=== PATIENT | female | born 1980 | race Caucasian/White ===

== ENCOUNTER 2023-10-17 10:24 | Inpatient (IN) ==
--- NOTE | 2023-10-17 10:49 | Emergency Department Note ---
Impression & Plan Suicidal ideation ED Provider Note NAME: BRADLEY ARELLANO AGE: 43 SEX: F : 1980 ARRIVES VIA: Walk-In INFORMANT: [Patient][friend] ED PROVIDER(S): [Josse Turpin MD] CHIEF COMPLAINT: Mental health evaluation HISTORY OF PRESENT ILLNESS: The patient is a 43-year-old female with a history of depression. She has had 2 previous medication overdose attempts. The patient was here 4 days ago for depression but was, at that time, not suicidal and not thought in need of inpatient care. Patient states that in the last 24 hours, she has become suicidal. She had plans to kill herself with a knife. She had a knife at her bedside. Her friend brought her for evaluation. 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 The stress has gotten the best of her. As per her friend, the patient has been stressed and depressed for 3 weeks but things have markedly worsened in the last 24 hours. PMHx/PSHx/Social Hx: See Below PHYSICAL EXAM: GENERAL: Patient is in mild distress, anxious, tearful. HEENT: No acute trauma, normocephalic atraumatic, mucous membranes moist, no nasal congestion. NECK: No stridor, no adenopathy, no meningismus, trachea is midline. LUNGS: Clear to auscultation bilaterally, no wheeze, no rhonchi, breath sounds equal. HEART: Without murmurs gallops or rubs, regular rate and rhythm. ABDOMEN: Soft, nontender, no peritonitis. EXTREMITIES: No cyanosis, full range of motion of all the joints without pain or difficulty. NEUROLOGIC: Oriented x 3, no acute motor or sensory deficits, no focal weakness. SKIN: No jaundice, no diaphoresis. Psychiatric: Flat affect, tearful, anxious, admits to suicidal ideation with a plan to harm herself with a knife. DIFFERENTIAL DIAGNOSIS: Psychosis, depression, anxiety, suicidality, thyroid disorder, electrolyte imbalance, among others. EMERGENCY DEPARTMENT PROCEDURES: MEDICAL DECISION MAKING: There is no leukocytosis or concerning anemia. Platelet count very slightly elevated. No significant electrolyte abnormality, no renal failure. No concerning liver enzyme elevation. Patient appeared to be in a euthyroid state. testing was negative. Urinalysis showed some contamination, no infection. Aspirin, Tylenol and alcohol levels were undetectable. COVID test was negative. Urine tox was negative. On exam, the patient admitted to some suicidal ideation with a plan to harm herself with a knife. She was tearful. She was voluntary. The patient was felt medically clear. She was seen by psychiatry case management. She was eventually seen by our psychiatry services, [facility]. The patient has been accepted voluntarily to [facility]. The appropriate paperwork was completed and signed. Prior/Outside records/notes reviewed: ED visit note from 10/13/2023 discussing her presentation and depression. Imaging/x-ray results per my interpretation: Chronic Medical/Social conditions affecting care: Depression. Care/Management discussed with: Psychiatry case management. Level of care consideration(s): After review of the information above and other included data: --I believe the patient requires escalation of care to admission DISPOSITION: Admission voluntarily to the psychiatric floor. Past Med/Surg History Medical History Bilateral ovarian cysts Low bone mass Carpal tunnel syndrome on left 2016 Congenital valgus deformity of knee Vitamin D deficiency Obese Depression Surgical History History of dilatation and curettage after delivery S/P LASIK surgery of both eyes Social History Smoking Status: Never smoker Preferred Language: [place] Islander Communication Ability: Effective Teleservices Representative Required: No Beliefs That Will Affect Care: Cultural Feels Safe at Home: Yes Gender Identity: Female Assistive Devices: None Allergies Allergies Allergy/AdvReac Type Severity Reaction Status Date / Time No Known Allergies Allergy Verified 06/16/22 10:22 Home Meds Home Medications Medication Instructions Recorded Confirmed ergocalciferol (vitamin D2) 1,250 1,250 mcg PO .COMPLEX 06/16/22 06/16/22 mcg (50,000 unit) capsule (Vitamin D2) meloxicam 15 mg tablet 15 mg PO DAILY 06/16/22 10/17/23 sulfasalazine 500 mg tablet 1 g PO TID 06/16/22 10/17/23 gabapentin 300 mg PO BID 10/17/23 10/17/23 Results & Data (ED) Vital Signs Vital Signs - 24 hr 10/17/23 10:27 10/17/23 12:30 10/17/23 14:00 Temperature 36.5 C Temperature Source Temporal Artery Scan Pulse Rate 91 H Pulse Rate [Right Finger] 90 97 H Respiratory Rate 20 18 18 Respiratory Effort / Characteristics Non-Labored Spontaneous Respiratory Depth Normal Blood Pressure 126/86 Blood Pressure [Right Arm] 131/89 145/105 H Blood Pressure Mean 99 Blood Pressure Mean [Right Arm] 103 118 Pulse Oximetry 98 93 96 Oxygen Delivery Method Room Air Room Air Sepsis Recent Fever Within 48 Hours No Sepsis New/Unexplained Change in Mental Status No Sepsis Action Taken by Nursing No Action Required Home Medications Current Medication List: was personally reviewed by me Laboratory Data Attestation: I reviewed the patient's lab results. 10/17/23 10:51 10/17/23 10:51 Lab Results 10/17/23 10/17/23 Range/Units 10:42 10:51 WBC 8.29 (4.8-10.8) K/ul RBC 3.92 L (4.20-5.40) M/uL Hgb 12.5 (12.0-16.0) g/dl Hct 37.0 (37.0-47.0) % MCV 94.4 (80.0-100.0) fL MCH 31.9 (25.0-34.0) pg MCHC 33.8 (32.0-36.0) g/dL RDW Std Deviation 42.3 (36.4-46.3) fL RDW Coeff of Bill 12.2 (11.5-14.5) % Plt Count 406 H (130-400) K/uL MPV 9.8 (9.4-12.4) fL Immature Gran % (Auto) 0.4 % Neut % (Auto) 58.0 % Lymph % (Auto) 30.9 % [place] % (Auto) 10.4 % Eos % (Auto) 0.2 % Baso % (Auto) 0.1 % Neut # (Auto) 4.81 (1.40-6.50) K/uL Lymph # (Auto) 2.56 (1.20-3.40) K/uL [place] # (Auto) 0.86 H (0.11-0.59) K/uL Eos # (Auto) 0.02 (0.00-0.50) K/uL Baso # (Auto) 0.01 (0.00-0.20) K/uL Immature Gran # (Auto) 0.03 (0.01-0.20) K/uL Sodium 136 (136-145) mmol/L Potassium 3.5 (3.5-5.1) mmol/L Chloride 105 (98-107) mmol/L Carbon Dioxide 22 (21-32) mmol/L Anion Gap 9 (3-11) BUN 11 (6-23) mg/dl Creatinine 0.52 L (0.6-1.2) mg/dl Est Cr Clr Drug Dosing 135.5 ml/min Est GFR ( Amer) 133.7 ml/min Est GFR (Non-Af Amer) 115.4 ml/min BUN/Creatinine Ratio 21.2 H (10-20) Glucose 105 H (70-99(Fasting)) mg/dl Calcium 8.9 (8.6-10.3) mg/dl Total Bilirubin 1.0 (0.2-1.0) mg/dl AST 10 L (13-39) U/L ALT 5 L (7-52) U/L Alkaline Phosphatase 29 L (34-104) U/L Total Protein 6.8 (6.0-8.3) gm/dl Albumin 4.1 (3.4-5.0) gm/dl Globulin 2.7 (2.5-4.0) gm/dl Albumin/Globulin Ratio 1.5 (0.9-2) TSH 0.845 (0.300-4.500) uIu/ml HCG, Qual Negative (Negative) Urine Color Dark Yellow Urine Appearance Cloudy A (Clear) Urine pH 8.5 H (4.5-7.5) Ur Specific [place] 1.016 (1.000-1.030) Urine Protein Negative (Negative) Urine Glucose (UA) Negative (Negative) Urine Ketones 1+ H (Negative) Urine Blood Negative (Negative) Urine Nitrite Negative (Negative) Urine Bilirubin Negative (Negative) Urine Urobilinogen Negative (Negative) Ur Leukocyte Esterase 1+ H (Negative) Urine WBC (Auto) 5-10 H (0-5) /hpf Urine RBC (Auto) 0-4 (0-4) /hpf U Hyaline Cast (Auto) 1-5 (0-5) /lpf U Epithel Cells (Auto) >30 H (0-5) /lpf Urine Bacteria (Auto) Negative (Negative) Salicylates < 3.0 L (3.0-30) mg/dl Urine Opiates Screen Neg (Neg) Ur Methadone, Qual Neg (Neg) Acetaminophen < 3 L (10-30) ug/ml Urine Barbiturates Neg (Neg) Ur Phencyclidine (PCP) Neg (Neg) U Amphetamin/Meth Scrn Neg (Neg) MDMA (Ecstasy) Screen Neg (Neg) U Benzodiazepines Scrn Neg (Neg) Ur Cocaine Metabolite Neg (Neg) U Marijuana (THC) Screen Neg (Neg) Ethyl Alcohol mg/dL < 10.0 (<10.0) mg/dl SARS-CoV-2, RNA, NAAT NEGATIVE (NEGATIVE) Administered Medications Gabapentin (Gabapentin 300 Mg Cap) 300 mg PO BID [facility] Stop: 11/16/23 15:49 Last Admin: 10/17/23 16:26 Dose: 300 mg Documented By: BNT Meloxicam (Meloxicam 7.5 Mg Tab) 7.5 mg PO QAM ARTHUR Stop: 11/16/23 15:59 Last Admin: 10/17/23 16:26 Dose: 7.5 mg Documented By: BNT Sulfasalazine (Sulfasalazine 500 Mg Tablet) 1,000 mg PO TID ARTHUR Stop: 11/16/23 15:49 Last Admin: 10/17/23 16:24 Dose: 1,000 mg Documented By: BNT Discharge Plan Visit Data Chief Complaint: Mental Health Evaluation Stated Complaint: SEVERE DEPRESSION ED Provider: Josse Turpin Discharge Problem: Suicidal ideation Patient Disposition: Admitted As Inpatient Condition: Good Discharge Instructions Interventions: ED Discharge Assessment Last Done: 10/17/23 14:23
[2023-10-17 11:22] LABS: Basophils # (auto) 0.01 K/uL (0.00-0.20); Basophils % (auto) 0.1 %; Eosinophils # (auto) 0.02 K/uL (0.00-0.50); Eosinophils % (auto) 0.2 %; Hemoglobin 12.5 g/dl (12.0-16.0); Immature Granulocytes # (auto) 0.03 K/uL (0.01-0.20); Immature Granulocytes % (auto) 0.4 %; Lymphocytes # (auto) 2.56 K/uL (1.20-3.40); Lymphocytes % (auto) 30.9 %; Mean Corpuscular Hemoglobin 31.9 pg (25.0-34.0); Mean Corpuscular Hgb Conc 33.8 g/dL (32.0-36.0); Mean Corpuscular Volume 94.4 fL (80.0-100.0); Mean Platelet Volume 9.8 fL (9.4-12.4); Monocytes # (auto) 0.86 K/uL (0.11-0.59); Monocytes % (auto) 10.4 %; Neutrophils # (auto) 4.81 K/uL (1.40-6.50); Platelet Count 406 K/uL (130-400); RDW Coefficient of Variation 12.2 % (11.5-14.5); RDW Standard Deviation 42.3 fL (36.4-46.3); Red Blood Count 3.92 M/uL (4.20-5.40); White Blood Count 8.29 K/ul (4.8-10.8)
[2023-10-17 11:34] LABS: Acetaminophen < 3 ug/ml (10-30); Albumin Globulin Ratio 1.5 (0.9-2); Albumin Level 4.1 gm/dl (3.4-5.0); BUN Creatinine Ratio 21.2 (10-20); Calcium 8.9 mg/dl (8.6-10.3); Creatinine Clr Calc Pharmacy 135.5 ml/min; Est GFR (African American) 133.7 ml/min; Est GFR (Non-African American) 115.4 ml/min; Globulin 2.7 gm/dl (2.5-4.0); Potassium 3.5 mmol/L (3.5-5.1); Salicylate < 3.0 mg/dl (3.0-30); Total Protein 6.8 gm/dl (6.0-8.3)
[2023-10-17 11:35] LABS: Amphetamines+Metham, Urine Neg (Neg); Barbiturates, Urine Neg (Neg); Benzodiazepine, Urine Neg (Neg); Cocaine, Urine Neg (Neg); MDMA (Ecstacy), Urine Neg (Neg); Marijuana, Urine Neg (Neg); Methadone, Urine Neg (Neg); Opiate, Urine Neg (Neg); Phencyclidine, Urine Neg (Neg)
[2023-10-17 11:48] LABS: Thyroid Stimulating Hormone 0.845 uIu/ml (0.300-4.500)
[2023-10-17 12:07] LABS: Appearance Urine Cloudy (Clear); Bacteria Urine Automated Negative (Negative); Bilirubin Urine Negative (Negative); Blood Urine Negative (Negative); Color Urine Dark Yellow; Epithelial Cell Urine Auto >30 /lpf (0-5); Glucose Urine UA Negative (Negative); Ketones Urine 1+ (Negative); Leukocyte Esterase Urine 1+ (Negative); Nitrite Urine Negative (Negative); Protein Urine Negative (Negative); RBC Urine Automated 0-4 /hpf (0-4); Specific Gravity Urine 1.016 (1.000-1.030); Urobilinogen Urine Negative (Negative); pH Urine 8.5 (4.5-7.5)
[2023-10-17 12:22] LABS: Pregnancy Test, Serum Negative (Negative)
[2023-10-17] MEDS ORDERED: ACETAMINOPHEN 325 MG TAB PO PRN (14:10)
[2023-10-17] MEDS ORDERED: BISMUTH SUBSALICYLATE LIQD 236 ML PO PRN (14:10)
[2023-10-17] MEDS ORDERED: SODIUM CHLORIDE 0.65% NA SOLN 45 ML (OCEAN) PRN (14:10)
[2023-10-17] MEDS ORDERED: ALUMINUM/MAGNESIUM SUSP 30 ML UDC PO PRN (14:10)
[2023-10-17] MEDS ORDERED: MAGNESIUM HYDROXIDE SUSP 30 ML UDC PO PRN (14:10)
[2023-10-17] MEDS ORDERED: PROPRANOLOL HCL 20 MG TAB PO PRN (15:26)
[2023-10-17] MEDS: sulfaSALAzine 500 MG TABLET PO SCH (16:24)
[2023-10-17] MEDS: MELOXICAM 7.5 MG TAB PO SCH (16:26)
[2023-10-17] MEDS: GABAPENTIN 300 MG CAP PO SCH (16:26)
[2023-10-17] MEDS: hydrOXYzine HCl 25 MG TAB PO PRN (21:14)
--- NOTE | 2023-10-18 13:11 | History & Physical ---
Date of Service October 18, 2023 Impression / Recommendations Impression 43 yo female with a hx of recurrent major depressive episodes refractory to multiple classes of medication, ketamine, and ECT. Overall, I spent a total of 58 minutes with this case, including review of chart, direct evaluation of the patient, counseling the patient, coordination with nursing, and documentation. (1) Major depression, recurrent: Plan The patient was admitted to [facility] on q15 min checks (behavioral with suicide precautions) for safety. The patient will participate in group, recreational, and milieu therapies and will be offered additional individual and family sessions as clinically appropriate. Risks/benefits/alternatives reviewed re: remaining therapeutic classes such as TCA vs. selegiline. Patient unable to consider TMS or ECT with maintenance without insurance. Inventory Assets Strengths: intelligent, did seek help Needs: improve coping and supports Suicide Risk Level Suicide Risk Level: High-Moderate (q15 min suicide checks) Risk Factors Assessment Do You Have Access To A Gun?: No Mental Health Diagnoses: Yes Substance Use Disorders: No Previous Attempt: Yes Previous Psychiatric Hospitalization: Yes Protective Factors Assessment Responsible for Young Children: Yes Employed: No Supportive Family: Yes (but in [place]) Psychiatric History Identifying Data BRADLEY ARELLANO is a 43-year-old F who currently lives in [place], has a history of treatment refractory depression, and was admitted on 10/17/23 14:31 on a 201 voluntary commitment for with plan. Chief Complaint "I wanted to end it with a knife yesterday". History of Present Illness Patient reports multiple episodes of depression, steadily worsening each episode since at least 2017 when tried ketamine infusions in [place] then ultimately agreeing to consecutive courses of ECT (10-18, 30+ total at 2 centers--[facility] and [facility]). She was hospitalized at [place] in 04/22 following an OD on Inderal, which was initially prescribed for lithium tremor. She notes hopelessness, particularly as tried "25" meds and "only time" gets her out of these episodes where she can't focus or function. She denies any periods of hermilo or hypomania and was treated with mood stabilizers and/or atypical antipsychotics mainly as adjunctive strategies. She typically can't sleep (though Vistaril last pm was helpful) and can't eat. She lacks motivation toward all activities and is overwhelmed by the concept of working. 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 She continues to see her therapist from [facility]. Otherwise she has a contentious relationship with her ex- . They coparent her 14 yo daughter. She is worried about finances. Past Psychiatric History Previous Psych History: as above Current Psychiatric Diagnosis: Depression Outpatient Services: last meds 18 months ago--Dr. Fry ([place]) Do You Have Access To A Gun?: No History of Previous Suicide Attempt: Yes (Apr 2022) Past Medication Trials: Records pending--recalls Remeron, duloxetine, sertraline, Wellbutrin, citalopram, Abilify, Cymbalta, Seroquel, lithium, Ketamine, lithium, gabapentin, lamictal Allergies Allergy/AdvReac Type Severity Reaction Status Date / Time No Known Allergies Allergy Verified 06/16/22 10:22 Home Medications Medication Instructions Recorded Confirmed Type ergocalciferol (vitamin D2) 1,250 1,250 mcg PO .COMPLEX 06/16/22 06/16/22 History mcg (50,000 unit) capsule (Vitamin D2) meloxicam 15 mg tablet 15 mg PO DAILY 06/16/22 10/17/23 History sulfasalazine 500 mg tablet 1 g PO TID 06/16/22 10/17/23 History gabapentin 300 mg PO BID 10/17/23 10/17/23 History Family History Family History of: Depression Family Mental Health History Comment: mother- undiagnosed Alcohol History Hx of Alcohol Use Over the Past 12 Months: No AUDIT Total Score: 0 Smoking Use Smoking Status: Never smoker Substance History Hx of Prescription Med Misuse Over the Past 12 Months: No Hx of Over the Counter Med Misuse Over the Past 12 Months: No Hx of Inhalent Misuse Over the Past 12 Months: No Hx of Organic Substance Use Over the Past 12 Months: No Hx of Illegal Substances/Street Drug Use Over Past 12 Months: No Personal History Living Arrangements: Home Born In: [facility] 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) Employment Status: Unemployed Marital Status: Number Of Children: 14 yo britt Beliefs That Will Affect Care: Cultural Current Legal Problems: No Patient History Medical History Bilateral ovarian cysts Low bone mass Carpal tunnel syndrome on left 2017 Congenital valgus deformity of knee Vitamin D deficiency Obese Depression Surgical History History of dilatation and curettage after delivery S/P LASIK surgery of both eyes Social History Smoking Status: Never smoker Preferred Language: Malay Communication Ability: Effective Clean Room Operator Required: No Beliefs That Will Affect Care: Cultural Feels Safe at Home: Yes Gender Identity: Female Assistive Devices: None Review of Systems Review of Systems: All systems reviewed & are unremarkable except as noted in HPI & below Physical Exam Psychiatric: Orientation: alert and oriented x 3 Apperance: appropriately dressed and appropriately groomed Eye Contact: good eye contact Motor Behavior: no abnormal motor movements Speech: normal rate/rhythm/volume of speech Affect: + depressed affect Mood: + depressed mood Thought Process: goal directed thought process Thought Content: reality based without delusions Suicidal Thoughts: + reports suicidal thoughts and + reports suicidal plan (cut self with knife, denies urge to cut on unit) Homicidal Thoughts: denies homicidal thoughts Hallucinations: no auditory hallucinations and no visual hallucinations Cognition: attention grossly intact and language grossly intact Estimated Intelligence: consistent with education level Insight: + limited insight Judgment: + limited judgement Vital Signs (Past 24 Hours): Last Vital Signs Temp 36.9 C 10/18/23 06:45 Pulse 86 10/18/23 06:46 Resp 16 10/18/23 06:45 BP 121/82 10/18/23 06:46 Pulse Ox 96 10/17/23 15:54 O2 Del Method Room Air 10/17/23 15:54 Exam Statement: A physical exam was performed in the ED by Dr. Turpin for the purposes of medical clearance. I accept that physical as correct and adequate for the purposes of the inpatient physical exam. Results & Data ([facility]) Laboratory Results Labs 10/17/23 10/17/23 10:42 10:51 WBC 8.29 RBC 3.92 L Hgb 12.5 Hct 37.0 MCV 94.4 MCH 31.9 MCHC 33.8 RDW Std Deviation 42.3 RDW Coeff of Bill 12.2 Plt Count 406 H MPV 9.8 Immature Gran % (Auto) 0.4 Neut % (Auto) 58.0 Lymph % (Auto) 30.9 [place] % (Auto) 10.4 Eos % (Auto) 0.2 Baso % (Auto) 0.1 Neut # (Auto) 4.81 Lymph # (Auto) 2.56 [place] # (Auto) 0.86 H Eos # (Auto) 0.02 Baso # (Auto) 0.01 Immature Gran # (Auto) 0.03 Sodium 136 Potassium 3.5 Chloride 105 Carbon Dioxide 22 Anion Gap 9 BUN 11 Creatinine 0.52 L Est Cr Clr Drug Dosing 135.5 Est GFR ( Amer) 133.7 Est GFR (Non-Af Amer) 115.4 BUN/Creatinine Ratio 21.2 H Glucose 105 H Calcium 8.9 Total Bilirubin 1.0 AST 10 L ALT 5 L Alkaline Phosphatase 29 L Total Protein 6.8 Albumin 4.1 Globulin 2.7 Albumin/Globulin Ratio 1.5 TSH 0.845 HCG, Qual Negative Urine Color Dark Yellow Urine Appearance Cloudy A Urine pH 8.5 H Ur Specific [place] 1.016 Urine Protein Negative Urine Glucose (UA) Negative Urine Ketones 1+ H Urine Blood Negative Urine Nitrite Negative Urine Bilirubin Negative Urine Urobilinogen Negative Ur Leukocyte Esterase 1+ H Urine WBC (Auto) 5-10 H Urine RBC (Auto) 0-4 U Hyaline Cast (Auto) 1-5 U Epithel Cells (Auto) >30 H Urine Bacteria (Auto) Negative Salicylates < 3.0 L Urine Opiates Screen Neg Ur Methadone, Qual Neg Acetaminophen < 3 L Urine Barbiturates Neg Ur Phencyclidine (PCP) Neg U Amphetamin/Meth Scrn Neg MDMA (Ecstasy) Screen Neg U Benzodiazepines Scrn Neg Ur Cocaine Metabolite Neg U Marijuana (THC) Screen Neg Ethyl Alcohol mg/dL < 10.0 SARS-CoV-2, RNA, NAAT NEGATIVE Current Inpatient Medications Current Inpatient Medications: Current Inpatient Medications Acetaminophen (Acetaminophen 325 Mg Tab) 650 mg PO Q4H PRN PRN Reason: Headache or Minor Fever Stop: 11/16/23 14:09 Al Hydrox/Mg Hydrox/Simethicone (Aluminum/Magnesium Susp 30 Ml Udc) 30 ml PO Q4H PRN PRN Reason: GI Upset Stop: 11/16/23 14:09 Bismuth Subsalicylate (Bismuth Subsalicylate Liqd 236 Ml) 15 ml PO PRN PRN PRN Reason: Loose Stool Stop: 11/16/23 14:09 Gabapentin (Gabapentin 300 Mg Cap) 300 mg PO BID ARTHUR Stop: 11/16/23 15:49 Last Admin: 10/18/23 09:12 Dose: 300 mg Hydroxyzine HCl (Hydroxyzine Hcl 25 Mg Tab) 50 mg PO HSZ PRN PRN Reason: Insomnia Stop: 11/16/23 14:09 Last Admin: 10/17/23 21:14 Dose: 50 mg Hydroxyzine HCl (Hydroxyzine Hcl 25 Mg Tab) 25 mg PO Q4H PRN PRN Reason: Anxiety Stop: 11/16/23 14:09 Magnesium Hydroxide (Magnesium Hydroxide Susp 30 Ml Udc) 30 ml PO DAILY PRN PRN Reason: Constipation Stop: 11/16/23 14:09 Meloxicam (Meloxicam 7.5 Mg Tab) 7.5 mg PO QAM ARTHUR Stop: 11/16/23 15:59 Last Admin: 10/18/23 09:12 Dose: 7.5 mg Sodium Chloride (Sodium Chloride 0.65% Na Soln 45 Ml ([place])) 1 - 2 sprays NA PRN PRN PRN Reason: Nasal Dryness/Congestion Stop: 11/16/23 14:09 Sulfasalazine (Sulfasalazine 500 Mg Tablet) 1,000 mg PO TID ARTHUR Stop: 11/16/23 15:49 Last Admin: 10/18/23 09:11 Dose: 1,000 mg
[2023-10-19] MEDS: hydrOXYzine HCl 25 MG TAB PO PRN (08:53)
--- NOTE | 2023-10-19 11:39 | Psychiatric Progress Note ---
Date of Service October 19, 2023 Impression / Recommendations Impression 43 yo female with a hx of recurrent major depressive episodes refractory to multiple classes of medication, ketamine, and ECT. 10/19/2023: remains extremely depressed with poor functioning, significant suicide risk outside of the hospital Overall, I spent a total of 37 minutes with this case, including review of chart, direct evaluation of the patient, counseling the patient, coordination with nursing, and documentation. (1) Major depression, recurrent: Plan 10/19/2023: risks/benefits/alternatives reviewed re: Selegeline vs. a retrial of stimulant (fast acting, generic), particularly given likelihood of f/u with [facility] on discharge feel selegeline not a realistic option. Patient confirmed no hx of cardiac abnormality/arrthymia. Agreed to Ritalin 10 mg trial dose with likely TID meals. 10/18/2023: The patient was admitted to the [facility] on q15 min checks (behavioral with suicide precautions) for safety. The patient will participate in group, recreational, and milieu therapies and will be offered additional individual and family sessions as clinically appropriate. Risks/benefits/alternatives reviewed re: remaining therapeutic classes such as TCA vs. selegiline. Patient unable to consider TMS or ECT with maintenance without insurance. Inventory Assets Strengths: intelligent, did seek help Needs: improve coping and supports Suicide Risk Level Suicide Risk Level: High-Moderate (q15 min suicide checks) Risk Factors Assessment Mental Health Diagnoses: Yes Substance Use Disorders: No Previous Attempt: Yes Previous Psychiatric Hospitalization: Yes Protective Factors Assessment Responsible for Young Children: Yes Employed: No Supportive Family: Yes (but in [place]) Interval History Identifying Information BRADLEY ARELLANO is a 43-year-old F who currently lives in [place], has a history of treatment refractory depression, and was admitted on 10/17/23 14:31 on a 201 voluntary commitment for SI with plan. Chief Complaint "when can I go home?" tearful Review of Systems Sleep Information Total Hours of Sleep: 7.75 Meal Information Percent Meal Consumed - Breakfast: 30 Percent Meal Consumed - Lunch: 80 Percent Meal Consumed - Dinner: [address] Fry returned call and listed onset of antidepressant trials as 2005 while a resident in [place], he treated her from [id number] and confirmed ECT courses in 2017 and 2021. in chronological order he is aware of: Lexapro, Effexor, Abilify, SEroquel, Lamictal, [place], Latuda, Geodon, Topmax, Ritalin (patient had thought Adderall XR), Trintellix, carbazepine, lorazepam, Cymbalta, pramipexole. Subjective Subjective Patient was seen & assessed and interval progress reviewed with treatment team. Attending some groups, otherwise in bed, easily tearful. Low motivation and energy. Physical Exam Psychiatric Orientation: alert and oriented x 3 Apperance: appropriately dressed and appropriately groomed Eye Contact: good eye contact Motor Behavior: no abnormal motor movements Speech: normal rate/rhythm/volume of speech Affect: + depressed affect Mood: + depressed mood Thought Process: goal directed thought process Thought Content: reality based without delusions Suicidal Thoughts: denies suicidal plan (on unit); + reports suicidal thoughts (intermittent, hopeless) Homicidal Thoughts: denies homicidal thoughts Hallucinations: no auditory hallucinations and no visual hallucinations Cognition: attention grossly intact and language grossly intact Estimated Intelligence: consistent with education level Insight: + limited insight Judgment: + limited judgement Vital Signs (Past 24 Hours) Last Vital Signs Temp 36.6 C 10/19/23 06:00 Pulse 105 H 10/19/23 06:54 Resp 16 10/19/23 06:00 BP 129/86 10/19/23 06:54 Pulse Ox 96 10/17/23 15:54 O2 Del Method Room Air 10/17/23 15:54 Results & Data ([facility]) Current Inpatient Medications Current Inpatient Medications: Current Inpatient Medications Acetaminophen (Acetaminophen 325 Mg Tab) 650 mg PO Q4H PRN PRN Reason: Headache or Minor Fever Stop: 11/16/23 14:09 Al Hydrox/Mg Hydrox/Simethicone (Aluminum/Magnesium Susp 30 Ml Udc) 30 ml PO Q4H PRN PRN Reason: GI Upset Stop: 11/16/23 14:09 Bismuth Subsalicylate (Bismuth Subsalicylate Liqd 236 Ml) 15 ml PO PRN PRN PRN Reason: Loose Stool Stop: 11/16/23 14:09 Gabapentin (Gabapentin 300 Mg Cap) 300 mg PO BID ARTHUR Stop: 11/16/23 15:49 Last Admin: 10/19/23 08:50 Dose: 300 mg Hydroxyzine HCl (Hydroxyzine Hcl 25 Mg Tab) 50 mg PO HSZ PRN PRN Reason: Insomnia Stop: 11/16/23 14:09 Last Admin: 10/18/23 21:41 Dose: 50 mg Hydroxyzine HCl (Hydroxyzine Hcl 25 Mg Tab) 25 mg PO Q4H PRN PRN Reason: Anxiety Stop: 11/16/23 14:09 Last Admin: 10/19/23 08:53 Dose: 25 mg Magnesium Hydroxide (Magnesium Hydroxide Susp 30 Ml Udc) 30 ml PO DAILY PRN PRN Reason: Constipation Stop: 11/16/23 14:09 Meloxicam (Meloxicam 7.5 Mg Tab) 7.5 mg PO QAM ARTHUR Stop: 11/16/23 15:59 Last Admin: 10/19/23 08:50 Dose: 7.5 mg Methylphenidate HCl (Methylphenidate Hcl 10 Mg Tablet) 10 mg PO ONE ONE Stop: 10/19/23 11:28 Sodium Chloride (Sodium Chloride 0.65% Na Soln 45 Ml ([place])) 1 - 2 sprays NA PRN PRN PRN Reason: Nasal Dryness/Congestion Stop: 11/16/23 14:09 Sulfasalazine (Sulfasalazine 500 Mg Tablet) 1,000 mg PO TID ARTHUR Stop: 11/16/23 15:49 Last Admin: 10/19/23 08:50 Dose: 1,000 mg Mental Health & Subst Abuse Tx Therapist Name of Therapist: Tele-health Post Discharge Appointments Primary Care Physician Name Of Family Doctor/PCP: Dr. Yusuf No
[2023-10-19] MEDS: METHYLPHENIDATE HCL 10 MG TABLET PO ONE (11:43)
[2023-10-20] MEDS: METHYLPHENIDATE HCL 10 MG TABLET PO SCH (08:44)
[2023-10-20] MEDS: DEXTROAMPHETAMINE/AMPHETAMIME IR 5 MG TAB PO ONE (13:04)
--- NOTE | 2023-10-20 14:52 | Psychiatric Progress Note ---
Date of Service October 20, 2023 Impression / Recommendations Impression 43 yo female with a hx of recurrent major depressive episodes refractory to multiple classes of medication, ketamine, and ECT. 10/20/2023: remains extremely depressed with poor functioning, significant suicide risk outside of the hospital with multiple barriers to aftercare and safety planning. Overall, I spent a total of 35 minutes with this case, including review of chart, direct evaluation of the patient, counseling the patient, coordination with nursing, and documentation. (1) Major depression, recurrent: Plan 10/20/2023: d/c Ritalin in favor of trial of Adderall 10 mg today then 15 mg 7 am with plan for a 2 pm dose if tolerated to complete the trial. Patient requesting Vistaril scheduled as helpful. TCA trial could be considered but concerns about toxicity in OD. 10/19/2023: risks/benefits/alternatives reviewed re: Selegeline vs. a retrial of stimulant (fast acting, generic), particularly given likelihood of f/u with [facility] on discharge feel selegeline not a realistic option. Patient confirmed no hx of cardiac abnormality/arrthymia. Agreed to Ritalin 10 mg trial dose with likely TID meals. 10/18/2023: The patient was admitted to the [facility] ([facility] inpatient mental health unit) on q15 min checks (behavioral with suicide precautions) for safety. The patient will participate in group, recreational, and milieu therapies and will be offered additional individual and family sessions as clinically appropriate. Risks/benefits/alternatives reviewed re: remaining therapeutic classes such as TCA vs. selegiline. Patient unable to consider TMS or ECT with maintenance without insurance. Inventory Assets Strengths: intelligent, did seek help Needs: improve coping and supports Suicide Risk Level Suicide Risk Level: High-Moderate (q15 min suicide checks) Risk Factors Assessment Mental Health Diagnoses: Yes Substance Use Disorders: No Previous Attempt: Yes Previous Psychiatric Hospitalization: Yes Protective Factors Assessment Responsible for Young Children: Yes Employed: No Supportive Family: Yes (but in [place]) Interval History Identifying Information BRADLEY ARELLANO is a 43-year-old F who currently lives in [place], has a history of treatment refractory depression, and was admitted on 10/17/23 14:31 on a 201 voluntary commitment for SI with plan. Chief Complaint "I felt no different." Review of Systems Sleep Information Total Hours of Sleep: 8.5 Meal Information Percent Meal Consumed - Breakfast: 30 Percent Meal Consumed - Lunch: 70 Percent Meal Consumed - Dinner: [address] Fry returned call and listed onset of antidepressant trials as 2005 while a resident in [place], he treated her from [id number] and confirmed ECT courses in 2017 and 2021. in chronological order he is aware of: Lexapro, Effexor, Abilify, SEroquel, Lamictal, [place], Latuda, Geodon, Topmax, Ritalin (patient had thought Adderall XR), Trintellix, carbazepine, lorazepam, Cymbalta, pramipexole. Subjective Subjective Patient was seen & assessed and interval progress reviewed with nursing and social work. Patient spends much of time in bed. She is easily tearful. Attended community meeting and meals but otherwise little interaction. Ongoing barriers to safety plan and after care include lack of insurance, reported lack of anyone to stay with her following discharge for a few days for extra support and supervision, etc. Daughter remains with exhusband. Reports no side effects or perceived response to 10 mg Ritalin last pm or 20 mg this am and patient in bed with low energy at peak of dose. Medication Trials Dr. Fry returned call and listed onset of antidepressant trials as 2005 while a resident in [place], he treated her from [id number] and confirmed ECT courses in 2017 and 2021. in chronological order he is aware of: Lexapro, Effexor, Abilify, SEroquel, Lamictal, [place], Latuda, Geodon, Topmax, Ritalin (patient had thought Adderall XR), Trintellix, carbazepine, ketamine, lorazepam, Cymbalta, pramipexole. Patient previously reported trials of Remeron, sertraline, Wellbutrin, citalopram. 10/20/23 reports trial of fluoxetine. Physical Exam Psychiatric Orientation: alert and oriented x 3 Apperance: appropriately dressed and appropriately groomed Eye Contact: good eye contact Motor Behavior: no abnormal motor movements Speech: normal rate/rhythm/volume of speech Affect: + depressed affect Mood: + depressed mood Thought Process: goal directed thought process Thought Content: reality based without delusions Suicidal Thoughts: denies suicidal plan (on unit); + reports suicidal thoughts (intermittent, hopeless) Homicidal Thoughts: denies homicidal thoughts Hallucinations: no auditory hallucinations and no visual hallucinations Cognition: attention grossly intact and language grossly intact Estimated Intelligence: consistent with education level Insight: + limited insight Judgment: + limited judgement Vital Signs (Past 24 Hours) Last Vital Signs Temp 35.9 C L 10/20/23 06:00 Pulse 102 H 10/20/23 06:36 Resp 16 10/20/23 06:00 BP 131/84 10/20/23 06:36 Pulse Ox 96 10/17/23 15:54 O2 Del Method Room Air 10/17/23 15:54 Results & Data ([facility]) Current Inpatient Medications Current Inpatient Medications: Current Inpatient Medications Acetaminophen (Acetaminophen 325 Mg Tab) 650 mg PO Q4H PRN PRN Reason: Headache or Minor Fever Stop: 11/16/23 14:09 Al Hydrox/Mg Hydrox/Simethicone (Aluminum/Magnesium Susp 30 Ml Udc) 30 ml PO Q4H PRN PRN Reason: GI Upset Stop: 11/16/23 14:09 Bismuth Subsalicylate (Bismuth Subsalicylate Liqd 236 Ml) 15 ml PO PRN PRN PRN Reason: Loose Stool Stop: 11/16/23 14:09 Gabapentin (Gabapentin 300 Mg Cap) 300 mg PO BID ARTHUR Stop: 11/16/23 15:49 Last Admin: 10/20/23 08:44 Dose: 300 mg Hydroxyzine HCl (Hydroxyzine Hcl 25 Mg Tab) 50 mg PO HSZ PRN PRN Reason: Insomnia Stop: 11/16/23 14:09 Last Admin: 10/19/23 20:24 Dose: 50 mg Hydroxyzine HCl (Hydroxyzine Hcl 25 Mg Tab) 25 mg PO Q4H PRN PRN Reason: Anxiety Stop: 11/16/23 14:09 Last Admin: 10/19/23 08:53 Dose: 25 mg Magnesium Hydroxide (Magnesium Hydroxide Susp 30 Ml Udc) 30 ml PO DAILY PRN PRN Reason: Constipation Stop: 11/16/23 14:09 Meloxicam (Meloxicam 7.5 Mg Tab) 7.5 mg PO QAM ARTHUR Stop: 11/16/23 15:59 Last Admin: 10/20/23 08:44 Dose: 7.5 mg Sodium Chloride (Sodium Chloride 0.65% Na Soln 45 Ml (Melissa)) 1 - 2 sprays NA PRN PRN PRN Reason: Nasal Dryness/Congestion Stop: 11/16/23 14:09 Sulfasalazine (Sulfasalazine 500 Mg Tablet) 1,000 mg PO TID ARTHUR Stop: 11/16/23 15:49 Last Admin: 10/20/23 14:13 Dose: 1,000 mg Mental Health & Subst Abuse Tx Therapist Name of Therapist: Tele-health Post Discharge Appointments Primary Care Physician Name Of Family Doctor/PCP: [facility] - Dr. Ferris Primary Care Date of Future Appointment with PCP: 10/26/23 Time of Appointment with PCP: 9:25 arrival Provider Appointment Comment: Garrett Diaz, [address], [place] [address]
[2023-10-20] MEDS: hydrOXYzine HCl 25 MG TAB PO SCH (21:02)
[2023-10-21] MEDS: DEXTROAMPHETAMINE/AMPHETAMIME IR 5 MG TAB PO SCH (06:52)
--- NOTE | 2023-10-21 14:21 | Psychiatric Progress Note ---
Date of Service October 21, 2023 Impression / Recommendations Impression 43 yo female with a hx of recurrent major depressive episodes refractory to multiple classes of medication, ketamine, and ECT. 10/21/2023: unchanged--remains extremely depressed with poor functioning, significant suicide risk outside of the hospital with multiple barriers to aftercare and safety planning. Overall, I spent a total of 35 minutes with this case, including review of chart, direct evaluation of the patient, counseling the patient, coordination with nursing, and documentation. (1) Major depression, recurrent: Plan 10/21/2023: complete Adderall trial. now has insurance but will not cover a provider able to manage selegiline. Will as Dr. Marie for a 2nd opinion re: TCA trial with short supplies/care med safety plan. 10/20/2023: d/c Ritalin in favor of trial of Adderall 10 mg today then 15 mg 7 am with plan for a 2 pm dose if tolerated to complete the trial. Patient requesting Vistaril scheduled as helpful. TCA trial could be considered but concerns about toxicity in OD. 10/19/2023: risks/benefits/alternatives reviewed re: Selegeline vs. a retrial of stimulant (fast acting, generic), particularly given likelihood of f/u with [facility] on discharge feel selegeline not a realistic option. Patient confirmed no hx of cardiac abnormality/arrthymia. Agreed to Ritalin 10 mg trial dose with likely TID meals. 10/18/2023: The patient was admitted to the [facility] ([facility] mental health unit) on q15 min checks (behavioral with suicide precautions) for safety. The patient will participate in group, recreational, and milieu therapies and will be offered additional individual and family sessions as clinically appropriate. Risks/benefits/alternatives reviewed re: remaining therapeutic classes such as TCA vs. selegiline. Patient unable to consider TMS or ECT with maintenance without insurance. Inventory Assets Strengths: intelligent, did seek help Needs: improve coping and supports Suicide Risk Level Suicide Risk Level: High-Moderate (q15 min suicide checks) Risk Factors Assessment Mental Health Diagnoses: Yes Substance Use Disorders: No Previous Attempt: Yes Previous Psychiatric Hospitalization: Yes Protective Factors Assessment Responsible for Young Children: Yes Employed: No Supportive Family: Yes (but in [place]) Interval History Identifying Information BRADLEY ARELLANO is a 43-year-old F who currently lives in [place], has a history of treatment refractory depression, and was admitted on 10/17/23 14:31 on a 201 voluntary commitment for SI with plan. Chief Complaint "I'm not getting better." tearful Review of Systems Sleep Information Total Hours of Sleep: 6.5 Meal Information Percent Meal Consumed - Breakfast: 40 Percent Meal Consumed - Lunch: 70 Percent Meal Consumed - Dinner: [address] Fry returned call and listed onset of antidepressant trials as 2005 while a resident in [place], he treated her from [id number] and confirmed ECT courses in 2017 and 2021. in chronological order he is aware of: Lexapro, Effexor, Abilify, SEroquel, Lamictal, [place], Latuda, Geodon, Topmax, Ritalin (patient had thought Adderall XR), Trintellix, carbazepine, ketamine, lorazepam, Cymbalta, pramipexole. Patient previously reported trials of Remeron, sertraline, Wellbutrin, citalopram. 10/20/23 reports trial of fluoxetine. Subjective Subjective Patient was seen & assessed and interval progress reviewed with treatment team. patient continues to spend excessive time in room, is participating in meals. A friend who is an employee attempted to visit her. Misses daughter. denies active SI on unit but very hopeless, limited functioning. No perceived benefit from am Adderall, denies side effects. at time of visit with patient wrote for 2 pm dose with plan to reassess in am. Medication Trials Dr. Fry returned call and listed onset of antidepressant trials as 2005 while a resident in [place], he treated her from [id number] and confirmed ECT courses in 2017 and 2021. in chronological order he is aware of: Lexapro, Effexor, Abilify, SEroquel, Lamictal, [place], Latuda, Geodon, Topmax, Ritalin (patient had thought Adderall XR), Trintellix, carbazepine, ketamine, lorazepam, Cymbalta, pramipexole. Patient previously reported trials of Remeron, sertraline, Wellbutrin, citalopram. 10/20/23 reports trial of fluoxetine. Physical Exam Psychiatric Orientation: alert and oriented x 3 Apperance: appropriately dressed and appropriately groomed Eye Contact: good eye contact Motor Behavior: no abnormal motor movements Speech: normal rate/rhythm/volume of speech Affect: + depressed affect Mood: + depressed mood Thought Process: goal directed thought process Thought Content: reality based without delusions Suicidal Thoughts: denies suicidal plan (on unit); + reports suicidal thoughts (intermittent, hopeless) Homicidal Thoughts: denies homicidal thoughts Hallucinations: no auditory hallucinations and no visual hallucinations Cognition: attention grossly intact and language grossly intact Estimated Intelligence: consistent with education level Insight: + limited insight Judgment: + limited judgement Vital Signs (Past 24 Hours) Last Vital Signs Temp 36.8 C 10/21/23 06:32 Pulse 97 H 10/21/23 06:33 Resp 16 10/21/23 06:32 BP 127/82 10/21/23 06:33 Pulse Ox 96 10/17/23 15:54 O2 Del Method Room Air 10/17/23 15:54 Results & Data ([facility]) Current Inpatient Medications Current Inpatient Medications: Current Inpatient Medications Acetaminophen (Acetaminophen 325 Mg Tab) 650 mg PO Q4H PRN PRN Reason: Headache or Minor Fever Stop: 11/16/23 14:09 Al Hydrox/Mg Hydrox/Simethicone (Aluminum/Magnesium Susp 30 Ml Udc) 30 ml PO Q4H PRN PRN Reason: GI Upset Stop: 11/16/23 14:09 Amphetamine/Dextroamphetamine (Dextroamphetamine/Amphetamime Ir 5 Mg Tab) 15 mg PO [id number] [facility] Stop: 11/04/23 06:59 Last Admin: 10/21/23 14:11 Dose: 15 mg Bismuth Subsalicylate (Bismuth Subsalicylate Liqd 236 Ml) 15 ml PO PRN PRN PRN Reason: Loose Stool Stop: 11/16/23 14:09 Gabapentin (Gabapentin 300 Mg Cap) 300 mg PO BID ARTHUR Stop: 11/16/23 15:49 Last Admin: 10/21/23 10:00 Dose: 300 mg Hydroxyzine HCl (Hydroxyzine Hcl 25 Mg Tab) 50 mg PO HSZ PRN PRN Reason: Insomnia Stop: 11/16/23 14:09 Last Admin: 10/19/23 20:24 Dose: 50 mg Hydroxyzine HCl (Hydroxyzine Hcl 25 Mg Tab) 25 mg PO Q4H PRN PRN Reason: Anxiety Stop: 11/16/23 14:09 Last Admin: 10/19/23 08:53 Dose: 25 mg Hydroxyzine HCl (Hydroxyzine Hcl 25 Mg Tab) 50 mg PO HS ARTHUR Stop: 11/19/23 21:59 Last Admin: 10/20/23 21:02 Dose: 50 mg Magnesium Hydroxide (Magnesium Hydroxide Susp 30 Ml Udc) 30 ml PO DAILY PRN PRN Reason: Constipation Stop: 11/16/23 14:09 Meloxicam (Meloxicam 7.5 Mg Tab) 7.5 mg PO QAM ARTHUR Stop: 11/16/23 15:59 Last Admin: 10/21/23 10:01 Dose: 7.5 mg Sodium Chloride (Sodium Chloride 0.65% Na Soln 45 Ml ([place])) 1 - 2 sprays NA PRN PRN PRN Reason: Nasal Dryness/Congestion Stop: 11/16/23 14:09 Sulfasalazine (Sulfasalazine 500 Mg Tablet) 1,000 mg PO TID ARTHUR Stop: 11/16/23 15:49 Last Admin: 10/21/23 14:10 Dose: 1,000 mg Mental Health & Subst Abuse Tx Therapist Name of Therapist: Tele-health Post Discharge Appointments Primary Care Physician Name Of Family Doctor/PCP: [facility] - Dr. Ferris Primary Care Date of Future Appointment with PCP: 10/26/23 Time of Appointment with PCP: 9:25 arrival Provider Appointment Comment: Garrett Diaz, [address], [place] [address]
--- NOTE | 2023-10-22 16:39 | Psychiatric Progress Note ---
Date of Service October 22, 2023 Impression / Recommendations Impression 43 yo female with a hx of recurrent major depressive episodes refractory to multiple classes of medication, ketamine, and ECT. 10/22/2023: unchanged--remains extremely depressed with poor functioning, significant suicide risk outside of the hospital with multiple barriers to aftercare and safety planning. Overall, I spent a total of 35 minutes with this case, including review of chart, direct evaluation of the patient, counseling the patient, coordination with nursing, and documentation. (1) Major depression, recurrent: Plan 10/22/2023: The patient and I discussed several options of what we can do to try to help her mood. This included nortriptyline, clozapine, loxapine, Emsam patch, and augmentation of an antidepressant with Cytomel. Unfortunately, she has very limited financial resources. Loxapine is not available on formulary here. We decided to start nortriptyline 50 mg at bedtime. I reviewed the uses, side effects, and time course with her and she gave informed consent. I worry about discharging her on a tricyclic and so when that happens, we may only give 1 week of medication out at a time. I encouraged the patient to continue to go to groups and activities to try to help improve her mood as well. 10/21/2023: complete Adderall trial. now has insurance but will not cover a provider able to manage selegiline. Will as Dr. Maire for a 2nd opinion re: TCA trial with short supplies/care med safety plan. 10/20/2023: d/c Ritalin in favor of trial of Adderall 10 mg today then 15 mg 7 am with plan for a 2 pm dose if tolerated to complete the trial. Patient requesting Vistaril scheduled as helpful. TCA trial could be considered but concerns about toxicity in OD. 10/19/2023: risks/benefits/alternatives reviewed re: Selegeline vs. a retrial of stimulant (fast acting, generic), particularly given likelihood of f/u with [facility] on discharge feel selegeline not a realistic option. Patient confirmed no hx of cardiac abnormality/arrthymia. Agreed to Ritalin 10 mg trial dose with likely TID meals. 10/18/2023: The patient was admitted to the [facility] ([facility] mental health unit) on q15 min checks (behavioral with suicide precautions) for safety. The patient will participate in group, recreational, and milieu therapies and will be offered additional individual and family sessions as clinically appropriate. Risks/benefits/alternatives reviewed re: remaining therapeutic classes such as TCA vs. selegiline. Patient unable to consider TMS or ECT with maintenance without insurance. Inventory Assets Strengths: intelligent, did seek help Needs: improve coping and supports Suicide Risk Level Suicide Risk Level: High-Moderate (q15 min suicide checks) Risk Factors Assessment Mental Health Diagnoses: Yes Substance Use Disorders: No Previous Attempt: Yes Previous Psychiatric Hospitalization: Yes Protective Factors Assessment Responsible for Young Children: Yes Employed: No Supportive Family: Yes (but in [place]) Interval History Identifying Information BRADLEY ARELLANO is a 43-year-old F who currently lives in [place], has a history of treatment refractory depression, and was admitted on 10/17/23 14:31 on a 201 voluntary commitment for with plan. Chief Complaint "I had another episode of depression." Review of Systems Sleep Information Total Hours of Sleep: 10.25 Meal Information Percent Meal Consumed - Breakfast: 40 Percent Meal Consumed - Lunch: 40 Percent Meal Consumed - Dinner: [address] Fry returned call and listed onset of antidepressant trials as 2005 while a resident in [place], he treated her from [id number] and confirmed ECT courses in and 2021. in chronological order he is aware of: Lexapro, Effexor, Abilify, SEroquel, Lamictal, [place], Latuda, Geodon, Topmax, Ritalin (patient had thought Adderall XR), Trintellix, carbazepine, ketamine, lorazepam, Cymbalta, pramipexole. Patient previously reported trials of Remeron, sertraline, Wellbutrin, citalopram. 10/20/23 reports trial of fluoxetine. Subjective Subjective Today I met with the patient, received nursing report, and reviewed the chart. I also reviewed the checkout notes from Dr. Parada from yesterday. Bradley is in our hospital due to severe depression with suicidal ideation. Staff report that she still been very depressed and tearful at times. She is trying hard to participating groups and activities. When I met with the patient today, I spent quite a bit of time talking with her about the medication she has been on in the past. She said that she was having suicidal thoughts and had a plan to use a knife to end her life. However, she says that thinking of her 14-year-old daughter kept her from hurting herself. She has been feeling this badly now for about 3 weeks. From asking her lots of questions, I gather that she has been on the following meds: Prozac, Zoloft, Paxil, Lexapro, Celexa, Remeron, Wellbutrin, Effexor, Cymbalta, Trintellix, imipramine, doxepin, lithium, buspirone, Depakote, Tegretol, lamotrigine, gabapentin, Seroquel, Abilify, Zyprexa, Geodon, Latuda, Ritalin, and Adderall. She was on the Ritalin and Adderall just for the last couple of days but does n ot feel that they helped at all. Medication Trials Dr. Fry returned call and listed onset of antidepressant trials as 2005 while a resident in [place], he treated her from [id number] and confirmed ECT courses in 2017 and 2021. in chronological order he is aware of: Lexapro, Effexor, Abilify, SEroquel, Lamictal, [place], Latuda, Geodon, Topmax, Ritalin (patient had thought Adderall XR), Trintellix, carbazepine, ketamine, lorazepam, Cymbalta, pramipexole. Patient previously reported trials of Remeron, sertraline, Wellbutrin, citalopram. 10/20/23 reports trial of fluoxetine. Physical Exam Psychiatric Patient was alert and cooperative. Eye contact was good. She was clean and well-groomed. Speech was normal. Mood was depressed. Affect was tearful. Thought process is slightly hopeful and that she is hoping that we will find something that will work. There was no evidence of any hallucinations or delusions. Patient still having thoughts of suicide but denies homicidal thoughts. Memory and concentration were okay. No abnormal movements were seen. Gait was normal. Insight and judgment are impaired. Vital Signs (Past 24 Hours) Last Vital Signs Temp 37 C 10/22/23 06:40 Pulse 116 H 10/22/23 06:40 Resp 16 10/22/23 06:40 BP 123/91 10/22/23 06:40 Pulse Ox 96 10/17/23 15:54 O2 Del Method Room Air 10/17/23 15:54 Results & Data ([facility]) Current Inpatient Medications Current Inpatient Medications: Current Inpatient Medications Acetaminophen (Acetaminophen 325 Mg Tab) 650 mg PO Q4H PRN PRN Reason: Headache or Minor Fever Stop: 11/16/23 14:09 Al Hydrox/Mg Hydrox/Simethicone (Aluminum/Magnesium Susp 30 Ml Udc) 30 ml PO Q4H PRN PRN Reason: GI Upset Stop: 11/16/23 14:09 Bismuth Subsalicylate (Bismuth Subsalicylate Liqd 236 Ml) 15 ml PO PRN PRN PRN Reason: Loose Stool Stop: 11/16/23 14:09 Gabapentin (Gabapentin 300 Mg Cap) 300 mg PO BID ARTHUR Stop: 11/16/23 15:49 Last Admin: 10/22/23 09:27 Dose: 300 mg Hydroxyzine HCl (Hydroxyzine Hcl 25 Mg Tab) 50 mg PO HSZ PRN PRN Reason: Insomnia Stop: 11/16/23 14:09 Last Admin: 10/19/23 20:24 Dose: 50 mg Hydroxyzine HCl (Hydroxyzine Hcl 25 Mg Tab) 25 mg PO Q4H PRN PRN Reason: Anxiety Stop: 11/16/23 14:09 Last Admin: 10/19/23 08:53 Dose: 25 mg Hydroxyzine HCl (Hydroxyzine Hcl 25 Mg Tab) 50 mg PO HS ARTHUR Stop: 11/19/23 21:59 Last Admin: 10/21/23 21:09 Dose: 50 mg Magnesium Hydroxide (Magnesium Hydroxide Susp 30 Ml Udc) 30 ml PO DAILY PRN PRN Reason: Constipation Stop: 11/16/23 14:09 Meloxicam (Meloxicam 7.5 Mg Tab) 7.5 mg PO QAM ARTHUR Stop: 11/16/23 15:59 Last Admin: 10/22/23 09:27 Dose: 7.5 mg Nortriptyline HCl (Nortriptyline Hcl 25 Mg Cap) 50 mg PO HS ARTHUR Stop: 11/21/23 21:59 Sodium Chloride (Sodium Chloride 0.65% Na Soln 45 Ml ([place])) 1 - 2 sprays NA PRN PRN PRN Reason: Nasal Dryness/Congestion Stop: 11/16/23 14:09 Sulfasalazine (Sulfasalazine 500 Mg Tablet) 1,000 mg PO TID ARTHUR Stop: 11/16/23 15:49 Last Admin: 10/22/23 14:15 Dose: 1,000 mg Mental Health & Subst Abuse Tx Therapist Name of Therapist: Tele-health Post Discharge Appointments Primary Care Physician Name Of Family Doctor/PCP: [facility] - Dr. Ferris Primary Care Date of Future Appointment with PCP: 10/26/23 Time of Appointment with PCP: 9:25 arrival Provider Appointment Comment: Garrett Diaz, [address], [place] [address]
[2023-10-22] MEDS ORDERED: LOXAPINE 10 MG PO SCH (21:00)
[2023-10-22] MEDS: NORTRIPTYLINE HCL 25 MG CAP PO SCH (21:43)
--- NOTE | 2023-10-23 10:45 | Psychiatric Progress Note ---
Date of Service October 23, 2023 Impression / Recommendations Impression 43 yo female with a hx of recurrent major depressive episodes refractory to multiple classes of medication, ketamine, and ECT. 10/23/2023: The patient seems to be tolerating the nortriptyline so far, but it will take quite a while to work. Otherwise she seems to be unchanged--remains extremely depressed with poor functioning, significant suicide risk outside of the hospital with multiple barriers to aftercare and safety planning. Overall, I spent a total of 37 minutes with this case, including review of chart, direct evaluation of the patient, counseling the patient, coordination with nursing, and documentation. (1) Major depression, recurrent: Plan 10/23/2023: We are going to continue with her current level of observation and precautions. We will continue with the nortriptyline at 50 mg for now. I encouraged her to try to go to a few extra groups if possible. I am still very concerned about her safety. Also concerned about sending her home with nortriptyline so we are going to need a good safety plan. Today I talked her about behavioral activation. 10/22/2023: The patient and I discussed several options of what we can do to try to help her mood. This included nortriptyline, clozapine, loxapine, Emsam patch, and augmentation of an antidepressant with Cytomel. Unfortunately, she has very limited financial resources. Loxapine is not available on formulary here. We decided to start nortriptyline 50 mg at bedtime. I reviewed the uses, side effects, and time course with her and she gave informed consent. I worry about discharging her on a tricyclic and so when that happens, we may only give 1 week of medication out at a time. I encouraged the patient to continue to go to groups and activities to try to help improve her mood as well. 10/21/2023: complete Adderall trial. now has insurance but will not cover a provider able to manage selegiline. Will as Dr. Marie for a 2nd opinion re: TCA trial with short supplies/care med safety plan. 10/20/2023: d/c Ritalin in favor of trial of Adderall 10 mg today then 15 mg 7 am with plan for a 2 pm dose if tolerated to complete the trial. Patient requesting Vistaril scheduled as helpful. TCA trial could be considered but concerns about toxicity in OD. 10/19/2023: risks/benefits/alternatives reviewed re: Selegeline vs. a retrial of stimulant (fast acting, generic), particularly given likelihood of f/u with [facility] on discharge feel selegeline not a realistic option. Patient confirmed no hx of cardiac abnormality/arrthymia. Agreed to Ritalin 10 mg trial dose with likely TID meals. 10/18/2023: The patient was admitted to the [facility] ([facility] mental health unit) on q15 min checks (behavioral with suicide precautions) for safety. The patient will participate in group, recreational, and milieu therapies and will be offered additional individual and family sessions as clinically appropriate. Risks/benefits/alternatives reviewed re: remaining therapeutic cl asses such as TCA vs. selegiline. Patient unable to consider TMS or ECT with maintenance without insurance. Inventory Assets Strengths: intelligent, did seek help Needs: improve coping and supports Suicide Risk Level Suicide Risk Level: High-Moderate (q15 min suicide checks) Risk Factors Assessment Mental Health Diagnoses: Yes Substance Use Disorders: No Previous Attempt: Yes Previous Psychiatric Hospitalization: Yes Protective Factors Assessment Responsible for Young Children: Yes Employed: No Supportive Family: Yes (but in [place]) Interval History Identifying Information BRADLEY ARELLANO is a 43-year-old F who currently lives in [place], has a history of treatment refractory depression, and was admitted on 10/17/23 14:31 on a 201 voluntary commitment for SI with plan. Chief Complaint "I had another episode of depression." Review of Systems Sleep Information Total Hours of Sleep: 8 Sleep Comments: pt given vistaril per rn. pt on q-15 minute checks Meal Information Percent Meal Consumed - Breakfast: 0 Percent Meal Consumed - Lunch: 40 Percent Meal Consumed - Dinner: [address] Fry returned call and listed onset of antidepressant trials as 2005 while a resident in [place], he treated her from [id number] and confirmed ECT courses in 2017 and 2021. in chronological order he is aware of: Lexapro, Effexor, Abilify, SEroquel, Lamictal, [place], Latuda, Geodon, Topmax, Ritalin (patient had thought Adderall XR), Trintellix, carbazepine, ketamine, lorazepam, Cymbalta, pramipexole. Patient previously reported trials of Remeron, sertraline, Wellbutrin, citalopram. 10/20/23 reports trial of fluoxetine. Subjective Subjective Today I met with the patient, received nursing report, and reviewed the chart. I also reviewed the checkout notes from Dr. Parada from yesterday. Bradley is in our hospital due to severe depression with suicidal ideation. Staff report that she started the nortriptyline last evening without any problems. She was able to get some sleep. Staff noticed that she is really avoiding a lot of the groups and tending to isolate in her room a lot. She is eating food. When I met with the patient today, we reviewed how the day went yesterday. She still feeling very sad. However, she had a good visit with some friends. She tolerated the nortriptyline and slept well. She did have a little bit of dry mouth. Appetite has been low. She describes her mood today as "low." She told me that she attended 2 groups yesterday. She thinks that last night she had 4 or 5 hours of sleep. She denies any medical issues. She denies any hallucinations. She says her suicidal thoughts have dropped down from an 8 or 9 at admission down to a 5 out of 10; these are all where 10 is the worst that they could ever be. She denies any homicidal thoughts. Medication Trials Dr. Fry returned call and listed onset of antidepressant trials as 2005 while a resident in [place], he treated her from [id number] and confirmed ECT courses in 2017 and 2021. in chronological order he is aware of: Lexapro, Effexor, Abilify, SEroquel, Lamictal, [place], Latuda, Geodon, Topmax, Ritalin (patient had thought Adderall XR), Trintellix, carbazepine, ketamine, lorazepam, Cymbalta, pramipexole. Patient previously reported trials of Remeron, sertraline, Wellbutrin, citalopram. 10/20/23 reports trial of fluoxetine. Physical Exam Psychiatric Patient was alert and cooperative. Eye contact was good. She was clean and well-groomed. Speech was normal. Mood was "low." Affect was very restricted but not tearful today. Thought process is logical and seems somewhat goal- directed. There was no evidence of any hallucinations or delusions. Patient still having thoughts of suicide as I listed above, but denies homicidal thoughts. Memory and concentration were okay. No abnormal movements were seen. Gait was normal. Insight and judgment are impaired. Vital Signs (Past 24 Hours) Last Vital Signs Temp 36.7 C 10/23/23 06:43 Pulse 101 H 10/23/23 06:44 Resp 16 10/23/23 06:43 BP 124/76 10/23/23 06:44 Pulse Ox 96 10/17/23 15:54 O2 Del Method Room Air 10/17/23 15:54 Results & Data ([facility]) Current Inpatient Medications Current Inpatient Medications: Current Inpatient Medications Acetaminophen (Acetaminophen 325 Mg Tab) 650 mg PO Q4H PRN PRN Reason: Headache or Minor Fever Stop: 11/16/23 14:09 Al Hydrox/Mg Hydrox/Simethicone (Aluminum/Magnesium Susp 30 Ml Udc) 30 ml PO Q4H PRN PRN Reason: GI Upset Stop: 11/16/23 14:09 Bismuth Subsalicylate (Bismuth Subsalicylate Liqd 236 Ml) 15 ml PO PRN PRN PRN Reason: Loose Stool Stop: 11/16/23 14:09 Gabapentin (Gabapentin 300 Mg Cap) 300 mg PO BID ARTHUR Stop: 11/16/23 15:49 Last Admin: 10/23/23 09:24 Dose: 300 mg Hydroxyzine HCl (Hydroxyzine Hcl 25 Mg Tab) 50 mg PO HSZ PRN PRN Reason: Insomnia Stop: 11/16/23 14:09 Last Admin: 10/19/23 20:24 Dose: 50 mg Hydroxyzine HCl (Hydroxyzine Hcl 25 Mg Tab) 25 mg PO Q4H PRN PRN Reason: Anxiety Stop: 11/16/23 14:09 Last Admin: 10/19/23 08:53 Dose: 25 mg Hydroxyzine HCl (Hydroxyzine Hcl 25 Mg Tab) 50 mg PO HS ARTHUR Stop: 11/19/23 21:59 Last Admin: 10/22/23 21:43 Dose: 50 mg Magnesium Hydroxide (Magnesium Hydroxide Susp 30 Ml Udc) 30 ml PO DAILY PRN PRN Reason: Constipation Stop: 11/16/23 14:09 Meloxicam (Meloxicam 7.5 Mg Tab) 7.5 mg PO QAM ARTHUR Stop: 11/16/23 15:59 Last Admin: 10/23/23 09:24 Dose: 7.5 mg Nortriptyline HCl (Nortriptyline Hcl 25 Mg Cap) 50 mg PO HS ARTHUR Stop: 11/21/23 21:59 Last Admin: 10/22/23 21:43 Dose: 50 mg Sodium Chloride (Sodium Chloride 0.65% Na Soln 45 Ml ([place])) 1 - 2 sprays NA PRN PRN PRN Reason: Nasal Dryness/Congestion Stop: 11/16/23 14:09 Sulfasalazine (Sulfasalazine 500 Mg Tablet) 1,000 mg PO TID ARTHUR Stop: 11/16/23 15:49 Last Admin: 10/23/23 09:23 Dose: 1,000 mg Mental Health & Subst Abuse Tx Therapist Name of Therapist: Tele-health Post Discharge Appointments Primary Care Physician Name Of Family Doctor/PCP: [facility] - Dr. Ferris Primary Care Date of Future Appointment with PCP: 10/26/23 Time of Appointment with PCP: 9:25 arrival Provider Appointment Comment: Garrett Diaz, [address], [place] [address] (1) Major depression, recurrent Active/Remission status: currently active Major depression episode severity: severe Psychotic features: without psychotic features Qualified Code(s): F33.2 - Major depressive disorder, recurrent severe without psychotic features
[2023-10-24] MEDS: cloNIDine HCL 0.1 MG TAB PO ONE (11:31)
--- NOTE | 2023-10-24 14:02 | Psychiatric Progress Note ---
Date of Service October 24, 2023 Impression / Recommendations Impression 43 yo female with a hx of recurrent major depressive episodes refractory to multiple classes of medication, ketamine, and ECT. 10/24/2023: Patient is tolerating the nortriptyline, but she is still extremely depressed and melancholy. She has been isolating more. She is still requiring inpatient psychiatric hospitalization for her safety. She remains extremely depressed with poor functioning, significant suicide risk outside of the hospital with multiple barriers to aftercare and safety planning. Overall, I spent a total of 38 minutes with this case, including review of chart, direct evaluation of the patient, coordination with nursing, multidisciplinary treatment team meeting, orders, and documentation. (1) Major depression, recurrent: Plan 10/24/2023: We will continue with her current level of observation and precautions. We will continue with the nortriptyline at 50 mg, but I will likely raise it when I can. I encouraged her to try to distract herself with groups, activities, books, TV, or what ever else she can think of. I wrote for a one-time dose of clonidine 0.1 mg this morning to help with her rumination and help her sleep a little bit. I also added a as needed dose of clonidine that she can take 1 hour after her nortriptyline if she still cannot sleep. 10/23/2023: We are going to continue with her current level of observation and precautions. We will continue with the nortriptyline at 50 mg for now. I encouraged her to try to go to a few extra groups if possible. I am still very concerned about her safety. Also concerned about sending her home with nortriptyline so we are going to need a good safety plan. Today I talked her about behavioral activation. 10/22/2023: The patient and I discussed several options of what we can do to try to help her mood. This included nortriptyline, clozapine, loxapine, Emsam patch, and augmentation of an antidepressant with Cytomel. Unfortunately, she has very limited financial resources. Loxapine is not available on formulary here. We decided to start nortriptyline 50 mg at bedtime. I reviewed the uses, side effects, and time course with her and she gave informed consent. I worry about discharging her on a tricyclic and so when that happens, we may only give 1 week of medication out at a time. I encouraged the patient to continue to go to groups and activities to try to help improve her mood as well. 10/21/2023: complete Adderall trial. now has insurance but will not cover a provider able to manage selegiline. Will as Dr. Marie for a 2nd opinion re: TCA trial with short supplies/care med safety plan. 10/20/2023: d/c Ritalin in favor of trial of Adderall 10 mg today then 15 mg 7 am with plan for a 2 pm dose if tolerated to complete the trial. Patient requesting Vistaril scheduled as helpful. TCA trial could be considered but concerns about toxicity in OD. 10/19/2023: risks/benefits/alternatives reviewed re: Selegeline vs. a retrial of stimulant (fast acting, generic), particularly given likelihood of f/u with [facility] on discharge feel selegeline not a realistic option. Patient confirmed no hx of cardiac abnormality/arrthymia. Agreed to Ritalin 10 mg trial dose with likely TID meals. 10/18/2023: The patient was admitted to the [facility] ([facility] mental health unit) on q15 min checks (behavioral with suicide precautions) for safety. The patient will participate in group, recreational, and milieu therapies and will be offered additional individual and family sessions as clinically appropriate. Risks/benefits/alternatives reviewed re: remaining therapeutic classes such as TCA vs. selegiline. Patient unable to consider TMS or ECT with maintenance without insurance. Inventory Assets Strengths: intelligent, did seek help Needs: improve coping and supports Suicide Risk Level Suicide Risk Level: High-Moderate (q15 min suicide checks) Risk Factors Assessment Mental Health Diagnoses: Yes Substance Use Disorders: No Previous Attempt: Yes Previous Psychiatric Hospitalization: Yes Protective Factors Assessment Responsible for Young Children: Yes Employed: No Supportive Family: Yes (but in [place]) Interval History Identifying Information BRADLEY ARELLANO is a 43-year-old F who currently lives in [place], has a history of treatment refractory depression, and was admitted on 10/17/23 14:31 on a 201 voluntary commitment for with plan. Chief Complaint "I had another episode of depression." Review of Systems Sleep Information Total Hours of Sleep: 7.25 Sleep Comments: pt given vistaril per rn. pt on q-15 minute checks Meal Information Percent Meal Consumed - Breakfast: 0 Percent Meal Consumed - Lunch: 40 Percent Meal Consumed - Dinner: [address] Fry returned call and listed onset of antidepressant trials as 2005 while a resident in [place], he treated her from [id number] and confirmed ECT courses in 2017 and 2021. in chronological order he is aware of: Lexapro, Effexor, Abilify, SEroquel, Lamictal, [place], Latuda, Geodon, Topmax, Ritalin (patient had thought Adderall XR), Trintellix, carbazepine, ketamine, lorazepam, Cymbalta, pramipexole. Patient previously reported trials of Remeron, sertraline, Wellbutrin, citalopram. 10/20/23 reports trial of fluoxetine. Subjective Subjective Today I met with the patient, received nursing report, and reviewed the chart. I also reviewed the checkout notes from Dr. Parada from yesterday. Bradley is in our hospital due to severe depression with suicidal ideation. Staff report that she did okay in the morning yesterday and attended to groups, but then she retreated to her bed after that. She ate 40% of lunch and 40% of dinner. When I met with her this morning, she was laying in bed and said she was tired. She says that she has been ruminating too much about . This is very distressing to her and she became very tearful with me. She said that she only slept about 4 hours last night but is tolerating the nortriptyline. She describes her mood is "so sad." She still having lots of thoughts about suicide and while she does not want to be here, she accepts that she needs help. Medication Trials Dr. Fry returned call and listed onset of antidepressant trials as 2005 while a resident in [place], he treated her from [id number] and confirmed ECT courses in 2018 and 2021. in chronological order he is aware of: Lexapro, Effexor, Abilify, SEroquel, Lamictal, [place], Latuda, Geodon, Topmax, Ritalin (patient had thought Adderall XR), Trintellix, carbazepine, ketamine, lorazepam, Cymbalta, pramipexole. Patient previously reported trials of Remeron, sertraline, Wellbutrin, citalopram. 10/20/23 reports trial of fluoxetine. Physical Exam Psychiatric Patient was alert and cooperative. Eye contact was good. She was well-groomed, but staff believe she has not been bathing. Speech was normal. Mood was "so sad." Affect was labile and tearful. Thought process is hopeless and perseverative. There was no evidence of any hallucinations or delusions. Patient is still having thoughts of suicide as I listed above, but denies homicidal thoughts. Memory and concentration were okay. No abnormal movements were seen. Gait was normal. Insight and judgment are impaired. Vital Signs (Past 24 Hours) Last Vital Signs Temp 36.9 C 10/24/23 06:42 Pulse 128 H 10/24/23 06:43 Resp 16 10/24/23 06:42 BP 116/81 10/24/23 06:43 Pulse Ox 96 10/17/23 15:54 O2 Del Method Room Air 10/17/23 15:54 Results & Data ([facility]) Current Inpatient Medications Current Inpatient Medications: Current Inpatient Medications Acetaminophen (Acetaminophen 325 Mg Tab) 650 mg PO Q4H PRN PRN Reason: Headache or Minor Fever Stop: 11/16/23 14:09 Al Hydrox/Mg Hydrox/Simethicone (Aluminum/Magnesium Susp 30 Ml Udc) 30 ml PO Q4H PRN PRN Reason: GI Upset Stop: 11/16/23 14:09 Bismuth Subsalicylate (Bismuth Subsalicylate Liqd 236 Ml) 15 ml PO PRN PRN PRN Reason: Loose Stool Stop: 11/16/23 14:09 Clonidine HCl (Clonidine Hcl 0.1 Mg Tab) 0.1 mg PO HS PRN PRN Reason: Insomnia Stop: 11/23/23 21:59 Gabapentin (Gabapentin 300 Mg Cap) 300 mg PO BID ARTHUR Stop: 11/16/23 15:49 Last Admin: 10/24/23 08:37 Dose: 300 mg Hydroxyzine HCl (Hydroxyzine Hcl 25 Mg Tab) 50 mg PO HSZ PRN PRN Reason: Insomnia Stop: 11/16/23 14:09 Last Admin: 10/19/23 20:24 Dose: 50 mg Hydroxyzine HCl (Hydroxyzine Hcl 25 Mg Tab) 25 mg PO Q4H PRN PRN Reason: Anxiety Stop: 11/16/23 14:09 Last Admin: 10/19/23 08:53 Dose: 25 mg Hydroxyzine HCl (Hydroxyzine Hcl 25 Mg Tab) 50 mg PO HS ARTHUR Stop: 11/19/23 21:59 Last Admin: 10/23/23 21:20 Dose: 50 mg Magnesium Hydroxide (Magnesium Hydroxide Susp 30 Ml Udc) 30 ml PO DAILY PRN PRN Reason: Constipation Stop: 11/16/23 14:09 Meloxicam (Meloxicam 7.5 Mg Tab) 7.5 mg PO QAM ARTHUR Stop: 11/16/23 15:59 Last Admin: 10/24/23 08:37 Dose: 7.5 mg Nortriptyline HCl (Nortriptyline Hcl 25 Mg Cap) 50 mg PO HS ARTHUR Stop: 11/21/23 21:59 Last Admin: 10/23/23 21:20 Dose: 50 mg Sodium Chloride (Sodium Chloride 0.65% Na Soln 45 Ml ([place])) 1 - 2 sprays NA PRN PRN PRN Reason: Nasal Dryness/Congestion Stop: 11/16/23 14:09 Sulfasalazine (Sulfasalazine 500 Mg Tablet) 1,000 mg PO TID ARTHUR Stop: 11/16/23 15:49 Last Admin: 10/24/23 08:37 Dose: 1,000 mg Mental Health & Subst Abuse Tx Therapist Name of Therapist: Tele-health Post Discharge Appointments Primary Care Physician Name Of Family Doctor/PCP: [facility] - Dr. Ferris Primary Care Date of Future Appointment with PCP: 11/09/2023 Time of Appointment with PCP: 9:25 arrival Provider Appointment Comment: Garrett Diaz, [address], [place] [address] (1) Major depression, recurrent Active/Remission status: currently active Major depression episode severity: severe Psychotic features: without psychotic features Qualified Code(s): F33.2 - Major depressive disorder, recurrent severe without psychotic features
[2023-10-25] MEDS: LORazepam 1 MG TAB PO STA (09:31)
--- NOTE | 2023-10-25 10:21 | Psychiatric Progress Note ---
Date of Service October 25, 2023 Impression / Recommendations Impression 43 yo female with a hx of recurrent major depressive episodes refractory to multiple classes of medication, ketamine, and ECT. 10/25/2023: Patient is still not doing well with her severe depression. She is fighting hard not to isolate but it is losing mccarthy right now. Today she was particularly anxious because of her hopelessness and rumination. Overall, I spent a total of 36 minutes with this case, including review of chart, direct evaluation of the patient, coordination with nursing, multidisciplinary team meeting, orders, and documentation. (1) Major depression, recurrent: Plan 10/25/2023: We are going to continue with her current level of observation and precautions. I gave her a one-time dose of lorazepam 1 mg p.o. to see if that might offer some support for her anxiety. We will continue with the nortriptyline and I will increase it to 100 mg to see if we can help her more quickly. We will leave the clonidine just at nighttime if needed for sleep. I also encouraged her to continue to use behavioral activation techniques. 10/24/2023: We will continue with her current level of observation and precautions. We will continue with the nortriptyline at 50 mg, but I will likely raise it when I can. I encouraged her to try to distract herself with groups, activities, books, TV, or what ever else she can think of. I wrote for a one-time dose of clonidine 0.1 mg this morning to help with her rumination and help her sleep a little bit. I also added a as needed dose of clonidine that she can take 1 hour after her nortriptyline if she still cannot sleep. 10/23/2023: We are going to continue with her current level of observation and precautions. We will continue with the nortriptyline at 50 mg for now. I encouraged her to try to go to a few extra groups if possible. I am still very concerned about her safety. Also concerned about sending her home with nortriptyline so we are going to need a good safety plan. Today I talked her about behavioral activation. 10/22/2023: The patient and I discussed several options of what we can do to try to help her mood. This included nortriptyline, clozapine, loxapine, Emsam patch, and augmentation of an antidepressant with Cytomel. Unfortunately, she has very limited financial resources. Loxapine is not available on formulary here. We decided to start nortriptyline 50 mg at bedtime. I reviewed the uses, side effects, and time course with her and she gave informed consent. I worry about discharging her on a tricyclic and so when that happens, we may only give 1 week of medication out at a time. I encouraged the patient to continue to go to groups and activities to try to help improve her mood as well. 10/21/2023: complete Adderall trial. now has insurance but will not cover a provider able to manage selegiline. Will as Dr. Marie for a 2nd opinion re: TCA trial with short supplies/care med safety plan. 10/20/2023: d/c Ritalin in favor of trial of Adderall 10 mg today then 15 mg 7 am with plan for a 2 pm dose if tolerated to complete the trial. Patient requesting Vistaril scheduled as helpful. TCA trial could be considered but concerns about toxicity in OD. 10/19/2023: risks/benefits/alternatives reviewed re: Selegeline vs. a retrial of stimulant (fast acting, generic), particularly given likelihood of f/u with [facility] on discharge feel selegeline not a realistic option. Patient confirmed no hx of cardiac abnormality/arrthymia. Agreed to Ritalin 10 mg trial dose with likely TID meals. 10/18/2023: The patient was admitted to the [facility] ([facility] mental health unit) on q15 min checks (behavioral with suicide precautions) for safety. The patient will participate in group, recreational, and milieu therapies and will be offered additional individual and family sessions as clinically appropriate. Risks/benefits/alternatives reviewed re: remaining therapeutic classes such as TCA vs. selegiline. Patient unable to consider TMS or ECT with maintenance without insurance. Inventory Assets Strengths: intelligent, did seek help Needs: improve coping and supports Suicide Risk Level Suicide Risk Level: High-Moderate (q15 min suicide checks) Risk Factors Assessment Mental Health Diagnoses: Yes Substance Use Disorders: No Previous Attempt: Yes Previous Psychiatric Hospitalization: Yes Protective Factors Assessment Responsible for Young Children: Yes Employed: No Supportive Family: Yes (but in [place]) Interval History Identifying Information BRADLEY ARELLANO is a 43-year-old F who currently lives in [place], has a history of treatment refractory depression, and was admitted on 10/17/23 14:31 on a 201 voluntary commitment for SI with plan. Chief Complaint "I had another episode of depression." Review of Systems Sleep Information Total Hours of Sleep: 7 Sleep Comments: pt given vistaril per rn. pt on q-15 minute checks Meal Information Percent Meal Consumed - Breakfast: 0 Percent Meal Consumed - Lunch: 40 Percent Meal Consumed - Dinner: [address] Fry returned call and listed onset of antidepressant trials as 2005 while a resident in [place], he treated her from [id number] and confirmed ECT courses in 2017 and 2021. in chronological order he is aware of: Lexapro, Effexor, Abilify, SEroquel, Lamictal, [place], Latuda, Geodon, Topmax, Ritalin (patient had thought Adderall XR), Trintellix, carbazepine, ketamine, lorazepam, Cymbalta, pramipexole. Patient previously reported trials of Remeron, sertraline, Wellbutrin, citalopram. 10/20/23 reports trial of fluoxetine. Subjective Subjective Today I met with the patient, received nursing report, and reviewed the chart. We also had a multidisciplinary team meeting to discuss her care. Bradley is in our hospital due to severe depression with suicidal ideation. Staff report that she received her third dose of nortriptyline last night and they felt that she slept 7 hours. She has been encouraged to take a shower but is still not bathed. She started her period. She has been taking calls from friends and family. She attended a self-awareness group and possibly part of another group. Staff otherwise see her quite isolated and not really interacting with peers. When I met with the patient today, she was knocking on my door and was desperate to get some help again. She felt extremely anxious. She did not eat breakfast again. She said that she went to 1 group yesterday and part of another. She is still having very strong suicidal thoughts but denies homicidal thoughts. She denies any medical issues. I ended up giving her a dose of lorazepam 1 mg to help calm down her anxiety. Medication Trials Dr. Fry returned call and listed onset of antidepressant trials as 2005 while a resident in [place], he treated her from [id number] and confirmed ECT courses in 2017 and 2021. in chronological order he is aware of: Lexapro, Effexor, Abilify, SEroquel, Lamictal, [place], Latuda, Geodon, Topmax, Ritalin (patient had thought Adderall XR), Trintellix, carbazepine, ketamine, lorazepam, Cymbalta, pramipexole. Patient previously reported trials of Remeron, sertraline, Wellbutrin, citalopram. 10/20/23 reports trial of fluoxetine. Physical Exam Psychiatric Patient was alert and cooperative. Eye contact was good. She was disheveled and malodorous. Speech was normal. Mood was "so sad." Affect was labile, tearful, and almost frantic. Thought process is hopeless and perseverative. There was no evidence of any hallucinations or delusions. Patient is still having thoughts of suicide as I listed above, but denies homicidal thoughts. Memory and concentration were okay. She exhibited some psychomotor agitation but no violence. Gait was normal. Insight and judgment are impaired. Vital Signs (Past 24 Hours) Last Vital Signs Temp 36.7 C 10/25/23 06:38 Pulse 103 H 10/25/23 06:51 Resp 16 10/25/23 06:38 BP 114/78 10/25/23 06:38 Pulse Ox 96 10/17/23 15:54 O2 Del Method Room Air 10/17/23 15:54 Results & Data ([facility]) Current Inpatient Medications Current Inpatient Medications: Current Inpatient Medications Acetaminophen (Acetaminophen 325 Mg Tab) 650 mg PO Q4H PRN PRN Reason: Headache or Minor Fever Stop: 11/16/23 14:09 Al Hydrox/Mg Hydrox/Simethicone (Aluminum/Magnesium Susp 30 Ml Udc) 30 ml PO Q4H PRN PRN Reason: GI Upset Stop: 11/16/23 14:09 Bismuth Subsalicylate (Bismuth Subsalicylate Liqd 236 Ml) 15 ml PO PRN PRN PRN Reason: Loose Stool Stop: 11/16/23 14:09 Clonidine HCl (Clonidine Hcl 0.1 Mg Tab) 0.1 mg PO HS PRN PRN Reason: Insomnia Stop: 11/23/23 21:59 Gabapentin (Gabapentin 300 Mg Cap) 300 mg PO BID ARTHUR Stop: 11/16/23 15:49 Last Admin: 10/25/23 08:21 Dose: 300 mg Hydroxyzine HCl (Hydroxyzine Hcl 25 Mg Tab) 50 mg PO HSZ PRN PRN Reason: Insomnia Stop: 11/16/23 14:09 Last Admin: 10/19/23 20:24 Dose: 50 mg Hydroxyzine HCl (Hydroxyzine Hcl 25 Mg Tab) 25 mg PO Q4H PRN PRN Reason: Anxiety Stop: 11/16/23 14:09 Last Admin: 10/25/23 08:21 Dose: 25 mg Hydroxyzine HCl (Hydroxyzine Hcl 25 Mg Tab) 50 mg PO HS ARTUHR Stop: 11/19/23 21:59 Last Admin: 10/24/23 20:58 Dose: 50 mg Magnesium Hydroxide (Magnesium Hydroxide Susp 30 Ml Udc) 30 ml PO DAILY PRN PRN Reason: Constipation Stop: 11/16/23 14:09 Meloxicam (Meloxicam 7.5 Mg Tab) 7.5 mg PO QAM ARTHUR Stop: 11/16/23 15:59 Last Admin: 10/25/23 08:21 Dose: 7.5 mg Nortriptyline HCl (Nortriptyline Hcl 25 Mg Cap) 50 mg PO HS ARTHUR Stop: 11/21/23 21:59 Last Admin: 10/24/23 20:57 Dose: 50 mg Sodium Chloride (Sodium Chloride 0.65% Na Soln 45 Ml ([place])) 1 - 2 sprays NA PRN PRN PRN Reason: Nasal Dryness/Congestion Stop: 11/16/23 14:09 Sulfasalazine (Sulfasalazine 500 Mg Tablet) 1,000 mg PO TID ARTHUR Stop: 11/16/23 15:49 Last Admin: 10/25/23 08:21 Dose: 1,000 mg Mental Health & Subst Abuse Tx Therapist Name of Therapist: Tele-health Post Discharge Appointments Primary Care Physician Name Of Family Doctor/PCP: [facility] - Dr. Ferris Primary Care Date of Future Appointment with PCP: 11/09/2023 Time of Appointment with PCP: 9:25 arrival Provider Appointment Comment: Garrett Diaz, [address], [place] [address] (1) Major depression, recurrent Active/Remission status: currently active Major depression episode severity: severe Psychotic features: without psychotic features Qualified Code(s): F33.2 - Major depressive disorder, recurrent severe without psychotic features
[2023-10-25] MEDS: cloNIDine HCL 0.1 MG TAB PO PRN (21:03)
[2023-10-25] MEDS: NORTRIPTYLINE HCL 25 MG CAP PO SCH (21:04)
[2023-10-26] MEDS: LORazepam 1 MG TAB PO PRN (09:55)
--- NOTE | 2023-10-26 16:25 | Psychiatric Progress Note ---
Date of Service October 26, 2023 Impression / Recommendations Impression 43 yo female with a hx of recurrent major depressive episodes refractory to multiple classes of medication, ketamine, and ECT. 10/26/2023: Patient was showing some signs of improvement with the lorazepam, but it is somewhat sedating for her. She was going to groups, maintaining her hygiene better, and trying not to isolate. Today she seems a little bit more subdued, but still improved from the last several days. Overall, I spent a total of 25 minutes with this case, including review of chart, direct evaluation of the patient, coordination with nursing, multidisciplinary treatment team meeting, orders, and documentation. (1) Major depression, recurrent: Plan 10/26/2023: We are going to continue with our current level of observation and precautions. I lowered the lorazepam to 0.1 mg p.o. every 4 hours as needed for severe anxiety. I encouraged her to try to use the hydroxyzine when she can because the lorazepam is a controlled substance. Will leave the nortriptyline at the current dosing. I encouraged her to keep trying to go to groups and activities and to distract herself. Hopefully, we are starting to turn a corner. 10/25/2023: We are going to continue with her current level of observation and precautions. I gave her a one-time dose of lorazepam 1 mg p.o. to see if that might offer some support for her anxiety. We will continue with the nortriptyline and I will increase it to 100 mg to see if we can help her more quickly. We will leave the clonidine just at nighttime if needed for sleep. I also encouraged her to continue to use behavioral activation techniques. 10/24/2023: We will continue with her current level of observation and precautions. We will continue with the nortriptyline at 50 mg, but I will likely raise it when I can. I encouraged her to try to distract herself with groups, activities, books, TV, or what ever else she can think of. I wrote for a one-time dose of clonidine 0.1 mg this morning to help with her rumination and help her sleep a little bit. I also added a as needed dose of clonidine that she can take 1 hour after her nortriptyline if she still cannot sleep. 10/23/2023: We are going to continue with her current level of observation and precautions. We will continue with the nortriptyline at 50 mg for now. I encouraged her to try to go to a few extra groups if possible. I am still very concerned about her safety. Also concerned about sending her home with nortriptyline so we are going to need a good safety plan. Today I talked her about behavioral activation. 10/22/2023: The patient and I discussed several options of what we can do to try to help her mood. This included nortriptyline, clozapine, loxapine, Emsam patch, and augmentation of an antidepressant with Cytomel. Unfortunately, she has very limited financial resources. Loxapine is not available on formulary here. We decided to start nortriptyline 50 mg at bedtime. I reviewed the uses, side effects, and time course with her and she gave informed consent. I worry about discharging her on a tricyclic and so when that happens, we may only give 1 week of medication out at a time. I encouraged the patient to continue to go to groups and activities to try to help improve her mood as well. 10/21/2023: complete Adderall trial. now has insurance but will not cover a provider able to manage selegiline. Will as Dr. Marie for a 2nd opinion re: TCA trial with short supplies/care med safety plan. 10/20/2023: d/c Ritalin in favor of trial of Adderall 10 mg today then 15 mg 7 am with plan for a 2 pm dose if tolerated to complete the trial. Patient requesting Vistaril scheduled as helpful. TCA trial could be considered but concerns about toxicity in OD. 10/19/2023: risks/benefits/alternatives reviewed re: Selegeline vs. a retrial of stimulant (fast acting, generic), particularly given likelihood of f/u with [facility] on discharge feel selegeline not a realistic option. Patient confirmed no hx of cardiac abnormality/arrthymia. Agreed to Ritalin 10 mg trial dose with likely TID meals. 10/18/2023: The patient was admitted to the [facility] ([facility] inpatient mental health unit) on q15 min checks (behavioral with suicide precautions) for safety. The patient will participate in group, recreational, and milieu therapies and will be offered additional individual and family sessions as clinically appropriate. Risks/benefits/alternatives reviewed re: remaining therapeutic classes such as TCA vs. selegiline. Patient unable to consider TMS or ECT with maintenance without insurance. Inventory Assets Strengths: intelligent, did seek help Needs: improve coping and supports Suicide Risk Level Suicide Risk Level: Moderate (q15 min suicide checks) Risk Factors Assessment Mental Health Diagnoses: Yes Substance Use Disorders: No Previous Attempt: Yes Previous Psychiatric Hospitalization: Yes Protective Factors Assessment Responsible for Young Children: Yes Employed: No Supportive Family: Yes (but in [place]) Interval History Identifying Information BRADLEY ARELLANO is a 43-year-old F who currently lives in [place], has a history of treatment refractory depression, and was admitted on 10/17/23 14:31 on a 201 voluntary commitment for SI with plan. Chief Complaint "I had another episode of depression." Review of Systems Sleep Information Total Hours of Sleep: 7.15 Sleep Comments: Pt given PRN Clonidine for sleep with scheduled Vistaril. Meal Information Percent Meal Consumed - Breakfast: 100 Percent Meal Consumed - Lunch: 80 Percent Meal Consumed - Dinner: [address] Fry returned call and listed onset of antidepressant trials as 2005 while a resident in [place], he treated her from [id number] and confirmed ECT courses in 2017 and 2021. in chronological order he is aware of: Lexapro, Effexor, Abilify, SEroquel, Lamictal, [place], Latuda, Geodon, Topmax, Ritalin (patient had thought Adderall XR), Trintellix, carbazepine, ketamine, lorazepam, Cymbalta, pramipexole. Patient previously reported trials of Remeron, sertraline, Wellbutrin, citalopram. 10/20/23 reports trial of fluoxetine. Subjective Subjective Today I met with the patient, received nursing report, and reviewed the chart. We also had a multidisciplinary team meeting to discuss her care. Bradley is in our hospital due to severe depression with suicidal ideation. Staff report that she did much better yesterday after receiving some Ativan 1 mg. He showered and did laundry. She brightened in her affect. She was attending more groups and activities. She seemed to tolerate the higher dose of nortriptyline at 100 mg last night, but she did describe some dry mouth. Her suicidal ideation was much less yesterday. She seemed to have hope. She also had 2 positive visits yesterday. When I met with the patient this morning, she was laying in bed and not feeling quite as good as yesterday, but she readily admits that the lorazepam helps. She is worried that the 1 mg was making her little bit sedated and so the 2 of us talked about lowering it but making it available more frequently. Today she seems to have a little more self-doubt about how she is doing, but she does have a little hope still. She was a little bit frustrated by the dry mouth from the nortriptyline but knew it was definitely a possibility, especially at the higher dose. She is still having suicidal thoughts but it is less. She is going to try to go to more groups and activities today. Medication Trials Dr. Fry returned call and listed onset of antidepressant trials as 2005 while a resident in [place], he treated her from [id number] and confirmed ECT courses in 2017 and 2021. in chronological order he is aware of: Lexapro, Effexor, Abilify, SEroquel, Lamictal, [place], Latuda, Geodon, Topmax, Ritalin (patient had thought Adderall XR), Trintellix, carbazepine, ketamine, lorazepam, Cymbalta, pramipexole. Patient previously reported trials of Remeron, sertraline, Wellbutrin, citalopram. 10/20/23 reports trial of fluoxetine. Physical Exam Psychiatric Patient was alert and cooperative. Eye contact was good. She was clean and better groomed. Speech was normal. Mood was "somewhat better." Affect was restricted. Thought process was logical and more goal-directed today. There was no evidence of any hallucinations or delusions. Patient is still having thoughts of suicide, mild, as I listed above. She denied homicidal thoughts. Memory and concentration were okay. There were no abnormal movements seen today. Gait was normal. Insight and judgment are impaired. Vital Signs (Past 24 Hours) Last Vital Signs Temp 36.6 C 10/26/23 06:34 Pulse 103 H 10/26/23 06:35 Resp 16 10/26/23 06:34 BP 102/70 10/26/23 06:35 Pulse Ox 96 10/17/23 15:54 O2 Del Method Room Air 10/17/23 15:54 Results & Data ([facility]) Current Inpatient Medications Current Inpatient Medications: Current Inpatient Medications Acetaminophen (Acetaminophen 325 Mg Tab) 650 mg PO Q4H PRN PRN Reason: Headache or Minor Fever Stop: 11/16/23 14:09 Al Hydrox/Mg Hydrox/Simethicone (Aluminum/Magnesium Susp 30 Ml Udc) 30 ml PO Q4H PRN PRN Reason: GI Upset Stop: 11/16/23 14:09 Bismuth Subsalicylate (Bismuth Subsalicylate Liqd 236 Ml) 15 ml PO PRN PRN PRN Reason: Loose Stool Stop: 11/16/23 14:09 Clonidine HCl (Clonidine Hcl 0.1 Mg Tab) 0.1 mg PO HS PRN PRN Reason: Insomnia Stop: 11/23/23 21:59 Last Admin: 10/25/23 21:03 Dose: 0.1 mg Gabapentin (Gabapentin 300 Mg Cap) 300 mg PO BID ARTHUR Stop: 11/16/23 15:49 Last Admin: 10/26/23 08:20 Dose: 300 mg Hydroxyzine HCl (Hydroxyzine Hcl 25 Mg Tab) 50 mg PO HSZ PRN PRN Reason: Insomnia Stop: 11/16/23 14:09 Last Admin: 10/19/23 20:24 Dose: 50 mg Hydroxyzine HCl (Hydroxyzine Hcl 25 Mg Tab) 25 mg PO Q4H PRN PRN Reason: Anxiety Stop: 11/16/23 14:09 Last Admin: 10/25/23 08:21 Dose: 25 mg Hydroxyzine HCl (Hydroxyzine Hcl 25 Mg Tab) 50 mg PO HS ARTHUR Stop: 11/19/23 21:59 Last Admin: 10/25/23 21:04 Dose: 50 mg Lorazepam (Lorazepam 0.5 Mg Tab) 0.5 mg PO Q4H PRN PRN Reason: severe anxiety Stop: 11/24/23 15:29 Magnesium Hydroxide (Magnesium Hydroxide Susp 30 Ml Udc) 30 ml PO DAILY PRN PRN Reason: Constipation Stop: 11/16/23 14:09 Meloxicam (Meloxicam 7.5 Mg Tab) 7.5 mg PO QAM ARTHUR Stop: 11/16/23 15:59 Last Admin: 10/26/23 08:20 Dose: 7.5 mg Nortriptyline HCl (Nortriptyline Hcl 25 Mg Cap) 100 mg PO HS ARTHUR Stop: 11/24/23 21:59 Last Admin: 10/25/23 21:04 Dose: 100 mg Sodium Chloride (Sodium Chloride 0.65% Na Soln 45 Ml ([place])) 1 - 2 sprays NA PRN PRN PRN Reason: Nasal Dryness/Congestion Stop: 11/16/23 14:09 Sulfasalazine (Sulfasalazine 500 Mg Tablet) 1,000 mg PO TID ARTHUR Stop: 11/16/23 15:49 Last Admin: 10/26/23 14:52 Dose: 1,000 mg Mental Health & Subst Abuse Tx Therapist Name of Therapist: Tele-health Post Discharge Appointments Primary Care Physician Name Of Family Doctor/PCP: [facility] - Dr. Ferris Primary Care Date of Future Appointment with PCP: 11/09/2023 Time of Appointment with PCP: 9:25 arrival Provider Appointment Comment: Garrett Diaz, [address], [place] [address] (1) Major depression, recurrent Active/Remission status: currently active Major depression episode severity: severe Psychotic features: without psychotic features Qualified Code(s): F33.2 - Major depressive disorder, recurrent severe without psychotic features
[2023-10-27] MEDS: LORazepam 0.5 MG TAB PO PRN (08:39)
--- NOTE | 2023-10-27 12:47 | Psychiatric Progress Note ---
Date of Service October 27, 2023 Impression / Recommendations Impression 43 yo female with a hx of recurrent major depressive episodes refractory to multiple classes of medication, ketamine, and ECT. 10/27/2023: Patient was showing some signs of improvement with the lorazepam 2 days ago, but when I raised the nortriptyline to 100 mg, she became much more sedated. We thought it might be from the lorazepam, but I suspect its from the nortriptyline. Because of her sedation, she has been isolating more. She does get up in the evening, right before she takes the nortriptyline when its at its lowest level in her system. Overall, I spent a total of 36 minutes with this case, including review of chart, direct evaluation of the patient, coordination with nursing, multidisciplinary team meeting, orders, and documentation. (1) Major depression, recurrent: Plan 10/27/2023: I am going to lower the nortriptyline down to 75 mg nightly and then raise the lorazepam 1 mg every 6 hours as needed for severe anxiety. Hopefully we will see less sedation and better coverage of her anxiety and she can function better like she did 2 days ago. In the near future, I might even back the nortriptyline down to 50 mg again since she did so well on Tuesday. I still think she is an acute danger to herself if she were to leave because of the risk of suicide. 10/26/2023: We are going to continue with our current level of observation and precautions. I lowered the lorazepam to 0.1 mg p.o. every 4 hours as needed for severe anxiety. I encouraged her to try to use the hydroxyzine when she can because the lorazepam is a controlled substance. Will leave the nortriptyline at the current dosing. I encouraged her to keep trying to go to groups and activities and to distract herself. Hopefully, we are starting to turn a corner. 10/25/2023: We are going to continue with her current level of observation and precautions. I gave her a one-time dose of lorazepam 1 mg p.o. to see if that might offer some support for her anxiety. We will continue with the nortriptyline and I will increase it to 100 mg to see if we can help her more quickly. We will leave the clonidine just at nighttime if needed for sleep. I also encouraged her to continue to use behavioral activation techniques. 10/24/2023: We will continue with her current level of observation and precautions. We will continue with the nortriptyline at 50 mg, but I will lik eliu raise it when I can. I encouraged her to try to distract herself with groups, activities, books, TV, or what ever else she can think of. I wrote for a one-time dose of clonidine 0.1 mg this morning to help with her rumination and help her sleep a little bit. I also added a as needed dose of clonidine that she can take 1 hour after her nortriptyline if she still cannot sleep. 10/23/2023: We are going to continue with her current level of observation and precautions. We will continue with the nortriptyline at 50 mg for now. I encouraged her to try to go to a few extra groups if possible. I am still very concerned about her safety. Also concerned about sending her home with nortriptyline so we are going to need a good safety plan. Today I talked her about behavioral activation. 10/22/2023: The patient and I discussed several options of what we can do to try to help her mood. This included nortriptyline, clozapine, loxapine, Emsam patch, and augmentation of an antidepressant with Cytomel. Unfortunately, she has very limited financial resources. Loxapine is not available on formulary here. We decided to start nortriptyline 50 mg at bedtime. I reviewed the uses, side effects, and time course with her and she gave informed consent. I worry about discharging her on a tricyclic and so when that happens, we may only give 1 week of medication out at a time. I encouraged the patient to continue to go to groups and activities to try to help improve her mood as well. 10/21/2023: complete Adderall trial. now has insurance but will not cover a provider able to manage selegiline. Will as Dr. Marie for a 2nd opinion re: TCA trial with short supplies/care med safety plan. 10/20/2023: d/c Ritalin in favor of trial of Adderall 10 mg today then 15 mg 7 am with plan for a 2 pm dose if tolerated to complete the trial. Patient requesting Vistaril scheduled as helpful. TCA trial could be considered but concerns about toxicity in OD. 10/19/2023: risks/benefits/alternatives reviewed re: Selegeline vs. a retrial of stimulant (fast acting, generic), particularly given likelihood of f/u with [facility] on discharge feel selegeline not a realistic option. Patient confirmed no hx of cardiac abnormality/arrthymia. Agreed to Ritalin 10 mg trial dose with likely TID meals. 10/18/2023: The patient was admitted to the [facility] ([facility]) on q15 min checks (behavioral with suicide precautions) for safety. The patient will participate in group, recreational, and milieu therapies and will be offered additional individual and family sessions as clinically appropriate. Risks/benefits/alternatives reviewed re: remaining therapeutic classes such as TCA vs. selegiline. Patient unable to consider TMS or ECT with maintenance without insurance. Inventory Assets Strengths: intelligent, did seek help Needs: improve coping and supports Suicide Risk Level Suicide Risk Level: High-Moderate (q15 min suicide checks) Risk Factors Assessment Mental Health Diagnoses: Yes Substance Use Disorders: No Previous Attempt: Yes Previous Psychiatric Hospitalization: Yes Protective Factors Assessment Responsible for Young Children: Yes Employed: No Supportive Family: Yes (but in [place]) Interval History Identifying Information BRADLEY ARELLANO is a 43-year-old F who currently lives in [place], has a history of treatment refractory depression, and was admitted on 10/17/23 14:31 on a 201 voluntary commitment for SI with plan. Chief Complaint "I had another episode of depression." Review of Systems Sleep Information Total Hours of Sleep: 6.5 Sleep Comments: Pt given PRN Clonidine for sleep with scheduled Vistaril. Meal Information Percent Meal Consumed - Breakfast: 100 Percent Meal Consumed - Lunch: 80 Percent Meal Consumed - Dinner: [address] Fry returned call and listed onset of antidepressant trials as 2005 [place] a resident in [place], he treated her from [id number] and confirmed ECT courses in 2017 and 2021. in chronological order he is aware of: Lexapro, Effexor, Abilify, SEroquel, Lamictal, [place], Latuda, Geodon, Topmax, Ritalin (patient had thought Adderall XR), Trintellix, carbazepine, ketamine, lorazepam, Cymbalta, pramipexole. Patient previously reported trials of Remeron, sertraline, Wellbutrin, citalopram. 10/20/23 reports trial of fluoxetine. Subjective Subjective Today I met with the patient, received nursing report, and reviewed the chart. We also had a multidisciplinary team meeting to discuss her care. Bradley is in our hospital due to severe depression with suicidal ideation. Staff report that she spent a lot of time in bed during the day, but did get up during the evening shift around 3 PM. She ate dinner. The social workers say that she has to start working sometime soon or she will lose something about her citizenship and the [place]. Staff say that she was on the phone with insurance yesterday. When I met with her today, she was in bed but awakened easily and is about to go have lunch. She says that she has noticed that her suicidal ideation is no longer "constant." She had a good call with her daughter yesterday. She says her mood is "really down still." She was able to read 20 pages of a book. We spent a little bit of time talking about some of her practice. She said that she was working a [employer] job down in [place] but then they found a permanent person to fill that position. She says that she is also feeling pretty sedated and I suspect that is from the nortriptyline because we lowered the lorazepam yesterday and that does not seem to have made much difference. Since I had switched her lorazepam to 0.5 mg, she had not taken any until this morning. Medication Trials Dr. Fry returned call and listed onset of antidepressant trials as 2005 while a resident in [place], he treated her from [id number] and confirmed ECT courses in 2017 and 2021. in chronological order he is aware of: Lexapro, Effexor, Abilify, SEroquel, Lamictal, [place], Latuda, Geodon, Topmax, Ritalin (patient had thought Adderall XR), Trintellix, carbazepine, ketamine, lorazepam, Cymbalta, pramipexole. Patient previously reported trials of Remeron, sertraline, Wellbutrin, citalopram. 10/20/23 reports trial of fluoxetine. Physical Exam Psychiatric Patient was alert and cooperative. Eye contact was good. She was clean and somewhat disheveled. Speech was normal. Mood was "really down still." Affect was restricted and became tearful when we talked about suicide. Thought process was logical and less goal-directed. She seems more hopeless today. There was no evidence of any hallucinations or delusions. Patient is still having thoughts of suicide, but says that it is more intermittent. She denies any homicidal thoughts. Memory and concentration were okay. There were no abnormal movements seen today. Gait was not observed. Insight and judgment are impaired. Vital Signs (Past 24 Hours) Last Vital Signs Temp 36.6 C 10/27/23 06:31 Pulse 105 H 10/27/23 06:32 Resp 16 10/27/23 06:31 BP 106/75 10/27/23 06:32 Pulse Ox 96 10/17/23 15:54 O2 Del Method Room Air 10/17/23 15:54 Results & Data ([facility]) Current Inpatient Medications Current Inpatient Medications: Current Inpatient Medications Acetaminophen (Acetaminophen 325 Mg Tab) 650 mg PO Q4H PRN PRN Reason: Headache or Minor Fever Stop: 11/16/23 14:09 Al Hydrox/Mg Hydrox/Simethicone (Aluminum/Magnesium Susp 30 Ml Udc) 30 ml PO Q4H PRN PRN Reason: GI Upset Stop: 11/16/23 14:09 Bismuth Subsalicylate (Bismuth Subsalicylate Liqd 236 Ml) 15 ml PO PRN PRN PRN Reason: Loose Stool Stop: 11/16/23 14:09 Clonidine HCl (Clonidine Hcl 0.1 Mg Tab) 0.1 mg PO HS PRN PRN Reason: Insomnia Stop: 11/23/23 21:59 Last Admin: 10/25/23 21:03 Dose: 0.1 mg Gabapentin (Gabapentin 300 Mg Cap) 300 mg PO BID ARTHUR Stop: 11/16/23 15:49 Last Admin: 10/27/23 08:34 Dose: 300 mg Hydroxyzine HCl (Hydroxyzine Hcl 25 Mg Tab) 50 mg PO HSZ PRN PRN Reason: Insomnia Stop: 11/16/23 14:09 Last Admin: 10/19/23 20:24 Dose: 50 mg Hydroxyzine HCl (Hydroxyzine Hcl 25 Mg Tab) 25 mg PO Q4H PRN PRN Reason: Anxiety Stop: 11/16/23 14:09 Last Admin: 10/25/23 08:21 Dose: 25 mg Hydroxyzine HCl (Hydroxyzine Hcl 25 Mg Tab) 50 mg PO HS ARTHUR Stop: 11/19/23 21:59 Last Admin: 10/26/23 20:56 Dose: 50 mg Lorazepam (Lorazepam 1 Mg Tab) 1 mg PO Q6H PRN PRN Reason: severe anxiety Stop: 11/25/23 11:46 Magnesium Hydroxide (Magnesium Hydroxide Susp 30 Ml Udc) 30 ml PO DAILY PRN PRN Reason: Constipation Stop: 11/16/23 14:09 Meloxicam (Meloxicam 7.5 Mg Tab) 7.5 mg PO QAM ARTHUR Stop: 11/16/23 15:59 Last Admin: 10/27/23 08:34 Dose: 7.5 mg Nortriptyline HCl (Nortriptyline Hcl 25 Mg Cap) 75 mg PO HS ARTHUR Stop: 11/26/23 21:59 Sodium Chloride (Sodium Chloride 0.65% Na Soln 45 Ml ([place])) 1 - 2 sprays NA PRN PRN PRN Reason: Nasal Dryness/Congestion Stop: 11/16/23 14:09 Sulfasalazine (Sulfasalazine 500 Mg Tablet) 1,000 mg PO TID ARTHUR Stop: 11/16/23 15:49 Last Admin: 10/27/23 08:34 Dose: 1,000 mg Mental Health & Subst Abuse Tx Therapist Name of Therapist: Tele-health Post Discharge Appointments Primary Care Physician Name Of Family Doctor/PCP: [facility] - Dr. Ferris Primary Care Date of Future Appointment with PCP: 11/09/2023 Time of Appointment with PCP: 9:25 arrival Provider Appointment Comment: Garrett Diaz, [address], [place] [address] (1) Major depression, recurrent Active/Remission status: currently active Major depression episode severity: severe Psychotic features: without psychotic features Qualified Code(s): F33.2 - Major depressive disorder, recurrent severe without psychotic features
[2023-10-27] MEDS: LORazepam 1 MG TAB PO PRN (12:49)
[2023-10-27] MEDS: NORTRIPTYLINE HCL 25 MG CAP PO SCH (21:26)
--- NOTE | 2023-10-28 14:45 | Psychiatric Progress Note ---
Date of Service October 28, 2023 Impression / Recommendations Impression 43 yo female with a hx of recurrent major depressive episodes refractory to multiple classes of medication, ketamine, and ECT. 10/28/2023: Patient is doing somewhat better but I do not think she realizes it. She is so much more active than she was when I first met her about 6 days ago. The nortriptyline will still take time to work. The Ativan seems to be helping with some of her anxiety. Nevertheless, she still very hopeless and depressed and suicidal. Overall, I spent a total of 38 minutes with this case, including review of chart, direct evaluation of the patient, coordination with nursing, multidisci plinary treatment team meeting, orders, and documentation. (1) Major depression, recurrent: Plan 10/28/2023: We will continue with her current level of observation and precautions. I encouraged her to use behavioral activation and push through her desire to just lay in bed. We talked about hygiene. I am going to leave the nortriptyline and lorazepam as they are for now as I think they are helping although the nortriptyline will still take several weeks to get to its full effect. I am still very concerned about her suicidality as she feels extremely hopeless and is even entertaining the idea of leaving this world and leaving her daughter without a mother. I still think she is in acute danger to herself. We also tossed around the idea of possible ECT along with nortriptyline as there is some data to support that. I just do not know if it would be funded by her insurance. 10/27/2023: I am going to lower the nortriptyline down to 75 mg nightly and then raise the lorazepam 1 mg every 6 hours as needed for severe anxiety. Hopefully we will see less sedation and better coverage of her anxiety and she can function better like she did 2 days ago. In the near future, I might even back the nortriptyline down to 50 mg again since she did so well on Tuesday. I still think she is an acute danger to herself if she were to leave because of the risk of suicide. 10/26/2023: We are going to continue with our current level of observation and precautions. I lowered the lorazepam to 0.1 mg p.o. every 4 hours as needed for severe anxiety. I encouraged her to try to use the hydroxyzine when she can because the lorazepam is a controlled substance. Will leave the nortriptyline at the current dosing. I encouraged her to keep trying to go to groups and activities and to distract herself. Hopefully, we are starting to turn a corner. 10/25/2023: We are going to continue with her current level of observation and precautions. I gave her a one-time dose of lorazepam 1 mg p.o. to see if that might offer some support for her anxiety. We will continue with the nortriptyline and I will increase it to 100 mg to see if we can help her more quickly. We will leave the clonidine just at nighttime if needed for sleep. I also encouraged her to continue to use behavioral activation techniques. 10/24/2023: We will continue with her current level of observation and precautions. We will continue with the nortriptyline at 50 mg, but I will likely raise it when I can. I encouraged her to try to distract herself with groups, activities, books, TV, or what ever else she can think of. I wrote for a one-time dose of clonidine 0.1 mg this morning to help with her rumination and help her sleep a little bit. I also added a as needed dose of clonidine that she can take 1 hour after her nortriptyline if she still cannot sleep. 10/23/2023: We are going to continue with her current level of observation and precautions. We will continue with the nortriptyline at 50 mg for now. I encouraged her to try to go to a few extra groups if possible. I am still very concerned about her safety. Also concerned about sending her home with nortriptyline so we are going to need a good safety plan. Today I talked her about behavioral activation. 10/22/2023: The patient and I discussed several options of what we can do to try to help her mood. This included nortriptyline, clozapine, loxapine, Emsam patch, and augmentation of an antidepressant with Cytomel. Unfortunately, she has very limited financial resources. Loxapine is not available on formulary here. We decided to start nortriptyline 50 mg at bedtime. I reviewed the uses, side effects, and time course with her and she gave informed consent. I worry about discharging her on a tricyclic and so when that happens, we may only give 1 week of medication out at a time. I encouraged the patient to continue to go to groups and activities to try to help improve her mood as well. 10/21/2023: complete Adderall trial. now has insurance but will not cover a provider able to manage selegiline. Will as Dr. Marie for a 2nd opinion re: TCA trial with short supplies/care med safety plan. 10/20/2023: d/c Ritalin in favor of trial of Adderall 10 mg today then 15 mg 7 am with plan for a 2 pm dose if tolerated to complete the trial. Patient requesting Vistaril scheduled as helpful. TCA trial could be considered but concerns about toxicity in OD. 10/19/2023: risks/benefits/alternatives reviewed re: Selegeline vs. a retrial of stimulant (fast acting, generic), particularly given likelihood of f/u with [facility] on discharge feel selegeline not a realistic option. Patient confirmed no hx of cardiac abnormality/arrthymia. Agreed to Ritalin 10 mg trial dose with likely TID meals. 10/18/2023: The patient was admitted to the [facility] ([facility]) on q15 min checks (behavioral with suicide precautions) for safety. The patient will participate in group, recreational, and milieu therapies and will be offered additional individual and family sessions as clinically appropriate. Risks/benefits/alternatives reviewed re: remaining therapeutic classes such as TCA vs. selegiline. Patient unable to consider TMS or ECT with maintenance without insurance. Inventory Assets Strengths: intelligent, did seek help Needs: improve coping and supports Suicide Risk Level Suicide Risk Level: High-Moderate (q15 min suicide checks) Risk Factors Assessment Mental Health Diagnoses: Yes Substance Use Disorders: No Previous Attempt: Yes Previous Psychiatric Hospitalization: Yes Protective Factors Assessment Responsible for Young Children: Yes Employed: No Supportive Family: Yes (but in [place]) Interval History Identifying Information BRADLEY ARELLANO is a 43-year-old F who currently lives in [place], has a history of treatment refractory depression, and was admitted on 10/17/23 14:31 on a 201 voluntary commitment for SI with plan. Chief Complaint "I had another episode of depression." Review of Systems Sleep Information Total Hours of Sleep: 7 Sleep Comments: Pt given PRN Clonidine for sleep with scheduled Vistaril. Meal Information Percent Meal Consumed - Breakfast: 70 Percent Meal Consumed - Lunch: 70 Percent Meal Consumed - Dinner: [address] Fry returned call and listed onset of antidepressant trials as 2005 while a resident in [place], he treated her from [id number] and confirmed ECT courses in 2017 and 2021. in chronological order he is aware of: Lexapro, Effexor, Abilify, SEroquel, Lamictal, Ashton, Latuda, Geodon, Topmax, Ritalin (patient had thought Adderall XR), Trintellix, carbazepine, ketamine, lorazepam, Cymbalta, pramipexole. Patient previously reported trials of Remeron, sertraline, Wellbutrin, citalopram. 10/20/23 reports trial of fluoxetine. Subjective Subjective Today I met with the patient, received nursing report, and reviewed her chart. We also had a multidisciplinary treatment team meeting to discuss her care. The patient is here for severe suicidal ideation. She is still having very strong urges to end her life even though she knows that will hurt her family. Staff report that she was doing a bit better yesterday. She attended all the groups. She had 60% of her dinner. In the evening she watched a movie with her peers and looked like she was enjoying herself. She had a positive visit from 2 different people during visiting hours. She actually shared in one of the groups and opened up a little bit more. She had 1 dose of 1 mg Ativan at about 12:49 PM yesterday. She was even playing video games with some of the other [facility] patient's yesterday. When I met with her today, though, she was not doing well and was very tearful and was very hopeless. She feels like the suicidal ideation is so strong that she cannot resist it. I get no sense at all that she is making this up. I called her on some of the things that she has been doing with the behavioral activation and I expressed how proud I was over her of trying so hard. She seems to be feeling a little bit better with the slightly lower nortriptyline at 75 mg and the higher Ativan at 1 mg. We will leave it there for now. She was able to get some sleep. Appetite is still poor but she is eating some. Medication Trials Dr. Fry returned call and listed onset of antidepressant trials as 2005 while a resident in [place], he treated her from [id number] and confirmed ECT courses in 2017 and 2021. in chronological order he is aware of: Lexapro, Effexor, Abilify, SEroquel, Lamictal, Ashton, Latuda, Geodon, Topmax, Ritalin (patient had thought Adderall XR), Trintellix, carbazepine, ketamine, lorazepam, Cymbalta, pramipexole. Patient previously reported trials of Remeron, sertraline, Wellbutrin, citalopram. 10/20/23 reports trial of fluoxetine. Physical Exam Psychiatric Patient was alert and cooperative. Eye contact was good. She was clean and still somewhat disheveled. Speech was normal. Mood was "extremely depressed." Affect was tearful and melancholy. Thought process was logical and somewhat goal-directed, but very hopeless again. There was no evidence of any hallucinations or delusions. Patient is still having thoughts of suicide as I described above. She denies any homicidal thoughts. Memory and concentration were okay. There were no abnormal movements seen today. Gait was not observed. Insight and judgment are impaired. Vital Signs (Past 24 Hours) Last Vital Signs Temp 36.6 C 10/28/23 06:27 Pulse 106 H 10/28/23 06:28 Resp 18 10/28/23 06:27 BP 109/74 10/28/23 06:28 Pulse Ox 94 10/28/23 06:27 O2 Del Method Room Air 10/28/23 06:27 Results & Data ([facility]) Current Inpatient Medications Current Inpatient Medications: Current Inpatient Medications Acetaminophen (Acetaminophen 325 Mg Tab) 650 mg PO Q4H PRN PRN Reason: Headache or Minor Fever Stop: 11/16/23 14:09 Al Hydrox/Mg Hydrox/Simethicone (Aluminum/Magnesium Susp 30 Ml Udc) 30 ml PO Q4H PRN PRN Reason: GI Upset Stop: 11/16/23 14:09 Bismuth Subsalicylate (Bismuth Subsalicylate Liqd 236 Ml) 15 ml PO PRN PRN PRN Reason: Loose Stool Stop: 11/16/23 14:09 Clonidine HCl (Clonidine Hcl 0.1 Mg Tab) 0.1 mg PO HS PRN PRN Reason: Insomnia Stop: 11/23/23 21:59 Last Admin: 10/25/23 21:03 Dose: 0.1 mg Gabapentin (Gabapentin 300 Mg Cap) 300 mg PO BID ARTHUR Stop: 11/16/23 15:49 Last Admin: 10/28/23 09:03 Dose: 300 mg Hydroxyzine HCl (Hydroxyzine Hcl 25 Mg Tab) 50 mg PO HSZ PRN PRN Reason: Insomnia Stop: 11/16/23 14:09 Last Admin: 10/19/23 20:24 Dose: 50 mg Hydroxyzine HCl (Hydroxyzine Hcl 25 Mg Tab) 25 mg PO Q4H PRN PRN Reason: Anxiety Stop: 11/16/23 14:09 Last Admin: 10/25/23 08:21 Dose: 25 mg Hydroxyzine HCl (Hydroxyzine Hcl 25 Mg Tab) 50 mg PO HS ARTHUR Stop: 11/19/23 21:59 Last Admin: 10/27/23 21:25 Dose: 50 mg Lorazepam (Lorazepam 1 Mg Tab) 1 mg PO Q6H PRN PRN Reason: severe anxiety Stop: 11/25/23 11:46 Last Admin: 10/28/23 09:04 Dose: 1 mg Magnesium Hydroxide (Magnesium Hydroxide Susp 30 Ml Udc) 30 ml PO DAILY PRN PRN Reason: Constipation Stop: 11/16/23 14:09 Meloxicam (Meloxicam 7.5 Mg Tab) 7.5 mg PO QAM ARTHUR Stop: 11/16/23 15:59 Last Admin: 10/28/23 09:03 Dose: 7.5 mg Nortriptyline HCl (Nortriptyline Hcl 25 Mg Cap) 75 mg PO HS ARTHUR Stop: 11/26/23 21:59 Last Admin: 10/27/23 21:26 Dose: 75 mg Sodium Chloride (Sodium Chloride 0.65% Na Soln 45 Ml ([place])) 1 - 2 sprays NA PRN PRN PRN Reason: Nasal Dryness/Congestion Stop: 11/16/23 14:09 Sulfasalazine (Sulfasalazine 500 Mg Tablet) 1,000 mg PO TID ARTHUR Stop: 11/16/23 15:49 Last Admin: 10/28/23 14:02 Dose: 1,000 mg Mental Health & Subst Abuse Tx Therapist Name of Therapist: Tele-health Post Discharge Appointments Primary Care Physician Name Of Family Doctor/PCP: [facility] - Dr. Ferris [facility] Date of Future Appointment with PCP: 11/09/2023 Time of Appointment with PCP: 9:25 arrival Provider Appointment Comment: [facility] Diaz, [address], [place] [address] (1) Major depression, recurrent Active/Remission status: currently active Major depression episode severity: severe Psychotic features: without psychotic features Qualified Code(s): F33.2 - Major depressive disorder, recurrent severe without psychotic features
--- NOTE | 2023-10-29 15:22 | Psychiatric Progress Note ---
Date of Service October 29, 2023 Impression / Recommendations Impression 43 yo female with a hx of recurrent major depressive episodes refractory to multiple classes of medication, ketamine, and ECT. 10/29/2023: The patient continues to suffer with this depression. It makes her very hopeless and I think it scares her that she could end her life even though she loves her daughter so much. She still in acute danger to herself and requires inpatient hospitalization. Overall, I spent a total of 37 minutes with this case, including review of chart, direct evaluation of the patient, coordination with nursing, multidisciplinary team meeting, orders, and documentation. (1) Major depression, recurrent: Plan 10/29/2023: We are going to continue with our current level of observations and precautions. I am going to increase her nortriptyline up to 100 mg again now. We also added a one-time scheduled dose of lorazepam 1 mg at 07 30 tomorrow morning to see if that might help her start the day better rather than follow part so quickly. She is still in acute danger requiring hospitalization. On Tuesday, we will look into the possibility of whether or not ECT is possible. She had not done well with it in the past, but there is some data supporting use of ECT with nortriptyline. 10/28/2023: We will continue with her current level of observation and precautions. I encouraged her to use behavioral activation and push through her desire to just lay in bed. We talked about hygiene. I am going to leave the nortriptyline and lorazepam as they are for now as I think they are helping although the nortriptyline will still take several weeks to get to its full effect. I am still very concerned about her suicidality as she feels extremely hopeless and is even entertaining the idea of leaving this world and leaving her daughter without a mother. I still think she is in acute danger to herself. We also tossed around the idea of possible ECT along with nortriptyline as there is some data to support that. I just do not know if it would be funded by her insurance. 10/27/2023: I am going to lower the nortriptyline down to 75 mg nightly and then raise the lorazepam 1 mg every 6 hours as needed for severe anxiety. Hopefully we will see less sedation and better coverage of her anxiety and she can function better like she did 2 days ago. In the near future, I might even back the nortriptyline down to 50 mg again since she did so well on Tuesday. I still think she is an acute danger to herself if she were to leave because of the risk of suicide. 10/26/2023: We are going to continue with our current level of observation and precautions. I lowered the lorazepam to 0.1 mg p.o. every 4 hours as needed for severe anxiety. I encouraged her to try to use the hydroxyzine when she can because the lorazepam is a controlled substance. Will leave the nortriptyline at the current dosing. I encouraged her to keep trying to go to groups and activities and to distract herself. Hopefully, we are starting to turn a corner. 10/25/2023: We are going to continue with her current level of observation and precautions. I gave her a one-time dose of lorazepam 1 mg p.o. to see if that might offer some support for her anxiety. We will continue with the nortriptyline and I will increase it to 100 mg to see if we can help her more quickly. We will leave the clonidine just at nighttime if needed for sleep. I also encouraged her to continue to use behavioral activation techniques. 10/24/2023: We will continue with her current level of observation and precautions. We will continue with the nortriptyline at 50 mg, but I will likely raise it when I can. I encouraged her to try to distract herself with groups, activities, books, TV, or what ever else she can think of. I wrote for a one-time dose of clonidine 0.1 mg this morning to help with her rumination and help her sleep a little bit. I also added a as needed dose of clonidine that she can take 1 hour after her nortriptyline if she still cannot sleep. 10/23/2023: We are going to continue with her current level of observation and precautions. We will continue with the nortriptyline at 50 mg for now. I encouraged her to try to go to a few extra groups if possible. I am still very concerned about her safety. Also concerned about sending her home with nortriptyline so we are going to need a good safety plan. Today I talked her about behavioral activation. 10/22/2023: The patient and I discussed several options of what we can do to try to help her mood. This included nortriptyline, clozapine, loxapine, Emsam patch, and augmentation of an antidepressant with Cytomel. Unfortunately, she has very limited financial resources. Loxapine is not available on formulary here. We decided to start nortriptyline 50 mg at bedtime. I reviewed the uses, side effects, and time course with her and she gave informed consent. I worry about discharging her on a tricyclic and so when that happens, we may only give 1 week of medication out at a time. I encouraged the patient to continue to go to groups and activities to try to help improve her mood as well. 10/21/2023: complete Adderall trial. now has insurance but will not cover a provider able to manage selegiline. Will as Dr. Marie for a 2nd opinion re: TCA trial with short supplies/care med safety plan. 10/20/2023: d/c Ritalin in favor of trial of Adderall 10 mg today then 15 mg 7 am with plan for a 2 pm dose if tolerated to complete the trial. Patient requesting Vistaril scheduled as helpful. TCA trial could be considered but concerns about toxicity in OD. 10/19/2023: risks/benefits/alternatives reviewed re: Selegeline vs. a retrial of stimulant (fast acting, generic), particularly given likelihood of f/u with [facility] on discharge feel selegeline not a realistic option. Patient confirmed no hx of cardiac abnormality/arrthymia. Agreed to Ritalin 10 mg trial dose with likely TID meals. 10/18/2023: The patient was admitted to the [facility] ([facility]) on q15 min checks (behavioral with suicide precautions) for safety. The patient will participate in group, recreational, and milieu therapies and will be offered additional individual and family sessions as clinically appropriate. Risks/benefits/alternatives reviewed re: remaining therapeutic classes such as TCA vs. selegiline. Patient unable to consider TMS or ECT with maintenance without insurance. Inventory Assets Strengths: intelligent, did seek help Needs: improve coping and supports Suicide Risk Level Suicide Risk Level: High-Moderate (q15 min suicide checks) Risk Factors Assessment Mental Health Diagnoses: Yes Substance Use Disorders: No Previous Attempt: Yes Previous Psychiatric Hospitalization: Yes Protective Factors Assessment Responsible for Young Children: Yes Employed: No Supportive Family: Yes (but in [place]) Interval History Identifying Information BRADLEY ARELLANO is a 43-year-old F who currently lives in [place], has a history of treatment refractory depression, and was admitted on 10/17/23 14:31 on a 201 voluntary commitment for SI with plan. Chief Complaint "I had another episode of depression." Review of Systems Sleep Information Total Hours of Sleep: 7 Sleep Comments: Scheduled Vistaril Meal Information Percent Meal Consumed - Breakfast: 100 Percent Meal Consumed - Lunch: 70 Percent Meal Consumed - Dinner: [address] Fry returned call and listed onset of antidepressant trials as 2005 while a resident in [place], he treated her from [id number] and confirmed ECT courses in 2017 and 2021. in chronological order he is aware of: Lexapro, Effexor, Abilify, SEroquel, Lamictal, [place], Latuda, Geodon, Topmax, Ritalin (patient had thought Adderall XR), Trintellix, carbazepine, ketamine, lorazepam, Cymbalta, pramipexole. Patient previously reported trials of Remeron, sertraline, Wellbutrin, citalopram. 10/20/23 reports trial of fluoxetine. Subjective Subjective Today I met with the patient, received nursing report, and reviewed her chart. We also had a multidisciplinary team meeting to discuss her care. Patient is here for very severe depression and suicidal ideation. Staff report that she attended the self-awareness group and was out of her room. She ate about 60% of her dinner last evening. She told staff that she had "a hard day." She declined the community meeting in the evening. She did sleep through the night. Yesterday, she received Ativan at about 9 AM and that was the only dose. When I met with the patient today, she said that she slept better last night. She has noted that there is a diurnal pattern to her depression where she is at her worst in the morning and that seems to slowly improve through the day. Today, she got another dose of Ativan around the same time and then laid down for a while. She was able to read more of her book today. She says that she cannot control her suicidal ideation and that seems to be diurnal as well with the same pattern. She spoke with the people from Medicaid and she thinks that things with that are going to be "fine." She was proud to tell me that she ate all of her breakfast this morning and this is the first day she has done that. She still very worried about her suicidal ideation. She is tells me how much she does not want to do this to her daughter, but she gets so ruminative about the suicidal thoughts that she feels she is really in danger at the time. Medication Trials Dr. Fry returned call and listed onset of antidepressant trials as 2005 while a resident in [place], he treated her from [id number] and confirmed ECT courses in 2017 and 2021. in chronological order he is aware of: Lexapro, Effexor, Abilify, SEroquel, Lamictal, [place], Latuda, Geodon, Topmax, Ritalin (patient had thought Adderall XR), Trintellix, carbazepine, ketamine, lorazepam, Cymbalta, pramipexole. Patient previously reported trials of Remeron, sertraline, Wellbutrin, ci talopram. 10/20/23 reports trial of fluoxetine. Physical Exam Psychiatric Patient was alert and cooperative. Eye contact was good. She was disheveled and has not bathed in at least 2 days. Speech was normal. Mood was "extremely depressed." Affect was still tearful and melancholy. Thought process was logical and somewhat goal-directed, but very hopeless again. There was no evidence of any hallucinations or delusions. Patient is still having thoughts of suicide as I described above. She denies any homicidal thoughts. Memory and concentration were okay. There were no abnormal movements seen today. Gait was not observed. Insight and judgment are impaired. Vital Signs (Past 24 Hours) Last Vital Signs Temp 36.6 C 10/29/23 06:36 Pulse 100 H 10/29/23 06:36 Resp 16 10/29/23 06:36 BP 104/75 10/29/23 06:37 Pulse Ox 95 10/29/23 06:36 O2 Del Method Room Air 10/29/23 06:36 Results & Data (U) Current Inpatient Medications Current Inpatient Medications: Current Inpatient Medications Acetaminophen (Acetaminophen 325 Mg Tab) 650 mg PO Q4H PRN PRN Reason: Headache or Minor Fever Stop: 11/16/23 14:09 Al Hydrox/Mg Hydrox/Simethicone (Aluminum/Magnesium Susp 30 Ml Udc) 30 ml PO Q4H PRN PRN Reason: GI Upset Stop: 11/16/23 14:09 Bismuth Subsalicylate (Bismuth Subsalicylate Liqd 236 Ml) 15 ml PO PRN PRN PRN Reason: Loose Stool Stop: 11/16/23 14:09 Clonidine HCl (Clonidine Hcl 0.1 Mg Tab) 0.1 mg PO HS PRN PRN Reason: Insomnia Stop: 11/23/23 21:59 Last Admin: 10/25/23 21:03 Dose: 0.1 mg Gabapentin (Gabapentin 300 Mg Cap) 300 mg PO BID ARTHUR Stop: 11/16/23 15:49 Last Admin: 10/29/23 08:34 Dose: 300 mg Hydroxyzine HCl (Hydroxyzine Hcl 25 Mg Tab) 50 mg PO HSZ PRN PRN Reason: Insomnia Stop: 11/16/23 14:09 Last Admin: 10/19/23 20:24 Dose: 50 mg Hydroxyzine HCl (Hydroxyzine Hcl 25 Mg Tab) 25 mg PO Q4H PRN PRN Reason: Anxiety Stop: 11/16/23 14:09 Last Admin: 10/25/23 08:21 Dose: 25 mg Hydroxyzine HCl (Hydroxyzine Hcl 25 Mg Tab) 50 mg PO HS ARTHUR Stop: 11/19/23 21:59 Last Admin: 10/28/23 21:13 Dose: 50 mg Lorazepam (Lorazepam 1 Mg Tab) 1 mg PO Q6H PRN PRN Reason: severe anxiety Stop: 11/25/23 11:46 Last Admin: 10/29/23 08:34 Dose: 1 mg Magnesium Hydroxide (Magnesium Hydroxide Susp 30 Ml Udc) 30 ml PO DAILY PRN PRN Reason: Constipation Stop: 11/16/23 14:09 Meloxicam (Meloxicam 7.5 Mg Tab) 7.5 mg PO QAM ARTHUR Stop: 11/16/23 15:59 Last Admin: 10/29/23 08:34 Dose: 7.5 mg Nortriptyline HCl (Nortriptyline Hcl 25 Mg Cap) 75 mg PO HS ARTHUR Stop: 11/26/23 21:59 Last Admin: 10/28/23 21:12 Dose: 75 mg Sodium Chloride (Sodium Chloride 0.65% Na Soln 45 Ml (Camp)) 1 - 2 sprays NA PRN PRN PRN Reason: Nasal Dryness/Congestion Stop: 11/16/23 14:09 Sulfasalazine (Sulfasalazine 500 Mg Tablet) 1,000 mg PO TID ARTHUR Stop: 11/16/23 15:49 Last Admin: 10/29/23 14:10 Dose: 1,000 mg Mental Health & Subst Abuse Tx Therapist Name of Therapist: Tele-health Post Discharge Appointments Primary Care Physician Name Of Family Doctor/PCP: [facility] - Dr. Ferris Primary [facility] Date of Future Appointment with PCP: 11/09/2023 Time of Appointment with PCP: 9:25 arrival Provider Appointment Comment: Garrett Diaz, [address], [place] [address] (1) Major depression, recurrent Active/Remission status: currently active Major depression episode severity: severe Psychotic features: without psychotic features Qualified Code(s): F33.2 - Major depressive disorder, recurrent severe without psychotic features
[2023-10-29] MEDS: NORTRIPTYLINE HCL 25 MG CAP PO SCH (21:02)
[2023-10-30] MEDS: LORazepam 1 MG TAB PO ONE (06:37)
--- NOTE | 2023-10-30 13:07 | Psychiatric Progress Note ---
Date of Service October 30, 2023 Impression / Recommendations Impression 43 yo female with a hx of recurrent major depressive episodes refractory to multiple classes of medication, ketamine, and ECT. 10/30/2023: Patient seems to have benefited from the lorazepam early in the morning before she starts her day. She seems a lot more hopeful today and is engaging better in groups. She is also thinking more about her future and hopeful about a discharge soon. Overall, I spent a total of 39 minutes with this case, including review of chart, direct evaluation of the patient, coordination with nursing, orders, and documentation. (1) Major depression, recurrent: Plan 10/30/2023: We will continue with our current level of observation and precautions. We will continue with the nortriptyline at the new dose which is tolerated now. Instead of using lorazepam in the morning, we are going to try clonazepam 0.25 mg at 7:30 AM tomorrow morning. I encouraged her to keep using behavioral activation which she is obviously trying. We are definitely having a good day today. 10/29/2023: We are going to continue with our current level of observations and precautions. I am going to increase her nortriptyline up to 100 mg again now. We also added a one-time scheduled dose of lorazepam 1 mg at 07 30 tomorrow morning to see if that might help her start the day better rather than follow part so quickly. She is still in acute danger requiring hospitalization. On Tuesday, we will look into the possibility of whether or not ECT is possible. She had not done well with it in the past, but there is some data supporting use of ECT with nortriptyline. 10/28/2023: We will continue with her current level of observation and precautions. I encouraged her to use behavioral activation and push through her desire to just lay in bed. We talked about hygiene. I am going to leave the nortriptyline and lorazepam as they are for now as I think they are helping although the nortriptyline will still take several weeks to get to its full effect. I am still very concerned about her suicidality as she feels extremely hopeless and is even entertaining the idea of leaving this world and leaving her daughter without a mother. I still think she is in acute danger to herself. We also tossed around the idea of possible ECT along with nortriptyline as there is some data to support that. I just do not know if it would be funded by her roxane mazariegos. 10/27/2023: I am going to lower the nortriptyline down to 75 mg nightly and then raise the lorazepam 1 mg every 6 hours as needed for severe anxiety. Hopefully we will see less sedation and better coverage of her anxiety and she can function better like she did 2 days ago. In the near future, I might even back the nortriptyline down to 50 mg again since she did so well on Tuesday. I still think she is an acute danger to herself if she were to leave because of the risk of suicide. 10/26/2023: We are going to continue with our current level of observation and precautions. I lowered the lorazepam to 0.1 mg p.o. every 4 hours as needed for severe anxiety. I encouraged her to try to use the hydroxyzine when she can because the lorazepam is a controlled substance. Will leave the nortriptyline at the current dosing. I encouraged her to keep trying to go to groups and activities and to distract herself. Hopefully, we are starting to turn a corner. 10/25/2023: We are going to continue with her current level of observation and precautions. I gave her a one-time dose of lorazepam 1 mg p.o. to see if that might offer some support for her anxiety. We will continue with the nortriptyline and I will increase it to 100 mg to see if we can help her more quickly. We will leave the clonidine just at nighttime if needed for sleep. I also encouraged her to continue to use behavioral activation techniques. 10/24/2023: We will continue with her current level of observation and precautions. We will continue with the nortriptyline at 50 mg, but I will likely raise it when I can. I encouraged her to try to distract herself with groups, activities, books, TV, or what ever else she can think of. I wrote for a one-time dose of clonidine 0.1 mg this morning to help with her rumination and help her sleep a little bit. I also added a as needed dose of clonidine that she can take 1 hour after her nortriptyline if she still cannot sleep. 10/23/2023: We are going to continue with her current level of observation and precautions. We will continue with the nortriptyline at 50 mg for now. I encouraged her to try to go to a few extra groups if possible. I am still very concerned about her safety. Also concerned about sending her home with nortriptyline so we are going to need a good safety plan. Today I talked her about behavioral activation. 10/22/2023: The patient and I discussed several options of what we can do to try to help her mood. This included nortriptyline, clozapine, loxapine, Emsam patch, and augmentation of an antidepressant with Cytomel. Unfortunately, she has very limited financial resources. Loxapine is not available on formulary here. We decided to start nortriptyline 50 mg at bedtime. I reviewed the uses, side effects, and time course with her and she gave informed consent. I worry about discharging her on a tricyclic and so when that happens, we may only give 1 week of medication out at a time. I encouraged the patient to continue to go to groups and activities to try to help improve her mood as well. 10/21/2023: complete Adderall trial. now has insurance but will not cover a provider able to manage selegiline. Will as Dr. Marie for a 2nd opinion re: TCA trial with short supplies/care med safety plan. 10/20/2023: d/c Ritalin in favor of trial of Adderall 10 mg today then 15 mg 7 am with plan for a 2 pm dose if tolerated to complete the trial. Patient requesting Vistaril scheduled as helpful. TCA trial could be considered but concerns about toxicity in OD. 10/19/2023: risks/benefits/alternatives reviewed re: Selegeline vs. a retrial of stimulant (fast acting, generic), particularly given likelihood of f/u with [facility] on discharge feel selegeline not a realistic option. Patient confirmed no hx of cardiac abnormality/arrthymia. Agreed to Ritalin 10 mg trial dose with likely TID meals. 10/18/2023: The patient was admitted to the [facility] ([facility] inpatient mental health unit) on q15 min checks (behavioral with suicide precautions) for safety. The patient will participate in group, recreational, and milieu therapies and will be offered additional individual and family sessions as clinically appr opriate. Risks/benefits/alternatives reviewed re: remaining therapeutic classes such as TCA vs. selegiline. Patient unable to consider TMS or ECT with maintenance without insurance. Inventory Assets Strengths: intelligent, did seek help Needs: improve coping and supports Suicide Risk Level Suicide Risk Level: Moderate (q15 min suicide checks) Risk Factors Assessment Mental Health Diagnoses: Yes Substance Use Disorders: No Previous Attempt: Yes Previous Psychiatric Hospitalization: Yes Protective Factors Assessment Responsible for Young Children: Yes Employed: No Supportive Family: Yes (but in [place]) Interval History Identifying Information BRADLEY ARELLANO is a 43-year-old F who currently lives in [place], has a history of treatment refractory depression, and was admitted on 10/17/23 14:31 on a 201 voluntary commitment for SI with plan. Chief Complaint "I had another episode of depression." Review of Systems Sleep Information Total Hours of Sleep: 10 Sleep Comments: scheduled Vistaril Meal Information Percent Meal Consumed - Breakfast: 100 Percent Meal Consumed - Lunch: 70 Percent Meal Consumed - Dinner: [address] Fry returned call and listed onset of antidepressant trials as 2005 while a resident in [place], he treated her from [id number] and confirmed ECT courses in 2017 and 2021. in chronological order he is aware of: Lexapro, Effexor, Abilify, SEroquel, Lamictal, Walls, Latuda, Geodon, Topmax, Ritalin (patient had thought Adderall XR), Trintellix, carbazepine, ketamine, lorazepam, Cymbalta, pramipexole. Patient previously reported trials of Remeron, sertraline, Wellbutrin, citalopram. 10/20/23 reports trial of fluoxetine. Subjective Subjective Today I met with the patient, received nursing report, and reviewed her chart. Patient is in our hospital in the midst of a very severe episode of depression with severe suicidal ideation. Staff report that she has been trying hard. She attended groups during the day as well as the 4 PM group. She skipped the 8 PM group. She was tearful yesterday. At other times, she was reading in the day room. She received the Ativan this morning at 7:30 AM that we had scheduled. Staff were impressed that she was speaking up in some of the groups yesterday. When I met with her this morning she seemed in a much better mood because she felt that the lorazepam is offering some good support. We talked about maybe using some clonazepam to help last longer throughout the day. She told me that a friend of hers is can to try to come by tomorrow with the checkbook so that the patient can pay her rent. She seems more hopeful. She says that she was not having suicidal thoughts this morning which is uncommon. She got a good night sleep. Appetite is good. Medication Trials Dr. Fry returned call and listed onset of antidepressant trials as 2005 while a resident in [place], he treated her from [id number] and confirmed ECT courses in 2017 and 2021. in chronological order he is aware of: Lexapro, Effexor, Abilify, SEroquel, Lamictal, Walls, Latuda, Geodon, Topmax, Ritalin (patient had thought Adderall XR), Trintellix, carbazepine, ketamine, lorazepam, Cymbalta, pramipexole. Patient previously reported trials of Remeron, sertraline, Wellbutrin, citalopram. 10/20/23 reports trial of fluoxetine. Physical Exam Psychiatric Patient was alert and cooperative. Eye contact was good. She was less disheveled today. Speech was normal. Mood was "better." Affect was definitely brighter and not tearful today. Thought process was logical and more goal- directed with less hopelessness. There was no evidence of any hallucinations or delusions. She denied suicidal or homicidal thoughts today. Memory and concentration were okay. There were no abnormal movements seen today. Gait was not observed. Insight and judgment are impaired. Vital Signs (Past 24 Hours) Last Vital Signs Temp 36.5 C 10/30/23 06:50 Pulse 96 H 10/30/23 06:50 Resp 16 10/30/23 06:50 BP 114/79 10/30/23 06:51 Pulse Ox 93 10/30/23 06:50 O2 Del Method Room Air 10/30/23 06:50 Results & Data ([facility]) Current Inpatient Medications Current Inpatient Medications: Current Inpatient Medications Acetaminophen (Acetaminophen 325 Mg Tab) 650 mg PO Q4H PRN PRN Reason: Headache or Minor Fever Stop: 11/16/23 14:09 Al Hydrox/Mg Hydrox/Simethicone (Aluminum/Magnesium Susp 30 Ml Udc) 30 ml PO Q4H PRN PRN Reason: GI Upset Stop: 11/16/23 14:09 Bismuth Subsalicylate (Bismuth Subsalicylate Liqd 236 Ml) 15 ml PO PRN PRN PRN Reason: Loose Stool Stop: 11/16/23 14:09 Clonidine HCl (Clonidine Hcl 0.1 Mg Tab) 0.1 mg PO HS PRN PRN Reason: Insomnia Stop: 11/23/23 21:59 Last Admin: 10/25/23 21:03 Dose: 0.1 mg Gabapentin (Gabapentin 300 Mg Cap) 300 mg PO BID ARTHUR Stop: 11/16/23 15:49 Last Admin: 10/30/23 09:01 Dose: 300 mg Hydroxyzine HCl (Hydroxyzine Hcl 25 Mg Tab) 50 mg PO HSZ PRN PRN Reason: Insomnia Stop: 11/16/23 14:09 Last Admin: 10/19/23 20:24 Dose: 50 mg Hydroxyzine HCl (Hydroxyzine Hcl 25 Mg Tab) 25 mg PO Q4H PRN PRN Reason: Anxiety Stop: 11/16/23 14:09 Last Admin: 10/25/23 08:21 Dose: 25 mg Hydroxyzine HCl (Hydroxyzine Hcl 25 Mg Tab) 50 mg PO HS ARTHUR Stop: 11/19/23 21:59 Last Admin: 10/29/23 21:02 Dose: 50 mg Lorazepam (Lorazepam 1 Mg Tab) 1 mg PO Q6H PRN PRN Reason: severe anxiety Stop: 11/25/23 11:46 Last Admin: 10/29/23 08:34 Dose: 1 mg Magnesium Hydroxide (Magnesium Hydroxide Susp 30 Ml Udc) 30 ml PO DAILY PRN PRN Reason: Constipation Stop: 11/16/23 14:09 Meloxicam (Meloxicam 7.5 Mg Tab) 7.5 mg PO QAM ARTHUR Stop: 11/16/23 15:59 Last Admin: 10/30/23 09:01 Dose: 7.5 mg Nortriptyline HCl (Nortriptyline Hcl 25 Mg Cap) 100 mg PO HS ARTHUR Stop: 11/28/23 21:59 Last Admin: 10/29/23 21:02 Dose: 100 mg Sodium Chloride (Sodium Chloride 0.65% Na Soln 45 Ml ([place])) 1 - 2 sprays NA PRN PRN PRN Reason: Nasal Dryness/Congestion Stop: 11/16/23 14:09 Sulfasalazine (Sulfasalazine 500 Mg Tablet) 1,000 mg PO TID ARTHUR Stop: 11/16/23 15:49 Last Admin: 10/30/23 09:01 Dose: 1,000 mg Mental Health & Subst Abuse Tx Therapist Name of Therapist: Tele-health Post Discharge Appointments Primary Care Physician Name Of Family Doctor/PCP: [facility] - Dr. Ferris Primary [facility] Date of Future Appointment with PCP: 11/09/2023 Time of Appointment with PCP: 9:25 arrival Provider Appointment Comment: Garrett Diaz, [address], [place] [address] (1) Major depression, recurrent Active/Remission status: currently active Major depression episode severity: severe Psychotic features: without psychotic features Qualified Code(s): F33.2 - Major depressive disorder, recurrent severe without psychotic features
[2023-10-31] MEDS: clonazePAM 0.25 MG OD TAB PO SCH (06:32)
--- NOTE | 2023-10-31 12:20 | Psychiatric Progress Note ---
Date of Service October 31, 2023 Impression / Recommendations Impression 43 yo female with a hx of recurrent major depressive episodes refractory to multiple classes of medication, ketamine, and ECT. 10/31/2023: Patient did better yesterday with the help of the Ativan, but he trying to use clonazepam did not seem to help. She is now back down into her depression and is feeling very hopeless. I still think she is an acute danger to herself. Overall, I spent a total of 37 minutes with this case, including review of chart, direct evaluation of the patient, coordination with nursing, treatment team meeting, orders, and documentation. (1) Major depression, recurrent: Plan 10/31/2023: We will continue with our current level of observation and precautions. I am going to switch back to the lorazepam 1 mg in the morning right around the time of awakening to see if that helps her have another better day. We will get rid of the clonazepam. We will continue with nortriptyline at 100 mg nightly. I encouraged her to keep using behavioral activation. Hopefully, we will continue to see progress. 10/30/2023: We will continue with our current level of observation and precautions. We will continue with the nortriptyline at the new dose which is tolerated now. Instead of using lorazepam in the morning, we are going to try clonazepam 0.25 mg at 7:30 AM tomorrow morning. I encouraged her to keep using behavioral activation which she is obviously trying. We are definitely having a good day today. 10/29/2023: We are going to continue with our current level of observations and precautions. I am going to increase her nortriptyline up to 100 mg again now. We also added a one-time scheduled dose of lorazepam 1 mg at 07 30 tomorrow morning to see if that might help her start the day better rather than follow part so quickly. She is still in acute danger requiring hospitalization. On Tuesday, we will look into the possibility of whether or not ECT is possible. She had not done well with it in the past, but there is some data supporting use of ECT with nortriptyline. 10/28/2023: We will continue with her current level of observation and precautions. I encouraged her to use behavioral activation and push through her desire to just lay in bed. We talked about hygiene. I am going to leave the nortriptyline and lorazepam as they are for now as I think they are helping although the nortriptyline will still take several weeks to get to its full effect. I am still very concerned about her suicidality as she feels extremely hopeless and is even entertaining the idea of leaving this world and leaving her daughter without a mother. I still think she is in acute danger to herself. We also tossed around the idea of possible ECT along with nortriptyline as there is some data to support that. I just do not know if it would be funded by her insurance. 10/27/2023: I am going to lower the nortriptyline down to 75 mg nightly and then raise the lorazepam 1 mg every 6 hours as needed for severe anxiety. Hopefully we will see less sedation and better coverage of her anxiety and she can function better like she did 2 days ago. In the near future, I might even back the nortriptyline down to 50 mg again since she did so well on Tuesday. I still think she is an acute danger to herself if she were to leave because of the risk of suicide. 10/26/2023: We are going to continue with our current level of observation and precautions. I lowered the lorazepam to 0.1 mg p.o. every 4 hours as needed for severe anxiety. I encouraged her to try to use the hydroxyzine when she can because the lorazepam is a controlled substance. Will leave the nortriptyline at the current dosing. I encouraged her to keep trying to go to groups and activities and to distract herself. Hopefully, we are starting to turn a corner. 10/25/2023: We are going to continue with her current level of observation and precautions. I gave her a one-time dose of lorazepam 1 mg p.o. to see if that might offer some support for her anxiety. We will continue with the nortriptyline and I will increase it to 100 mg to see if we can help her more quickly. We will leave the clonidine just at nighttime if needed for sleep. I also encouraged her to continue to use behavioral activation techniques. 10/24/2023: We will continue with her current level of observation and precautions. We will continue with the nortriptyline at 50 mg, but I will likely raise it when I can. I encouraged her to try to distract herself with groups, activities, books, TV, or what ever else she can think of. I wrote for a one-time dose of clonidine 0.1 mg this morning to help with her rumination and help her sleep a little bit. I also added a as needed dose of clonidine that she can take 1 hour after her nortriptyline if she still cannot sleep. 10/23/2023: We are going to continue with her current level of observation and precautions. We will continue with the nortriptyline at 50 mg for now. I encouraged her to try to go to a few extra groups if possible. I am still very concerned about her safety. Also concerned about sending her home with nortriptyline so we are going to need a good safety plan. Today I talked her about behavioral activation. 10/22/2023: The patient and I discussed several options of what we can do to try to help her mood. This included nortriptyline, clozapine, loxapine, Emsam patch, and augmentation of an antidepressant with Cytomel. Unfortunately, she has very limited financial resources. Loxapine is not available on formulary here. We decided to start nortriptyline 50 mg at bedtime. I reviewed the uses, side effects, and time course with her and she gave informed consent. I worry about discharging her on a tricyclic and so when that happens, we may only give 1 week of medication out at a time. I encouraged the patient to continue to go to groups and activities to try to help improve her mood as well. 10/21/2023: complete Adderall trial. now has insurance but will not cover a provider able to manage selegiline. Will as Dr. Marie for a 2nd opinion re: TCA trial with short supplies/care med safety plan. 10/20/2023: d/c Ritalin in favor of trial of Adderall 10 mg today then 15 mg 7 am with plan for a 2 pm dose if tolerated to complete the trial. Patient requesting Vistaril scheduled as helpful. TCA trial could be considered but concerns about toxicity in OD. 10/19/2023: risks/benefits/alternatives reviewed re: Selegeline vs. a retrial of stimulant (fast acting, generic), particularly given likelihood of f/u with [facility] on discharge feel selegeline not a realistic option. Patient confirmed no hx of cardiac abnormality/arrthymia. Agreed to Ritalin 10 mg trial dose with likely TID meals. 10/18/2023: The patient was [facility] (locked inpatient [facility] unit) on q15 min checks (behavioral with suicide precautions) for safety. The patient will participate in group, recreational, and milieu therapies and will be offered additional individual and family sessions as clinically appropriate. Risks/benefits/alternatives reviewed re: remaining therapeutic classes such as TCA vs. selegiline. Patient unable to consider TMS or ECT with maintenance without insurance. Inventory Assets Strengths: intelligent, did seek help Needs: improve coping and supports Suicide Risk Level Suicide Risk Level: Moderate (q15 min suicide checks) Risk Factors Assessment Mental Health Diagnoses: Yes Substance Use Disorders: No Previous Attempt: Yes Previous Psychiatric Hospitalization: Yes Protective Factors Assessment Responsible for Young Children: Yes Employed: No Supportive Family: Yes (but in [place]) Interval History Identifying Information BRADLEY ARELLANO is a 43-year-old F who currently lives in [place], has a history of treatment refractory depression, and was admitted on 10/17/23 14:31 on a 201 voluntary commitment for with plan. Chief Complaint "I had another episode of depression." Review of Systems Sleep Information Total Hours of Sleep: 7.5 Sleep Comments: HS scheduled Vistaril Meal Information Percent Meal Consumed - Breakfast: 90 Percent Meal Consumed - Lunch: 100 Percent Meal Consumed - Dinner: [address] Fry returned call and listed onset of antidepressant trials as 2005 while a resident in [place], he treated her from [id number] and confirmed ECT courses in 2017 and 2021. in chronological order he is aware of: Lexapro, Effexor, Abilify, SEroquel, Lamictal, [place], Latuda, Geodon, Topmax, Ritalin (patient had thought Adderall XR), Trintellix, carbazepine, ketamine, lorazepam, Cymbalta, pramipexole. Patient previously reported trials of Remeron, sertraline, Wellbutrin, citalopram. 10/20/23 reports trial of fluoxetine. Subjective Subjective Today I met with the patient, received nursing report, and reviewed her chart. We also had a multidisciplinary treatment team meeting to discuss her care. The patient is in our hospital due to severe depression with overwhelming suicidal ideation. Staff report that she was out of her room all day yesterday. She was attending groups pretty reliably. She did not shower however. She disclaimed to go to the evening meeting. There were times she was in the common area reading her book. She was eating well. They did not see any tearfulness. When I met with her this morning, she had received clonazepam 0.25 mg at around 6:30 AM. She said that it did not seem to be helping as well as the Ativan 1 mg had yesterday. She still having a lot of suicidal thoughts described them as "not good at all." She is trying to go to groups and activities however. Medication Trials Dr. Fry returned call and listed onset of antidepressant trials as 2005 while a resident in [place], he treated her from [id number] and confirmed ECT courses in 2017 and 2021. in chronological order he is aware of: Lexapro, Effexor, Abilify, SEroquel, Lamictal, [place], Latuda, Geodon, Topmax, Ritalin (patient had thought Adderall XR), Trintellix, carbazepine, ketamine, lorazepam, Cymbalta, pramipexole. Patient previously reported trials of Remeron, sertraline, Wellbutrin, citalopram. 10/20/23 reports trial of fluoxetine. Physical Exam Psychiatric Patient was alert and cooperative. Eye contact was good. She was less di sheveled today. Speech was normal. Mood was "depressed." Affect was much gloomy year. She was somewhat tearful. Thought process was logical and less goal-directed and a little bit hopeless. There was no evidence of any hallucinations or delusions. She said that she was having a lot of suicidal ideation today, but denied any homicidal thoughts. Memory and concentration were okay. There were no abnormal movements seen today. Gait was normal. Insight and judgment are impaired. Vital Signs (Past 24 Hours) Last Vital Signs Temp 36.6 C 10/31/23 06:30 Pulse 109 H 10/31/23 06:30 Resp 16 10/31/23 06:30 BP 101/70 10/31/23 06:30 Pulse Ox 93 10/30/23 06:50 O2 Del Method Room Air 10/30/23 06:50 Results & Data ([facility]) Current Inpatient Medications Current Inpatient Medications: Current Inpatient Medications Acetaminophen (Acetaminophen 325 Mg Tab) 650 mg PO Q4H PRN PRN Reason: Headache or Minor Fever Stop: 11/16/23 14:09 Al Hydrox/Mg Hydrox/Simethicone (Aluminum/Magnesium Susp 30 Ml Udc) 30 ml PO Q4H PRN PRN Reason: GI Upset Stop: 11/16/23 14:09 Bismuth Subsalicylate (Bismuth Subsalicylate Liqd 236 Ml) 15 ml PO PRN PRN PRN Reason: Loose Stool Stop: 11/16/23 14:09 Clonidine HCl (Clonidine Hcl 0.1 Mg Tab) 0.1 mg PO HS PRN PRN Reason: Insomnia Stop: 11/23/23 21:59 Last Admin: 10/25/23 21:03 Dose: 0.1 mg Gabapentin (Gabapentin 300 Mg Cap) 300 mg PO BID ARTHUR Stop: 11/16/23 15:49 Last Admin: 10/31/23 08:24 Dose: 300 mg Hydroxyzine HCl (Hydroxyzine Hcl 25 Mg Tab) 50 mg PO HSZ PRN PRN Reason: Insomnia Stop: 11/16/23 14:09 Last Admin: 10/19/23 20:24 Dose: 50 mg Hydroxyzine HCl (Hydroxyzine Hcl 25 Mg Tab) 25 mg PO Q4H PRN PRN Reason: Anxiety Stop: 11/16/23 14:09 Last Admin: 10/25/23 08:21 Dose: 25 mg Hydroxyzine HCl (Hydroxyzine Hcl 25 Mg Tab) 50 mg PO HS ARTHUR Stop: 11/19/23 21:59 Last Admin: 10/30/23 21:38 Dose: 50 mg Lorazepam (Lorazepam 1 Mg Tab) 1 mg PO Q6H PRN PRN Reason: severe anxiety Stop: 11/25/23 11:46 Last Admin: 10/31/23 09:36 Dose: 1 mg Lorazepam (Lorazepam 1 Mg Tab) 1 mg PO DAILY@0730 [facility] Stop: 12/01/23 07:29 Magnesium Hydroxide (Magnesium Hydroxide Susp 30 Ml Udc) 30 ml PO DAILY PRN PRN Reason: Constipation Stop: 11/16/23 14:09 Meloxicam (Meloxicam 7.5 Mg Tab) 7.5 mg PO QAM ARTHUR Stop: 11/16/23 15:59 Last Admin: 10/31/23 08:24 Dose: 7.5 mg Nortriptyline HCl (Nortriptyline Hcl 25 Mg Cap) 100 mg PO HS ARTHUR Stop: 11/28/23 21:59 Last Admin: 10/30/23 21:38 Dose: 100 mg Sodium Chloride (Sodium Chloride 0.65% Na Soln 45 Ml ([place])) 1 - 2 sprays NA PRN PRN PRN Reason: Nasal Dryness/Congestion Stop: 11/16/23 14:09 Sulfasalazine (Sulfasalazine 500 Mg Tablet) 1,000 mg PO TID ARTHUR Stop: 11/16/23 15:49 Last Admin: 10/31/23 08:23 Dose: 1,000 mg Mental Health & Subst Abuse Tx Therapist Name of Therapist: Tele-health Post Discharge Appointments Primary Care Physician Name Of Family Doctor/PCP: [facility] - Dr. Ferris [facility] Date of Future Appointment with PCP: 11/09/2023 Time of Appointment with PCP: 9:25 arrival Provider Appointment Comment: Garrett Diaz, [address], [place] [address] (1) Major depression, recurrent Active/Remission status: currently active Major depression episode severity: severe Psychotic features: without psychotic features Qualified Code(s): F33.2 - Major depressive disorder, recurrent severe without psychotic features
[2023-11-01] MEDS: LORazepam 1 MG TAB PO SCH (07:36)
--- NOTE | 2023-11-01 13:59 | Psychiatric Progress Note ---
Date of Service November 01, 2023 Impression / Recommendations Impression 43 yo female with a hx of recurrent major depressive episodes refractory to multiple classes of medication, ketamine, and ECT. 11/01/2023: We seem to be seeing some improvement again today, but it is a little early to know. We need a pattern of a few days in a row of her doing well before we can consider discharge. Given how severe her suicidal thoughts get when she is not doing well, I am still very worried about her safety. Overall, I spent a total of 37 minutes with this case, including review of chart, direct evaluation of the patient, coordination with nursing, multidisciplinary team meeting, orders, and documentation. (1) Major depression, recurrent: Plan 11/01/2023: We will continue with our current level of observation and precautions. We will leave the lorazepam 1 mg scheduled in the morning and she has other as needed dose that she can use if she needs to. Continue with the nortriptyline at 100 mg nightly which should hopefully start kicking in in the next 2 weeks. I encouraged her to keep using behavioral activation which she is trying to do. 10/31/2023: We will continue with our current level of observation and precautions. I am going to switch back to the lorazepam 1 mg in the morning right around the time of awakening to see if that helps her have another better day. We will get rid of the clonazepam. We will continue with nortriptyline at 100 mg nightly. I encouraged her to keep using behavioral activation. Hopefully, we will continue to see progress. 10/30/2023: We will continue with our current level of observation and precautions. We will continue with the nortriptyline at the new dose which is tolerated now. Instead of using lorazepam in the morning, we are going to try clonazepam 0.25 mg at 7:30 AM tomorrow morning. I encouraged her to keep using behavioral activation which she is obviously trying. We are definitely having a good day today. 10/29/2023: We are going to continue with our current level of observations and precautions. I am going to increase her nortriptyline up to 100 mg again now. We also added a one-time scheduled dose of lorazepam 1 mg at 07 30 tomorrow morning to see if that might help her start the day better rather than follow part so quickly. She is still in acute danger requiring hospitalization. On Tuesday, we will look into the possibility of whether or not ECT is possible. She had not done well with it in the past, but there is some data supporting use of ECT with nortriptyline. 10/28/2023: We will continue with her current level of observation and prec autions. I encouraged her to use behavioral activation and push through her desire to just lay in bed. We talked about hygiene. I am going to leave the nortriptyline and lorazepam as they are for now as I think they are helping although the nortriptyline will still take several weeks to get to its full effect. I am still very concerned about her suicidality as she feels extremely hopeless and is even entertaining the idea of leaving this world and leaving her daughter without a mother. I still think she is in acute danger to herself. We also tossed around the idea of possible ECT along with nortriptyline as there is some data to support that. I just do not know if it would be funded by her insurance. 10/27/2023: I am going to lower the nortriptyline down to 75 mg nightly and then raise the lorazepam 1 mg every 6 hours as needed for severe anxiety. Hopefully we will see less sedation and better coverage of her anxiety and she can function better like she did 2 days ago. In the near future, I might even back the nortriptyline down to 50 mg again since she did so well on Tuesday. I still think she is an acute danger to herself if she were to leave because of the risk of suicide. 10/26/2023: We are going to continue with our current level of observation and precautions. I lowered the lorazepam to 0.1 mg p.o. every 4 hours as needed for severe anxiety. I encouraged her to try to use the hydroxyzine when she can because the lorazepam is a controlled substance. Will leave the nortriptyline at the current dosing. I encouraged her to keep trying to go to groups and a ctivities and to distract herself. Hopefully, we are starting to turn a corner. 10/25/2023: We are going to continue with her current level of observation and precautions. I gave her a one-time dose of lorazepam 1 mg p.o. to see if that might offer some support for her anxiety. We will continue with the nortriptyline and I will increase it to 100 mg to see if we can help her more quickly. We will leave the clonidine just at nighttime if needed for sleep. I also encouraged her to continue to use behavioral activation techniques. 10/24/2023: We will continue with her current level of observation and precautions. We will continue with the nortriptyline at 50 mg, but I will likely raise it when I can. I encouraged her to try to distract herself with groups, activities, books, TV, or what ever else she can think of. I wrote for a one-time dose of clonidine 0.1 mg this morning to help with her rumination and help her sleep a little bit. I also added a as needed dose of clonidine that she can take 1 hour after her nortriptyline if she still cannot sleep. 10/23/2023: We are going to continue with her current level of observation and precautions. We will continue with the nortriptyline at 50 mg for now. I encouraged her to try to go to a few extra groups if possible. I am still very concerned about her safety. Also concerned about sending her home with nortriptyline so we are going to need a good safety plan. Today I talked her about behavioral activation. 10/22/2023: The patient and I discussed several options of what we can do to try to help her mood. This included nortriptyline, clozapine, loxapine, Emsam patch, and augmentation of an antidepressant with Cytomel. Unfortunately, she has very limited financial resources. Loxapine is not available on formulary here. We decided to start nortriptyline 50 mg at bedtime. I reviewed the uses, side effects, and time course with her and she gave informed consent. I worry about discharging her on a tricyclic and so when that happens, we may only give 1 week of medication out at a time. I encouraged the patient to continue to go to groups and activities to try to help improve her mood as well. 10/21/2023: complete Adderall trial. now has insurance but will not cover a provider able to manage selegiline. Will as Dr. Marie for a 2nd opinion re: TCA trial with short supplies/care med safety plan. 10/20/2023: d/c Ritalin in favor of trial of Adderall 10 mg today then 15 mg 7 am with plan for a 2 pm dose if tolerated to complete the trial. Patient requesting Vistaril scheduled as helpful. TCA trial could be considered but concerns about toxicity in OD. 10/19/2023: risks/benefits/alternatives reviewed re: Selegeline vs. a retrial of stimulant (fast acting, generic), particularly given likelihood of f/u with [facility] on discharge feel selegeline not a realistic option. Patient confirmed no hx of cardiac abnormality/arrthymia. Agreed to Ritalin 10 mg trial dose with likely TID meals. 10/18/2023: The patient was admitted to the [facility] ([facility] unit) on q15 min checks (behavioral with suicide precautions) for safety. The patient will participate in group, recreational, and milieu therapies and will be offered additional individual and family sessions as clinically appropriate. Risks/benefits/alternatives reviewed re: remaining therapeutic classes such as TCA vs. selegiline. Patient unable to consider TMS or ECT with maintenance without insurance. Inventory Assets Strengths: intelligent, did seek help Needs: improve coping and supports Suicide Risk Level Suicide Risk Level: Moderate (q15 min suicide checks) Risk Factors Assessment Mental Health Diagnoses: Yes Substance Use Disorders: No Previous Attempt: Yes Previous Psychiatric Hospitalization: Yes Protective Factors Assessment Responsible for Young Children: Yes Employed: No Supportive Family: Yes (but in [place]) Interval History Identifying Information BRADLEY ARELLANO is a 43-year-old F who currently lives in [place], has a history of treatment refractory depression, and was admitted on 10/17/23 14:31 on a 201 voluntary commitment for with plan. Chief Complaint "I had another episode of depression." Review of Systems Sleep Information Total Hours of Sleep: 7 Sleep Comments: scheduled Vistaril Meal Information Percent Meal Consumed - Breakfast: 100 Percent Meal Consumed - Lunch: 80 Percent Meal Consumed - Dinner: [address] Fry returned call and listed onset of antidepressant trials as 2005 while a resident in [place], he treated her from [id number] and confirmed ECT courses in 2017 and 2021. in chronological order he is aware of: Lexapro, Effexor, Abilify, SEroquel, Lamictal, [place], Latuda, Geodon, Topmax, Ritalin (patient had thought Adderall XR), Trintellix, carbazepine, ketamine, lorazepam, Cymbalta, pramipexole. Patient previously reported trials of Remeron, sertraline, Wellbutrin, citalopram. 10/20/23 reports trial of fluoxetine. Subjective Subjective Today I met with the patient, received nursing report, and reviewed her chart. We also had a multidisciplinary team meeting to discuss her care. The patient is in our hospital due to severe depression and suicidal ideation. Staff report that she slept in the morning after she got some Ativan. She has not used any as needed since then. She was more tearful and anxious yesterday. She denied suicidal thoughts. She did attend groups however. She described her mood at 4 out of 10 and used the word "tired." When I met with her this morning, she had received Ativan 1 mg pretty early before breakfast. She said that she felt a little bit better and says that the suicidal ideation "comes and goes" which is a definitely an improvement. I saw her later in the day attending groups. She does seem a little bit brighter. I also saw her in the common area reading a book. She says that her friend is coming in today for with the checkbook to sign the rent check. Patient is also asking about when she will be able to leave and I explained that we need to continue to see a pattern of improvement. She also recently bathed, she said. Medication Trials Dr. Fry returned call and listed onset of antidepressant trials as 2005 while a resident in [place], he treated her from [id number] and confirmed ECT courses in 2017 and 2021. in chronological order he is aware of: Lexapro, Effexor, Abilify, SEroquel, Lamictal, [place], Latuda, Geodon, Topmax, Ritalin (patient had thought Adderall XR), Trintellix, carbazepine, ketamine, lorazepam, Cymbalta, pramipexole. Patient previously reported trials of Remeron, sertraline, Wellbutrin, citalopram. 10/20/23 reports trial of fluoxetine. Physical Exam Psychiatric Patient was alert and cooperative. Eye contact was good. She was clean and well-groomed today. Speech was normal. Mood was "depressed." Affect was somewhat restricted, but brighter than yesterday. She was not tearful. Thought process was logical and less goal-directed. She did not seem hopeless today. There was no evidence of any hallucinations or delusions. She said that suicidal ideation "comes and goes." She denied any homicidal thoughts. Memory and concentration were okay. There were no abnormal movements seen today. Gait was normal. Insight and judgment are impaired. Vital Signs (Past 24 Hours) Last Vital Signs Temp 36.3 C L 11/01/23 06:42 Pulse 128 H 11/01/23 06:42 Resp 16 11/01/23 06:42 BP 102/71 11/01/23 06:42 Pulse Ox 93 10/30/23 06:50 O2 Del Method Room Air 10/30/23 06:50 Results & Data ([facility]) Current Inpatient Medications Current Inpatient Medications: Current Inpatient Medications Acetaminophen (Acetaminophen 325 Mg Tab) 650 mg PO Q4H PRN PRN Reason: Headache or Minor Fever Stop: 11/16/23 14:09 Al Hydrox/Mg Hydrox/Simethicone (Aluminum/Magnesium Susp 30 Ml Udc) 30 ml PO Q4H PRN PRN Reason: GI Upset Stop: 11/16/23 14:09 Bismuth Subsalicylate (Bismuth Subsalicylate Liqd 236 Ml) 15 ml PO PRN PRN PRN Reason: Loose Stool Stop: 11/16/23 14:09 Clonidine HCl (Clonidine Hcl 0.1 Mg Tab) 0.1 mg PO HS PRN PRN Reason: Insomnia Stop: 11/23/23 21:59 Last Admin: 10/25/23 21:03 Dose: 0.1 mg Gabapentin (Gabapentin 300 Mg Cap) 300 mg PO BID ARTHUR Stop: 11/16/23 15:49 Last Admin: 11/01/23 08:56 Dose: 300 mg Hydroxyzine HCl (Hydroxyzine Hcl 25 Mg Tab) 50 mg PO HSZ PRN PRN Reason: Insomnia Stop: 11/16/23 14:09 Last Admin: 10/19/23 20:24 Dose: 50 mg Hydroxyzine HCl (Hydroxyzine Hcl 25 Mg Tab) 25 mg PO Q4H PRN PRN Reason: Anxiety Stop: 11/16/23 14:09 Last Admin: 10/25/23 08:21 Dose: 25 mg Hydroxyzine HCl (Hydroxyzine Hcl 25 Mg Tab) 50 mg PO HS ARTHUR Stop: 11/19/23 21:59 Last Admin: 10/31/23 21:09 Dose: 50 mg Lorazepam (Lorazepam 1 Mg Tab) 1 mg PO Q6H PRN PRN Reason: severe anxiety Stop: 11/25/23 11:46 Last Admin: 10/31/23 09:36 Dose: 1 mg Lorazepam (Lorazepam 1 Mg Tab) 1 mg PO DAILY@0730 ARTHUR Stop: 12/01/23 07:29 Last Admin: 11/01/23 07:36 Dose: 1 mg Magnesium Hydroxide (Magnesium Hydroxide Susp 30 Ml Udc) 30 ml PO DAILY PRN PRN Reason: Constipation Stop: 11/16/23 14:09 Meloxicam (Meloxicam 7.5 Mg Tab) 7.5 mg PO QAM ARTHUR Stop: 11/16/23 15:59 Last Admin: 11/01/23 08:56 Dose: 7.5 mg Nortriptyline HCl (Nortriptyline Hcl 25 Mg Cap) 100 mg PO HS ARTHUR Stop: 11/28/23 21:59 Last Admin: 10/31/23 21:09 Dose: 100 mg Sodium Chloride (Sodium Chloride 0.65% Na Soln 45 Ml ([place])) 1 - 2 sprays NA PRN PRN PRN Reason: Nasal Dryness/Congestion Stop: 11/16/23 14:09 Sulfasalazine (Sulfasalazine 500 Mg Tablet) 1,000 mg PO TID ARTHUR Stop: 11/16/23 15:49 Last Admin: 11/01/23 08:56 Dose: 1,000 mg Mental Health & Subst Abuse Tx Therapist Name of Therapist: Tele-health Post Discharge Appointments Primary Care Physician Name Of Family Doctor/PCP: [facility] - Dr. Ferris Primary [facility] Date of Future Appointment with PCP: 11/09/2023 Time of Appointment with PCP: 9:25 arrival Provider Appointment Comment: Garrett Diaz, [address], [place] [address] (1) Major depression, recurrent Active/Remission status: currently active Major depression episode severity: severe Psychotic features: without psychotic features Qualified Code(s): F33.2 - Major depressive disorder, recurrent severe without psychotic features
--- NOTE | 2023-11-02 15:58 | Psychiatric Progress Note ---
Date of Service November 02, 2023 Impression / Recommendations Impression 43 yo woman with a hx of recurrent major depressive episodes refractory to multiple classes of medication, ketamine, and ECT. She is deemed in need of psychiatric hospitalization for diagnostic clarification, safety and stabilization, medication management and development of further coping skills. 11/02/2023: Ongoing intermittent SI but overall she feels her mood is showing some signs of progress in terms of lessening of frequency and intensity of SI and better able to cope during the morning with ativan. She thinks amitriptyline may be offering some benefit. May also be diagnostic component from trauma/divorce history. Overall, I spent a total of 45 minutes with this case, including review of chart, direct evaluation of the patient, coordination with nursing, multidisciplinary team meeting, orders, and documentation. (1) Major depression, recurrent: Plan 11/02/2023: Continue current medications and tx plan. 11/01/2023: We will continue with our current level of observation and precautions. We will leave the lorazepam 1 mg scheduled in the morning and she has other as needed dose that she can use if she needs to. Continue with the nortriptyline at 100 mg nightly which should hopefully start kicking in in the next 2 weeks. I encouraged her to keep using behavioral activation which she is trying to do. 10/31/2023: We will continue with our current level of observation and precautions. I am going to switch back to the lorazepam 1 mg in the morning right around the time of awakening to see if that helps her have another better day. We will get rid of the clonazepam. We will continue with nortriptyline at 100 mg nightly. I encouraged her to keep using behavioral activation. Hopefully, we will continue to see progress. 10/30/2023: We will continue with our current level of observation and precautions. We will continue with the nortriptyline at the new dose which is tolerated now. Instead of using lorazepam in the morning, we are going to try clonazepam 0.25 mg at 7:30 AM tomorrow morning. I encouraged her to keep using behavioral activation which she is obviously trying. We are definitely having a good day today. 10/29/2023: We are going to continue with our current level of observations and precautions. I am going to increase her nortriptyline up to 100 mg again now. We also added a one-time scheduled dose of lorazepam 1 mg at 07 30 tomorrow morning to see if that might help her start the day better rather than follow part so quickly. She is still in acute danger requiring hospitalization. On Tuesday, we will look into the possibility of whether or not ECT is possible. She had not done well with it in the past, but there is some data supporting use of ECT with nortriptyline. 10/28/2023: We will continue with her current level of observation and precautions. I encouraged her to use behavioral activation and push through her desire to just lay in bed. We talked about hygiene. I am going to leave the nortriptyline and lorazepam as they are for now as I think they are helping although the nortriptyline will still take several weeks to get to its full effect. I am still very concerned about her suicidality as she feels extremely hopeless and is even entertaining the idea of leaving this world and leaving her daughter without a mother. I still think she is in acute danger to herself. We also tossed around the idea of possible ECT along with nortriptyline as there is some data to support that. I just do not know if it would be funded by her insurance. 10/27/2023: I am going to lower the nortriptyline down to 75 mg nightly and then raise the lorazepam 1 mg every 6 hours as needed for severe anxiety. Hopefully we will see less sedation and better coverage of her anxiety and she can function better like she did 2 days ago. In the near future, I might even back the nortriptyline down to 50 mg again since she did so well on Tuesday. I still think she is an acute danger to herself if she were to leave because of the risk of suicide. 10/26/2023: We are going to continue with our current level of observation and precautions. I lowered the lorazepam to 0.1 mg p.o. every 4 hours as needed for severe anxiety. I encouraged her to try to use the hydroxyzine when she can because the lorazepam is a controlled substance. Will leave the nortriptyline at the current dosing. I encouraged her to keep trying to go to groups and activities and to distract herself. Hopefully, we are starting to turn a corner. 10/25/2023: We are going to continue with her current level of observation and precautions. I gave her a one-time dose of lorazepam 1 mg p.o. to see if that might offer some support for her anxiety. We will continue with the nortriptyline and I will increase it to 100 mg to see if we can help her more quickly. We will leave the clonidine just at nighttime if needed for sleep. I also encouraged her to continue to use behavioral activation techniques. 10/24/2023: We will continue with her current level of observation and precautions. We will continue with the nortriptyline at 50 mg, but I will likely raise it when I can. I encouraged her to try to distract herself with groups, activities, books, TV, or what ever else she can think of. I wrote for a one-time dose of clonidine 0.1 mg this morning to help with her rumination and help her sleep a little bit. I also added a as needed dose of clonidine that she can take 1 hour after her nortriptyline if she still cannot sleep. 10/23/2023: We are going to continue with her current level of observation and precautions. We will continue with the nortriptyline at 50 mg for now. I encouraged her to try to go to a few extra groups if possible. I am still very concerned about her safety. Also concerned about sending her home with nortriptyline so we are going to need a good safety plan. Today I talked her about behavioral activation. 10/22/2023: The patient and I discussed several options of what we can do to try to help her mood. This included nortriptyline, clozapine, loxapine, Emsam patch, and augmentation of an antidepressant with Cytomel. Unfortunately, she has very limited financial resources. Loxapine is not available on formulary here. We decided to start nortriptyline 50 mg at bedtime. I reviewed the uses, side effects, and time course with her and she gave informed consent. I worry about discharging her on a tricyclic and so when that happens, we may only give 1 week of medication out at a time. I encouraged the patient to continue to go to groups and activities to try to help improve her mood as well. 10/21/2023: complete Adderall trial. now has insurance but will not cover a provider able to manage selegiline. Will as Dr. Marie for a 2nd opinion re: TCA trial with short supplies/care med safety plan. 10/20/2023: d/c Ritalin in favor of trial of Adderall 10 mg today then 15 mg 7 am with plan for a 2 pm dose if tolerated to complete the trial. Patient requesting Vistaril scheduled as helpful. TCA trial could be considered but concerns about toxicity in OD. 10/19/2023: risks/benefits/alternatives reviewed re: Selegeline vs. a retrial of stimulant (fast acting, generic), particularly given likelihood of f/u with [facility] on discharge feel selegeline not a realistic option. Patient confirmed no hx of cardiac abnormality/arrthymia. Agreed to Ritalin 10 mg trial dose with likely TID meals. 10/18/2023: The patient was admitted to the [facility] ([facility]) on q15 min checks (behavioral with suicide precautions) for safety. The patient will participate in group, recreational, and milieu therapies and will be offered additional individual and family sessions as clinically appropriate. Risks/benefits/alternatives reviewed re: remaining therapeutic classes such as TCA vs. selegiline. Patient unable to consider TMS or ECT with maintenance without insurance. Inventory Assets Strengths: intelligent, did seek help Needs: improve coping and supports Suicide Risk Level Suicide Risk Level: Moderate (q15 min suicide checks) (hx of severe depression and SI with plan prior to admission, mood slowly improving and SI now without plan or intent and lessening in frequency, she feels able to talk to nursing if she feels unsafe or requires additional support) Risk Factors Assessment Mental Health Diagnoses: Yes Substance Use Disorders: No Previous Attempt: Yes Previous Psychiatric Hospitalization: Yes Protective Factors Assessment Responsible for Young Children: Yes Employed: No Supportive Family: Yes (but in [place]) Interval History Identifying Information BRADLEY ARELLANO is a 43-year-old F who currently lives in [place], has a history of treatment refractory depression, and was admitted on 10/17/23 14:31 on a 201 voluntary commitment for SI with plan. Chief Complaint "I'm making progress". Review of Systems Sleep Information Total Hours of Sleep: 7 Sleep Comments: scheduled Vistaril Meal Information Percent Meal Consumed - Breakfast: 100 Percent Meal Consumed - Lunch: 70 Percent Meal Consumed - Dinner: [address] Fry returned call and listed onset of antidepressant trials as 2005 while a resident in [place], he treated her from [id number] and confirmed ECT courses in 2018 and 2021. in chronological order he is aware of: Lexapro, Effexor, Abilify, SEroquel, Lamictal, Hills, Latuda, Geodon, Topmax, Ritalin (patient had tho ught Adderall XR), Trintellix, carbazepine, ketamine, lorazepam, Cymbalta, pramipexole. Patient previously reported trials of Remeron, sertraline, Wellbutrin, citalopram. 10/20/23 reports trial of fluoxetine. Subjective Subjective Patient was seen & assessed and interval progress reviewed with treatment team nursing and social work. In bed most of the morning/mid-day but reports she feels her mood is improving overall and she is making progress. Still with SI but finds this is less intense and "more sporadic" overall. Continues to find ativan and nortriptyline helpful. No new side effects. Medication Trials Dr. Fry returned call and listed onset of antidepressant trials as 2005 while a resident in [place], he treated her from [id number] and confirmed ECT courses in 2017 and 2021. in chronological order he is aware of: Lexapro, Effexor, Abilify, SEroquel, Lamictal, Hills, Latuda, Geodon, Topmax, Ritalin (patient had thought Adderall XR), Trintellix, carbazepine, ketamine, lorazepam, Cymbalta, pramipexole. Patient previously reported trials of Remeron, sertraline, Wellbutrin, citalopram. 10/20/23 reports trial of fluoxetine. Physical Exam Psychiatric Orientation: alert and oriented x 3 Apperance: appropriately dressed Eye Contact: + fair eye contact Motor Behavior: no abnormal motor movements Speech: normal rate/rhythm/volume of speech (soft) Affect: + constricted affect Mood: + depressed mood Thought Process: clear/coherent thought process and + concrete thought process Thought Content: reality based without delusions Suicidal Thoughts: denies suicidal plan; + reports suicidal thoughts Homicidal Thoughts: denies homicidal thoughts Hallucinations: + visual hallucinations; no auditory hallucinations Insight: + fair insight Judgment: + fair judgement Vital Signs (Past 24 Hours) Last Vital Signs Temp 36.3 C L 11/02/23 06:16 Pulse 95 H 04/03/24 06:17 Resp 18 11/02/23 06:16 BP 101/66 11/02/23 06:17 Pulse Ox 96 11/02/23 06:16 O2 Del Method Room Air 10/30/23 06:50 Results & Data ([facility]) Current Inpatient Medications Current Inpatient Medications: Current Inpatient Medications Acetaminophen (Acetaminophen 325 Mg Tab) 650 mg PO Q4H PRN PRN Reason: Headache or Minor Fever Stop: 11/16/23 14:09 Al Hydrox/Mg Hydrox/Simethicone (Aluminum/Magnesium Susp 30 Ml Udc) 30 ml PO Q4H PRN PRN Reason: GI Upset Stop: 11/16/23 14:09 Bismuth Subsalicylate (Bismuth Subsalicylate Liqd 236 Ml) 15 ml PO PRN PRN PRN Reason: Loose Stool Stop: 11/16/23 14:09 Clonidine HCl (Clonidine Hcl 0.1 Mg Tab) 0.1 mg PO HS PRN PRN Reason: Insomnia Stop: 11/23/23 21:59 Last Admin: 10/25/23 21:03 Dose: 0.1 mg Gabapentin (Gabapentin 300 Mg Cap) 300 mg PO BID ARTHUR Stop: 11/16/23 15:49 Last Admin: 11/02/23 08:42 Dose: 300 mg Hydroxyzine HCl (Hydroxyzine Hcl 25 Mg Tab) 50 mg PO HSZ PRN PRN Reason: Insomnia Stop: 11/16/23 14:09 Last Admin: 10/19/23 20:24 Dose: 50 mg Hydroxyzine HCl (Hydroxyzine Hcl 25 Mg Tab) 25 mg PO Q4H PRN PRN Reason: Anxiety Stop: 11/16/23 14:09 Last Admin: 10/25/23 08:21 Dose: 25 mg Hydroxyzine HCl (Hydroxyzine Hcl 25 Mg Tab) 50 mg PO HS ARTHUR Stop: 11/19/23 21:59 Last Admin: 11/01/23 21:28 Dose: 50 mg Lorazepam (Lorazepam 1 Mg Tab) 1 mg PO Q6H PRN PRN Reason: severe anxiety Stop: 11/25/23 11:46 Last Admin: 10/31/23 09:36 Dose: 1 mg Lorazepam (Lorazepam 1 Mg Tab) 1 mg PO DAILY@0730 ARTHUR Stop: 12/01/23 07:29 Last Admin: 11/02/23 07:54 Dose: 1 mg Magnesium Hydroxide (Magnesium Hydroxide Susp 30 Ml Udc) 30 ml PO DAILY PRN PRN Reason: Constipation Stop: 11/16/23 14:09 Meloxicam (Meloxicam 7.5 Mg Tab) 7.5 mg PO QAM ARTHUR Stop: 11/16/23 15:59 Last Admin: 11/02/23 08:42 Dose: 7.5 mg Nortriptyline HCl (Nortriptyline Hcl 25 Mg Cap) 100 mg PO HS ARTHUR Stop: 11/28/23 21:59 Last Admin: 11/01/23 21:29 Dose: 100 mg Sodium Chloride (Sodium Chloride 0.65% Na Soln 45 Ml ([place])) 1 - 2 sprays NA PRN PRN PRN Reason: Nasal Dryness/Congestion Stop: 11/16/23 14:09 Sulfasalazine (Sulfasalazine 500 Mg Tablet) 1,000 mg PO TID ARTHUR Stop: 11/16/23 15:49 Last Admin: 11/02/23 14:41 Dose: 1,000 mg Mental Health & Subst Abuse Tx Therapist Name of Therapist: Tele-health Post Discharge Appointments Primary Care Physician Name Of Family Doctor/PCP: [facility] - Dr. Ferris Primary [facility] Date of Future Appointment with PCP: 11/09/2023 Time of Appointment with PCP: 9:25 arrival Provider Appointment Comment: Garrett Diaz, [address], [place] [address] (1) Major depression, recurrent Active/Remission status: currently active Major depression episode severity: severe Psychotic features: without psychotic features Qualified Code(s): F33.2 - Major depressive disorder, recurrent severe without psychotic features
--- NOTE | 2023-11-03 09:33 | Psychiatric Progress Note ---
Date of Service November 03, 2023 Impression / Recommendations Impression 43 yo woman with a hx of recurrent major depressive episodes refractory to multiple classes of medication, ketamine, and ECT. She is deemed in need of psychiatric hospitalization for diagnostic clarification, safety and stabilization, medication management and development of further coping skills. 11/03/2023: Ongoing intermittent SI and still struggling with low energy which impacts her motivation for showering and eating at times but she is engaging more consistently with groups and feels her mood is starting to show some signs of improvement. She is agreeable to completing a CAMS to further assess her suicidality and driving factors behind this. Overall, I spent a total of 45 minutes with this case, including review of chart, direct evaluation of the patient, coordination with nursing, multidisciplinary team meeting, orders, and documentation. (1) Major depression, recurrent: Plan 11/03/2023: Discussed plan to increase nortriptyline to 125mg HS tomorrow night which she consents to. Continue to focus on behavioral activation. Plan for referral for outpatient CM services. 11/02/2023: Continue current medications and tx plan. 11/01/2023: We will continue with our current level of observation and precautions. We will leave the lorazepam 1 mg scheduled in the morning and she has other as needed dose that she can use if she needs to. Continue with the nortriptyline at 100 mg nightly which should hopefully start kicking in in the next 2 weeks. I encouraged her to keep using behavioral activation which she is trying to do. 10/31/2023: We will continue with our current level of observation and precautions. I am going to switch back to the lorazepam 1 mg in the morning right around the time of awakening to see if that helps her have another better day. We will get rid of the clonazepam. We will continue with nortriptyline at 100 mg nightly. I encouraged her to keep using behavioral activation. Hopefully, we will continue to see progress. 10/30/2023: We will continue with our current level of observation and precautions. We will continue with the nortriptyline at the new dose which is tolerated now. Instead of using lorazepam in the morning, we are going to try clonazepam 0.25 mg at 7:30 AM tomorrow morning. I encouraged her to keep using behavioral activation which she is obviously trying. We are definitely having a good day today. 10/29/2023: We are going to continue with our current level of observations and precautions. I am going to increase her nortriptyline up to 100 mg again now. We also added a one-time scheduled dose of lorazepam 1 mg at 30 tomorrow morning to see if that might help her start the day better rather than follow part so quickly. She is still in acute danger requiring hospitalization. On Tuesday, we will look into the possibility of whether or not ECT is possible. She had not done well with it in the past, but there is some data supporting use of ECT with nortriptyline. 10/28/2023: We will continue with her current level of observation and precautions. I encouraged her to use behavioral activation and push through her desire to just lay in bed. We talked about hygiene. I am going to leave the nortriptyline and lorazepam as they are for now as I think they are helping although the nortriptyline will still take several weeks to get to its full effect. I am still very concerned about her suicidality as she feels extremely hopeless and is even entertaining the idea of leaving this world and leaving her daughter without a mother. I still think she is in acute danger to herself. We also tossed around the idea of possible ECT along with nortriptyline as there is some data to support that. I just do not know if it would be funded by her insurance. 10/27/2023: I am going to lower the nortriptyline down to 75 mg nightly and then raise the lorazepam 1 mg every 6 hours as needed for severe anxiety. Hopefully we will see less sedation and better coverage of her anxiety and she can function better like she did 2 days ago. In the near future, I might even back the nortriptyline down to 50 mg again since she did so well on Tuesday. I still think she is an acute danger to herself if she were to leave because of the risk of suicide. 10/26/2023: We are going to continue with our current level of observation and precautions. I lowered the lorazepam to 0.1 mg p.o. every 4 hours as needed for severe anxiety. I encouraged her to try to use the hydroxyzine when she can because the lorazepam is a controlled substance. Will leave the nortriptyline at the current dosing. I encouraged her to keep trying to go to groups and activities and to distract herself. Hopefully, we are starting to turn a corner. 10/25/2023: We are going to continue with her current level of observation and precautions. I gave her a one-time dose of lorazepam 1 mg p.o. to see if that might offer some support for her anxiety. We will continue with the nortriptyline and I will increase it to 100 mg to see if we can help her more quickly. We will leave the clonidine just at nighttime if needed for sleep. I also encouraged her to continue to use behavioral activation techniques. 10/24/2023: We will continue with her current level of observation and precautions. We will continue with the nortriptyline at 50 mg, but I will likely raise it when I can. I encouraged her to try to distract herself with groups, activities, books, TV, or what ever else she can think of. I wrote for a one-time dose of clonidine 0.1 mg this morning to help with her rumination and help her sleep a little bit. I also added a as needed dose of clonidine that she can take 1 hour after her nortriptyline if she still cannot sleep. 10/23/2023: We are going to continue with her current level of observation and precautions. We will continue with the nortriptyline at 50 mg for now. I encouraged her to try to go to a few extra groups if possible. I am still very concerned about her safety. Also concerned about sending her home with nortriptyline so we are going to need a good safety plan. Today I talked her about behavioral activation. 10/22/2023: The patient and I discussed several options of what we can do to try to help her mood. This included nortriptyline, clozapine, loxapine, Emsam patch, and augmentation of an antidepressant with Cytomel. Unfortunately, she has very limited financial resources. Loxapine is not available on formulary here. We decided to start nortriptyline 50 mg at bedtime. I reviewed the uses, side effects, and time course with her and she gave informed consent. I worry about discharging her on a tricyclic and so when that happens, we may only give 1 week of medication out at a time. I encouraged the patient to continue to go to groups and activities to try to help improve her mood as well. 10/21/2023: complete Adderall trial. now has insurance but will not cover a provider able to manage selegiline. Will as Dr. Marie for a 2nd opinion re: TCA trial with short supplies/care med safety plan. 10/20/2023: d/c Ritalin in favor of trial of Adderall 10 mg today then 15 mg 7 am with plan for a 2 pm dose if tolerated to complete the trial. Patient requesting Vistaril scheduled as helpful. TCA trial could be considered but concerns about toxicity in OD. 10/19/2023: risks/benefits/alternatives reviewed re: Selegeline vs. a retrial of stimulant (fast acting, generic), particularly given likelihood of f/u with [facility] on discharge feel selegeline not a realistic option. Patient confirmed no hx of cardiac abnormality/arrthymia. Agreed to Ritalin 10 mg trial dose with likely TID meals. 10/18/2023: The patient was admitted to the [facility] ([facility] unit) on q15 min checks (behavioral with suicide precautions) for safety. The patient will participate in group, recreational, and milieu therapies and will be offered additional individual and family sessions as clinically appropriate. Risks/benefits/alternatives reviewed re: remaining therapeutic classes such as TCA vs. selegiline. Patient unable to consider TMS or ECT with maintenance without insurance. Inventory Assets Strengths: intelligent, did seek help Needs: improve coping and supports Suicide Risk Level Suicide Risk Level: Moderate (q15 min suicide checks) (hx of severe depression and SI with plan prior to admission, mood slowly improving and SI now without plan or intent (though one statement of plan outside the hospital) and lessening in frequency, she feels able to talk to nursing if she feels unsafe or requires additional support) Risk Factors Assessment Mental Health Diagnoses: Yes Substance Use Disorders: No Previous Attempt: Yes Previous Psychiatric Hospitalization: Yes Protective Factors Assessment Responsible for Young Children: Yes Employed: No Supportive Family: Yes (but in [place]) Interval History Identifying Information BRADLEY ARELLANO is a 43-year-old F who currently lives in [place], has a history of treatment refractory depression, and was admitted on 10/17/23 14:31 on a 201 voluntary commitment for SI with plan. Chief Complaint "I'm going to try to shower today". Review of Systems Sleep Information Total Hours of Sleep: 9 Sleep Comments: Scheduled [facility] Meal Information Percent Meal Consumed - Breakfast: 100 Percent Meal Consumed - Lunch: 70 Percent Meal Consumed - Dinner: [address] Fry returned call and listed onset of antidepressant trials as 2005 while a resident in [place], he treated her from [id number] and confirmed ECT courses in 2017 and 2021. in chronological order he is aware of: Lexapro, Effexor, Abilify, SEroquel, Lamictal, Royal Kunia, Latuda, Geodon, Topmax, Ritalin (patient had thought Adderall XR), Trintellix, carbazepine, ketamine, lorazepam, Cymbalta, pramipexole. Patient previously reported trials of Remeron, sertraline, Wellbutrin, citalopram. 10/20/23 reports trial of fluoxetine. Subjective Subjective Patient was seen & assessed and interval progress reviewed with treatment team nursing and social work. Attended one group last evening, ate about 30% of her dinner, flat and tearful at times. Reported during treatment team review this morning that she is always suicidal with a plan and since overdosing was not successful she would use a gun next time. She has not showered. Did eat her breakfast. In meeting with me she reports some wish that she could discharge this weekend due to a friend's wishes that she attend a yarsani service but also acknowledges that the depression continues to negatively impact her energy level and still has periods of SI. She continues to tolerate the medication well, is agreeable to a dose increase. We discussed support she has from friends and she is agreeable to an outpatient case management referral for additional support. Medication Trials Dr. Fry returned call and listed onset of antidepressant trials as 2005 while a resident in [place], he treated her from [id number] and confirmed ECT courses in 2017 and 2021. in chronological order he is aware of: Lexapro, Effexor, Abilify, SEroquel, Lamictal, Royal Kunia, Latuda, Geodon, Topmax, Ritalin (patient had thought Adderall XR), Trintellix, carbazepine, ketamine, lorazepam, Cymbalta, pramipexole. Patient previously reported trials of Remeron, sertraline, Wellbutrin, citalopram. 10/20/23 reports trial of fluoxetine. Physical Exam Psychiatric Orientation: alert and oriented x 3 Apperance: appropriately dressed Eye Contact: + fair eye contact Motor Behavior: no abnormal motor movements Speech: normal rate/rhythm/volume of speech (soft) Affect: + constricted affect Mood: + depressed mood Thought Process: clear/coherent thought process and + concrete thought process Thought Content: reality based without delusions Suicidal Thoughts: denies suicidal plan; + reports suicidal thoughts Homicidal Thoughts: denies homicidal thoughts Hallucinations: no auditory hallucinations and no visual hallucinations Insight: + fair insight Judgment: + fair judgement Vital Signs (Past 24 Hours) Last Vital Signs Temp 35.8 C L 11/03/23 06:28 Pulse 98 H 11/03/23 06:30 Resp 16 11/03/23 06:28 BP 128/84 11/03/23 06:30 Pulse Ox 96 11/02/23 06:16 O2 Del Method Room Air 10/30/23 06:50 Results & Data ([facility]) Current Inpatient Medications Current Inpatient Medications: Current Inpatient Medications Acetaminophen (Acetaminophen 325 Mg Tab) 650 mg PO Q4H PRN PRN Reason: Headache or Minor Fever Stop: 11/16/23 14:09 Al Hydrox/Mg Hydrox/Simethicone (Aluminum/Magnesium Susp 30 Ml Udc) 30 ml PO Q4H PRN PRN Reason: GI Upset Stop: 11/16/23 14:09 Bismuth Subsalicylate (Bismuth Subsalicylate Liqd 236 Ml) 15 ml PO PRN PRN PRN Reason: Loose Stool Stop: 11/16/23 14:09 Clonidine HCl (Clonidine Hcl 0.1 Mg Tab) 0.1 mg PO HS PRN PRN Reason: Insomnia Stop: 11/23/23 21:59 Last Admin: 10/25/23 21:03 Dose: 0.1 mg Gabapentin (Gabapentin 300 Mg Cap) 300 mg PO BID ARTHUR Stop: 11/16/23 15:49 Last Admin: 11/03/23 08:45 Dose: 300 mg Hydroxyzine HCl (Hydroxyzine Hcl 25 Mg Tab) 50 mg PO HSZ PRN PRN Reason: Insomnia Stop: 11/16/23 14:09 Last Admin: 10/19/23 20:24 Dose: 50 mg Hydroxyzine HCl (Hydroxyzine Hcl 25 Mg Tab) 25 mg PO Q4H PRN PRN Reason: Anxiety Stop: 11/16/23 14:09 Last Admin: 10/25/23 08:21 Dose: 25 mg Hydroxyzine HCl (Hydroxyzine Hcl 25 Mg Tab) 50 mg PO HS ARTHUR Stop: 11/19/23 21:59 Last Admin: 11/02/23 21:44 Dose: 50 mg Lorazepam (Lorazepam 1 Mg Tab) 1 mg PO Q6H PRN PRN Reason: severe anxiety Stop: 11/25/23 11:46 Last Admin: 10/31/23 09:36 Dose: 1 mg Lorazepam (Lorazepam 1 Mg Tab) 1 mg PO DAILY@0730 ARTHUR Stop: 12/01/23 07:29 Last Admin: 11/03/23 06:33 Dose: 1 mg Magnesium Hydroxide (Magnesium Hydroxide Susp 30 Ml Udc) 30 ml PO DAILY PRN PRN Reason: Constipation Stop: 11/16/23 14:09 Meloxicam (Meloxicam 7.5 Mg Tab) 7.5 mg PO QAM ARTHUR Stop: 11/16/23 15:59 Last Admin: 11/03/23 08:45 Dose: 7.5 mg Nortriptyline HCl (Nortriptyline Hcl 25 Mg Cap) 100 mg PO HS ARTHUR Stop: 11/28/23 21:59 Last Admin: 11/02/23 21:44 Dose: 100 mg Sodium Chloride (Sodium Chloride 0.65% Na Soln 45 Ml ([place])) 1 - 2 sprays NA PRN PRN PRN Reason: Nasal Dryness/Congestion Stop: 11/16/23 14:09 Sulfasalazine (Sulfasalazine 500 Mg Tablet) 1,000 mg PO TID ARTHUR Stop: 11/16/23 15:49 Last Admin: 11/03/23 08:45 Dose: 1,000 mg Mental Health & Subst Abuse Tx Therapist Name of Therapist: Tele-health Post Discharge Appointments Primary Care Physician Name Of Family Doctor/PCP: [facility] - Dr. Ferris Primary Care Date of Future Appointment with PCP: 11/09/2023 Time of Appointment with PCP: 9:25 arrival Provider Appointment Comment: Garrett Diaz, [address], [place] [id number] (1) Major depression, recurrent Active/Remission status: currently active Major depression episode severity: severe Psychotic features: without psychotic features Qualified Code(s): F33.2 - Major depressive disorder, recurrent severe without psychotic features
--- NOTE | 2023-11-04 09:08 | Psychiatric Progress Note ---
Date of Service November 04, 2023 Impression / Recommendations Impression 43 yo woman with a hx of recurrent major depressive episodes refractory to multiple classes of medication, ketamine, and ECT. She is deemed in need of psychiatric hospitalization for diagnostic clarification, safety and stabilization, medication management and development of further coping skills. 11/04/2023: Mood starting to improve a bit with increased motivation and out of her room more today. Describes her daughter as her most significant deterrent to suicide. 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 Overall, I spent a total of 40 minutes with this case, including review of chart, direct evaluation of the patient, coordination with nursing, multidisciplinary team meeting, orders, and documentation. (1) Major depression, recurrent: Plan 11/04/2023: Increased nortriptyline to 125mg HS po. 11/03/2023: Discussed plan to increase nortriptyline to 125mg HS tomorrow night which she consents to. Continue to focus on behavioral activation. Plan for referral for outpatient CM services. 11/02/2023: Continue current medications and tx plan. 11/01/2023: We will continue with our current level of observation and precautions. We will leave the lorazepam 1 mg scheduled in the morning and she has other as needed dose that she can use if she needs to. Continue with the nortriptyline at 100 mg nightly which should hopefully start kicking in in the next 2 weeks. I encouraged her to keep using behavioral activation which she is trying to do. 10/31/2023: We will continue with our current level of observation and precautions. I am going to switch back to the lorazepam 1 mg in the morning right around the time of awakening to see if that helps her have another better day. We will get rid of the clonazepam. We will continue with nortriptyline at 100 mg nightly. I encouraged her to keep using behavioral activation. Hopefully, we will continue to see progress. 10/30/2023: We will continue with our current level of observation and precautions. We will continue with the nortriptyline at the new dose which is tolerated now. Instead of using lorazepam in the morning, we are going to try clonazepam 0.25 mg at 7:30 AM tomorrow morning. I encouraged her to keep using behavioral activation which she is obviously trying. We are definitely having a good day today. 10/29/2023: We are going to continue with our current level of observations and precautions. I am going to increase her nortriptyline up to 100 mg again now. We also added a one-time scheduled dose of lorazepam 1 mg at 07 30 tomorrow morning to see if that might help her start the day better rather than follow part so quickly. She is still in acute danger requiring hospitalization. On Tuesday, we will look into the possibility of whether or not ECT is possible. She had not done well with it in the past, but there is some data supporting use of ECT with nortriptyline. 10/28/2023: We will continue with her current level of observation and precautions. I encouraged her to use behavioral activation and push through her desire to just lay in bed. We talked about hygiene. I am going to leave the nortriptyline and lorazepam as they are for now as I think they are helping although the nortriptyline will still take several weeks to get to its full effect. I am still very concerned about her suicidality as she feels extremely hopeless and is even entertaining the idea of leaving this world and leaving her daughter without a mother. I still think she is in acute danger to herself. We also tossed around the idea of possible ECT along with nortriptyline as there is some data to support that. I just do not know if it would be funded by her insurance. 10/27/2023: I am going to lower the nortriptyline down to 75 mg nightly and then raise the lorazepam 1 mg every 6 hours as needed for severe anxiety. Hopefully we will see less sedation and better coverage of her anxiety and she can function better like she did 2 days ago. In the near future, I might even back the nortriptyline down to 50 mg again since she did so well on Tuesday. I still think she is an acute danger to herself if she were to leave because of the risk of suicide. 10/26/2023: We are going to continue with our current level of observation and precautions. I lowered the lorazepam to 0.1 mg p.o. every 4 hours as needed for severe anxiety. I encouraged her to try to use the hydroxyzine when she can because the lorazepam is a controlled substance. Will leave the nortriptyline at the current dosing. I encouraged her to keep trying to go to groups and activities and to distract herself. Hopefully, we are starting to turn a corner. 10/25/2023: We are going to continue with her current level of observation and precautions. I gave her a one-time dose of lorazepam 1 mg p.o. to see if that might offer some support for her anxiety. We will continue with the nortriptyline and I will increase it to 100 mg to see if we can help her more quickly. We will leave the clonidine just at nighttime if needed for sleep. I also encouraged her to continue to use behavioral activation techniques. 10/24/2023: We will continue with her current level of observation and precautions. We will continue with the nortriptyline at 50 mg, but I will likely raise it when I can. I encouraged her to try to distract herself with groups, activities, books, TV, or what ever else she can think of. I wrote for a one-time dose of clonidine 0.1 mg this morning to help with her rumination and help her sleep a little bit. I also added a as needed dose of clonidine that she can take 1 hour after her nortriptyline if she still cannot sleep. 10/23/2023: We are going to continue with her current level of observation and precautions. We will continue with the nortriptyline at 50 mg for now. I encouraged her to try to go to a few extra groups if possible. I am still very concerned about her safety. Also concerned about sending her home with nortriptyline so we are going to need a good safety plan. Today I talked her about behavioral activation. 10/22/2023: The patient and I discussed several options of what we can do to try to help her mood. This included nortriptyline, clozapine, loxapine, Emsam patch, and augmentation of an antidepressant with Cytomel. Unfortunately, she has very limited financial resources. Loxapine is not available on formulary here. We decided to start nortriptyline 50 mg at bedtime. I reviewed the uses, side effects, and time course with her and she gave informed consent. I worry about discharging her on a tricyclic and so when that happens, we may only give 1 week of medication out at a time. I encouraged the patient to continue to go to groups and activities to try to help improve her mood as well. 10/21/2023: complete Adderall trial. now has insurance but will not cover a provider able to manage selegiline. Will as Dr. Marie for a 2nd opinion re: TCA trial with short supplies/care med safety plan. 10/20/2023: d/c Ritalin in favor of trial of Adderall 10 mg today then 15 mg 7 am with plan for a 2 pm dose if tolerated to complete the trial. Patient requesting Vistaril scheduled as helpful. TCA trial could be considered but concerns about toxicity in OD. 10/19/2023: risks/benefits/alternatives reviewed re: Selegeline vs. a retrial of stimulant (fast acting, generic), particularly given likelihood of f/u with [facility] on discharge feel selegeline not a realistic option. Patient confirmed no hx of cardiac abnormality/arrthymia. Agreed to Ritalin 10 mg trial dose with likely TID meals. 10/18/2023: The patient was admitted to the [facility] ([facility] unit) on q15 min checks (behavioral with suicide precautions) for safety. The patient will participate in group, recreational, and milieu therapies and will be offered additional individual and family sessions as clinically appropriate. Risks/benefits/alternatives reviewed re: remaining therapeutic classes such as TCA vs. selegiline. Patient unable to consider TMS or ECT with maintenance without insurance. Inventory Assets Strengths: intelligent, did seek help Needs: improve coping and supports Suicide Risk Level Suicide Risk Level: Moderate (q15 min suicide checks) (hx of severe depression and SI with plan prior to admission, mood slowly improving and SI now without plan or intent and more deterrents and lessening in frequency, she feels able to talk to nursing if she feels unsafe or requires additional support) Risk Factors Assessment Mental Health Diagnoses: Yes Substance Use Disorders: No Previous Attempt: Yes Previous Psychiatric Hospitalization: Yes Protective Factors Assessment Responsible for Young Children: Yes Employed: No Supportive Family: Yes (but in [place]) Interval History Identifying Information BRADLEY ARELLANO is a 43-year-old F who currently lives in [place], has a history of treatment refractory depression, and was admitted on 10/17/23 14:31 on a 201 voluntary commitment for SI with plan. Chief Complaint "I'm having a good morning". Review of Systems Sleep Information Total Hours of Sleep: 6.30 Sleep Comments: HS scheduled Vistaril Meal Information Percent Meal Consumed - Breakfast: 100 Percent Meal Consumed - Lunch: 90 Percent Meal Consumed - Dinner: [address] Fry returned call and listed onset of antidepressant trials as 2005 while a resident in [place], he treated her from [id number] and confirmed ECT courses in 2017 and 2021. in chronological order he is aware of: Lexapro, Effexor, Abilify, SEroquel, Lamictal, Tennant, Latuda, Geodon, Topmax, Ritalin (patient had thought Adderall XR), Trintellix, carbazepine, ketamine, lorazepam, Cymbalta, pramipexole. Patient previously reported trials of Remeron, sertraline, Wellbutrin, citalop bimal. 10/20/23 reports trial of fluoxetine. Subjective Subjective Patient was seen & assessed and interval progress reviewed with treatment team nursing and social work. Had a visit with her friend. Did not attend community meeting. Slightly more isolative yesterday. Today awake and out of her room, showered, attended and participated in groups so far. Reviewed her CAMS-she rates her wish to live as 5/8 (8 being the most) and wish to as 3/8 (8 being the most) and rates her current overall risk as 2/5 where 5 is highest and 1 is lowest risk. She describes her daughter as a very strong deterrent and the reason she sought help leading to this hospitalization. 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 Notes she has more energy and changed her bed linens today. Agreeable with ongoing titration of nortriptyline, denies any new side effects. Medication Trials Dr. Fry returned call and listed onset of antidepressant trials as 2005 while a resident in [place], he treated her from [id number] and confirmed ECT courses in 2017 and 2021. in chronological order he is aware of: Lexapro, Effexor, Abilify, SEroquel, Lamictal, Tennant, Latuda, Geodon, Topmax, Ritalin (patient had thought Adderall XR), Trintellix, carbazepine, ketamine, lorazepam, Cymbalta, pramipexole. Patient previously reported trials of Remeron, sertraline, Wellbutrin, citalopram. 10/20/23 reports trial of fluoxetine. Physical Exam Psychiatric Orientation: alert and oriented x 3 Apperance: appropriately dressed Eye Contact: good eye contact Motor Behavior: no abnormal motor movements Speech: normal rate/rhythm/volume of speech (soft) Affect: + constricted affect Mood: + depressed mood Thought Process: clear/coherent thought process Thought Content: reality based without delusions Suicidal Thoughts: denies suicidal plan; + reports suicidal thoughts (but lessening) Homicidal Thoughts: denies homicidal thoughts Hallucinations: no auditory hallucinations and no visual hallucinations Insight: + fair insight Judgment: + fair judgement Vital Signs (Past 24 Hours) Last Vital Signs Temp 36.5 C 11/04/23 06:34 Pulse 102 H 11/04/23 06:35 Resp 16 11/04/23 06:34 BP 105/72 11/04/23 06:35 Pulse Ox 96 11/02/23 06:16 O2 Del Method Room Air 10/30/23 06:50 Results & Data ([facility]) Current Inpatient Medications Current Inpatient Medications: Current Inpatient Medications Acetaminophen (Acetaminophen 325 Mg Tab) 650 mg PO Q4H PRN PRN Reason: Headache or Minor Fever Stop: 11/16/23 14:09 Al Hydrox/Mg Hydrox/Simethicone (Aluminum/Magnesium Susp 30 Ml Udc) 30 ml PO Q4H PRN PRN Reason: GI Upset Stop: 11/16/23 14:09 Bismuth Subsalicylate (Bismuth Subsalicylate Liqd 236 Ml) 15 ml PO PRN PRN PRN Reason: Loose Stool Stop: 11/16/23 14:09 Clonidine HCl (Clonidine Hcl 0.1 Mg Tab) 0.1 mg PO HS PRN PRN Reason: Insomnia Stop: 11/23/23 21:59 Last Admin: 10/25/23 21:03 Dose: 0.1 mg Gabapentin (Gabapentin 300 Mg Cap) 300 mg PO BID ARTHUR Stop: 11/16/23 15:49 Last Admin: 11/04/23 08:37 Dose: 300 mg Hydroxyzine HCl (Hydroxyzine Hcl 25 Mg Tab) 50 mg PO HSZ PRN PRN Reason: Insomnia Stop: 11/16/23 14:09 Last Admin: 10/19/23 20:24 Dose: 50 mg Hydroxyzine HCl (Hydroxyzine Hcl 25 Mg Tab) 25 mg PO Q4H PRN PRN Reason: Anxiety Stop: 11/16/23 14:09 Last Admin: 10/25/23 08:21 Dose: 25 mg Hydroxyzine HCl (Hydroxyzine Hcl 25 Mg Tab) 50 mg PO HS ARTHUR Stop: 11/19/23 21:59 Last Admin: 11/03/23 21:34 Dose: 50 mg Lorazepam (Lorazepam 1 Mg Tab) 1 mg PO Q6H PRN PRN Reason: severe anxiety Stop: 11/25/23 11:46 Last Admin: 10/31/23 09:36 Dose: 1 mg Lorazepam (Lorazepam 1 Mg Tab) 1 mg PO DAILY@0730 ARTHUR Stop: 12/01/23 07:29 Last Admin: 11/04/23 06:26 Dose: 1 mg Magnesium Hydroxide (Magnesium Hydroxide Susp 30 Ml Udc) 30 ml PO DAILY PRN PRN Reason: Constipation Stop: 11/16/23 14:09 Meloxicam (Meloxicam 7.5 Mg Tab) 7.5 mg PO QAM ARTHUR Stop: 11/16/23 15:59 Last Admin: 11/04/23 08:37 Dose: 7.5 mg Nortriptyline HCl (Nortriptyline Hcl 25 Mg Cap) 100 mg PO HS ARTHUR Stop: 11/28/23 21:59 Last Admin: 11/03/23 21:35 Dose: 100 mg Sodium Chloride (Sodium Chloride 0.65% Na Soln 45 Ml (Falls)) 1 - 2 sprays NA PRN PRN PRN Reason: Nasal Dryness/Congestion Stop: 11/16/23 14:09 Sulfasalazine (Sulfasalazine 500 Mg Tablet) 1,000 mg PO TID ARTHUR Stop: 11/16/23 15:49 Last Admin: 11/04/23 08:37 Dose: 1,000 mg Mental Health & Subst Abuse Tx Therapist Name of Therapist: Tele-health Post Discharge Appointments Primary Care Physician Name Of Family Doctor/PCP: [facility] - Dr. Ferris Primary [facility] Date of Future Appointment with PCP: 11/09/2023 Time of Appointment with PCP: 9:25 arrival Provider Appointment Comment: Garrett Diaz, [address], [facility] [id number] (1) Major depression, recurrent Active/Remission status: currently active Major depression episode severity: severe Psychotic features: without psychotic features Qualified Code(s): F33.2 - Major depressive disorder, recurrent severe without psychotic features
[2023-11-04] MEDS: NORTRIPTYLINE HCL 25 MG CAP PO SCH (21:18)
--- NOTE | 2023-11-05 09:18 | Psychiatric Progress Note ---
Date of Service November 05, 2023 Impression / Recommendations Impression 43 yo woman with a hx of recurrent major depressive episodes refractory to multiple classes of medication, ketamine, and ECT. She is deemed in need of psychiatric hospitalization for diagnostic clarification, safety and stabilization, medication management and development of further coping skills. 11/05/2023: Improving mood, sleep improving and creating lists for future-oriented goals such as options for places to search for job opportunities and engaged in discussions about this which is reassuring in context of previous severity of SI and depression. Overall, I spent a total of 36 minutes with this case, including review of chart, direct evaluation of the patient, coordination with nursing, multidisciplinary team meeting, orders, and documentation. (1) Major depression, recurrent: Plan 11/05/2023: Continue current medications and tx plan. 11/04/2023: Increased nortriptyline to 125mg HS po. 11/03/2023: Discussed plan to increase nortriptyline to 125mg HS tomorrow night which she consents to. Continue to focus on behavioral activation. Plan for referral for outpatient CM services. 11/02/2023: Continue current medications and tx plan. 11/01/2023: We will continue with our current level of observation and precautions. We will leave the lorazepam 1 mg scheduled in the morning and she has other as needed dose that she can use if she needs to. Continue with the nortriptyline at 100 mg nightly which should hopefully start kicking in in the next 2 weeks. I encouraged her to keep using behavioral activation which she is trying to do. 10/31/2023: We will continue with our current level of observation and precautions. I am going to switch back to the lorazepam 1 mg in the morning right around the time of awakening to see if that helps her have another better day. We will get rid of the clonazepam. We will continue with nortriptyline at 100 mg nightly. I encouraged her to keep using behavioral activation. Hopefully, we will continue to see progress. 10/30/2023: We will continue with our current level of observation and precautions. We will continue with the nortriptyline at the new dose which is tolerated now. Instead of using lorazepam in the morning, we are going to try clonazepam 0.25 mg at 7:30 AM tomorrow morning. I encouraged her to keep using behavioral activation which she is obviously trying. We are definitely having a good day today. 10/29/2023: We are going to continue with our current level of observations and precautions. I am going to increase her nortriptyline up to 100 mg again now. We also added a one-time scheduled dose of lorazepam 1 mg at 07 30 tomorrow morning to see if that might help her start the day better rather than follow part so quickly. She is still in acute danger requiring hospitalization. On Tuesday, we will look into the possibility of whether or not ECT is possible. She had not done well with it in the past, but there is some data supporting use of ECT with nortriptyline. 10/28/2023: We will continue with her current level of observation and precautions. I encouraged her to use behavioral activation and push through her desire to just lay in bed. We talked about hygiene. I am going to leave the nortriptyline and lorazepam as they are for now as I think they are helping although the nortriptyline will still take several weeks to get to its full effect. I am still very concerned about her suicidality as she feels extremely hopeless and is even entertaining the idea of leaving this world and leaving her daughter without a mother. I still think she is in acute danger to herself. We also tossed around the idea of possible ECT along with nortriptyline as there is some data to support that. I just do not know if it would be funded by her insurance. 10/27/2023: I am going to lower the nortriptyline down to 75 mg nightly and then raise the lorazepam 1 mg every 6 hours as needed for severe anxiety. Hopefully we will see less sedation and better coverage of her anxiety and she can function better like she did 2 days ago. In the near future, I might even back the nortriptyline down to 50 mg again since she did so well on Tuesday. I still think she is an acute danger to herself if she were to leave because of the risk of suicide. 10/26/2023: We are going to continue with our current level of observation and precautions. I lowered the lorazepam to 0.1 mg p.o. every 4 hours as needed for severe anxiety. I encouraged her to try to use the hydroxyzine when she can because the lorazepam is a controlled substance. Will leave the nortriptyline at the current dosing. I encouraged her to keep trying to go to groups and activities and to distract herself. Hopefully, we are starting to turn a corner. 10/25/2023: We are going to continue with her current level of observation and precautions. I gave her a one-time dose of lorazepam 1 mg p.o. to see if that might offer some support for her anxiety. We will continue with the nortriptyl ine and I will increase it to 100 mg to see if we can help her more quickly. We will leave the clonidine just at nighttime if needed for sleep. I also encouraged her to continue to use behavioral activation techniques. 10/24/2023: We will continue with her current level of observation and precautions. We will continue with the nortriptyline at 50 mg, but I will likely raise it when I can. I encouraged her to try to distract herself with groups, activities, books, TV, or what ever else she can think of. I wrote for a one-time dose of clonidine 0.1 mg this morning to help with her rumination and help her sleep a little bit. I also added a as needed dose of clonidine that she can take 1 hour after her nortriptyline if she still cannot sleep. 10/23/2023: We are going to continue with her current level of observation and precautions. We will continue with the nortriptyline at 50 mg for now. I encouraged her to try to go to a few extra groups if possible. I am still very concerned about her safety. Also concerned about sending her home with nortriptyline so we are going to need a good safety plan. Today I talked her about behavioral activation. 10/22/2023: The patient and I discussed several options of what we can do to try to help her mood. This included nortriptyline, clozapine, loxapine, Emsam patch, and augmentation of an antidepressant with Cytomel. Unfortunately, she has very limited financial resources. Loxapine is not available on formulary here. We decided to start nortriptyline 50 mg at bedtime. I reviewed the uses, side effects, and time course with her and she gave informed consent. I worry about discharging her on a tricyclic and so when that happens, we may only give 1 week of medication out at a time. I encouraged the patient to continue to go to groups and activities to try to help improve her mood as well. 10/21/2023: complete Adderall trial. now has insurance but will not cover a provider able to manage selegiline. Will as Dr. Marie for a 2nd opinion re: TCA trial with short supplies/care med safety plan. 10/20/2023: d/c Ritalin in favor of trial of Adderall 10 mg today then 15 mg 7 am with plan for a 2 pm dose if tolerated to complete the trial. Patient requesting Vistaril scheduled as helpful. TCA trial could be considered but concerns about toxicity in OD. 10/19/2023: risks/benefits/alternatives reviewed re: Selegeline vs. a retrial of stimulant (fast acting, generic), particularly given likelihood of f/u with [facility] on discharge feel selegeline not a realistic option. Patient confirmed no hx of cardiac abnormality/arrthymia. Agreed to Ritalin 10 mg trial dose with likely TID meals. 10/18/2023: The patient was admitted to the [facility] ([facility] mental health unit) on q15 min checks (behavioral with suicide precautions) for safety. The patient will participate in group, recreational, and milieu therapies and will be offered additional individual and family sessions as clinically appropriate. Risks/benefits/alternatives reviewed re: remaining therapeutic classes such as TCA vs. selegiline. Patient unable to consider TMS or ECT with maintenance without insurance. Inventory Assets Strengths: intelligent, did seek help Needs: improve coping and supports Suicide Risk Level Suicide Risk Level: Moderate (q15 min suicide checks) (hx of severe depression and SI with plan prior to admission, mood slowly improving and SI lessening and more deterrents and lessening in frequency, she feels able to talk to nursing if she feels unsafe or requires additional support) Risk Factors Assessment Mental Health Diagnoses: Yes Substance Use Disorders: No Previous Attempt: Yes Previous Psychiatric Hospitalization: Yes Protective Factors Assessment Responsible for Young Children: Yes Employed: No Supportive Family: Yes (but in [place]) Interval History Identifying Information BRADLEY ARELLANO is a 43-year-old F who currently lives in [place], has a history of treatment refractory depression, and was admitted on 10/17/23 14:31 on a 201 voluntary commitment for SI with plan. Chief Complaint "Pretty good". Review of Systems Sleep Information Total Hours of Sleep: 6.5 Sleep Comments: scheduled Vistaril Meal Information Percent Meal Consumed - Breakfast: 90 Percent Meal Consumed - Lunch: 100 Percent Meal Consumed - Dinner: [address] Fry returned call and listed onset of antidepressant trials as 2005 while a resident in [place], he treated her from [id number] and confirmed ECT courses in 2017 and 2021. in chronological order he is aware of: Lexapro, Effexor, Abilify, SEroquel, Lamictal, Hurlock, Latuda, Geodon, Topmax, Ritalin (patient had thought Adderall XR), Trintellix, carbazepine, ketamine, lorazepam, Cymbalta, pramipexole. Patient previously reported trials of Remeron, sertraline, Wellbutrin, citalopram. 10/20/23 reports trial of fluoxetine. Subjective Subjective Patient was seen & assessed and interval progress reviewed with treatment team nursing and social work. Making more future-oriented statements. Today focused on possible job search options, much more future-oriented. She feels she is starting to come out of the depressive episode noting that as she's gotten older this happens "gradually" but she's encouraged by this. Had good visits with two friends. She denies any SI today. Feels she slept really well last night. No new side effects from higher dose of nortriptyline. Medication Trials Dr. Fry returned call and listed onset of antidepressant trials as 2005 while a resident in [place], he treated her from [id number] and confirmed ECT courses in 2017 and 2021. in chronological order he is aware of: Lexapro, Effexor, Abilify, SEroquel, Lamictal, Hurlock, Latuda, Geodon, Topmax, Ritalin (patient had thought Adderall XR), Trintellix, carbazepine, ketamine, lorazepam, Cymbalta, pramipexole. Patient previously reported trials of Remeron, sertraline, Wellbutrin, citalopram. 10/20/23 reports trial of fluoxetine. Physical Exam Psychiatric Orientation: alert and oriented x 3 Apperance: appropriately dressed Eye Contact: good eye contact Motor Behavior: no abnormal motor movements Speech: normal rate/rhythm/volume of speech (soft) Affect: + constricted affect Mood: + depressed mood Thought Process: clear/coherent thought process Thought Content: reality based without delusions Suicidal Thoughts: denies suicidal thoughts (none so far today) and denies suicidal plan Homicidal Thoughts: denies homicidal thoughts Hallucinations: no auditory hallucinations and no visual hallucinations Insight: + fair insight Judgment: + fair judgement Vital Signs (Past 24 Hours) Last Vital Signs Temp 36.7 C 11/05/23 06:37 Pulse 96 H 11/05/23 06:37 Resp 16 11/05/23 06:37 BP 112/76 11/05/23 06:37 Pulse Ox 96 11/02/23 06:16 O2 Del Method Room Air 10/30/23 06:50 Results & Data ([facility]) Current Inpatient Medications Current Inpatient Medications: Current Inpatient Medications Acetaminophen (Acetaminophen 325 Mg Tab) 650 mg PO Q4H PRN PRN Reason: Headache or Minor Fever Stop: 11/16/23 14:09 Al Hydrox/Mg Hydrox/Simethicone (Aluminum/Magnesium Susp 30 Ml Udc) 30 ml PO Q4H PRN PRN Reason: GI Upset Stop: 11/16/23 14:09 Bismuth Subsalicylate (Bismuth Subsalicylate Liqd 236 Ml) 15 ml PO PRN PRN PRN Reason: Loose Stool Stop: 11/16/23 14:09 Clonidine HCl (Clonidine Hcl 0.1 Mg Tab) 0.1 mg PO HS PRN PRN Reason: Insomnia Stop: 11/23/23 21:59 Last Admin: 10/25/23 21:03 Dose: 0.1 mg Gabapentin (Gabapentin 300 Mg Cap) 300 mg PO BID ARTHUR Stop: 11/16/23 15:49 Last Admin: 11/05/23 08:40 Dose: 300 mg Hydroxyzine HCl (Hydroxyzine Hcl 25 Mg Tab) 50 mg PO HSZ PRN PRN Reason: Insomnia Stop: 11/16/23 14:09 Last Admin: 10/19/23 20:24 Dose: 50 mg Hydroxyzine HCl (Hydroxyzine Hcl 25 Mg Tab) 25 mg PO Q4H PRN PRN Reason: Anxiety Stop: 11/16/23 14:09 Last Admin: 10/25/23 08:21 Dose: 25 mg Hydroxyzine HCl (Hydroxyzine Hcl 25 Mg Tab) 50 mg PO HS ARTHUR Stop: 11/19/23 21:59 Last Admin: 11/04/23 21:17 Dose: 50 mg Lorazepam (Lorazepam 1 Mg Tab) 1 mg PO Q6H PRN PRN Reason: severe anxiety Stop: 11/25/23 11:46 Last Admin: 10/31/23 09:36 Dose: 1 mg Lorazepam (Lorazepam 1 Mg Tab) 1 mg PO DAILY@0730 ARTHUR Stop: 12/01/23 07:29 Last Admin: 11/05/23 07:48 Dose: 1 mg Magnesium Hydroxide (Magnesium Hydroxide Susp 30 Ml Udc) 30 ml PO DAILY PRN PRN Reason: Constipation Stop: 11/16/23 14:09 Meloxicam (Meloxicam 7.5 Mg Tab) 7.5 mg PO QAM ARTHUR Stop: 11/16/23 15:59 Last Admin: 11/05/23 08:39 Dose: 7.5 mg Nortriptyline HCl (Nortriptyline Hcl 25 Mg Cap) 125 mg PO HS ARTHUR Stop: 12/04/23 21:59 Last Admin: 11/04/23 21:18 Dose: 125 mg Sodium Chloride (Sodium Chloride 0.65% Na Soln 45 Ml ([place])) 1 - 2 sprays NA PRN PRN PRN Reason: Nasal Dryness/Congestion Stop: 11/16/23 14:09 Sulfasalazine (Sulfasalazine 500 Mg Tablet) 1,000 mg PO TID ARTHUR Stop: 11/16/23 15:49 Last Admin: 11/05/23 08:39 Dose: 1,000 mg Mental Health & Subst Abuse Tx Therapist Name of Therapist: Tele-health Post Discharge Appointments Primary Care Physician Name Of Family Doctor/PCP: [facility] - Dr. Ferris Primary [facility] Date of Future Appointment with PCP: 11/09/2023 Time of Appointment with PCP: 9:25 arrival Provider Appointment Comment: Garrett Diaz, [address], [place] [address] (1) Major depression, recurrent Active/Remission status: currently active Major depression episode severity: severe Psychotic features: without psychotic features Qualified Code(s): F33.2 - Major depressive disorder, recurrent severe without psychotic features
--- NOTE | 2023-11-06 11:54 | Psychiatric Progress Note ---
Date of Service November 06, 2023 Impression / Recommendations Impression 43 yo woman with a hx of recurrent major depressive episodes refractory to multiple classes of medication, ketamine, and ECT. She is deemed in need of psychiatric hospitalization for diagnostic clarification, safety and stabilization, medication management and development of further coping skills. 11/06/2023: Interval improvement. Overall, I spent a total of 40 minutes with this case, including review of chart, direct evaluation of the patient, coordination with nursing, orders, and documentation. (1) Major depression, recurrent: Plan 11/06/2023: d/c standing Vistaril order. EKG obtained given TCA with vistaril--normal QTc (<450) with mild tachy (NSR). Glycerin suppository prn at patient's request. Discussed dosing ranges for TCA and future options re: level. 11/04/2023: Increased nortriptyline to 125mg HS po. 11/03/2023: Discussed plan to increase nortriptyline to 125mg HS tomorrow night which she consents to. Continue to focus on behavioral activation. Plan for referral for outpatient CM services. 11/01/2023: We will continue with our current level of observation and precautions. We will leave the lorazepam 1 mg scheduled in the morning and she has other as needed dose that she can use if she needs to. Continue with the nortriptyline at 100 mg nightly which should hopefully start kicking in in the next 2 weeks. I encouraged her to keep using behavioral activation which she is trying to do. 10/31/2023: We will continue with our current level of observation and precautions. I am going to switch back to the lorazepam 1 mg in the morning right around the time of awakening to see if that helps her have another better day. We will get rid of the clonazepam. We will continue with nortriptyline at 100 mg nightly. I encouraged her to keep using behavioral activation. Hopefully, we will continue to see progress. 10/30/2023: We will continue with our current level of observation and precautions. We will continue with the nortriptyline at the new dose which is tolerated now. Instead of using lorazepam in the morning, we are going to try clonazepam 0.25 mg at 7:30 AM tomorrow morning. I encouraged her to keep using behavioral activation which she is obviously trying. We are definitely having a good day today. 10/29/2023: We are going to continue with our current level of observations and precautions. I am going to increase her nortriptyline up to 100 mg again now. We also added a one-time scheduled dose of lorazepam 1 mg at 30 tomorrow morning to see if that might help her start the day better rather than follow part so quickly. She is still in acute danger requiring hospitalization. On Tuesday, we will look into the possibility of whether or not ECT is possible. She had not done well with it in the past, but there is some data supporting use of ECT with nortriptyline. 10/28/2023: We will continue with her current level of observation and precautions. I encouraged her to use behavioral activation and push through her desire to just lay in bed. We talked about hygiene. I am going to leave the nortriptyline and lorazepam as they are for now as I think they are helping although the nortriptyline will still take several weeks to get to its full effect. I am still very concerned about her suicidality as she feels extremely hopeless and is even entertaining the idea of leaving this world and leaving her daughter without a mother. I still think she is in acute danger to herself. We also tossed around the idea of possible ECT along with nortriptyline as there is some data to support that. I just do not know if it would be funded by her insurance. 10/27/2023: I am going to lower the nortriptyline down to 75 mg nightly and then raise the lorazepam 1 mg every 6 hours as needed for severe anxiety. Hopefully we will see less sedation and better coverage of her anxiety and she can function better like she did 2 days ago. In the near future, I might even back the nortriptyline down to 50 mg again since she did so well on Tuesday. I still think she is an acute danger to herself if she were to leave because of the risk of suicide. 10/26/2023: We are going to continue with our current level of observation and precautions. I lowered the lorazepam to 0.1 mg p.o. every 4 hours as needed for severe anxiety. I encouraged her to try to use the hydroxyzine when she can because the lorazepam is a controlled substance. Will leave the nortriptyline at the current dosing. I encouraged her to keep trying to go to groups and activities and to distract herself. Hopefully, we are starting to turn a corner. 10/25/2023: We are going to continue with her current level of observation and precautions. I gave her a one-time dose of lorazepam 1 mg p.o. to see if that might offer some support for her anxiety. We will continue with the nortriptyline and I will increase it to 100 mg to see if we can help her more quickly. We will leave the clonidine just at nighttime if needed for sleep. I also encouraged her to continue to use behavioral activation techniques. 10/24/2023: We will continue with her current level of observation and precautions. We will continue with the nortriptyline at 50 mg, but I will likely raise it when I can. I encouraged her to try to distract herself with groups, activities, books, TV, or what ever else she can think of. I wrote for a one-time dose of clonidine 0.1 mg this morning to help with her rumination and help her sleep a little bit. I also added a as needed dose of clonidine that she can take 1 hour after her nortriptyline if she still cannot sleep. 10/23/2023: We are going to continue with her current level of observation and precautions. We will continue with the nortriptyline at 50 mg for now. I encouraged her to try to go to a few extra groups if possible. I am still very concerned about her safety. Also concerned about sending her home with nortriptyline so we are going to need a good safety plan. Today I talked her about behavioral activation. 10/22/2023: The patient and I discussed several options of what we can do to try to help her mood. This included nortriptyline, clozapine, loxapine, Emsam patch, and augmentation of an antidepressant with Cytomel. Unfortunately, she has very limited financial resources. Loxapine is not available on formulary here. We decided to start nortriptyline 50 mg at bedtime. I reviewed the uses, side effects, and time course with her and she gave informed consent. I worry about discharging her on a tricyclic and so when that happens, we may only give 1 week of medication out at a time. I encouraged the patient to continue to go to groups and activities to try to help improve her mood as well. 10/21/2023: complete Adderall trial. now has insurance but will not cover a provider able to manage selegiline. Will as Dr. Marie for a 2nd opinion re: TCA trial with short supplies/care med safety plan. 10/20/2023: d/c Ritalin in favor of trial of Adderall 10 mg today then 15 mg 7 am with plan for a 2 pm dose if tolerated to complete the trial. Patient requesting Vistaril scheduled as helpful. TCA trial could be considered but concerns about toxicity in OD. 10/19/2023: risks/benefits/alternatives reviewed re: Selegeline vs. a retrial of stimulant (fast acting, generic), particularly given likelihood of f/u with [facility] on discharge feel selegeline not a realistic option. Patient confirmed no hx of cardiac abnormality/arrthymia. Agreed to Ritalin 10 mg trial dose with likely TID meals. 10/18/2023: The patient was admitted to the [facility] ([facility]) on q15 min checks (behavioral with suicide precautions) for safety. The patient will participate in group, recreational, and milieu therapies and will be offered additional individual and family sessions as clinically appropriate. Risks/benefits/alternatives reviewed re: remaining therapeutic classes such as TCA vs. selegiline. Patient unable to consider TMS or ECT with maintenance without insurance. Inventory Assets Strengths: intelligent, did seek help Needs: improve coping and supports Suicide Risk Level Suicide Risk Level: Moderate (q15 min suicide checks) Risk Factors Assessment Mental Health Diagnoses: Yes Substance Use Disorders: No Previous Attempt: Yes Previous Psychiatric Hospitalization: Yes Protective Factors Assessment Responsible for Young Children: Yes Employed: No Supportive Family: Yes (but in [place]) Interval History Identifying Information BRADLEY ARELLANO is a 43-year-old F who currently lives in [place], has a history of treatment refractory depression, and was admitted on 10/17/23 14:31 on a 201 voluntary commitment for SI with plan. Chief Complaint "the suicidal thoughts have decreased quite a bit." patient known to me from earlier in stay. Review of Systems Sleep Information Total Hours of Sleep: 6.5 Sleep Comments: scheduled Vistaril Meal Information Percent Meal Consumed - Breakfast: 100 Percent Meal Consumed - Lunch: 100 Percent Meal Consumed - Dinner: [address] Fry returned call and listed onset of antidepressant trials as 2005 while a resident in [place], he treated her from [id number] and confirmed ECT courses in 2017 and 2021. in chronological order he is aware of: Lexapro, Effexor, Abilify, SEroquel, Lamictal, [place], Latuda, Geodon, Topmax, Ritalin (patient had thought Adderall XR), Trintellix, carbazepine, ketamine, lorazepam, Cymbalta, pramipexole. Patient previously reported trials of Remeron, sertraline, Wellbutrin, citalopram. 10/20/23 reports trial of fluoxetine. Subjective Subjective Patient was seen & assessed and interval progress reviewed with nursing and counselor. Patient has been tolerating TCA and sleep improving. She feels Ativan in am helps her "get moving". She declined decrease in am as her "orthostatic" BP is asymptomatic. Is attending more groups, more talkative. She notices some dry mouth and mild worsening of constipation. Medication Trials Dr. Fry returned call and listed onset of antidepressant trials as 2005 while a resident in [place], he treated her from [id number] and confirmed ECT courses in 2018 and 2021. in chronological order he is aware of: Lexapro, Effexor, Abilify, SEroquel, Lamictal, [place], Latuda, Geodon, Topmax, Ritalin (patient had thought Adderall XR), Trintellix, carbazepine, ketamine, lorazepam, Cymbalta, pramipexole. Patient previously reported trials of Remeron, sertraline, Wellbutrin, citalopram. 10/20/23 reports trial of fluoxetine. Physical Exam Psychiatric Orientation: alert and oriented x 3 Apperance: appropriately dressed and appropriately groomed Eye Contact: good eye contact Motor Behavior: no abnormal motor movements Speech: normal rate/rhythm/volume of speech Affect: + depressed affect Mood: + depressed mood Thought Process: goal directed thought process Thought Content: reality based without delusions Suicidal Thoughts: denies suicidal thoughts Homicidal Thoughts: denies homicidal thoughts Hallucinations: no auditory hallucinations and no visual hallucinations Cognition: attention grossly intact and language grossly intact Estimated Intelligence: consistent with education level Insight: + limited insight Judgment: + limited judgement Vital Signs (Past 24 Hours) Last Vital Signs Temp 36.7 C 11/06/23 06:33 Pulse 99 H 11/06/23 06:33 Resp 16 11/06/23 06:33 BP 108/76 11/06/23 06:33 Pulse Ox 96 11/02/23 06:16 O2 Del Method Room Air 10/30/23 06:50 Results & Data ([facility]) Current Inpatient Medications Current Inpatient Medications: Current Inpatient Medications Acetaminophen (Acetaminophen 325 Mg Tab) 650 mg PO Q4H PRN PRN Reason: Headache or Minor Fever Stop: 11/16/23 14:09 Al Hydrox/Mg Hydrox/Simethicone (Aluminum/Magnesium Susp 30 Ml Udc) 30 ml PO Q4H PRN PRN Reason: GI Upset Stop: 11/16/23 14:09 Bismuth Subsalicylate (Bismuth Subsalicylate Liqd 236 Ml) 15 ml PO PRN PRN PRN Reason: Loose Stool Stop: 11/16/23 14:09 Clonidine HCl (Clonidine Hcl 0.1 Mg Tab) 0.1 mg PO HS PRN PRN Reason: Insomnia Stop: 11/23/23 21:59 Last Admin: 10/25/23 21:03 Dose: 0.1 mg Gabapentin (Gabapentin 300 Mg Cap) 300 mg PO BID ARTHUR Stop: 11/16/23 15:49 Last Admin: 11/06/23 08:36 Dose: 300 mg Glycerin (Glycerin Adult 12 Supp/Box Supp) 1 supp KS BID PRN PRN Reason: Constipation Stop: 12/06/23 08:59 Hydroxyzine HCl (Hydroxyzine Hcl 25 Mg Tab) 50 mg PO HSZ PRN PRN Reason: Insomnia Stop: 11/16/23 14:09 Last Admin: 10/19/23 20:24 Dose: 50 mg Hydroxyzine HCl (Hydroxyzine Hcl 25 Mg Tab) 25 mg PO Q4H PRN PRN Reason: Anxiety Stop: 11/16/23 14:09 Last Admin: 10/25/23 08:21 Dose: 25 mg Lorazepam (Lorazepam 1 Mg Tab) 1 mg PO Q6H PRN PRN Reason: severe anxiety Stop: 11/25/23 11:46 Last Admin: 10/31/23 09:36 Dose: 1 mg Lorazepam (Lorazepam 1 Mg Tab) 1 mg PO DAILY@0730 ARTHUR Stop: 12/01/23 07:29 Last Admin: 11/06/23 08:18 Dose: 1 mg Magnesium Hydroxide (Magnesium Hydroxide Susp 30 Ml Udc) 30 ml PO DAILY PRN PRN Reason: Constipation Stop: 11/16/23 14:09 Meloxicam (Meloxicam 7.5 Mg Tab) 7.5 mg PO QAM ARTHUR Stop: 11/16/23 15:59 Last Admin: 11/06/23 08:36 Dose: 7.5 mg Nortriptyline HCl (Nortriptyline Hcl 25 Mg Cap) 125 mg PO HS ARTHUR Stop: 12/04/23 21:59 Last Admin: 11/05/23 21:06 Dose: 125 mg Sodium Chloride (Sodium Chloride 0.65% Na Soln 45 Ml ([place])) 1 - 2 sprays NA PRN PRN PRN Reason: Nasal Dryness/Congestion Stop: 11/16/23 14:09 Sulfasalazine (Sulfasalazine 500 Mg Tablet) 1,000 mg PO TID ARTHUR Stop: 11/16/23 15:49 Last Admin: 11/06/23 08:36 Dose: 1,000 mg Mental Health & Subst Abuse Tx Therapist Name of Therapist: Tele-health Post Discharge Appointments Primary Care Physician Name Of Family Doctor/PCP: [facility] - Dr. Ferris Primary [facility] Date of Future Appointment with PCP: 11/09/2023 Time of Appointment with PCP: 9:25 arrival Provider Appointment Comment: [facility], [address], [place] [address] (1) Major depression, recurrent Active/Remission status: currently active Major depression episode severity: severe Psychotic features: without psychotic features Qualified Code(s): F33.2 - Major depressive disorder, recurrent severe without psychotic features
[2023-11-06] MEDS: GLYCERIN ADULT 12 SUPP/BOX SUPP PR PRN (18:54)
--- NOTE | 2023-11-07 06:04 | Electrocardiogram Report ---
Test Reason : Blood Pressure : / mmHG Vent. Rate : 105 BPM Atrial Rate : 105 BPM P-R Int : 156 ms QRS Dur : 086 ms QT Int : 340 ms P-R-T Axes : 037 055 049 degrees QTc Int : 449 ms Sinus tachycardia Otherwise normal ECG When compared with ECG of 08-APR-2022 05:11, Vent. rate has increased BY 51 BPM Confirmed by Antoine Mena ([id number]) on 11/07/2023 6:04:14 AM Referred By: REFERRED SELF Confirmed By:Antoine Mena
[2023-11-07] MEDS ORDERED: LORazepam 0.5 MG TAB PO PRN (14:07)
--- NOTE | 2023-11-07 14:14 | Psychiatric Progress Note ---
Date of Service November 07, 2023 Impression / Recommendations Impression 43 yo woman with a hx of recurrent major depressive episodes refractory to multiple classes of medication, ketamine, and ECT. She is deemed in need of psychiatric hospitalization for diagnostic clarification, safety and stabilization, medication management and development of further coping skills. 11/07/2023: mild sedation (1) Major depression, recurrent: Plan 11/07/2023: taper Ativan to 0.5 mg po qam trial basis. Patient requesting trial of Miralax. 11/06/2023: d/c standing Vistaril order. EKG obtained given TCA with vistaril--normal QTc (<450) with mild tachy (NSR). Glycerin suppository prn at patient's request. Discussed dosing ranges for TCA and future options re: level. 11/04/2023: Increased nortriptyline to 125mg HS po. 11/03/2023: Discussed plan to increase nortriptyline to 125mg HS tomorrow night which she consents to. Continue to focus on behavioral activation. Plan for referral for outpatient CM services. 11/01/2023: We will continue with our current level of observation and precautions. We will leave the lorazepam 1 mg scheduled in the morning and she has other as needed dose that she can use if she needs to. Continue with the nortriptyline at 100 mg nightly which should hopefully start kicking in in the next 2 weeks. I encouraged her to keep using behavioral activation which she is trying to do. 10/31/2023: We will continue with our current level of observation and precautions. I am going to switch back to the lorazepam 1 mg in the morning right around the time of awakening to see if that helps her have another better day. We will get rid of the clonazepam. We will continue with nortriptyline at 100 mg nightly. I encouraged her to keep using behavioral activation. Hopefully, we will continue to see progress. 10/30/2023: We will continue with our current level of observation and precautions. We will continue with the nortriptyline at the new dose which is tolerated now. Instead of using lorazepam in the morning, we are going to try clonazepam 0.25 mg at 7:30 AM tomorrow morning. I encouraged her to keep using behavioral activation which she is obviously trying. We are definitely having a good day today. 10/29/2023: We are going to continue with our current level of observations and precautions. I am going to increase her nortriptyline up to 100 mg again now. We also added a one-time scheduled dose of lorazepam 1 mg at 07 30 tomorrow morning to see if that might help her start the day better rather than follow part so quickly. She is still in acute danger requiring hospitalization. On Tuesday, we will look into the possibility of whether or not ECT is possible. She had not done well with it in the past, but there is some data supporting use of ECT with nortriptyline. 10/28/2023: We will continue with her current level of observation and precautions. I encouraged her to use behavioral activation and push through her desire to just lay in bed. We talked about hygiene. I am going to leave the nortriptyline and lorazepam as they are for now as I think they are helping although the nortriptyline will still take several weeks to get to its full effect. I am still very concerned about her suicidality as she feels extremely hopeless and is even entertaining the idea of leaving this world and leaving her daughter without a mother. I still think she is in acute danger to herself. We also tossed around the idea of possible ECT along with nortriptyline as there is some data to support that. I just do not know if it would be funded by her insurance. 10/27/2023: I am going to lower the nortriptyline down to 75 mg nightly and then raise the lorazepam 1 mg every 6 hours as needed for severe anxiety. Hopefully we will see less sedation and better coverage of her anxiety and she can function better like she did 2 days ago. In the near future, I might even back the nortriptyline down to 50 mg again since she did so well on Tuesday. I still think she is an acute danger to herself if she were to leave because of the risk of suicide. 10/26/2023: We are going to continue with our current level of observation and precautions. I lowered the lorazepam to 0.1 mg p.o. every 4 hours as needed for severe anxiety. I encouraged her to try to use the hydroxyzine when she can because the lorazepam is a controlled substance. Will leave the nortriptyline at the current dosing. I encouraged her to keep trying to go to groups and activities and to distract herself. Hopefully, we are starting to turn a corner. 10/25/2023: We are going to continue with her current level of observation and precautions. I gave her a one-time dose of lorazepam 1 mg p.o. to see if that might offer some support for her anxiety. We will continue with the nortriptyline and I will increase it to 100 mg to see if we can help her more quickly. We will leave the clonidine just at nighttime if needed for sleep. I also encouraged her to continue to use behavioral activation techniques. 10/24/2023: We will continue with her current level of observation and precautions. We will continue with the nortriptyline at 50 mg, but I will likely raise it when I can. I encouraged her to try to distract herself with groups, activities, books, TV, or what ever else she can think of. I wrote for a one-time dose of clonidine 0.1 mg this morning to help with her rumination and help her sleep a little bit. I also added a as needed dose of clonidine that she can take 1 hour after her nortriptyline if she still cannot sleep. 10/23/2023: We are going to continue with her current level of observation and precautions. We will continue with the nortriptyline at 50 mg for now. I encouraged her to try to go to a few extra groups if possible. I am still very concerned about her safety. Also concerned about sending her home with nortriptyline so we are going to need a good safety plan. Today I talked her about behavioral activation. 10/22/2023: The patient and I discussed several options of what we can do to try to help her mood. This included nortriptyline, clozapine, loxapine, Emsam patch, and augmentation of an antidepressant with Cytomel. Unfortunately, she has very limited financial resources. Loxapine is not available on formulary here. We decided to start nortriptyline 50 mg at bedtime. I reviewed the uses, side effects, and time course with her and she gave informed consent. I worry about discharging her on a tricyclic and so when that happens, we may only give 1 week of medication out at a time. I encouraged the patient to continue to go to groups and activities to try to help improve her mood as well. 10/21/2023: complete Adderall trial. now has insurance but will not cover a provider able to manage selegiline. Will as Dr. Marie for a 2nd opinion re: TCA trial with short supplies/care med safety plan. 10/20/2023: d/c Ritalin in favor of trial of Adderall 10 mg today then 15 mg 7 am with plan for a 2 pm dose if tolerated to complete the trial. Patient requesting Vistaril scheduled as helpful. TCA trial could be considered but concerns about toxicity in OD. 10/19/2023: risks/benefits/alternatives reviewed re: Selegeline vs. a retrial of stimulant (fast acting, generic), particularly given likelihood of f/u with [facility] on discharge feel selegeline not a realistic option. Patient confirmed no hx of cardiac abnormality/arrthymia. Agreed to Ritalin 10 mg trial dose with likely TID meals. 10/18/2023: The patient was admitted to the [facility] ([facility] health unit) on q15 min checks (behavioral with suicide precautions) for safety. The patient will participate in group, recreational, and milieu therapies and will be offered additional individual and family sessions as clinically appropriate. Risks/benefits/alternatives reviewed re: remaining therapeutic classes such as TCA vs. selegiline. Patient unable to consider TMS or ECT with maintenance without insurance. Inventory Assets Strengths: intelligent, did seek help Needs: improve coping and supports Suicide Risk Level Suicide Risk Level: Moderate (q15 min suicide checks) Risk Factors Assessment Mental Health Diagnoses: Yes Substance Use Disorders: No Previous Attempt: Yes Previous Psychiatric Hospitalization: Yes Protective Factors Assessment Responsible for Young Children: Yes Employed: No Supportive Family: Yes (but in [place]) Interval History Identifying Information BRADLEY ARELLANO is a 43-year-old F who currently lives in [place], has a history of treatment refractory depression, and was admitted on 10/17/23 14:31 on a 201 voluntary commitment for SI with plan. Chief Complaint ongoing constipation Review of Systems Sleep Information Total Hours of Sleep: 8 Sleep Comments: scheduled Vistaril Meal Information Percent Meal Consumed - Breakfast: 100 Percent Meal Consumed - Lunch: 100 Percent Meal Consumed - Dinner: [address] Fry returned call and listed onset of antidepressant trials as 2005 while a resident in [place], he treated her from [id number] and confirmed ECT courses in 2018 and 2021. in chronological order he is aware of: Lexapro, Effexor, Abilify, SEroquel, Lamictal, Rochelle, Latuda, Geodon, Topmax, Ritalin (patient had thought Adderall XR), Trintellix, carbazepine, ketamine, lorazepam, Cymbalta, pramipexole. Patient previously reported trials of Remeron, sertraline, Wellbutrin, citalopram. 10/20/23 reports trial of fluoxetine. Subjective Subjective Patient was seen & assessed and interval progress reviewed with treatment team. patient reports some afternoon sedation. was concerned may be TCA. Reviewed that given timing, I'd question whether Ativan may be bigger contributing factor and would suggest tapering to 0.5 mg daily as she is concerned about ability to dri ve after discharge, etc. Discussed that can impair driving and operating machinery and would recommend short supplies of medication given hx of wanting to OD. Medication Trials Dr. Fry returned call and listed onset of antidepressant trials as 2005 while a resident in [place], he treated her from [id number] and confirmed ECT courses in 2017 and 2021. in chronological order he is aware of: Lexapro, Effexor, Abilify, SEroquel, Lamictal, Rochelle, Latuda, Geodon, Topmax, Ritalin (patient had thought Adderall XR), Trintellix, carbazepine, ketamine, lorazepam, Cymbalta, pramipexole. Patient previously reported trials of Remeron, sertraline, Wellbutrin, citalopram. 10/20/23 reports trial of fluoxetine. Physical Exam Psychiatric Orientation: alert and oriented x 3 Apperance: appropriately dressed and appropriately groomed Eye Contact: good eye contact Motor Behavior: no abnormal motor movements Speech: normal rate/rhythm/volume of speech Affect: + depressed affect Mood: + depressed mood Thought Process: goal directed thought process Thought Content: reality based without delusions Suicidal Thoughts: denies suicidal thoughts Homicidal Thoughts: denies homicidal thoughts Hallucinations: no auditory hallucinations and no visual hallucinations Cognition: attention grossly intact and language grossly intact Estimated Intelligence: consistent with education level Vital Signs (Past 24 Hours) Last Vital Signs Temp 36.9 C 11/07/23 06:38 Pulse 99 H 11/07/23 06:39 Resp 16 11/07/23 06:38 BP 107/74 11/07/23 06:39 Pulse Ox 96 11/02/23 06:16 O2 Del Method Room Air 10/30/23 06:50 Results & Data ([facility]) Current Inpatient Medications Current Inpatient Medications: Current Inpatient Medications Acetaminophen (Acetaminophen 325 Mg Tab) 650 mg PO Q4H PRN PRN Reason: Headache or Minor Fever Stop: 11/16/23 14:09 Al Hydrox/Mg Hydrox/Simethicone (Aluminum/Magnesium Susp 30 Ml Udc) 30 ml PO Q4H PRN PRN Reason: GI Upset Stop: 11/16/23 14:09 Bismuth Subsalicylate (Bismuth Subsalicylate Liqd 236 Ml) 15 ml PO PRN PRN PRN Reason: Loose Stool Stop: 11/16/23 14:09 Clonidine HCl (Clonidine Hcl 0.1 Mg Tab) 0.1 mg PO HS PRN PRN Reason: Insomnia Stop: 11/23/23 21:59 Last Admin: 10/25/23 21:03 Dose: 0.1 mg Gabapentin (Gabapentin 300 Mg Cap) 300 mg PO BID ARTHUR Stop: 11/16/23 15:49 Last Admin: 11/07/23 08:38 Dose: 300 mg Glycerin (Glycerin Adult 12 Supp/Box Supp) 1 supp VT BID PRN PRN Reason: Constipation Stop: 12/06/23 08:59 Last Admin: 11/06/23 18:54 Dose: 1 supp Hydroxyzine HCl (Hydroxyzine Hcl 25 Mg Tab) 50 mg PO HSZ PRN PRN Reason: Insomnia Stop: 11/16/23 14:09 Last Admin: 10/19/23 20:24 Dose: 50 mg Hydroxyzine HCl (Hydroxyzine Hcl 25 Mg Tab) 25 mg PO Q4H PRN PRN Reason: Anxiety Stop: 11/16/23 14:09 Last Admin: 10/25/23 08:21 Dose: 25 mg Lorazepam (Lorazepam 0.5 Mg Tab) 0.5 mg PO DAILY@0730 ARTHUR Stop: 12/08/23 07:29 Lorazepam (Lorazepam 0.5 Mg Tab) 0.5 mg PO Q6H PRN PRN Reason: severe anxiety Stop: 11/25/23 11:46 Magnesium Hydroxide (Magnesium Hydroxide Susp 30 Ml Udc) 30 ml PO DAILY PRN PRN Reason: Constipation Stop: 11/16/23 14:09 Meloxicam (Meloxicam 7.5 Mg Tab) 7.5 mg PO QAM ARTHUR Stop: 11/16/23 15:59 Last Admin: 11/07/23 08:38 Dose: 7.5 mg Nortriptyline HCl (Nortriptyline Hcl 25 Mg Cap) 125 mg PO HS ARTHUR Stop: 12/04/23 21:59 Last Admin: 11/06/23 21:13 Dose: 125 mg Sodium Chloride (Sodium Chloride 0.65% Na Soln 45 Ml (Kane)) 1 - 2 sprays NA PRN PRN PRN Reason: Nasal Dryness/Congestion Stop: 11/16/23 14:09 Sulfasalazine (Sulfasalazine 500 Mg Tablet) 1,000 mg PO TID ARTHUR Stop: 11/16/23 15:49 Last Admin: 11/07/23 13:56 Dose: 1,000 mg Mental Health & Subst Abuse Tx Therapist Name of Therapist: . [facility] Name of [facility]: [facility]- Post Discharge Appointments Primary Care Physician Name Of Family Doctor/PCP: [facility] - Dr. Ferris Primary Care Date of Future Appointment with PCP: 11/14/23 Time of Appointment with PCP: 1:25 PM arrival Provider Appointment Comment: [address], [address], [place] (1) Major depression, recurrent Active/Remission status: currently active Major depression episode severity: severe Psychotic features: without psychotic features Qualified Code(s): F33.2 - Major depressive disorder, recurrent severe without psychotic features
[2023-11-07] MEDS: POLYETHYLENE (MIRALAX) 17 GM PACK PO SCH (16:11)
[2023-11-08] MEDS: LORazepam 0.5 MG TAB PO SCH (07:44)
--- NOTE | 2023-11-08 12:20 | Psychiatric Progress Note ---
Date of Service November 08, 2023 Impression / Recommendations Impression 43 yo woman with a hx of recurrent major depressive episodes refractory to multiple classes of medication, ketamine, and ECT. She is deemed in need of psychiatric hospitalization for diagnostic clarification, safety and stabilization, medication management and development of further coping skills. 11/08/2023: anxiety related to transition home but appropriate to situation (1) Major depression, recurrent: Plan 11/08/2023: support meeting with friend, finalize safety planning and aftercare. 11/07/2023: taper Ativan to 0.5 mg po qam trial basis. Patient requesting trial of Miralax. 11/06/2023: d/c standing Vistaril order. EKG obtained given TCA with vistaril--normal QTc (<450) with mild tachy (NSR). Glycerin suppository prn at patient's request. Discussed dosing ranges for TCA and future options re: level. 11/04/2023: Increased nortriptyline to 125mg HS po. 11/03/2023: Discussed plan to increase nortriptyline to 125mg HS tomorrow night which she consents to. Continue to focus on behavioral activation. Plan for referral for outpatient CM services. 11/01/2023: We will continue with our current level of observation and precautions. We will leave the lorazepam 1 mg scheduled in the morning and she has other as needed dose that she can use if she needs to. Continue with the nortriptyline at 100 mg nightly which should hopefully start kicking in in the next 2 weeks. I encouraged her to keep using behavioral activation which she is trying to do. 10/31/2023: We will continue with our current level of observation and precautions. I am going to switch back to the lorazepam 1 mg in the morning right around the time of awakening to see if that helps her have another better day. We will get rid of the clonazepam. We will continue with nortriptyline at 100 mg nightly. I encouraged her to keep using behavioral activation. Hopefully, we will continue to see progress. 10/30/2023: We will continue with our current level of observation and pre cautions. We will continue with the nortriptyline at the new dose which is tolerated now. Instead of using lorazepam in the morning, we are going to try clonazepam 0.25 mg at 7:30 AM tomorrow morning. I encouraged her to keep using behavioral activation which she is obviously trying. We are definitely having a good day today. 10/29/2023: We are going to continue with our current level of observations and precautions. I am going to increase her nortriptyline up to 100 mg again now. We also added a one-time scheduled dose of lorazepam 1 mg at 07 30 tomorrow morning to see if that might help her start the day better rather than follow part so quickly. She is still in acute danger requiring hospitalization. On Tuesday, we will look into the possibility of whether or not ECT is possible. She had not done well with it in the past, but there is some data supporting use of ECT with nortriptyline. 10/28/2023: We will continue with her current level of observation and precautions. I encouraged her to use behavioral activation and push through her desire to just lay in bed. We talked about hygiene. I am going to leave the nortriptyline and lorazepam as they are for now as I think they are helping although the nortriptyline will still take several weeks to get to its full effect. I am still very concerned about her suicidality as she feels extremely hopeless and is even entertaining the idea of leaving this world and leaving her daughter without a mother. I still think she is in acute danger to herself. We also tossed around the idea of possible ECT along with nortriptyline as there is some data to support that. I just do not know if it would be funded by her insurance. 10/27/2023: I am going to lower the nortriptyline down to 75 mg nightly and then raise the lorazepam 1 mg every 6 hours as needed for severe anxiety. Hopefully we will see less sedation and better coverage of her anxiety and she can function better like she did 2 days ago. In the near future, I might even back the nortriptyline down to 50 mg again since she did so well on Tuesday. I still think she is an acute danger to herself if she were to leave because of the risk of suicide. 10/26/2023: We are going to continue with our current level of observation and precautions. I lowered the lorazepam to 0.1 mg p.o. every 4 hours as needed for severe anxiety. I encouraged her to try to use the hydroxyzine when she can because the lorazepam is a controlled substance. Will leave the nortriptyline at the current dosing. I encouraged her to keep trying to go to groups and activities and to distract herself. Hopefully, we are starting to turn a corner. 10/25/2023: We are going to continue with her current level of observation and precautions. I gave her a one-time dose of lorazepam 1 mg p.o. to see if that might offer some support for her anxiety. We will continue with the nortriptyline and I will increase it to 100 mg to see if we can help her more quickly. We will leave the clonidine just at nighttime if needed for sleep. I also encouraged her to continue to use behavioral activation techniques. 10/24/2023: We will continue with her current level of observation and p recautions. We will continue with the nortriptyline at 50 mg, but I will likely raise it when I can. I encouraged her to try to distract herself with groups, activities, books, TV, or what ever else she can think of. I wrote for a one- time dose of clonidine 0.1 mg this morning to help with her rumination and help her sleep a little bit. I also added a as needed dose of clonidine that she can take 1 hour after her nortriptyline if she still cannot sleep. 10/23/2023: We are going to continue with her current level of observation and precautions. We will continue with the nortriptyline at 50 mg for now. I encouraged her to try to go to a few extra groups if possible. I am still very concerned about her safety. Also concerned about sending her home with nortriptyline so we are going to need a good safety plan. Today I talked her about behavioral activation. 10/22/2023: The patient and I discussed several options of what we can do to try to help her mood. This included nortriptyline, clozapine, loxapine, Emsam patch, and augmentation of an antidepressant with Cytomel. Unfortunately, she has very limited financial resources. Loxapine is not available on formulary here. We decided to start nortriptyline 50 mg at bedtime. I reviewed the uses, side effects, and time course with her and she gave informed consent. I worry about discharging her on a tricyclic and so when that happens, we may only give 1 week of medication out at a time. I encouraged the patient to continue to go to groups and activities to try to help improve her mood as well. 10/21/2023: complete Adderall trial. now has insurance but will not cover a provider able to manage selegiline. Will as Dr. Marie for a 2nd opinion re: TCA trial with short supplies/care med safety plan. 10/20/2023: d/c Ritalin in favor of trial of Adderall 10 mg today then 15 mg 7 am with plan for a 2 pm dose if tolerated to complete the trial. Patient requesting Vistaril scheduled as helpful. TCA trial could be considered but concerns about toxicity in OD. 10/19/2023: risks/benefits/alternatives reviewed re: Selegeline vs. a retrial of stimulant (fast acting, generic), particularly given likelihood of f/u with [facility] on discharge feel selegeline not a realistic option. Patient confirmed no hx of cardiac abnormality/arrthymia. Agreed to Ritalin 10 mg trial dose with likely TID meals. 10/18/2023: The patient was admitted to the [facility] ([facility] unit) on q15 min checks (behavioral with suicide precautions) for safety. The patient will participate in group, recreational, and milieu therapies and will be offered additional individual and family sessions as clinically appropriate. Risks/benefits/alternatives reviewed re: remaining therapeutic classes such as TCA vs. selegiline. Patient unable to consider TMS or ECT with maintenance without insurance. Inventory Assets Strengths: intelligent, did seek help Needs: improve coping and supports Suicide Risk Level Suicide Risk Level: Moderate (q15 min suicide checks) Risk Factors Assessment Mental Health Diagnoses: Yes Substance Use Disorders: No Previous Attempt: Yes Previous Psychiatric Hospitalization: Yes Protective Factors Assessment Responsible for Young Children: Yes Employed: No Supportive Family: Yes (but in [place]) Interval History Identifying Information BRADLEY ARELLANO is a 43-year-old F who currently lives in [place], has a history of treatment refractory depression, and was admitted on 10/17/23 14:31 on a 201 voluntary commitment for SI with plan. Chief Complaint "anxious about leaving." Review of Systems Sleep Information Total Hours of Sleep: 8.25 Meal Information Percent Meal Consumed - Breakfast: 100 Percent Meal Consumed - Lunch: 100 Percent Meal Consumed - Dinner: [address] Fry returned call and listed onset of antidepressant trials as 2005 while a resident in [place], he treated her from [id number] and confirmed ECT courses in 2017 and 2021. in chronological order he is aware of: Lexapro, Effexor, Abilify, SEroquel, Lamictal, Osprey, Latuda, Geodon, Topmax, Ritalin (patient had thought Adderall XR), Trintellix, carbazepine, ketamine, lorazepam, Cymbalta, pramipexole. Patient previously reported trials of Remeron, sertraline, Wellbutrin, citalopram. 10/20/23 reports trial of fluoxetine. Subjective Subjective Patient was seen & assessed and interval progress reviewed with nursing and social work. Denies suicidal thoughts but worries about how she will handle on her own after discharge. Reviewed her daily routine and plans to have friend spend more time at her house. Medication Trials Dr. Fry returned call and listed onset of antidepressant trials as 2005 while a resident in [place], he treated her from [id number] and confirmed ECT courses in 2017 and 2021. in chronological order he is aware of: Lexapro, Effexor, Abilify, SEroquel, Lamictal, Osprey, Latuda, Geodon, Topmax, Ritalin (patient had t hought Adderall XR), Trintellix, carbazepine, ketamine, lorazepam, Cymbalta, pramipexole. Patient previously reported trials of Remeron, sertraline, Wellbutrin, citalopram. 10/20/23 reports trial of fluoxetine. Physical Exam Psychiatric Orientation: alert and oriented x 3 Apperance: appropriately dressed and appropriately groomed Eye Contact: good eye contact Motor Behavior: no abnormal motor movements Speech: normal rate/rhythm/volume of speech Affect: + depressed affect (but more spontaneous) Mood: + depressed mood Thought Process: goal directed thought process Thought Content: reality based without delusions Suicidal Thoughts: denies suicidal thoughts Homicidal Thoughts: denies homicidal thoughts Hallucinations: no auditory hallucinations and no visual hallucinations Cognition: attention grossly intact and language grossly intact Estimated Intelligence: consistent with education level Vital Signs (Past 24 Hours) Last Vital Signs Temp 36.7 C 11/08/23 06:30 Pulse 99 H 11/08/23 06:31 Resp 16 11/08/23 06:30 BP 115/78 11/08/23 06:31 Pulse Ox 96 11/02/23 06:16 O2 Del Method Room Air 10/30/23 06:50 Results & Data ([facility]) Current Inpatient Medications Current Inpatient Medications: Current Inpatient Medications Acetaminophen (Acetaminophen 325 Mg Tab) 650 mg PO Q4H PRN PRN Reason: Headache or Minor Fever Stop: 11/16/23 14:09 Al Hydrox/Mg Hydrox/Simethicone (Aluminum/Magnesium Susp 30 Ml Udc) 30 ml PO Q4H PRN PRN Reason: GI Upset Stop: 11/16/23 14:09 Bismuth Subsalicylate (Bismuth Subsalicylate Liqd 236 Ml) 15 ml PO PRN PRN PRN Reason: Loose Stool Stop: 11/16/23 14:09 Clonidine HCl (Clonidine Hcl 0.1 Mg Tab) 0.1 mg PO HS PRN PRN Reason: Insomnia Stop: 11/23/23 21:59 Last Admin: 10/25/23 21:03 Dose: 0.1 mg Gabapentin (Gabapentin 300 Mg Cap) 300 mg PO BID ARTHUR Stop: 11/16/23 15:49 Last Admin: 11/08/23 08:46 Dose: 300 mg Glycerin (Glycerin Adult 12 Supp/Box Supp) 1 supp MO BID PRN PRN Reason: Constipation Stop: 12/06/23 08:59 Last Admin: 11/06/23 18:54 Dose: 1 supp Hydroxyzine HCl (Hydroxyzine Hcl 25 Mg Tab) 50 mg PO HSZ PRN PRN Reason: Insomnia Stop: 11/16/23 14:09 Last Admin: 10/19/23 20:24 Dose: 50 mg Hydroxyzine HCl (Hydroxyzine Hcl 25 Mg Tab) 25 mg PO Q4H PRN PRN Reason: Anxiety Stop: 11/16/23 14:09 Last Admin: 10/25/23 08:21 Dose: 25 mg Lorazepam (Lorazepam 0.5 Mg Tab) 0.5 mg PO DAILY@0730 ARTHUR Stop: 12/08/23 07:29 Last Admin: 11/08/23 07:44 Dose: 0.5 mg Lorazepam (Lorazepam 0.5 Mg Tab) 0.5 mg PO Q6H PRN PRN Reason: severe anxiety Stop: 11/25/23 11:46 Magnesium Hydroxide (Magnesium Hydroxide Susp 30 Ml Udc) 30 ml PO DAILY PRN PRN Reason: Constipation Stop: 11/16/23 14:09 Meloxicam (Meloxicam 7.5 Mg Tab) 7.5 mg PO QAM ARTHUR Stop: 11/16/23 15:59 Last Admin: 11/08/23 08:46 Dose: 7.5 mg Nortriptyline HCl (Nortriptyline Hcl 25 Mg Cap) 125 mg PO HS ARTHUR Stop: 12/04/23 21:59 Last Admin: 11/07/23 20:48 Dose: 125 mg Polyethylene Glycol (Polyethylene (Miralax) 17 Gm Pack) 17 gm PO DAILY ARTHUR Stop: 12/07/23 14:14 Last Admin: 11/08/23 08:47 Dose: 17 gm Sodium Chloride (Sodium Chloride 0.65% Na Soln 45 Ml ([place])) 1 - 2 sprays NA PRN PRN PRN Reason: Nasal Dryness/Congestion Stop: 11/16/23 14:09 Sulfasalazine (Sulfasalazine 500 Mg Tablet) 1,000 mg PO TID ARTHUR Stop: 11/16/23 15:49 Last Admin: 11/08/23 08:46 Dose: 1,000 mg Mental Health & Subst Abuse Tx Therapist Name of Therapist: . Pouncer Name of Pouncer: [facility]- Post Discharge Appointments Primary Care Physician Name Of Family Doctor/PCP: [facility] - Dr. Ferris Primary [facility] Date of Future Appointment with PCP: 11/14/23 Time of Appointment with PCP: 1:25 PM arrival Provider Appointment Comment: [address], [address], [place] (1) Major depression, recurrent Active/Remission status: currently active Major depression episode severity: severe Psychotic features: without psychotic features Qualified Code(s): F33.2 - Major depressive disorder, recurrent severe without psychotic features
--- NOTE | 2023-11-09 10:02 | Discharge Summary ---
Date of Service November 09, 2023 History of Present Illness Patient reports multiple episodes of depression, steadily worsening each episode since at least 2017 when tried ketamine infusions in [place] then ultimately agreeing to consecutive courses of ECT (10-18, 30+ total at 2 centers--[facility] and [facility]). She was hospitalized at [place] in 04/22 following an OD on Inderal, which was initially prescribed for lithium tremor. She notes hopelessness, particularly as tried "25" meds and "only time" gets her out of these episodes where she can't focus or function. She denies any periods of hermilo or hypomania and was treated with mood stabilizers and/or atypical antipsychotics mainly as adjunctive strategies. She typically can't sleep (though Vistaril last pm was helpful) and can't eat. She lacks motivation toward all activities and is overwhelmed by the concept of working. 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 She continues to see her therapist from [facility]. Otherwise she has a contentious relationship with her ex- . They coparent her 14 yo daughter. She is worried about finances. Physical Exam Vital Signs (Past 24 Hours) Last Vital Signs Temp 36.7 C 11/09/23 09:31 Pulse 111 H 11/09/23 09:31 Resp 16 11/08/23 06:30 BP 132/90 11/09/23 09:31 Pulse Ox 95 11/09/23 09:31 O2 Del Method Room Air 11/09/23 09:31 See admission H&P and DOD summary. Principal Diagnosis Major Depressive Disorder, severe, recurrent Psychiatric Data See daily stay summary, initially presented with severe depression with significant psychomotor delay. Over the course of her treatment her mood, energy level, motivation, appetite and activity all improved significantly and she became future-oriented, spoke about her daughter being a very strong reason for living and connected with her friends. In short, safety was maintained and the patient was cooperative with care. Medication changes included titration of nortriptyline to 125mg HS for MDD and lorazepam 0.5mg - 1mg qAM for MDD with anxiety and they tolerated this well. She noted a slight sense of changes in fine motor function of her hands of the day of discharge and we discussed poss ibility of contribution from nortriptyline or lorazepam but discussed trying to remain at current medication doses for now unless this symptom worsens in which case could consider slight reduction of nortriptyline to 100mg HS or slight taper of lorazepam to 0.25mg qd to see if this improves. She continues to desire discharge despite this new side effect. A support session was held and safety plan was completed prior to discharge. She actively and insightfully participated in safety planning and in discussions about ways to seek support and recognizing warning signs and utilizing coping skills. Reviewed mobile apps that could be used for additional ways to have their safety plan and contacts easily available should thoughts of SI re-emerge in the future. Reviewed importance of seeking emergency care should SI intensify, worsen or should they feel unsafe in the future which they agree to do. On the day of discharge she stated her mood was "a bit anxious but I've got to give it a try" and remained future-oriented including finding a job, spending time with friends, seeing her daughter, meeting with her new child support case officer and engaging in aftercare appointments for primary care. Day of Discharge Assessment Today the patient voices readiness for discharge. They note improvement in mood and anxiety. They deny thoughts of harm to self or others. Thoughts are organized and they are clinically improved from admission. There is no evidence of psychosis. They improved in the hospital with support and medication adjustments. They agree to take medications as prescribed and keep follow-up appointments. At the time of the discharge they are deemed to be stable and appropriate for outpatient level of care. They are not deemed to be at imminent risk of harm to self or others. They are aware of emergency and crisis services. Knows to call 911 or go to nearest emergency care center if in a crisis which cannot be handled as an outpatient. Overall, I spent a total of 50 minutes on this case including meeting with the patient, reviewing the chart, nursing report, multidisciplinary team meeting, orders, and documentation. Transition of Care Transition Of Care Record: was reviewed with the patient Advance Directives Advance Directives Information Provided: Yes Advance Directives: No Mental Health Advance Directive: No Advance Directives on File: No Living Will: No Power of Barrel Ribs Solderer: No Advance Directives Reason:: Declines as Mental Health Visit. Suicide Risk Level Suicide Risk Level Comments: Acute risk is low given improvement in mood and denial of SI, lack of access to lethal means, improvement in sleep and hopefulness. Chronic risk is moderate to high given some non-modifiable risk factors: prior attempt, prior psychiatric hospitalizations but also with protective factors including: good social support, sense of responsibility to family and social supports, outpatient care in place, positive coping skills, positive problem solving, capacity to establish therapeutic alliance, willingness to engage with treatment and capacity for self-observation. Counseled on ways to reduce acute and chronic risk including engaging with outpatient providers, using safety plan if needed, utilizing supports, taking medication, and using coping skills. Modifiable risk factors of SI and depression were addressed during hospitalization through development of new coping skills, support meeting, safety planning, and medication adjustments. Risk Factors Assessment Male: No : No Do You Have Access To A Gun?: No Health Problems: Yes Mental Health Diagnoses: Yes Substance Use Disorders: No Previous Attempt: Yes Previous Psychiatric Hospitalization: Yes Hopelessness: No Protective Factors Assessment Responsible for Young Children: Yes Employed: No Stable Relationships: Yes Supportive Family: Yes (but in [place]) Discharge Data Lab Results 10/17/23 10/17/23 10:42 10:51 WBC 8.29 RBC 3.92 L Hgb 12.5 Hct 37.0 MCV 94.4 MCH 31.9 MCHC 33.8 RDW Std Deviation 42.3 RDW Coeff of Bill 12.2 Plt Count 406 H MPV 9.8 Immature Gran % (Auto) 0.4 Neut % (Auto) 58.0 Lymph % (Auto) 30.9 [place] % (Auto) 10.4 Eos % (Auto) 0.2 Baso % (Auto) 0.1 Neut # (Auto) 4.81 Lymph # (Auto) 2.56 [place] # (Auto) 0.86 H Eos # (Auto) 0.02 Baso # (Auto) 0.01 Immature Gran # (Auto) 0.03 Sodium 136 Potassium 3.5 Chloride 105 Carbon Dioxide 22 Anion Gap 9 BUN 11 Creatinine 0.52 L Est Cr Clr Drug Dosing 135.5 Est GFR ( Amer) 133.7 Est GFR (Non-Af Amer) 115.4 BUN/Creatinine Ratio 21.2 H Glucose 105 H Calcium 8.9 Total Bilirubin 1.0 AST 10 L ALT 5 L Alkaline Phosphatase 29 L Total Protein 6.8 Albumin 4.1 Globulin 2.7 Albumin/Globulin Ratio 1.5 TSH 0.845 HCG, Qual Negative Urine Color Dark Yellow Urine Appearance Cloudy A Urine pH 8.5 H Ur Specific [place] 1.016 Urine Protein Negative Urine Glucose (UA) Negative Urine Ketones 1+ H Urine Blood Negative Urine Nitrite Negative Urine Bilirubin Negative Urine Urobilinogen Negative Ur Leukocyte Esterase 1+ H Urine WBC (Auto) 5-10 H Urine RBC (Auto) 0-4 U Hyaline Cast (Auto) 1-5 U Epithel Cells (Auto) >30 H Urine Bacteria (Auto) Negative Salicylates < 3.0 L Urine Opiates Screen Neg Ur Methadone, Qual Neg Acetaminophen < 3 L Urine Barbiturates Neg Ur Phencyclidine (PCP) Neg U Amphetamin/Meth Scrn Neg MDMA (Ecstasy) Screen Neg U Benzodiazepines Scrn Neg Ur Cocaine Metabolite Neg U Marijuana (THC) Screen Neg Ethyl Alcohol mg/dL < 10.0 SARS-CoV-2, RNA, NAAT NEGATIVE Hospital Course (1) Major depression, recurrent: Plan 11/08/2023: support meeting with friend, finalize safety planning and aftercare. 11/07/2023: taper Ativan to 0.5 mg po qam trial basis. Patient requesting trial of Miralax. 11/06/2023: d/c standing Vistaril order. EKG obtained given TCA with vistaril--normal QTc (<450) with mild tachy (NSR). Glycerin suppository prn at patient's request. Discussed dosing ranges for TCA and future options re: level. 11/04/2023: Increased nortriptyline to 125mg HS po. 11/03/2023: Discussed plan to increase nortriptyline to 125mg HS tomorrow night which she consents to. Continue to focus on behavioral activation. Plan for referral for outpatient CM services. 11/01/2023: We will continue with our current level of observation and precautions. We will leave the lorazepam 1 mg scheduled in the morning and she has other as needed dose that she can use if she needs to. Continue with the nortriptyline at 100 mg nightly which should hopefully start kicking in in the next 2 weeks. I encouraged her to keep using behavioral activation which she is trying to do. 10/31/2023: We will continue with our current level of observation and precautions. I am going to switch back to the lorazepam 1 mg in the morning right around the time of awakening to see if that helps her have another better day. We will get rid of the clonazepam. We will continue with nortriptyline at 100 mg nightly. I encouraged her to keep using behavioral activation. Hopefully, we will continue to see progress. 10/30/2023: We will continue with our current level of observation and precautions. We will continue with the nortriptyline at the new dose which is tolerated now. Instead of using lorazepam in the morning, we are going to try clonazepam 0.25 mg at 7:30 AM tomorrow morning. I encouraged her to keep using behavioral activation which she is obviously trying. We are definitely having a good day today. 10/29/2023: We are going to continue with our current level of observations and precautions. I am going to increase her nortriptyline up to 100 mg again now. We also added a one-time scheduled dose of lorazepam 1 mg at 07 30 tomorrow morning to see if that might help her start the day better rather than follow part so quickly. She is still in acute danger requiring hospitalization. On Tuesday, we will look into the possibility of whether or not ECT is possible. She had not done well with it in the past, but there is some data supporting use of ECT with nortriptyline. 10/28/2023: We will continue with her current level of observation and precautions. I encouraged her to use behavioral activation and push through her desire to just lay in bed. We talked about hygiene. I am going to leave the nortriptyline and lorazepam as they are for now as I think they are helping although the nortriptyline will still take several weeks to get to its full effect. I am still very concerned about her suicidality as she feels extremely hopeless and is even entertaining the idea of leaving this world and leaving her daughter without a mother. I still think she is in acute danger to herself. We also tossed around the idea of possible ECT along with nortriptyline as there is some data to support that. I just do not know if it would be funded by her insurance. 10/27/2023: I am going to lower the nortriptyline down to 75 mg nightly and then raise the lorazepam 1 mg every 6 hours as needed for severe anxiety. Hopefully we will see less sedation and better coverage of her anxiety and she can function better like she did 2 days ago. In the near future, I might even back the nortriptyline down to 50 mg again since she did so well on Tuesday. I still think she is an acute danger to herself if she were to leave because of the risk of suicide. 10/26/2023: We are going to continue with our current level of observation and precautions. I lowered the lorazepam to 0.1 mg p.o. every 4 hours as needed for severe anxiety. I encouraged her to try to use the hydroxyzine when she can because the lorazepam is a controlled substance. Will leave the nortriptyline at the current dosing. I encouraged her to keep trying to go to groups and activities and to distract herself. Hopefully, we are starting to turn a corner. 10/25/2023: We are going to continue with her current level of observation and precautions. I gave her a one-time dose of lorazepam 1 mg p.o. to see if that might offer some support for her anxiety. We will continue with the nortriptyline and I will increase it to 100 mg to see if we can help her more quickly. We will leave the clonidine just at nighttime if needed for sleep. I also encouraged her to continue to use behavioral activation techniques. 10/24/2023: We will continue with her current level of observation and precautions. We will continue with the nortriptyline at 50 mg, but I will likely raise it when I can. I encouraged her to try to distract herself with groups, activities, books, TV, or what ever else she can think of. I wrote for a one-time dose of clonidine 0.1 mg this morning to help with her rumination and help her sleep a little bit. I also added a as needed dose of clonidine that she can take 1 hour after her nortriptyline if she still cannot sleep. 10/23/2023: We are going to continue with her current level of observation and precautions. We will continue with the nortriptyline at 50 mg for now. I encouraged her to try to go to a few extra groups if possible. I am still very concerned about her safety. Also concerned about sending her home with nortriptyline so we are going to need a good safety plan. Today I talked her about behavioral activation. 10/22/2023: The patient and I discussed several options of what we can do to try to help her mood. This included nortriptyline, clozapine, loxapine, Emsam patch, and augmentation of an antidepressant with Cytomel. Unfortunately, she has very limited financial resources. Loxapine is not available on formulary here. We decided to start nortriptyline 50 mg at bedtime. I reviewed the uses, side effects, and time course with her and she gave informed consent. I worry about discharging her on a tricyclic and so when that happens, we may only give 1 week of medication out at a time. I encouraged the patient to continue to go to groups and activities to try to help improve her mood as well. 10/21/2023: complete Adderall trial. now has insurance but will not cover a provider able to manage selegiline. Will as Dr. Marie for a 2nd opinion re: TCA trial with short supplies/care med safety plan. 10/20/2023: d/c Ritalin in favor of trial of Adderall 10 mg today then 15 mg 7 am with plan for a 2 pm dose if tolerated to complete the trial. Patient requesting Vistaril scheduled as helpful. TCA trial could be considered but concerns about toxicity in OD. 10/19/2023: risks/benefits/alternatives reviewed re: Selegeline vs. a retrial of stimulant (fast acting, generic), particularly given likelihood of f/u with [facility] on discharge feel selegeline not a realistic option. Patient confirmed no hx of cardiac abnormality/arrthymia. Agreed to Ritalin 10 mg trial dose with likely TID meals. 10/18/2023: The patient was admitted to the [facility] ([facility] inpatient mental health unit) on q15 min checks (behavioral with suicide precautions) for safety. The patient will participate in group, recreational, and milieu therapies and will be offered additional individual and family sessions as clinically appropriate. Risks/benefits/alternatives reviewed re: remaining therapeutic classes such as TCA vs. selegiline. Patient unable to consider TMS or ECT with maintenance without insurance. Mental Health & Subst Abuse Tx Therapist Name of Therapist: . General Hardware Salesperson Name of General Hardware Salesperson: [facility] Oren Adolph Phone Number for General Hardware Salesperson: Date of Appointment with General Hardware Salesperson: 11/10/23 Time of Appointment with General Hardware Salesperson: 9:00 AM Case Management Appointment Comment: Will meet you at your house. Post Discharge Appointments Primary Care Physician Name Of Family Doctor/PCP: [facility] - Dr. Ferris [facility] Date of Future Appointment with PCP: 11/14/23 Time of Appointment with PCP: 1:25 PM arrival Provider Appointment Comment: [address], [facility], [facility] Contact Information Discharge Discharge [address]: [address] [place] [id number] Discharge Plan Discharge Items Patient Disposition: Home - Self-Care Reason For Visit: MDD Discharge Diagnosis: Major Depressive Disorder, severe, recurrent Condition on Discharge: Good Activity: Resume your previous activity Non-emergency contact: Primary Care Provider and Sales Agent Insurance Call non-emergency contact if: you have any medication questions and your symptoms worsen Follow-up/Referrals: PCP,NO [Primary Care Provider] - Diet: Regular Addtl Attending Provider Instructions: Optional Mobile Apps we discussed: -Suicide safety plan -Virtual Hope Box -Headspace -Check out guided positive visualization/mindfulness or restorative yoga on Youtube SPECIAL CARE INSTRUCTIONS: 1. Follow through with your scheduled aftercare appointments. If unable to keep an appointment, please call to reschedule. 2. Take your medication only as prescribed. Medication should not be changed or stopped without the approval of your doctor. In the event of worsening symptoms or concerns about side effects, contact your doctor immediately. 3. Utilize new healthy coping skills, anger management skills, and stress management skills learned during your hospitalization. Journal feelings and process them with a support person. Identify stressors or situations that may result in relapse, deterioration or inappropriate behaviors and develop a plan to deal with those issues. 4. If your coping skills are ineffective and you are in crisis, contact your outpatient providers for direction. If unable to reach your providers, please call the [facility] CRISIS LINE AT , go to the [facility] walk-in center at [address], [address], [place], or go to the closest Emergency Room. 5. Avoid alcohol and un-prescribed drugs. 6. You have been provided with the Mental Health Advance Directives Pamphlet for your review. 7. Your condition is stable for discharge to outpatient level of care, but recovery is an ongoing process. Ifthoughts to harm yourself or others return, follow the safety plan developed during your stay. Planning for a safe return home includes securing weapons. Our treatment team recommends weaponsbe removed from the home until your outpatient provider reassesses your progress. In rare cases where the items themselvescannot be removed, guns and ammunitionshould be secured separatelyand keys stored by a reliable personoutside of the home. If you were admitted on an involuntary commitment, the police or other legal authorities may be involved in this process. AFTERCARE APPOINTMENTS: * Please call your insurance company prior to your scheduled appointment to confirm your aftercare providers are covered. Take your insurance information to your appointments. WHO TO CALL AND WHEN: Medical Emergencies: For questions or emergencies related to your hospital stay, please contact the Inpatient Behavioral Health Unit at [phone]. A concrete inspector is on-call 21/02 for the Behavioral Health Unit for emergencies At any time you feel your situation is an emergency, you may also call 911 immediately. National Crisis Hotline: 843 Pending Studies at Discharge: No Stand-Alone Forms: My [facility] Medications and DC Order Prescriptions: New nortriptyline [Pamelor] 50 mg capsule 50 mg PO DAILY Qty: 7 0RF nortriptyline [Pamelor] 75 mg capsule 75 mg PO HS Qty: 7 0RF Rx Instructions: take with 50 sq=482 mg gabapentin 300 mg Capsule 300 mg PO BID 30 Days Qty: 60 0RF lorazepam 1 mg tablet 1 mg PO DAILY PRN (Reason: anxiety/panic attacks) 30 Days Qty: 7 3RF Rx Instructions: Take 0.5mg - 1mg tablet daily as needed Continued meloxicam 15 mg tablet 15 mg PO DAILY sulfasalazine 500 mg tablet 1 g PO TID 7 Days Qty: 42 0RF Rx Instructions: give with food (meal/snack) Discontinued ergocalciferol (vitamin D2) [Vitamin D2] 1,250 mcg (50,000 unit) capsule 1,250 mcg PO .COMPLEX Rx Instructions: 1,250 mcg orally twice a week; Discharge Orders: Discharge Order (Routine); Ordered 11/09/23 Ordered By: Yudith Box Admission Data Admit Date/Time: 10/17/23 14:31 Attending Provider: Yudith Box Admit Provider: Clarice Parada Primary Care Provider: PCP,NO Other Providers: Steven Marie Jr Other Interventions: Discharge Summary Assessment (RN) Last Done: 11/09/23 10:31 PSY Interdisciplinary Discharge Planning Last Done: 11/09/23 10:32 Coding Level of Care Code 33176 D/C day mgmt > 30 min Diagnoses Severe episode of recurrent major depressive disorder, without psychotic features F33.2 Active/Remission status: currently active Major depression episode severity: severe Psychotic features: without psychotic features
--- NOTE | 2023-11-12 16:04 | Communication Note ---
Date of Service: November 12, 2023 11/11/2023: Patient called U reporting increased dry mouth and tremors since going home. I recommended she reduce her nortriptyline as we had reviewed as an option during her inpatient admission should side effects occur. Given that her script was for capsules we discussed reducing her dose from 125mg to 75mg as there was no feasible way to reduce to 100mg with her capsules. 11/12/2023: Patient called back to report to RN on U episode of emesis last night and increased muscle shaking today. I recommended she visit urgent care or ED as such level of symptoms would not be expected with nortriptyline, especially after lowering the dose.
== END 2023-11-09 11:03 | disposition home or self-care (01) | DRG 885 ==
LOC: ED 10:24 → 3S 14:23 → SUATTDRO 14:31 → 3S 14:31

== ENCOUNTER 2024-09-16 11:59 | Inpatient (IN) ==
[2024-09-16 12:54] LABS: Basophils # (auto) 0.03 K/uL (0.00-0.20); Basophils % (auto) 0.4 %; Hematocrit (blood only) 37.7 % (37.0-47.0); Hemoglobin 12.8 g/dl (12.0-16.0); Immature Granulocytes # (auto) 0.03 K/uL (0.01-0.20); Immature Granulocytes % (auto) 0.4 %; Mean Corpuscular Hemoglobin 32.5 pg (25.0-34.0); Mean Corpuscular Volume 95.7 fL (80.0-100.0); Mean Platelet Volume 9.7 fL (9.4-12.4); Monocytes # (auto) 0.67 K/uL (0.11-0.59); Monocytes % (auto) 8.8 %; Neutrophils # (auto) 4.97 K/uL (1.40-6.50); Neutrophils % (auto) 65.4 %; Platelet Count 355 K/uL (130-400); RDW Coefficient of Variation 12.6 % (11.5-14.5); RDW Standard Deviation 44.9 fL (36.4-46.3); Red Blood Count 3.94 M/uL (4.20-5.40)
[2024-09-16 13:08] LABS: Appearance Urine Turbid (Clear); Bacteria Urine Automated 4+ (None Seen); Bilirubin Urine 1+ (Negative); Blood Urine Trace (Negative); Cast Urine Automated 0-2 /lpf (0-2); Color Urine Dark Yellow; Epithelial Cell Urine Auto >20 /hpf (0-2); Glucose Urine UA Negative (Negative); Ketones Urine 3+ (Negative); Leukocyte Esterase Urine 2+ (Negative); Mucus Urine Present (None Prsent); Nitrite Urine Negative (Negative); Protein Urine Trace (Negative); Specific Gravity Urine 1.029 (1.000-1.030); Urobilinogen Urine Negative (Negative); WBC Urine Automated 21-50 /hpf (0-5)
[2024-09-16 13:18] LABS: Pregnancy Test, Serum Negative (Negative)
[2024-09-16 13:19] LABS: Albumin Globulin Ratio 1.6 (0.9-2); Albumin Level 4.7 gm/dl (3.4-5.0); Calcium 9.3 mg/dl (8.6-10.3); Creatinine Clr Calc Pharmacy 102.6 ml/min; Globulin 2.9 gm/dl (2.5-4.0); Potassium 3.6 mmol/L (3.5-5.1); Total Protein 7.6 gm/dl (6.0-8.3)
[2024-09-16 13:34] LABS: Thyroid Stimulating Hormone 0.789 uIu/ml (0.300-4.500)
[2024-09-16 13:56] LABS: Acetaminophen 8 ug/ml (10-30); Salicylate < 3.0 mg/dl (3.0-30)
[2024-09-16 14:07] LABS: Cocaine, Urine Pos (Neg); Fentanyl, Urine Pos (Neg)
[2024-09-16 14:08] LABS: Amphetamines+Metham, Urine Neg (Neg); Barbiturates, Urine Neg (Neg); Benzodiazepine, Urine Neg (Neg); MDMA (Ecstacy), Urine Neg (Neg); Marijuana, Urine Neg (Neg); Methadone, Urine Neg (Neg); Opiate, Urine Neg (Neg); Phencyclidine, Urine Neg (Neg)
--- NOTE | 2024-09-16 14:24 | Emergency Department Note ---
Impression & Plan Depression with suicidal ideation, Anxiety, Urinary tract infection ED Provider Note NAME: BRADLEY ARELLANO AGE: 44 SEX: F : 1980 ARRIVES VIA: Walk-In INFORMANT: Patient, ED PROVIDER(S): Daniel Eckert DO CHIEF COMPLAINT: Mental health evaluation HPI: The patient is a 44-year-old female who presented to the emergency department for an evaluation of mental health issues. The patient has a history of similar episodes in the past. 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 She is not having thoughts of hurting herself. She has had previous admissions. The patient states that she has not been eating or drinking. She feels though she is not caring for her daughter well. The patient denies having any active suicidal ideation or gesturing. ROS: See above HPI for pertinent positives & negatives. A total of 10 systems reviewed and were otherwise negative. PAST MEDICAL HISTORY: See Below PAST SURGICAL HISTORY: See Below FAMILY HISTORY: See Below SOCIAL HISTORY: See Below HOME MEDICATIONS: See Below ALLERGIES: See Below VITALS: See Below PHYSICAL EXAMINATION: GENERAL: The patient is awake and alert. The patient is nonanxious appearing at this time. EYES: The conjunctivae are clear. The pupils are round and reactive. EARS, NOSE, MOUTH AND THROAT: The nose is without any evidence of any deformity. NECK: The neck is nontender and supple. RESPIRATORY: Normal respiratory effort is noted there is no evidence of wheezing rhonchi or rales CARDIOVASCULAR: Regular rate and rhythm noted there no murmurs rubs or gallops normal S1 normal S2. GASTROINTESTINAL: The abdomen is soft. Abdomen is nontender. MUSCULOSKELETAL/EXTREMITIES: There is no evidence of gross deformity full range of motion is noted in the hips and shoulders. SKIN: There is no obvious evidence of any rash. There are no petechiae, pallor or cyanosis noted. NEUROLOGIC: Patient is awake alert and oriented x3. PSYCH: The patient makes poor eye contact evaluation. The patient is guarded and tearful. The patient is currently admitted to not wanting to be alive but denies any active plan. . MEDICAL DECISION MAKING: The patient was a 44-year-old female who presented to the emergency department for mental health evaluation. The patient has significant depression symptoms. She also was found have signs of urinary tract infection on urinalysis. She was treated with antibiotic emergency department. Was reevaluated multiple times. I discussed the patient's condition with the emergency department with hospice case manager. She does appear when patient ambulated this time. Bed search is currently underway. Triage Nursing notes reviewed. Prior medical records reviewed Vital Signs: reviewed and remarkable for no significant abnormalities Differential diagnosis: Mood disorder, infection, hypoglycemia, electrolyte abnormalities, cardiac sources, intracerebral event, toxicologic, trauma, neurologic, as well as other pathologies. ER treatment provided: See below Diagnostics interpreted by me: ECG: none Laboratory studies: As stated above and show below. Imaging studies: See below. Consultation(s): I discussed the case with the emergency department mental health hospice case manager. The patient is currently being referred to 3 S. The patient was signed out to Dr Green at change of shift. Please see her note for further disposition. Past Med/Surg History Problem List (Updated 09/16/24 @ 14:24 by Daniel Eckert DO) Urinary tract infection (Acute) Anxiety (Acute) Depression with suicidal ideation (Acute) Major depression, recurrent Bilateral ovarian cysts Medication monitoring encounter Low bone mass Elevated parathyroid hormone Hyperlipidemia Vitamin D deficiency Weight gain Dietary counseling and surveillance Congenital valgus deformity of knee Seronegative arthritis Obese Depression Medical History Suicidal ideation Carpal tunnel syndrome on left Surgical History History of dilatation and curettage S/P LASIK surgery of both eyes Social History Smoking Status: Never smoker Preferred Language: British Communication Ability: Effective 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: No Beliefs That Will Affect Care: Cultural Feels Safe at Home: Yes Gender Identity: Female Assistive Devices: None Allergies Allergies Allergy/AdvReac Type Severity Reaction Status Date / Time No Known Allergies Allergy Verified 07/07/24 09:15 Home Meds Home Medications Medication Instructions Recorded Confirmed meloxicam 15 mg tablet 15 mg PO DAILY 06/16/22 07/07/24 ergocalciferol (vitamin D2) 1,250 PO 07/07/24 07/07/24 mcg (50,000 unit) capsule gabapentin 300 mg capsule mg PO 07/07/24 07/07/24 propranolol 20 mg tablet mg PO 07/07/24 07/07/24 Previous Rx's Medication Instructions Recorded sulfasalazine 500 mg tablet 1 g (2 x 500 mg) PO TID 7 days #42 11/09/23 tabs Results & Data (ED) Vital Signs Vital Signs - 24 hr 09/16/24 12:06 Temperature 36.6 C Temperature Source Temporal Artery Scan Pulse Rate 104 H Respiratory Rate 18 Respiratory Effort / Characteristics Non-Labored Spontaneous Respiratory Depth Normal Respiratory Pattern Regular Blood Pressure 134/90 Blood Pressure Mean 104 Blood Pressure Position Sitting Pulse Oximetry 94 Sepsis Recent Fever Within 48 Hours No Sepsis New/Unexplained Change in Mental Status N/A Sepsis Action Taken by Nursing No Action Required Home Medications Current Medication List: was personally reviewed by me Laboratory Data Attestation: I reviewed the patient's lab results. 09/16/24 12:30 09/16/24 12:30 Lab Results 09/16/24 09/16/24 Range/Units 12:25 12:30 WBC 7.60 (4.8-10.8) K/ul RBC 3.94 L (4.20-5.40) M/uL Hgb 12.8 (12.0-16.0) g/dl Hct 37.7 (37.0-47.0) % MCV 95.7 (80.0-100.0) fL MCH 32.5 (25.0-34.0) pg MCHC 34.0 (32.0-36.0) g/dL RDW Std Deviation 44.9 (36.4-46.3) fL RDW Coeff of Bill 12.6 (11.5-14.5) % Plt Count 355 (130-400) K/uL MPV 9.7 (9.4-12.4) fL Immature Gran % (Auto) 0.4 % Neut % (Auto) 65.4 % Lymph % (Auto) 25.0 % [place] % (Auto) 8.8 % Eos % (Auto) 0.0 % Baso % (Auto) 0.4 % Neut # (Auto) 4.97 (1.40-6.50) K/uL Lymph # (Auto) 1.90 (1.20-3.40) K/uL [place] # (Auto) 0.67 H (0.11-0.59) K/uL Eos # (Auto) 0.00 (0.00-0.50) K/uL Baso # (Auto) 0.03 (0.00-0.20) K/uL Immature Gran # (Auto) 0.03 (0.01-0.20) K/uL Sodium 136 (136-145) mmol/L Potassium 3.6 (3.5-5.1) mmol/L Chloride 103 (98-107) mmol/L Carbon Dioxide 24 (21-32) mmol/L Anion Gap 9 (3-11) BUN 17 (6-23) mg/dl Creatinine 0.68 (0.6-1.2) mg/dl Est Cr Clr Drug Dosing 102.6 ml/min eGFR 108.71 BUN/Creatinine Ratio 25.0 H (10-20) Glucose 93 (70-99(Fasting)) mg/dl Calcium 9.3 (8.6-10.3) mg/dl Total Bilirubin 1.0 (0.2-1.0) mg/dl AST 11 L (13-39) U/L ALT 6 L (7-52) U/L Alkaline Phosphatase 32 L (34-104) U/L Total Protein 7.6 (6.0-8.3) gm/dl Albumin 4.7 (3.4-5.0) gm/dl Globulin 2.9 (2.5-4.0) gm/dl Albumin/Globulin Ratio 1.6 (0.9-2) TSH 0.789 (0.300-4.500) uIu/ml HCG, Qual Negative (Negative) Urine Color Dark Yellow Urine Appearance Turbid A (Clear) Urine pH 5.0 (4.5-7.5) Ur Specific [place] 1.029 (1.000-1.030) Urine Protein Trace H (Negative) Urine Glucose (UA) Negative (Negative) Urine Ketones 3+ H (Negative) Urine Blood Trace H (Negative) Urine Nitrite Negative (Negative) Urine Bilirubin 1+ H (Negative) Urine Urobilinogen Negative (Negative) Ur Leukocyte Esterase 2+ H (Negative) Urine WBC (Auto) 21-50 H (0-5) /hpf Urine RBC (Auto) 11-20 H (0-2) /hpf U Hyaline Cast (Auto) 0-2 (0-2) /lpf U Epithel Cells (Auto) >20 H (0-2) /hpf Urine Bacteria (Auto) 4+ H (None Seen) Urine Mucus Present A (None Prsent) Salicylates < 3.0 L (3.0-30) mg/dl Urine Opiates Screen Neg (Neg) Ur Methadone, Qual Neg (Neg) Urine Fentanyl Screen Pos H (Neg) Acetaminophen 8 L (10-30) ug/ml Urine Barbiturates Neg (Neg) Ur Phencyclidine (PCP) Neg (Neg) U Amphetamin/Meth Scrn Neg (Neg) MDMA (Ecstasy) Screen Neg (Neg) U Benzodiazepines Scrn Neg (Neg) Ur Cocaine Metabolite Pos H (Neg) U Marijuana (THC) Screen Neg (Neg) Ethyl Alcohol mg/dL < 10.0 (<10.0) mg/dl SARS-CoV-2, RNA, NAAT NEGATIVE (NEGATIVE) Administered Medications Discontinued Medications Cefdinir (Cefdinir 300 Mg Cap) 600 mg PO ONE STA; Protocol Stop: 09/16/24 14:16 Last Admin: 09/16/24 14:29 Dose: 600 mg Documented By: BMK Discharge Plan Visit Data Chief Complaint: Mental Health Evaluation Stated Complaint: DEPRESSION, DEHYDRATION ED Provider: Irene Green Discharge Problem: Depression with suicidal ideation, Anxiety, Urinary tract infection Patient Disposition: Still a Patient Forms Stand Alone Forms: My [facility], Suicide Prevention Resources Prescriptions Prescriptions: No Action meloxicam 15 mg tablet 15 mg PO DAILY ergocalciferol (vitamin D2) 1,250 mcg (50,000 unit) capsule PO gabapentin 300 mg capsule PO propranolol 20 mg tablet PO sulfasalazine 500 mg tablet 1 g PO TID 7 Days Qty: 42 0RF Rx Instructions: give with food (meal/snack) Referrals Referrals: PCP,NO [Primary Care Provider] -
[2024-09-16] MEDS: CEFDINIR 300 MG CAP PO STA (14:29)
--- NOTE | 2024-09-16 14:59 | Emergency Department Note ---
ED Visit Note Patient signed out to me by Dr. Eckert at 15:00. Patient presents with suicidal ideation. Medically cleared. Voluntary 201. Bedsearch in process. Patient was evaluated by [facility] inpatient psychiatric unit, [address] [place] [address], liaison and was accepted to their unit for further evaluation and management. .
[2024-09-16] MEDS ORDERED: BISMUTH SUBSALICYLATE 262 MG CHEW PO PRN (16:26)
[2024-09-16] MEDS ORDERED: MAGNESIUM HYDROXIDE SUSP 30 ML UDC PO PRN (16:26)
[2024-09-16] MEDS ORDERED: SODIUM CHLORIDE 0.65% NA SOLN 45 ML (OCEAN) PRN (16:26)
[2024-09-16] MEDS ORDERED: ALUMINUM/MAGNESIUM SUSP 30 ML UDC PO PRN (16:26)
[2024-09-16] MEDS ORDERED: ACETAMINOPHEN 325 MG TAB PO PRN (16:26)
[2024-09-16 17:16] LABS: Appearance Urine Cloudy (Clear); Bacteria Urine Automated 1+ (None Seen); Bilirubin Urine 1+ (Negative); Blood Urine Negative (Negative); Cast Urine Automated 0-2 /lpf (0-2); Color Urine Dark Yellow; Glucose Urine UA Negative (Negative); Ketones Urine 3+ (Negative); Leukocyte Esterase Urine 1+ (Negative); Mucus Urine Present (None Prsent); Nitrite Urine Positive (Negative); Protein Urine Trace (Negative); Specific Gravity Urine 1.033 (1.000-1.030); Urobilinogen Urine Positive (Negative); WBC Urine Automated 0-5 /hpf (0-5)
[2024-09-16] MEDS: GABAPENTIN 300 MG CAP PO SCH (20:56)
[2024-09-16] MEDS: sulfaSALAzine 500 MG TABLET PO SCH (20:56)
[2024-09-16] MEDS: sulfaSALAzine 500 MG TABLET PO ONE (21:11)
--- NOTE | 2024-09-17 08:59 | History & Physical ---
Date of Service September 17, 2024 Impression / Recommendations Impression BRADLEY ARELLANO is a 44-year-old woman who currently lives in [place] with shared custody of her daughter, has a history of major depressive disorder recurrent with treatment resistance requiring ECT and ketamine in the past, and was admitted on 09/16/24 16:07 on a 201 voluntary commitment for worsening depression, SI, poor self care. Diagnostically consistent with major depressive disorder, recurrent episode, severe with inability to meet her self-care needs including poor sleep and poor po intake consistent with significantly elevated ketones on UA. She denies any current symptoms of a UTI but will follow microbiology. She adamantly denies any recent substance use, UDS confirmation pending for initial positive screen for fentanyl and cocaine. No known history of past substance use. Repeat UDS sent and lab reported result came back with an "error" code so additional UDS ordered to be sent once she can provide a repeat sample. Discussed medication treatment options in detail. Discussed risks, benefits and alternatives. Patient would like to start and consented to mirtazapine for MDD/insomnia/poor appetite and then modafinil for off-label use for MDD given prominent low energy/low motivation and history of multiple prior first line trials (SSRIs, SNRIs, Wellbutrin, TCA, antipsychotics, mood stabilizers with poor response or intolerable side effects). Goal will be short term use of modafinil and then consideration for ECT. Reviewed side effects including but not limited to: sedation, weight gain with mirtazapine and cardiac effects, increased anxiety, insomnia, decreased appetite with modafinil. Overall I spent a total of 75 minutes for this admission including review of chart records, review of labwork, direct evaluation of the patient, counseling the patient, ordering medication, risk assessment, discussion with the psychiatric liason RN and documentation in the electronic health record. (1) Depression with suicidal ideation: (2) MDD (major depressive disorder), recurrent episode, severe: (3) At risk for dehydration due to poor fluid intake: Plan 09/17/2024: The patient was admitted to the [facility] ([facility] mental health unit) on q15 min checks (behavioral with suicide precautions) for safety. The patient will participate in group, recreational, and milieu therapies and will be offered additional individual and family sessions as clinically appropriate. -Start mirtazapine 15mg HS and additional 15mg HS prn for insomnia -Start modafinil 100mg daily Inventory Assets Strengths: supportive relationships, willing to get treatment Needs: safety and stabilization, medication adjustment, additional coping skills, increased outpatient services Suicide Risk Level Suicide Risk Level: High-Moderate (q15 min suicide checks) (severe depression with hx of past serious suicide attempt, but denies active SI, feels safe in the hospital) Risk Factors Assessment Male: No : No Do You Have Access To A Gun?: No Health Problems: Yes Mental Health Diagnoses: Yes Substance Use Disorders: No Previous Attempt: Yes Family History of Suicide: No Previous Psychiatric Hospitalization: Yes Hopelessness: Yes Protective Factors Assessment Employed: No Stable Relationships: Yes Good Rapport with Provider: Yes Psychiatric History Identifying Data BRADLEY ARELLANO is a 44-year-old woman who currently lives in [place] with shared custody of her daughter, has a history of major depressive disorder recurrent with treatment resistance requiring ECT and ketamine in the past, and was admitted on 09/16/24 16:07 on a 201 voluntary commitment for worsening depression, SI, poor self care. Chief Complaint "I just want to be ". History of Present Illness Bradley presents for increased depressive symptoms over the last 3.5 weeks. She was hospitalized for about a month last year with discharge in October 2023 on nortriptyline but ultimately had to taper off this due to side effects including balance issues. Since about November 2023 she has been off all psychiatric medications with stable mood until 3.5 weeks ago. 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 She reports depressive symptoms of severe low energy to the point that she hardly gets out of bed, hasn't been showering, hardly eating, not sleeping despite spending most of the day in bed, low motivation, anhedonia, hopelessness, helplessness, and passive SI of wishing she could be . She denies any symptoms of anxiety "not really". She has not been taking any psychiatric medications except for 5-6 tabs over the last 3.5 weeks of an old script of Seroquel 25mg HS with some benefit for sleep. Psychiatric ROS notable for denial of history or current symptoms of hermilo nor psychosis nor OCD nor eating disorder. Past Psychiatric History Current Psychiatric Diagnosis: MDD Outpatient Services: therapy and psychiatry at [facility] Psych clinic Previous Psych Admissions: multiple ~5 lifetime -last September - October 2023 [facility] Do You Have Access To A Gun?: No History of Previous Suicide Attempt: Yes Describe Attempts in the Past: overdose Past Medication Trials: multiple prior medication trials including: * SSRIs (sertraline, lexapro, citalopram, fluoxetine) * SNRIs (duloxetine, Effexor) * Wellbutrin (she cannot recall specific side effect but notes it was serious) * Trintellix * antipsychotics (seroquel, abilify, Latuda, Geodon) * mood stabilizers (lithium, lamictal, carbamazepine) * stimulants (Adderall, Ritalin) * benzos * mirtazapine * TCA (nortriptyline-significant side effects) hx ECT in 2017 and 2021 Allergies Allergy/AdvReac Type Severity Reaction Status Date / Time No Known Allergies Allergy Verified 07/07/24 09:15 Home Medications Medication Instructions Recorded Confirmed Type meloxicam 15 mg tablet 15 mg PO DAILY 06/16/22 09/16/24 History ergocalciferol (vitamin D2) 1,250 1,250 mcg PO 2XWK 07/07/24 09/16/24 History mcg (50,000 unit) capsule (Vitamin D2) gabapentin 300 mg capsule 300 mg PO BID 07/07/24 09/16/24 History (Neurontin) sulfasalazine 500 mg tablet 1 g PO TID 09/16/24 09/16/24 History (Azulfidine) Family History Family History of: Depression, Other Mood Disorders and Other-List under Comment Family Mental Health History Comment: Undiagnosed but her mother had a sucide attempt Alcohol History Hx of Alcohol Use Over the Past 12 Months: No AUDIT Total Score: 0 Smoking Use Have You Smoked or Used Tobacco Products in the Last 30 Days: No Smoking Status: Never smoker Substance History Hx of Prescription Med Misuse Over the Past 12 Months: No Hx of Over the Counter Med Misuse Over the Past 12 Months: No Hx of Inhalent Misuse Over the Past 12 Months: No Hx of Organic Substance Use Over the Past 12 Months: No Hx of Illegal Substances/Street Drug Use Over Past 12 Months: No Problems as a Result of Past Substance Use: None Identified Problems as a Result of Past Substance Use Comments: Denies drug use- UDS +, awaiting confirm. 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 Beliefs That Will Affect Care: None Feels Safe at Home: Yes Gender Identity: Female Assistive Devices: None Review of Systems Review of Systems: All systems reviewed & are unremarkable except as noted in HPI & below Physical Exam Psychiatric: Orientation: alert and oriented x 3 Apperance: appropriately dressed and + disheveled Eye Contact: + fair eye contact Motor Behavior: + psychomotor retardation (lying in bed, felt unable to get up to meet in interview room) Speech: normal rate/rhythm/volume of speech Affect: + depressed affect Mood: + depressed mood Thought Process: + concrete thought process Thought Content: reality based without delusions Suicidal Thoughts: denies suicidal plan and denies suicidal intent; + reports suicidal thoughts ( passive thoughts ) Homicidal Thoughts: denies homicidal thoughts Hallucinations: no auditory hallucinations and no visual hallucinations Cognition: recent memory grossly intact, remote memory grossly intact, attention grossly intact and language grossly intact Estimated Intelligence: consistent with education level Insight: + fair insight Judgment: + limited judgement Vital Signs (Past 24 Hours): Last Vital Signs Temp 37.1 C 09/17/24 06:30 Pulse 91 H 09/17/24 06:33 Resp 16 09/17/24 06:30 BP 119/86 09/17/24 06:33 Pulse Ox 98 09/17/24 06:30 O2 Del Method Room Air 09/17/24 06:30 Exam Statement: A physical exam was performed in the ED by Dr. Eckert for the purposes of medical clearance. I accept that physical as correct and adequate for the purposes of the inpatient physical exam. Results & Data ([facility]) Laboratory Results Laboratory Results - last 24 hr 09/16/24 09/16/24 09/16/24 12:25 12:30 16:50 WBC 7.60 RBC 3.94 L Hgb 12.8 Hct 37.7 MCV 95.7 MCH 32.5 MCHC 34.0 RDW Std Deviation 44.9 RDW Coeff of Bill 12.6 Plt Count 355 MPV 9.7 Immature Gran % (Auto) 0.4 Neut % (Auto) 65.4 Lymph % (Auto) 25.0 [place] % (Auto) 8.8 Eos % (Auto) 0.0 Baso % (Auto) 0.4 Neut # (Auto) 4.97 Lymph # (Auto) 1.90 [place] # (Auto) 0.67 H Eos # (Auto) 0.00 Baso # (Auto) 0.03 Immature Gran # (Auto) 0.03 Sodium 136 Potassium 3.6 Chloride 103 Carbon Dioxide 24 Anion Gap 9 BUN 17 Creatinine 0.68 Est Cr Clr Drug Dosing 102.6 eGFR 108.71 BUN/Creatinine Ratio 25.0 H Glucose 93 Calcium 9.3 Total Bilirubin 1.0 AST 11 L ALT 6 L Alkaline Phosphatase 32 L Total Protein 7.6 Albumin 4.7 Globulin 2.9 Albumin/Globulin Ratio 1.6 TSH 0.789 HCG, Qual Negative Urine Color Dark Yellow Dark Yellow Urine Appearance Turbid A Cloudy A Urine pH 5.0 6.0 Ur Specific [place] 1.029 1.033 H Urine Protein Trace H Trace H Urine Glucose (UA) Negative Negative Urine Ketones 3+ H 3+ H Urine Blood Trace H Negative Urine Nitrite Negative Positive A Urine Bilirubin 1+ H 1+ H Urine Urobilinogen Negative Positive H Ur Leukocyte Esterase 2+ H 1+ H Urine WBC (Auto) 21-50 H 0-5 Urine RBC (Auto) 11-20 H 11-20 H U Hyaline Cast (Auto) 0-2 0-2 U Epithel Cells (Auto) >20 H 6-10 H Urine Bacteria (Auto) 4+ H 1+ H Urine Mucus Present A Present A Salicylates < 3.0 L Urine Opiates Screen Neg Cancelled Ur Methadone, Qual Neg Cancelled Fentanyl Comments Pending Drug Monitor Fentanyl Pending Fentanyl Confirmation Pending Drug Monitor Norfentanyl Pending Urine Fentanyl Screen Pos H Cancelled Ur Norfentanyl Confirm Pending Acetaminophen 8 L Urine Barbiturates Neg Cancelled Ur Phencyclidine (PCP) Neg Cancelled U Amphetamin/Meth Scrn Neg Cancelled MDMA (Ecstasy) Screen Neg Cancelled U Benzodiazepines Scrn Neg Cancelled U Cocaine Confirm GC/MS Pending Ur Cocaine Metabolite Pos H Cancelled U Marijuana (THC) Screen Neg Cancelled Drug Screen Comment Pending Ethyl Alcohol mg/dL < 10.0 Toxicology Comment Pending Drug Monitor Historic Res Pending SARS-CoV-2, RNA, NAAT NEGATIVE Current Inpatient Medications Current Inpatient Medications: Current Inpatient Medications Acetaminophen (Acetaminophen 325 Mg Tab) 650 mg PO Q4H PRN PRN Reason: Headache or Minor Fever Stop: 10/16/24 16:25 Al Hydrox/Mg Hydrox/Simethicone (Aluminum/Magnesium Susp 30 Ml Udc) 30 ml PO Q4H PRN PRN Reason: GI Upset Stop: 10/16/24 16:25 Bismuth Subsalicylate (Bismuth Subsalicylate 262 Mg Chew) 2 tab PO Q30M PRN PRN Reason: Loose Stool/Diarrhea Stop: 10/16/24 16:25 Gabapentin (Gabapentin 300 Mg Cap) 300 mg PO BID ARTHUR Stop: 10/16/24 20:59 Last Admin: 09/16/24 20:56 Dose: 300 mg Hydroxyzine HCl (Hydroxyzine Hcl 25 Mg Tab) 50 mg PO HSZ PRN PRN Reason: Insomnia Stop: 10/16/24 16:25 Hydroxyzine HCl (Hydroxyzine Hcl 25 Mg Tab) 25 mg PO Q4H PRN PRN Reason: Anxiety Stop: 10/16/24 16:25 Magnesium Hydroxide (Magnesium Hydroxide Susp 30 Ml Udc) 30 ml PO DAILY PRN PRN Reason: Constipation Stop: 10/16/24 16:25 Meloxicam (Meloxicam 7.5 Mg Tab) 15 mg PO DAILY ARTHUR Stop: 10/17/24 08:59 Sodium Chloride (Sodium Chloride 0.65% Na Soln 45 Ml ([place])) 1 - 2 sprays NA PRN PRN PRN Reason: Nasal Dryness/Congestion Stop: 10/16/24 16:25 Sulfasalazine (Sulfasalazine 500 Mg Tablet) 1,000 mg PO TID ARTHUR Stop: 10/17/24 08:59
[2024-09-17] MEDS: sulfaSALAzine 500 MG TABLET PO SCH ×2 (09:43→14:25)
[2024-09-17] MEDS: MELOXICAM 7.5 MG TAB PO SCH (09:43)
[2024-09-17] MEDS: hydrOXYzine HCl 25 MG TAB PO PRN (11:41)
[2024-09-17] MEDS ORDERED: MIRTAZAPINE TAB 15 MG TAB PO PRN (13:46)
[2024-09-17] MEDS: MIRTAZAPINE TAB 15 MG TAB PO SCH (21:12)
[2024-09-17] MEDS: GABAPENTIN 300 MG CAP PO SCH (21:12)
[2024-09-18] MEDS: MELOXICAM 7.5 MG TAB PO SCH (07:53)
[2024-09-18] MEDS: modafiniL 100 MG TAB PO SCH (07:59)
[2024-09-18] MEDS: modafiniL 100 MG TAB PO ONE (08:06)
--- NOTE | 2024-09-18 08:56 | Psychiatric Progress Note ---
Date of Service September 18, 2024 Impression / Recommendations Impression BRADLEY ARELLANO is a 44-year-old woman who currently lives in [place] with shared custody of her daughter, has a history of major depressive disorder recurrent with treatment resistance requiring ECT and ketamine in the past, and was admitted on 09/16/24 16:07 on a 201 voluntary commitment for worsening depression, SI, poor self care. Diagnostically consistent with major depressive disorder, recurrent episode, severe with inability to meet her self-care needs including poor sleep and poor po intake consistent with significantly elevated ketones on UA. She denies any current symptoms of a UTI but will follow microbiology. She adamantly denies any recent substance use, UDS confirmation pending for initial positive screen for fentanyl and cocaine. No known history of past substance use. Repeat UDS sent and lab reported result came back with an "error" code so additional UDS ordered to be sent once she can provide a repeat sample. A: Ongoing severe depression with poor fluid intake and significant amotivation. Reviewed treatment options, she declines option for ECT given poor response a few years ago despite prolonged course and memory issues. Reviewed other medication options including SSRI and SNRI, she consents to starting duloxetine for MDD. Reviewed side effects including but not limited to: GI, [place]AT[place], sexual side effects. She consents to titration of mirtazapine. Will continue modafinil while waiting for effect from duloxetine. Discussed behavioral activation strategies, requested she attempt to attend at least one group daily. Overall, I spent a total of 35 minutes on this case including meeting with the patient, reviewing the chart, nursing report, multidisciplinary team meeting, orders, and documentation. (1) Depression with suicidal ideation: (2) MDD (major depressive disorder), recurrent episode, severe: (3) At risk for dehydration due to poor fluid intake: Plan 09/18/2024: -Monitor I&O -Increase mirtazapine to 30mg HS -Start duloxetine 20mg daily tomorrow am 09/17/2024: The patient was admitted to the [facility] ([facility] mental health unit) on q15 min checks (behavioral with suicide precautions) for safety. The patient will participate in group, recreational, and milieu therapies and will be offered additional individual and family sessions as clinically appropriate. -Start mirtazapine 15mg HS and additional 15mg HS prn for insomnia -Start modafinil 100mg daily Inventory Assets Strengths: supportive relationships, willing to get treatment Needs: safety and stabilization, medication adjustment, additional coping skills, increased outpatient services Suicide Risk Level Suicide Risk Level: High-Moderate (q15 min suicide checks) (severe depression with hx of past serious suicide attempt, but denies active SI, feels safe in the hospital) Risk Factors Assessment Male: No : No Do You Have Access To A Gun?: No Health Problems: Yes Mental Health Diagnoses: Yes Substance Use Disorders: No Previous Attempt: Yes Family History of Suicide: No Previous Psychiatric Hospitalization: Yes Hopelessness: Yes Protective Factors Assessment Employed: No Stable Relationships: Yes Good Rapport with Provider: Yes Interval History Identifying Information BRADLEY ARELLANO is a 44-year-old woman who currently lives in [place] with shared custody of her daughter, has a history of major depressive disorder recurrent with treatment resistance requiring ECT and ketamine in the past, and was admitted on 09/16/24 16:07 on a 201 voluntary commitment for worsening depression, SI, poor self care. Chief Complaint "the same". Review of Systems Sleep Information Total Hours of Sleep: 6.5 Meal Information Percent Meal Consumed - Breakfast: 0 Percent Meal Consumed - Lunch: 100 Percent Meal Consumed - Dinner: 0 Nutrition Comment: fluids provided. meal dated, labeled and refrigerated Subjective Subjective Patient was seen & assessed and interval progress reviewed with nursing and social work. Isolative. Declined to provide a urine sample all day yesterday but did this morning. Ate all of her lunch but refused dinner. Did not attend any groups yesterday. Slept 6.5 hours, she reports 4 hours. Came out for breakfast this morning and lunch, otherwise isolative to bed. tearful, reports ongoing poor fluid intake but is eating more today. Still feels very tired, still slept poorly. Reviewed option for ECT, she reports last time in 2021 was ineffective even after 18 sessions and she wants to avoid this. She is willing to try duloxetine, prefers this to SSRI or alternative class. Physical Exam Psychiatric Orientation: alert and oriented x 3 Apperance: appropriately dressed and + disheveled Eye Contact: + fair eye contact Motor Behavior: + psychomotor retardation (lying in bed, felt unable to get up to meet in interview room) Speech: + abnormal rate/rhythm/volume of speech (soft, brief) Affect: + depressed affect and + tearful affect Mood: + depressed mood Thought Process: + concrete thought process Thought Content: reality based without delusions Suicidal Thoughts: denies suicidal plan and denies suicidal intent; + reports suicidal thoughts ( passive thoughts ) Homicidal Thoughts: denies homicidal thoughts Hallucinations: no auditory hallucinations and no visual hallucinations Cognition: recent memory grossly intact, remote memory grossly intact, attention grossly intact and language grossly intact Estimated Intelligence: consistent with education level Insight: + fair insight Judgment: + limited judgement Vital Signs (Past 24 Hours) Last Vital Signs Temp 36.6 C 09/18/24 06:45 Pulse 78 09/18/24 06:46 Resp 16 09/18/24 06:45 BP 126/87 09/18/24 06:46 Pulse Ox 98 09/17/24 06:30 O2 Del Method Room Air 09/17/24 06:30 Results & Data (U) Laboratory Results Laboratory Results - last 24 hr 09/18/24 07:55 Urine Opiates Screen Pending Ur Methadone, Qual Pending Urine Fentanyl Screen Pending Urine Barbiturates Pending Ur Phencyclidine (PCP) Pending U Amphetamin/Meth Scrn Pending MDMA (Ecstasy) Screen Pending U Benzodiazepines Scrn Pending Ur Cocaine Metabolite Pending U Marijuana (THC) Screen Pending Current Inpatient Medications Current Inpatient Medications: Current Inpatient Medications Acetaminophen (Acetaminophen 325 Mg Tab) 650 mg PO Q4H PRN PRN Reason: Headache or Minor Fever Stop: 10/16/24 16:25 Al Hydrox/Mg Hydrox/Simethicone (Aluminum/Magnesium Susp 30 Ml Udc) 30 ml PO Q4H PRN PRN Reason: GI Upset Stop: 10/16/24 16:25 Bismuth Subsalicylate (Bismuth Subsalicylate 262 Mg Chew) 2 tab PO Q30M PRN PRN Reason: Loose Stool/Diarrhea Stop: 10/16/24 16:25 Ergocalciferol (Ergocalciferol 1250 Mcg (50,000 Units) Cap) 1,250 mcg PO WeSa@0900 ARTHUR Stop: 10/19/24 08:59 Gabapentin (Gabapentin 300 Mg Cap) 300 mg PO BID ARTHUR Stop: 10/17/24 20:59 Last Admin: 09/18/24 07:53 Dose: 300 mg Hydroxyzine HCl (Hydroxyzine Hcl 25 Mg Tab) 50 mg PO HSZ PRN PRN Reason: Insomnia Stop: 10/16/24 16:25 Hydroxyzine HCl (Hydroxyzine Hcl 25 Mg Tab) 25 mg PO Q4H PRN PRN Reason: Anxiety Stop: 10/16/24 16:25 Last Admin: 09/17/24 11:41 Dose: 25 mg Magnesium Hydroxide (Magnesium Hydroxide Susp 30 Ml Udc) 30 ml PO DAILY PRN PRN Reason: Constipation Stop: 10/16/24 16:25 Meloxicam (Meloxicam 7.5 Mg Tab) 15 mg PO DAILY ARTHUR Stop: 10/18/24 08:59 Last Admin: 09/18/24 07:53 Dose: 15 mg Mirtazapine (Mirtazapine Tab 15 Mg Tab) 15 mg PO HS ARTHUR Stop: 10/17/24 21:59 Last Admin: 09/17/24 21:12 Dose: 15 mg Mirtazapine (Mirtazapine Tab 15 Mg Tab) 15 mg PO HS PRN PRN Reason: insomnia Stop: 10/17/24 13:45 Modafinil (Modafinil 100 Mg Tab) 100 mg PO QAM ARTHUR Stop: 10/18/24 08:59 Last Admin: 09/18/24 07:59 Dose: 100 mg Sodium Chloride (Sodium Chloride 0.65% Na Soln 45 Ml ([place])) 1 - 2 sprays NA PRN PRN PRN Reason: Nasal Dryness/Congestion Stop: 10/16/24 16:25 Sulfasalazine (Sulfasalazine 500 Mg Tablet) 1,000 mg PO TID ARTHUR Stop: 10/17/24 13:59 Last Admin: 09/18/24 07:53 Dose: 1,000 mg Mental Health & Subst Abuse Tx Therapist Name of Therapist: [facility]
[2024-09-18 10:44] LABS: Opiate, Urine Neg (Neg)
[2024-09-18 10:45] LABS: Amphetamines+Metham, Urine Neg (Neg); Barbiturates, Urine Neg (Neg); Benzodiazepine, Urine Neg (Neg); Cocaine, Urine Neg (Neg); Fentanyl, Urine Neg (Neg); MDMA (Ecstacy), Urine Neg (Neg); Marijuana, Urine Neg (Neg); Methadone, Urine Neg (Neg); Phencyclidine, Urine Neg (Neg)
[2024-09-18] MEDS: MIRTAZAPINE TAB 15 MG TAB PO SCH (20:02)
[2024-09-19] MEDS: ERGOCALCIFEROL 1250 MCG (50,000 UNITS) CAP PO SCH (08:51)
[2024-09-19] MEDS: DULoxetine HCL 30 MG CAP PO SCH (08:53)
--- NOTE | 2024-09-19 08:56 | Psychiatric Progress Note ---
Date of Service September 19, 2024 Impression / Recommendations Impression BRADLEY ARELLANO is a 44-year-old woman who currently lives in [place] with shared custody of her daughter, has a history of major depressive disorder recurrent with treatment resistance requiring ECT and ketamine in the past, and was admitted on 09/16/24 16:07 on a 201 voluntary commitment for worsening depression, SI, poor self care. Diagnostically consistent with major depressive disorder, recurrent episode, severe with inability to meet her self-care needs including poor sleep and poor po intake consistent with significantly elevated ketones on UA. She denies any current symptoms of a UTI but will follow microbiology. She adamantly denies any recent substance use, UDS confirmation pending for initial positive screen for fentanyl and cocaine. No known history of past substance use. Repeat UDS sent and lab reported result came back with an "error" code so additional UDS ordered to be sent once she can provide a repeat sample. A: Ongoing severe depression but eating more, drinking more, and started to get out of bed and attend some groups. Tolerating initial dose of duloxetine, slept more with higher dose of mirtazapine. Will titrate modafinil to further target depression symptoms while waiting for effect from SNRI. Overall, I spent a total of 30 minutes on this case including meeting with the patient, reviewing the chart, nursing report, multidisciplinary team meeting, orders, and documentation. (1) Depression with suicidal ideation: (2) MDD (major depressive disorder), recurrent episode, severe: (3) At risk for dehydration due to poor fluid intake: Plan 09/19/2024: -Increase modafinil to 200mg daily -Continue mirtazapine and duloxetine 09/18/2024: -Monitor I&O -Increase mirtazapine to 30mg HS -Start duloxetine 30mg daily tomorrow am 09/17/2024: The patient was admitted to the [facility] ([facility] inpatient mental health unit) on q15 min checks (behavioral with suicide precautions) for safety. The patient will participate in group, recreational, and milieu therapies and will be offered additional individual and family sessions as clinically appropriate. -Start mirtazapine 15mg HS and additional 15mg HS prn for insomnia -Start modafinil 100mg daily Inventory Assets Strengths: supportive relationships, willing to get treatment Needs: safety and stabilization, medication adjustment, additional coping skills, increased outpatient services Suicide Risk Level Suicide Risk Level: High-Moderate (q15 min suicide checks) (severe depression with hx of past serious suicide attempt, ongoing SI but increasing behavioral activation, feels safe in the hospital) Risk Factors Assessment Male: No : No Do You Have Access To A Gun?: No Health Problems: Yes Mental Health Diagnoses: Yes Substance Use Disorders: No Previous Attempt: Yes Family History of Suicide: No Previous Psychiatric Hospitalization: Yes Hopelessness: Yes Protective Factors Assessment Employed: No Stable Relationships: Yes Good Rapport with Provider: Yes Interval History Identifying Information BRADLEY ARELLANO is a 44-year-old woman who currently lives in [place] with shared custody of her daughter, has a history of major depressive disorder recurrent with treatment resistance requiring ECT and ketamine in the past, and was admitted on 09/16/24 16:07 on a 201 voluntary commitment for worsening depression, SI, poor self care. Chief Complaint "I'm trying". Review of Systems Sleep Information Total Hours of Sleep: 8 Meal Information Percent Meal Consumed - Breakfast: 75 Percent Meal Consumed - Lunch: 85 Percent Meal Consumed - Dinner: 50 Nutrition Comment: fluids provided. meal dated, labeled and refrigerated Subjective Subjective Patient was seen & assessed and interval progress reviewed with treatment team. She attended some groups yesterday, rated her mood as "sad". Eating her meals. She thinks she slept about 6 hours. She's trying to read today and has been attending groups. Denies any medication side effects. Feels she slept better with higher dose of mirtazapine. Wants to continue with titration of modafinil given limited benefit so far. Working on behavioral activation despite feeling very tired and with amotivation. Eating and drinking more. She wants to try to shower tomorrow. Physical Exam Psychiatric Orientation: alert and oriented x 3 Apperance: appropriately dressed and + disheveled Eye Contact: good eye contact Motor Behavior: steady gait and station and no abnormal motor movements Speech: + abnormal rate/rhythm/volume of speech (soft, brief) Affect: + depressed affect Mood: + depressed mood Thought Process: goal directed thought process Thought Content: reality based without delusions Suicidal Thoughts: denies suicidal plan and denies suicidal intent; + reports suicidal thoughts Homicidal Thoughts: denies homicidal thoughts Hallucinations: no auditory hallucinations and no visual hallucinations Cognition: recent memory grossly intact, remote memory grossly intact, attention grossly intact and language grossly intact Estimated Intelligence: consistent with education level Insight: + fair insight Judgment: + fair judgement Vital Signs (Past 24 Hours) Last Vital Signs Temp 36.7 C 09/19/24 06:34 Pulse 85 09/19/24 06:35 Resp 16 09/19/24 06:34 BP 132/86 09/19/24 06:35 Pulse Ox 98 09/17/24 06:30 O2 Del Method Room Air 09/17/24 06:30 Results & Data ([facility]) Laboratory Results Laboratory Results - last 24 hr 09/18/24 07:55 Urine Opiates Screen Neg Ur Methadone, Qual Neg Urine Fentanyl Screen Neg Urine Barbiturates Neg Ur Phencyclidine (PCP) Neg U Amphetamin/Meth Scrn Neg MDMA (Ecstasy) Screen Neg U Benzodiazepines Scrn Neg Ur Cocaine Metabolite Neg U Marijuana (THC) Screen Neg Current Inpatient Medications Current Inpatient Medications: Current Inpatient Medications Acetaminophen (Acetaminophen 325 Mg Tab) 650 mg PO Q4H PRN PRN Reason: Headache or Minor Fever Stop: 10/16/24 16:25 Al Hydrox/Mg Hydrox/Simethicone (Aluminum/Magnesium Susp 30 Ml Udc) 30 ml PO Q4H PRN PRN Reason: GI Upset Stop: 10/16/24 16:25 Bismuth Subsalicylate (Bismuth Subsalicylate 262 Mg Chew) 2 tab PO Q30M PRN PRN Reason: Loose Stool/Diarrhea Stop: 10/16/24 16:25 Duloxetine HCl (Duloxetine Hcl 30 Mg Cap) 30 mg PO QAM ARTHUR Stop: 10/19/24 08:59 Last Admin: 09/19/24 08:53 Dose: 30 mg Ergocalciferol (Ergocalciferol 1250 Mcg (50,000 Units) Cap) 1,250 mcg PO WeSa@0900 [facility] Stop: 10/19/24 08:59 Last Admin: 09/19/24 08:51 Dose: 1,250 mcg Gabapentin (Gabapentin 300 Mg Cap) 300 mg PO BID ARTHUR Stop: 10/17/24 20:59 Last Admin: 09/19/24 08:51 Dose: 300 mg Hydroxyzine HCl (Hydroxyzine Hcl 25 Mg Tab) 50 mg PO HSZ PRN PRN Reason: Insomnia Stop: 10/16/24 16:25 Hydroxyzine HCl (Hydroxyzine Hcl 25 Mg Tab) 25 mg PO Q4H PRN PRN Reason: Anxiety Stop: 10/16/24 16:25 Last Admin: 09/17/24 11:41 Dose: 25 mg Magnesium Hydroxide (Magnesium Hydroxide Susp 30 Ml Udc) 30 ml PO DAILY PRN PRN Reason: Constipation Stop: 10/16/24 16:25 Meloxicam (Meloxicam 7.5 Mg Tab) 15 mg PO DAILY ARTHUR Stop: 10/18/24 08:59 Last Admin: 09/19/24 08:52 Dose: 15 mg Mirtazapine (Mirtazapine Tab 15 Mg Tab) 30 mg PO HS ARTHUR Stop: 10/18/24 21:59 Last Admin: 09/18/24 20:02 Dose: 30 mg Modafinil (Modafinil 100 Mg Tab) 100 mg PO QAM ARTHUR Stop: 10/18/24 08:59 Last Admin: 09/19/24 08:55 Dose: 100 mg Sodium Chloride (Sodium Chloride 0.65% Na Soln 45 Ml ([place])) 1 - 2 sprays NA PRN PRN PRN Reason: Nasal Dryness/Congestion Stop: 10/16/24 16:25 Sulfasalazine (Sulfasalazine 500 Mg Tablet) 1,000 mg PO TID ARTHUR Stop: 10/17/24 13:59 Last Admin: 09/19/24 08:51 Dose: 1,000 mg Mental Health & Subst Abuse Tx Psychiatrist Name of Psychiatrist: [facility] Psych Clinic-Dr. Tsang Psychiatrist's Date Of Appointment With Psychiatric Provider: 10/10/2024 Time of Appointment with Psychiatrist: 2:15pm Psychiatric Appointment Comment: Appt from 09/27 was rescheduled. This will be a one hour appt Therapist Name of Therapist: [facility] Psych Leana Therapist's Therapy Appointment Comment: Appt from 09/25 was rescheduled.
[2024-09-19 14:58] LABS: Cocaine, Urine NEGATIVE ng/mL (<100); Fentanyl, Urine NEGATIVE ng/mL (<0.5); Norfentanyl, Urine NEGATIVE ng/mL (<0.5); medMATCH Fentanyl, Urine DNR; medMATCH Norfentanyl, Urine DNR
[2024-09-20] MEDS: modafiniL 100 MG TAB PO SCH (08:45)
--- NOTE | 2024-09-20 09:06 | Psychiatric Progress Note ---
Date of Service September 20, 2024 Impression / Recommendations Impression BRADLEY ARELLANO is a 44-year-old woman who currently lives in [place] with shared custody of her daughter, has a history of major depressive disorder recurrent with treatment resistance requiring ECT and ketamine in the past, and was admitted on 09/16/24 16:07 on a 201 voluntary commitment for worsening depression, SI, poor self care. Diagnostically consistent with major depressive disorder, recurrent episode, severe with inability to meet her self-care needs including poor sleep and poor po intake consistent with significantly elevated ketones on UA. She denies any current symptoms of a UTI but will follow microbiology. She adamantly denies any recent substance use, UDS confirmation pending for initial positive screen for fentanyl and cocaine. No known history of past substance use. Repeat UDS sent and lab reported result came back with an "error" code so additional UDS ordered to be sent once she can provide a repeat sample. A: Ongoing severe depression and increased anxiety and social isolation today with poor appetite and more difficulty engaging and getting out of bed. Still with subjective poor sleep and staff reporting she appears to be sleeping for most of the night. Suggests she's likely getting nonrestorative sleep or depression is causing such significant fatigue that she feels as though she is not rested even after sleeping. Given fairly abrupt onset of anxiety will d iscontinue modafinil as possible this contributed and will reduce duloxetine in case this is contributing given timing of symptoms and initiation of SNRI. She also consents to starting clonidine at HS as off-label to help with sleep/anxiety and increased BP this morning (possibly from SNRI initiation). Reviewed side effects including but not limited to sedation, low BP/syncope. Overall, I spent a total of 32 minutes on this case including meeting with the patient, reviewing the chart, nursing report, multidisciplinary team meeting, orders, and documentation. (1) Depression with suicidal ideation: (2) MDD (major depressive disorder), recurrent episode, severe: (3) At risk for dehydration due to poor fluid intake: Plan 09/20/2024: -Discontinue modafinil -Reduce duloxetine to 20mg daily starting tomorrow -Start clonidine 0.1mg HS 09/19/2024: -Increase modafinil to 200mg daily -Continue mirtazapine and duloxetine 09/18/2024: -Monitor I&O -Increase mirtazapine to 30mg HS -Start duloxetine 30mg daily tomorrow am 09/17/2024: The patient was admitted to the [facility] ([facility] inpatient mental health unit) on q15 min checks (behavioral with suicide precautions) for safety. The patient will participate in group, recreational, and milieu therapies and will be offered additional individual and family sessions as clinically appropriate. -Start mirtazapine 15mg HS and additional 15mg HS prn for insomnia -Start modafinil 100mg daily Inventory Assets Strengths: supportive relationships, willing to get treatment Needs: safety and stabilization, medication adjustment, additional coping skills, incre ased outpatient services Suicide Risk Level Suicide Risk Level: High-Moderate (q15 min suicide checks) (severe depression with hx of past serious suicide attempt, ongoing SI but increasing behavioral activation, feels safe in the hospital) Risk Factors Assessment Male: No : No Do You Have Access To A Gun?: No Health Problems: Yes Mental Health Diagnoses: Yes Substance Use Disorders: No Previous Attempt: Yes Family History of Suicide: No Previous Psychiatric Hospitalization: Yes Hopelessness: Yes Protective Factors Assessment Employed: No Stable Relationships: Yes Good Rapport with Provider: Yes Interval History Identifying Information BRADLEY ARELLANO is a 44-year-old woman who currently lives in [place] with shared custody of her daughter, has a history of major depressive disorder recurrent with treatment resistance requiring ECT and ketamine in the past, and was admitted on 09/16/24 16:07 on a 201 voluntary commitment for worsening depression, SI, poor self care. Chief Complaint "I'm having a lot of anxiety". Review of Systems Sleep Information Total Hours of Sleep: 7.25 Meal Information Percent Meal Consumed - Breakfast: 50 Percent Meal Consumed - Lunch: 50 Percent Meal Consumed - Dinner: 50 Nutrition Comment: fluids provided. meal dated, labeled and refrigerated Subjective Subjective Patient was seen & assessed and interval progress reviewed with nursing and social work. Attended all groups. Eating about 50% of her meals. Did read a book and out of her room. Observed to sleep for 7 hours but she reported poor sleep. Tearful this morning and more anxious. Declined breakfast and community meeting this morning. Today reports significant increase in anxiety since waking up around 6am. 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 Trying to drink more fluids. She's unsure why she woke feeling so anxious today, occurred before getting new higher dose of modafinil. Physical Exam Psychiatric Orientation: alert and oriented x 3 Apperance: appropriately dressed and + disheveled Eye Contact: good eye contact Motor Behavior: steady gait and station and no abnormal motor movements Speech: + abnormal rate/rhythm/volume of speech (soft, brief) Affect: + depressed affect and + tearful affect Mood: + depressed mood and + anxious mood Thought Process: goal directed thought process Thought Content: reality based without delusions Suicidal Thoughts: denies suicidal plan and denies suicidal intent; + reports suicidal thoughts Homicidal Thoughts: denies homicidal thoughts Hallucinations: no auditory hallucinations and no visual hallucinations Cognition: recent memory grossly intact, remote memory grossly intact, attention grossly intact and language grossly intact Estimated Intelligence: consistent with education level Insight: + fair insight Judgment: + fair judgement Vital Signs (Past 24 Hours) Last Vital Signs Temp 36.6 C 09/20/24 06:38 Pulse 77 09/20/24 06:38 Resp 16 09/20/24 06:38 BP 142/92 H 09/20/24 06:38 Pulse Ox 98 09/17/24 06:30 O2 Del Method Room Air 09/17/24 06:30 Results & Data ([facility]) Laboratory Results Laboratory Results - last 24 hr 09/16/24 12:25 Fentanyl Comments SEE NOTE Drug Monitor Fentanyl DNR Fentanyl Confirmation NEGATIVE Drug Monitor Norfentanyl DNR Ur Norfentanyl Confirm NEGATIVE U Cocaine Confirm GC/MS NEGATIVE Drug Screen Comment SEE NOTE Toxicology Comment SEE NOTE Drug Monitor Historic Res DNR Current Inpatient Medications Current Inpatient Medications: Current Inpatient Medications Acetaminophen (Acetaminophen 325 Mg Tab) 650 mg PO Q4H PRN PRN Reason: Headache or Minor Fever Stop: 10/16/24 16:25 Al Hydrox/Mg Hydrox/Simethicone (Aluminum/Magnesium Susp 30 Ml Udc) 30 ml PO Q4H PRN PRN Reason: GI Upset Stop: 10/16/24 16:25 Bismuth Subsalicylate (Bismuth Subsalicylate 262 Mg Chew) 2 tab PO Q30M PRN PRN Reason: Loose Stool/Diarrhea Stop: 10/16/24 16:25 Duloxetine HCl (Duloxetine Hcl 30 Mg Cap) 30 mg PO QAM ARTHUR Stop: 10/19/24 08:59 Last Admin: 09/20/24 08:44 Dose: 30 mg Ergocalciferol (Ergocalciferol 1250 Mcg (50,000 Units) Cap) 1,250 mcg PO WeSa@0900 ARTHUR Stop: 10/19/24 08:59 Last Admin: 09/19/24 08:51 Dose: 1,250 mcg Gabapentin (Gabapentin 300 Mg Cap) 300 mg PO BID ARTHUR Stop: 10/17/24 20:59 Last Admin: 09/20/24 08:46 Dose: 300 mg Hydroxyzine HCl (Hydroxyzine Hcl 25 Mg Tab) 50 mg PO HSZ PRN PRN Reason: Insomnia Stop: 10/16/24 16:25 Hydroxyzine HCl (Hydroxyzine Hcl 25 Mg Tab) 25 mg PO Q4H PRN PRN Reason: Anxiety Stop: 10/16/24 16:25 Last Admin: 09/20/24 08:44 Dose: 25 mg Magnesium Hydroxide (Magnesium Hydroxide Susp 30 Ml Udc) 30 ml PO DAILY PRN PRN Reason: Constipation Stop: 10/16/24 16:25 Meloxicam (Meloxicam 7.5 Mg Tab) 15 mg PO DAILY ARTHUR Stop: 10/18/24 08:59 Last Admin: 09/20/24 08:46 Dose: 15 mg Mirtazapine (Mirtazapine Tab 15 Mg Tab) 30 mg PO HS ARTHUR Stop: 10/18/24 21:59 Last Admin: 09/19/24 20:56 Dose: 30 mg Modafinil (Modafinil 100 Mg Tab) 200 mg PO QAM ARTHUR Stop: 10/20/24 08:59 Last Admin: 09/20/24 08:45 Dose: 200 mg Sodium Chloride (Sodium Chloride 0.65% Na Soln 45 Ml ([place])) 1 - 2 sprays NA PRN PRN PRN Reason: Nasal Dryness/Congestion Stop: 10/16/24 16:25 Sulfasalazine (Sulfasalazine 500 Mg Tablet) 1,000 mg PO TID ARTHUR Stop: 10/17/24 13:59 Last Admin: 09/20/24 08:45 Dose: 1,000 mg Mental Health & Subst Abuse Tx Psychiatrist Name of Psychiatrist: [facility] Psych [facility]-Dr. Tsang Psychiatrist's Date Of Appointment With Psychiatric Provider: 10/10/2024 Time of Appointment with Psychiatrist: 2:15pm Psychiatric Appointment Comment: Appt from 09/27 was rescheduled. This will be a one hour appt Therapist Name of Therapist: [facility] Therapist's Therapy Appointment Comment: Appt from 09/25 was rescheduled. Lighthouse Keeper Name of Lighthouse Keeper: [facility]MILADY Barbosa Post Discharge Appointments Primary Care Physician Name Of Family Doctor/PCP: [facility] Contact Information Discharge Discharge Address: [address] [place] [address], [place] [address]
[2024-09-20] MEDS: hydrOXYzine HCl 25 MG TAB PO ONE (10:30)
[2024-09-20] MEDS: hydrOXYzine HCl 25 MG TAB PO PRN (20:58)
[2024-09-20] MEDS: cloNIDine HCL 0.1 MG TAB PO SCH (20:59)
[2024-09-21] MEDS: DULoxetine HCL 20 MG CAP PO SCH (08:48)
--- NOTE | 2024-09-21 08:55 | Psychiatric Progress Note ---
Date of Service September 21, 2024 Impression / Recommendations Impression BRADLEY ARELLANO is a 44-year-old woman who currently lives in [place] with shared custody of her daughter, has a history of major depressive disorder recurrent with treatment resistance requiring ECT and ketamine in the past, and was admitted on 09/16/24 16:07 on a 201 voluntary commitment for worsening depression, SI, poor self care. Diagnostically consistent with major depressive disorder, recurrent episode, severe with inability to meet her self-care needs including poor sleep and poor po intake consistent with significantly elevated ketones on UA. A: Ongoing severe depression, but no anxiety today after discontinuation of modafinil and lower dose of duloxetine. Increasing SI with more intrusive images of her dying but no plans, feels safe in the hospital. Continues to struggle with sense of getting adequate or restful sleep. Reviewed medication options and she consents to trial of Ambien for insomnia, reviewed side effects including but not limited to sleep walking behaviors which can be dangerous and include driving or trying to cook or use knives while being unaware. Discussed goal of short-term use only in the hospital until depression symptoms and sleep- maintenance insomnia start to improve. Will increase duloxetine tomorrow, monitor closely to ensure no worsening of anxiety again. UDS confirmation back and negative for any substance use as anticipated. Overall, I spent a total of 25 minutes on this case including meeting with the patient, reviewing the chart, nursing report, multidisciplinary team meeting, orders, and documentation. (1) Depression with suicidal ideation: (2) MDD (major depressive disorder), recurrent episode, severe: (3) At risk for dehydration due to poor fluid intake: Plan 09/21/2024: -Start Ambien 5mg HS -Increase duloxetine to 30mg daily tomorrow -Discontinue clonidine given limited benefit 09/20/2024: -Discontinue modafinil -Reduce duloxetine to 20mg daily starting tomorrow -Start clonidine 0.1mg HS 09/19/2024: -Increase modafinil to 200mg daily -Continue mirtazapine and duloxetine 09/18/2024: -Monitor I&O -Increase mirtazapine to 30mg HS -Start duloxetine 30mg daily tomorrow am 09/17/2024: The patient was admitted to the [facility] ([facility] mental health unit) on q15 min checks (behavioral with suicide precautions) for safety. The patient will participate in group, recreational, and milieu therapies and will be offered additional individual and family sessions as clinically appropriate. -Start mirtazapine 15mg HS and additional 15mg HS prn for insomnia -Start modafinil 100mg daily Inventory Assets Strengths: supportive relationships, willing to get treatment Needs: safety and stabilization, medication adjustment, additional coping skills, increased outpatient services Suicide Risk Level Suicide Risk Level: High-Moderate (q15 min suicide checks) (severe depression with hx of past serious suicide attempt, ongoing SI but increasing behavioral activation, feels safe in the hospital) Risk Factors Assessment Male: No : No Do You Have Access To A Gun?: No Health Problems: Yes Mental Health Diagnoses: Yes Substance Use Disorders: No Previous Attempt: Yes Family History of Suicide: No Previous Psychiatric Hospitalization: Yes Hopelessness: Yes Protective Factors Assessment Employed: No Stable Relationships: Yes Good Rapport with Provider: Yes Interval History Identifying Information BRADLEY ARELLANO is a 44-year-old woman who currently lives in [place] with shared custody of her daughter, has a history of major depressive disorder recurrent with treatment resistance requiring ECT and ketamine in the past, and was admitted on 09/16/24 16:07 on a 201 voluntary commitment for worsening depression, SI, poor self care. Chief Complaint "I keep having intrusive thoughts of dying like seeing my daughter at my ". Review of Systems Sleep Information Total Hours of Sleep: 8.25 Meal Information Percent Meal Consumed - Breakfast: 50 Percent Meal Consumed - Lunch: 80 Percent Meal Consumed - Dinner: 75 Nutrition Comment: fluids provided. meal dated, labeled and refrigerated Subjective Subjective Patient was seen & assessed and interval progress reviewed with treatment team. Isolative most of the day but did attend evening community meeting. Reported her mood as "sad". Did have a visitor last evening. Utilizing prn Vistaril. Today denies anxiety but still with intense depression and intrusive SI. Still reports poor sleep, estimates only 5 or 6 hours compared with staff report of 8.25. She wonders about trial of lorazepam. Discussed trial of Ambien which she is agreeable to trying. Ate breakfast but not lunch. Going to some groups and trying to read a book. Physical Exam Psychiatric Orientation: alert and oriented x 3 Apperance: appropriately dressed and + disheveled Eye Contact: good eye contact Motor Behavior: steady gait and station and no abnormal motor movements Speech: + abnormal rate/rhythm/volume of speech (soft, brief) Affect: + depressed affect Mood: + depressed mood; no anxious mood Thought Process: goal directed thought process Thought Content: reality based without delusions Suicidal Thoughts: denies suicidal plan and denies suicidal intent; + reports suicidal thoughts (more intrusive) Homicidal Thoughts: denies homicidal thoughts Hallucinations: no auditory hallucinations and no visual hallucinations Cognition: recent memory grossly intact, remote memory grossly intact, attention grossly intact and language grossly intact Estimated Intelligence: consistent with education level Insight: + fair insight Judgment: + fair judgement Vital Signs (Past 24 Hours) Last Vital Signs Temp 36.6 C 09/21/24 06:00 Pulse 87 09/21/24 06:30 Resp 17 09/21/24 06:00 BP 110/76 09/21/24 06:30 Pulse Ox 96 09/21/24 06:00 O2 Del Method Room Air 09/21/24 06:00 Results & Data ([facility]) Current Inpatient Medications Current Inpatient Medications: Current Inpatient Medications Acetaminophen (Acetaminophen 325 Mg Tab) 650 mg PO Q4H PRN PRN Reason: Headache or Minor Fever Stop: 10/16/24 16:25 Al Hydrox/Mg Hydrox/Simethicone (Aluminum/Magnesium Susp 30 Ml Udc) 30 ml PO Q4H PRN PRN Reason: GI Upset Stop: 10/16/24 16:25 Bismuth Subsalicylate (Bismuth Subsalicylate 262 Mg Chew) 2 tab PO Q30M PRN PRN Reason: Loose Stool/Diarrhea Stop: 10/16/24 16:25 Clonidine HCl (Clonidine Hcl 0.1 Mg Tab) 0.1 mg PO HS [facility] Stop: 10/20/24 21:59 Last Admin: 09/20/24 20:59 Dose: 0.1 mg Duloxetine HCl (Duloxetine Hcl 20 Mg Cap) 20 mg PO QAM ARTHUR Stop: 10/21/24 08:59 Last Admin: 09/21/24 08:48 Dose: 20 mg Ergocalciferol (Ergocalciferol 1250 Mcg (50,000 Units) Cap) 1,250 mcg PO WeSa@0900 ARTHUR Stop: 10/19/24 08:59 Last Admin: 09/19/24 08:51 Dose: 1,250 mcg Gabapentin (Gabapentin 300 Mg Cap) 300 mg PO BID ARTHUR Stop: 10/17/24 20:59 Last Admin: 09/21/24 08:48 Dose: 300 mg Hydroxyzine HCl (Hydroxyzine Hcl 25 Mg Tab) 50 mg PO HSZ PRN PRN Reason: Insomnia Stop: 10/16/24 16:25 Last Admin: 09/20/24 20:58 Dose: 50 mg Hydroxyzine HCl (Hydroxyzine Hcl 25 Mg Tab) 25 mg PO Q4H PRN PRN Reason: Anxiety Stop: 10/16/24 16:25 Last Admin: 09/20/24 08:44 Dose: 25 mg Magnesium Hydroxide (Magnesium Hydroxide Susp 30 Ml Udc) 30 ml PO DAILY PRN PRN Reason: Constipation Stop: 10/16/24 16:25 Meloxicam (Meloxicam 7.5 Mg Tab) 15 mg PO DAILY ARTHUR Stop: 10/18/24 08:59 Last Admin: 09/21/24 08:48 Dose: 15 mg Mirtazapine (Mirtazapine Tab 15 Mg Tab) 30 mg PO HS ARTHUR Stop: 10/18/24 21:59 Last Admin: 09/20/24 20:58 Dose: 30 mg Sodium Chloride (Sodium Chloride 0.65% Na Soln 45 Ml ([place])) 1 - 2 sprays NA PRN PRN PRN Reason: Nasal Dryness/Congestion Stop: 10/16/24 16:25 Sulfasalazine (Sulfasalazine 500 Mg Tablet) 1,000 mg PO TID ARTHUR Stop: 10/17/24 13:59 Last Admin: 09/21/24 08:48 Dose: 1,000 mg Mental Health & Subst Abuse Tx Psychiatrist Name of Psychiatrist: [facility] Psych Clinic-Dr. Tsang Psychiatrist's Date Of Appointment With Psychiatric Provider: 10/10/2024 Time of Appointment with Psychiatrist: 2:15pm Psychiatric Appointment Comment: Appt from 09/27 was rescheduled. This will be a one hour appt Therapist Name of Therapist: [facility] Therapist's Date of Therapist Appointment: 09/25/24 Time of Therapist Appointment: 3:00pm Therapy Appointment Comment: Appt from 09/25 was rescheduled. Collection Systems Consultant Name of Collection Systems Consultant: [facility] Yury Barbosa Post Discharge Appointments Primary Care Physician Name Of Family Doctor/PCP: [facility] Contact Information Discharge Discharge Address: [address] [place] [address], [place] [address]
[2024-09-21] MEDS: ZOLPIDEM TARTRATE 5 MG TAB PO SCH (21:24)
[2024-09-22] MEDS: DULoxetine HCL 30 MG CAP PO SCH (09:03)
[2024-09-22] MEDS: ARIPiprazole 5 MG TAB PO SCH (12:29)
[2024-09-22] MEDS: PROPRANOLOL HCL 10 MG TAB PO SCH (12:30)
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
[2024-09-22] MEDS: MAGNESIUM CITRATE 296 ML/BTL PO SCH (18:40)
--- NOTE | 2024-09-23 13:37 | Psychiatric Progress Note ---
Date of Service September 23, 2024 Impression / Recommendations Impression BRADLEY ARELLANO is a 44-year-old woman who currently lives in [place] with shared custody of her daughter, has a history of major depressive disorder recurrent with treatment resistance requiring ECT and ketamine in the past, and was admitted on 09/16/24 16:07 on a 201 voluntary commitment for worsening depression, SI, poor self care. Diagnostically consistent with major depressive disorder, recurrent episode, severe with inability to meet her self-care needs including poor sleep and poor po intake consistent with significantly elevated ketones on UA. A: On-going severe depression. Having sleep disturbances. Physical anxiety and racing thoughts improved. No evidence of psychosis. Having some difficulty tolerating propranolol with lightheadedness; vital signs are stable. Constipation resolved. Discussed various tx modalities for depression. Plan to increase duloxetine. Discussed sleep hygiene. Overall, I spent a total of 40 minutes on this case including meeting with the patient, reviewing the chart, nursing report, multidisciplinary team meeting, orders, and documentation. (1) Depression with suicidal ideation: (2) MDD (major depressive disorder), recurrent episode, severe: (3) At risk for dehydration due to poor fluid intake: Plan 09/23/2024: -Increase Duloxetine to 40mg QAM 09/22/2024: -Start Abilify 2.5mg daily -Start Propranolol 10mg TID -Start Mg Citrate 148ml HS -Start Ativan 0.5mg QD PRN for anxiety 09/21/2024: -Start Ambien 5mg HS -Increase duloxetine to 30mg daily tomorrow -Discontinue clonidine given limited benefit 09/20/2024: -Discontinue modafinil -Reduce duloxetine to 20mg daily starting tomorrow -Start clonidine 0.1mg HS 09/19/2024: -Increase modafinil to 200mg daily -Continue mirtazapine and duloxetine 09/18/2024: -Monitor I&O -Increase mirtazapine to 30mg HS -Start duloxetine 30mg daily tomorrow am 09/17/2024: The patient was admitted to the [facility] ([facility] mental health unit) on q15 min checks (behavioral with suicide precautions) for safety. The patient will participate in group, recreational, and milieu therapies and will be offered additional individual and family sessions as clinically appropriate. -Start mirtazapine 15mg HS and additional 15mg HS prn for insomnia -Start modafinil 100mg daily Inventory Assets Strengths: supportive relationships, willing to get treatment Needs: safety and stabilization, medication adjustment, additional coping skills, increased outpatient services Suicide Risk Level Suicide Risk Level: High-Moderate (q15 min suicide checks) (severe depression with hx of past serious suicide attempt, ongoing SI but increasing behavioral activation, feels safe in the hospital) Risk Factors Assessment Male: No : No Do You Have Access To A Gun?: No Health Problems: Yes Mental Health Diagnoses: Yes Substance Use Disorders: No Previous Attempt: Yes Family History of Suicide: No Previous Psychiatric Hospitalization: Yes Hopelessness: Yes Protective Factors Assessment Employed: No Stable Relationships: Yes Good Rapport with Provider: Yes Interval History Identifying Information BRADLEY ARELLANO is a 44-year-old woman who currently lives in [place] with shared custody of her daughter, has a history of major depressive disorder recurrent with treatment resistance requiring ECT and ketamine in the past, and was admitted on 09/16/24 16:07 on a 201 voluntary commitment for worsening depression, SI, poor self care. Chief Complaint Depression, suicidal ideation Review of Systems Sleep Information Total Hours of Sleep: 7.75 Meal Information Percent Meal Consumed - Breakfast: 80 Percent Meal Consumed - Lunch: 75 Percent Meal Consumed - Dinner: 50 Nutrition Comment: fluids provided. meal dated, labeled and refrigerated Subjective Subjective Patient was seen & assessed and interval progress reviewed with treatment team nursing and social work Overnight presented a low mood and flat affect. Attended some groups. Eating 50 to 80% of her meals. Slept 8 hours and disrupted. Complains of constipation. On interview patient reports getting total of 5 hours of sleep and was disrupted overnight. Complains of lightheadedness since starting medications yesterday. Reports resolution of palpitations and chest and stomach pressure. Has been drinking more water. Reports having a good bowel movement this morning. Reports improvement in racing thoughts. Continues to feel depressed and hopeless. Complains of not wanting to live. Physical Exam Mental Examination Appearance: Disheveled Eye Contact: Fleeting Contact Motor Behavior: Unremarkable Speech: Soft Mood: Depressed, Sad, Crying and Tearful Affect: Calm, Flat, Nervous and Sad Thought Process: Intact Thought Content: Racing and Slowed Thinking Hallucinations: None Insight: Fair Judgement: Fair Vital Signs (Past 24 Hours) Last Vital Signs Temp 37 C 09/23/24 06:40 Pulse 73 09/23/24 06:41 Resp 16 09/23/24 06:40 BP 120/80 09/23/24 06:41 Pulse Ox 96 09/21/24 06:00 O2 Del Method Room Air 09/21/24 06:00 Results & Data ([facility]) Current Inpatient Medications Current Inpatient Medications: Current Inpatient Medications Acetaminophen (Acetaminophen 325 Mg Tab) 650 mg PO Q4H PRN PRN Reason: Headache or Minor Fever Stop: 10/16/24 16:25 Al Hydrox/Mg Hydrox/Simethicone (Aluminum/Magnesium Susp 30 Ml Udc) 30 ml PO Q4H PRN PRN Reason: GI Upset Stop: 10/16/24 16:25 Aripiprazole (Aripiprazole 5 Mg Tab) 2.5 mg PO HS [facility] Stop: 10/23/24 21:59 Bismuth Subsalicylate (Bismuth Subsalicylate 262 Mg Chew) 2 tab PO Q30M PRN PRN Reason: Loose Stool/Diarrhea Stop: 10/16/24 16:25 Duloxetine HCl (Duloxetine Hcl 20 Mg Cap) 40 mg PO QAM [facility] Stop: 10/24/24 08:59 Ergocalciferol (Ergocalciferol 1250 Mcg (50,000 Units) Cap) 1,250 mcg PO WeSa@0900 [facility] Stop: 10/19/24 08:59 Last Admin: 09/22/24 09:03 Dose: 1,250 mcg Gabapentin (Gabapentin 300 Mg Cap) 300 mg PO BID [facility] Stop: 10/17/24 20:59 Last Admin: 09/23/24 08:47 Dose: 300 mg Hydroxyzine HCl (Hydroxyzine Hcl 25 Mg Tab) 50 mg PO HSZ PRN PRN Reason: Insomnia Stop: 10/16/24 16:25 Last Admin: 09/20/24 20:58 Dose: 50 mg Hydroxyzine HCl (Hydroxyzine Hcl 25 Mg Tab) 25 mg PO Q4H PRN PRN Reason: Anxiety Stop: 10/16/24 16:25 Last Admin: 09/20/24 08:44 Dose: 25 mg Lorazepam (Lorazepam 0.5 Mg Tab) 0.5 mg PO DAILY PRN PRN Reason: Anxiety Stop: 10/22/24 11:36 Magnesium Citrate (Magnesium Citrate 296 Ml/Btl) 148 ml PO HS [facility] Stop: 10/22/24 21:59 Last Admin: 09/22/24 18:40 Dose: 148 ml Magnesium Hydroxide (Magnesium Hydroxide Susp 30 Ml Udc) 30 ml PO DAILY PRN PRN Reason: Constipation Stop: 10/16/24 16:25 Meloxicam (Meloxicam 7.5 Mg Tab) 15 mg PO DAILY [facility] Stop: 10/18/24 08:59 Last Admin: 09/23/24 08:47 Dose: 15 mg Mirtazapine (Mirtazapine Tab 15 Mg Tab) 30 mg PO HS [facility] Stop: 10/18/24 21:59 Last Admin: 09/22/24 21:11 Dose: 30 mg Propranolol HCl (Propranolol Hcl 10 Mg Tab) 10 mg PO TID [facility] Stop: 10/22/24 11:29 Last Admin: 09/23/24 08:47 Dose: 10 mg Sodium Chloride (Sodium Chloride 0.65% Na Soln 45 Ml ([place])) 1 - 2 sprays NA PRN PRN PRN Reason: Nasal Dryness/Congestion Stop: 10/16/24 16:25 Sulfasalazine (Sulfasalazine 500 Mg Tablet) 1,000 mg PO TID AR[facility]UR Stop: 10/17/24 13:59 Last Admin: 09/23/24 08:46 Dose: 1,000 mg Zolpidem Tartrate (Zolpidem Tartrate 5 Mg Tab) 5 mg PO HS ARTHUR Stop: 10/21/24 21:59 Last Admin: 09/22/24 21:11 Dose: 5 mg Mental Health & Subst Abuse Tx Psychiatrist Name of Psychiatrist: [facility] Psych Clinic-Dr. Tsang Psychiatrist's Date Of Appointment With Psychiatric Provider: 10/10/2024 Time of Appointment with Psychiatrist: 2:15pm Psychiatric Appointment Comment: Appt from 09/27 was rescheduled. This will be a one hour appt Therapist Name of Therapist: [facility] Therapist's Date of Therapist Appointment: 09/25/24 Time of Therapist Appointment: 3:00pm Therapy Appointment Comment: Appt from 09/25 was rescheduled. 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
[2024-09-23] MEDS: ARIPiprazole 5 MG TAB PO SCH (21:10)
[2024-09-24] MEDS: DULoxetine HCL 20 MG CAP PO SCH (08:59)
--- NOTE | 2024-09-24 14:35 | Psychiatric Progress Note ---
Date of Service September 24, 2024 Impression / Recommendations Impression BRADLEY ARELLANO is a 44-year-old woman who currently lives in [place] with shared custody of her daughter, has a history of major depressive disorder recurrent with treatment resistance requiring ECT and ketamine in the past, and was admitted on 09/16/24 16:07 on a 201 voluntary commitment for worsening depression, SI, poor self care. Diagnostically consistent with major depressive disorder, recurrent episode, severe with inability to meet her self-care needs including poor sleep and poor po intake consistent with significantly elevated ketones on UA. A: Patient is demonstrating improved endogenous symptoms of depression with improved sleep and appetite. Has been engaging in self-care and attending groups. Continues to present a persistently depressed mood, crying spells, poor self-esteem. Has active suicidal ideation and cannot contract for safety if discharged. Is tolerating the increased dose of duloxetine today. We will explore other modalities for treatment resistant depression. Is unable to tolerate the magnesium citrate and will discontinue. Overall, I spent a total of 40 minutes on this case including meeting with the patient, reviewing the chart, nursing report, multidisciplinary team meeting, orders, and documentation. (1) Depression with suicidal ideation: (2) MDD (major depressive disorder), recurrent episode, severe: (3) At risk for dehydration due to poor fluid intake: Plan 09/24/2024: Discontinue magnesium citrate at night. 09/23/2024: -Increase Duloxetine to 40mg QAM 09/22/2024: -Start Abilify 2.5mg daily -Start Propranolol 10mg TID -Start Mg Citrate 148ml HS -Start Ativan 0.5mg QD PRN for anxiety 09/21/2024: -Start Ambien 5mg HS -Increase duloxetine to 30mg daily tomorrow -Discontinue clonidine given limited benefit 09/20/2024: -Discontinue modafinil -Reduce duloxetine to 20mg daily starting tomorrow -Start clonidine 0.1mg HS 09/19/2024: -Increase modafinil to 200mg daily -Continue mirtazapine and duloxetine 09/18/2024: -Monitor I&O -Increase mirtazapine to 30mg HS -Start duloxetine 30mg daily tomorrow am 09/17/2024: The patient was admitted to the [facility] (locked inpatient mental health unit) on q15 min checks (behavioral with suicide precautions) for safety. The patient will participate in group, recreational, and milieu therapies and will be offered additional individual and family sessions as clinically appropriate. -Start mirtazapine 15mg HS and additional 15mg HS prn for insomnia -Start modafinil 100mg daily Inventory Assets Strengths: supportive relationships, willing to get treatment Needs: safety and stabilization, medication adjustment, additional coping skills, increased outpatient services Suicide Risk Level Suicide Risk Level: High-Moderate (q15 min suicide checks) (severe depression with hx of past serious suicide attempt, ongoing SI but increasing behavioral activation, feels safe in the hospital) Risk Factors Assessment Male: No : No Do You Have Access To A Gun?: No Health Problems: Yes Mental Health Diagnoses: Yes Substance Use Disorders: No Previous Attempt: Yes Family History of Suicide: No Previous Psychiatric Hospitalization: Yes Hopelessness: Yes Protective Factors Assessment Employed: No Stable Relationships: Yes Good Rapport with Provider: Yes Interval History Identifying Information BRADLEY ARELLANO is a 44-year-old woman who currently lives in [place] with shared custody of her daughter, has a history of major depressive disorder recurrent with treatment resistance requiring ECT and ketamine in the past, and was admitted on 09/16/24 16:07 on a 201 voluntary commitment for worsening depression, SI, poor self care. Chief Complaint Depression, suicidal ideation Review of Systems Sleep Information Total Hours of Sleep: 6.5 Meal Information Percent Meal Consumed - Breakfast: 100 Percent Meal Consumed - Lunch: 80 Percent Meal Consumed - Dinner: 100 Nutrition Comment: fluids provided. meal dated, labeled and refrigerated Subjective Subjective Patient was seen & assessed and interval progress reviewed with treatment team nursing and social work Nursing noted patient is presenting more expressivity and affect. Slept 6.5 hours. On interview the patient reports having good night's rest and was able to maintain sleep through the night. Reports resolution of physical anxiety symptoms. Continues to present a sad mood, is often tearful during the interview, and complains of continued suicidal ideation and does not feel safe at home. Says that she misses her daughter who is 15 years of age and is currently staying with her . She is interested in alternate treatments for depression including TMS and medication assisted treatment. Reports having diarrhea this morning. Physical Exam Mental Examination Appearance: Disheveled Eye Contact: Maintains Eye Contact Motor Behavior: Unremarkable Speech: Soft Mood: Depressed, Sad, Crying and Tearful Affect: Calm, Flat, Nervous and Sad Thought Process: Intact Thought Content: Slowed Thinking Hallucinations: None Insight: Fair Judgement: Fair Vital Signs (Past 24 Hours) Last Vital Signs Temp 36.6 C 09/24/24 06:39 Pulse 80 09/24/24 14:07 Resp 16 09/24/24 06:39 BP 122/78 09/24/24 14:07 Pulse Ox 96 09/21/24 06:00 O2 Del Method Room Air 09/21/24 06:00 Results & Data ([facility]) Current Inpatient Medications Current Inpatient Medications: Current Inpatient Medications Acetaminophen (Acetaminophen 325 Mg Tab) 650 mg PO Q4H PRN PRN Reason: Headache or Minor Fever Stop: 10/16/24 16:25 Al Hydrox/Mg Hydrox/Simethicone (Aluminum/Magnesium Susp 30 Ml Udc) 30 ml PO Q4H PRN PRN Reason: GI Upset Stop: 10/16/24 16:25 Aripiprazole (Aripiprazole 5 Mg Tab) 2.5 mg PO HS ARTHUR Stop: 10/23/24 21:59 Last Admin: 09/23/24 21:10 Dose: 2.5 mg Bismuth Subsalicylate (Bismuth Subsalicylate 262 Mg Chew) 2 tab PO Q30M PRN PRN Reason: Loose Stool/Diarrhea Stop: 10/16/24 16:25 Duloxetine HCl (Duloxetine Hcl 20 Mg Cap) 40 mg PO QAM ARTHUR Stop: 10/24/24 08:59 Last Admin: 09/24/24 08:59 Dose: 40 mg Ergocalciferol (Ergocalciferol 1250 Mcg (50,000 Units) Cap) 1,250 mcg PO WeSa@0900 ARTHUR Stop: 10/19/24 08:59 Last Admin: 09/22/24 09:03 Dose: 1,250 mcg Gabapentin (Gabapentin 300 Mg Cap) 300 mg PO BID ARTHUR Stop: 10/17/24 20:59 Last Admin: 09/24/24 08:59 Dose: 300 mg Hydroxyzine HCl (Hydroxyzine Hcl 25 Mg Tab) 50 mg PO HSZ PRN PRN Reason: Insomnia Stop: 10/16/24 16:25 Last Admin: 09/20/24 20:58 Dose: 50 mg Hydroxyzine HCl (Hydroxyzine Hcl 25 Mg Tab) 25 mg PO Q4H PRN PRN Reason: Anxiety Stop: 10/16/24 16:25 Last Admin: 09/20/24 08:44 Dose: 25 mg Lorazepam (Lorazepam 0.5 Mg Tab) 0.5 mg PO DAILY PRN PRN Reason: Anxiety Stop: 10/22/24 11:36 Magnesium Hydroxide (Magnesium Hydroxide Susp 30 Ml Udc) 30 ml PO DAILY PRN PRN Reason: Constipation Stop: 10/16/24 16:25 Meloxicam (Meloxicam 7.5 Mg Tab) 15 mg PO DAILY ARTHUR Stop: 10/18/24 08:59 Last Admin: 09/24/24 08:59 Dose: 15 mg Mirtazapine (Mirtazapine Tab 15 Mg Tab) 30 mg PO HS ARTHUR Stop: 10/18/24 21:59 Last Admin: 09/23/24 21:11 Dose: 30 mg Propranolol HCl (Propranolol Hcl 10 Mg Tab) 10 mg PO TID ARTHUR Stop: 10/22/24 11:29 Last Admin: 09/24/24 14:15 Dose: 10 mg Sodium Chloride (Sodium Chloride 0.65% Na Soln 45 Ml ([place])) 1 - 2 sprays NA PRN PRN PRN Reason: Nasal Dryness/Congestion Stop: 10/16/24 16:25 Sulfasalazine (Sulfasalazine 500 Mg Tablet) 1,000 mg PO TID ARTHUR Stop: 10/17/24 13:59 Last Admin: 09/24/24 14:15 Dose: 1,000 mg Zolpidem Tartrate (Zolpidem Tartrate 5 Mg Tab) 5 mg PO HS ARTHUR Stop: 10/21/24 21:59 Last Admin: 09/23/24 21:09 Dose: 5 mg Mental Health & Subst Abuse Tx Psychiatrist Name of Psychiatrist: [facility] Psych Clinic-Dr. Tsang Psychiatrist's Date Of Appointment With Psychiatric Provider: 10/10/2024 Time of Appointment with Psychiatrist: 2:15pm Psychiatric Appointment Comment: Appt from 09/27 was rescheduled. This will be a one hour appt Therapist Name of Therapist: [facility] Therapist's Date of Therapist Appointment: 09/25/24 Time of Therapist Appointment: 3:00pm Therapy Appointment Comment: Appt from 09/25 was rescheduled. Area Field Person Name of Area Field Person: [facility]MILADY Barbosa Post Discharge Appointments Primary Care Physician Name Of Family Doctor/PCP: [facility] Other #1: Name of Aftercare Appointment: [facility] Area Field Person-Елена Phone Number of Aftercare Appointment: Aftercare Appointment Comment: CM through insurance will follow up with you after DC Contact Information Discharge Discharge Address: [address] [place] [address], [place] [address]
[2024-09-24] MEDS: LORazepam 0.5 MG TAB PO PRN (21:16)
--- NOTE | 2024-09-25 12:28 | Psychiatric Progress Note ---
Date of Service September 25, 2024 Impression / Recommendations Impression BRADLEY ARELLANO is a 44-year-old woman who currently lives in [place] with shared custody of her daughter, has a history of major depressive disorder recurrent with treatment resistance requiring ECT and ketamine in the past, and was admitted on 09/16/24 16:07 on a 201 voluntary commitment for worsening depression, SI, poor self care. Diagnostically consistent with major depressive disorder, recurrent episode, severe with inability to meet her self-care needs including poor sleep and poor po intake consistent with significantly elevated ketones on UA. A: Patient continues to present sad mood, feelings of hopelessness, poor self- esteem. Presents active suicidal ideation and cannot contract for safety if discharged. She has demonstrated improvements in sleep, appetite, engagement on the unit. Social work to refer to transcranial magnetic stimulation outpatient. Today we explored other aftercare options including peer support, delivered meals, housekeeping to support patient after hospitalization.. Overall, I spent a total of 40 minutes on this case including meeting with the patient, reviewing the chart, nursing report, multidisciplinary team meeting, orders, and documentation. (1) Depression with suicidal ideation: (2) MDD (major depressive disorder), recurrent episode, severe: (3) At risk for dehydration due to poor fluid intake: Plan 09/25/2024: Continue medications and treatment plan 09/24/2024: Discontinue magnesium citrate at night. 09/23/2024: -Increase Duloxetine to 40mg QAM 09/22/2024: -Start Abilify 2.5mg daily -Start Propranolol 10mg TID -Start Mg Citrate 148ml HS -Start Ativan 0.5mg QD PRN for anxiety 09/21/2024: -Start Ambien 5mg HS -Increase duloxetine to 30mg daily tomorrow -Discontinue clonidine given limited benefit 09/20/2024: -Discontinue modafinil -Reduce duloxetine to 20mg daily starting tomorrow -Start clonidine 0.1mg HS 09/19/2024: -Increase modafinil to 200mg daily -Continue mirtazapine and duloxetine 09/18/2024: -Monitor I&O -Increase mirtazapine to 30mg HS -Start duloxetine 30mg daily tomorrow am 09/17/2024: The patient was admitted to the [facility] (locked inpatient mental health unit) on q15 min checks (behavioral with suicide precautions) for safety. The patient will participate in group, recreational, and milieu therapies and will be offered additional individual and family sessions as clinically appropriate. -Start mirtazapine 15mg HS and additional 15mg HS prn for insomnia -Start modafinil 100mg daily Inventory Assets Strengths: supportive relationships, willing to get treatment Needs: safety and stabilization, medication adjustment, additional coping skills, increased outpatient services Suicide Risk Level Suicide Risk Level: High-Moderate (q15 min suicide checks) (severe depression with hx of past serious suicide attempt, ongoing SI but increasing behavioral activation, feels safe in the hospital) Risk Factors Assessment Male: No : No Do You Have Access To A Gun?: No Health Problems: Yes Mental Health Diagnoses: Yes Substance Use Disorders: No Previous Attempt: Yes Family History of Suicide: No Previous Psychiatric Hospitalization: Yes Hopelessness: Yes Protective Factors Assessment Employed: No Stable Relationships: Yes Good Rapport with Provider: Yes Interval History Identifying Information BRADLEY ARELLANO is a 44-year-old woman who currently lives in [place] with shared custody of her daughter, has a history of major depressive disorder recurrent with treatment resistance requiring ECT and ketamine in the past, and was admitted on 09/16/24 16:07 on a 201 voluntary commitment for worsening depression, SI, poor self care. Chief Complaint "Hopeless" Review of Systems Sleep Information Total Hours of Sleep: 7 Meal Information Percent Meal Consumed - Breakfast: 75 Percent Meal Consumed - Lunch: 80 Percent Meal Consumed - Dinner: 100 Nutrition Comment: fluids provided. meal dated, labeled and refrigerated Subjective Subjective Patient was seen & assessed and interval progress reviewed with treatment team nursing and social work Patient slept 7 hours. Has been attending groups. Eating meals regularly. On interview patient reports continued to feel "hopeless". Complains of active suicidal ideation and tearful. Reports that she slept well with no awakenings. Reports improved appetite. Feels hopeless that her condition will not get better. Reassured. Updated about care plan and explored potential aftercare options. Physical Exam Mental Examination Appearance: Disheveled Eye Contact: Maintains Eye Contact Motor Behavior: Unremarkable Speech: Soft Mood: Depressed, Sad, Crying and Tearful Affect: Calm, Flat, Nervous and Sad Thought Process: Intact Thought Content: Slowed Thinking Hallucinations: None Insight: Fair Judgement: Fair Vital Signs (Past 24 Hours) Last Vital Signs Temp 36.7 C 09/25/24 06:22 Pulse 71 09/25/24 06:23 Resp 16 09/25/24 06:22 BP 136/87 09/25/24 06:23 Pulse Ox 95 09/24/24 20:08 O2 Del Method Room Air 09/24/24 20:08 Results & Data ([facility]) Current Inpatient Medications Current Inpatient Medications: Current Inpatient Medications Acetaminophen (Acetaminophen 325 Mg Tab) 650 mg PO Q4H PRN PRN Reason: Headache or Minor Fever Stop: 10/16/24 16:25 Al Hydrox/Mg Hydrox/Simethicone (Aluminum/Magnesium Susp 30 Ml Udc) 30 ml PO Q4H PRN PRN Reason: GI Upset Stop: 10/16/24 16:25 Aripiprazole (Aripiprazole 5 Mg Tab) 2.5 mg PO HS ARTHUR Stop: 10/23/24 21:59 Last Admin: 09/24/24 21:16 Dose: 2.5 mg Bismuth Subsalicylate (Bismuth Subsalicylate 262 Mg Chew) 2 tab PO Q30M PRN PRN Reason: Loose Stool/Diarrhea Stop: 10/16/24 16:25 Duloxetine HCl (Duloxetine Hcl 20 Mg Cap) 40 mg PO QAM [facility] Stop: 10/24/24 08:59 Last Admin: 09/25/24 08:55 Dose: 40 mg Ergocalciferol (Ergocalciferol 1250 Mcg (50,000 Units) Cap) 1,250 mcg PO WeSa@0900 [facility] Stop: 10/19/24 08:59 Last Admin: 09/22/24 09:03 Dose: 1,250 mcg Gabapentin (Gabapentin 300 Mg Cap) 300 mg PO BID ARTHUR Stop: 10/17/24 20:59 Last Admin: 09/25/24 08:56 Dose: 300 mg Hydroxyzine HCl (Hydroxyzine Hcl 25 Mg Tab) 50 mg PO HSZ PRN PRN Reason: Insomnia Stop: 10/16/24 16:25 Last Admin: 09/20/24 20:58 Dose: 50 mg Hydroxyzine HCl (Hydroxyzine Hcl 25 Mg Tab) 25 mg PO Q4H PRN PRN Reason: Anxiety Stop: 10/16/24 16:25 Last Admin: 09/20/24 08:44 Dose: 25 mg Lorazepam (Lorazepam 0.5 Mg Tab) 0.5 mg PO DAILY PRN PRN Reason: Anxiety Stop: 10/22/24 11:36 Last Admin: 09/24/24 21:16 Dose: 0.5 mg Magnesium Hydroxide (Magnesium Hydroxide Susp 30 Ml Udc) 30 ml PO DAILY PRN PRN Reason: Constipation Stop: 10/16/24 16:25 Meloxicam (Meloxicam 7.5 Mg Tab) 15 mg PO DAILY ARTHUR Stop: 10/18/24 08:59 Last Admin: 09/25/24 08:56 Dose: 15 mg Mirtazapine (Mirtazapine Tab 15 Mg Tab) 30 mg PO HS ARTHUR Stop: 10/18/24 21:59 Last Admin: 09/24/24 21:16 Dose: 30 mg Propranolol HCl (Propranolol Hcl 10 Mg Tab) 10 mg PO TID ARTHUR Stop: 10/22/24 11:29 Last Admin: 09/25/24 08:56 Dose: 10 mg Sodium Chloride (Sodium Chloride 0.65% Na Soln 45 Ml ([place])) 1 - 2 sprays NA PRN PRN PRN Reason: Nasal Dryness/Congestion Stop: 10/16/24 16:25 Sulfasalazine (Sulfasalazine 500 Mg Tablet) 1,000 mg PO TID ARTHUR Stop: 10/17/24 13:59 Last Admin: 09/25/24 08:57 Dose: 1,000 mg Zolpidem Tartrate (Zolpidem Tartrate 5 Mg Tab) 5 mg PO HS ARTHUR Stop: 10/21/24 21:59 Last Admin: 09/24/24 21:16 Dose: 5 mg Mental Health & Subst Abuse Tx Psychiatrist Name of Psychiatrist: [facility] Psych Clinic-Dr. Tsang Psychiatrist's Date Of Appointment With Psychiatric Provider: 10/10/2024 Time of Appointment with Psychiatrist: 2:15pm Psychiatric Appointment Comment: Appt from 09/27 was rescheduled. This will be a one hour appt Therapist Name of Therapist: [facility] Psych Leana Therapist's Date of Therapist Appointment: 09/25/24 Time of Therapist Appointment: 3:00pm Therapy Appointment Comment: Appt from 09/25 was rescheduled. Dope House Operator Helper Name of Dope House Operator Helper: [facility]MILADY Barbosa Post Discharge Appointments Primary Care Physician Name Of Family Doctor/PCP: [facility] Other #1: Name of Aftercare Appointment: [facility] Dope House Operator Helper-Елена Phone Number of Aftercare Appointment: Aftercare Appointment Comment: CM through insurance will follow up with you after DC Contact Information Discharge Discharge Address: [address] [place] [address], [place] [address]
[2024-09-26] MEDS: DULoxetine HCL 20 MG CAP PO ONE (11:43)
--- NOTE | 2024-09-26 12:30 | Psychiatric Progress Note ---
Date of Service September 26, 2024 Impression / Recommendations Impression BRADLEY ARELLANO is a 44-year-old woman who currently lives in [place] with shared custody of her daughter, has a history of major depressive disorder recurrent with treatment resistance requiring ECT and ketamine in the past, and was admitted on 09/16/24 16:07 on a 201 voluntary commitment for worsening depression, SI, poor self care. Diagnostically consistent with major depressive disorder, recurrent episode, severe with inability to meet her self-care needs including poor sleep and poor po intake consistent with significantly elevated ketones on UA. A: Has been sleeping and eating well with good self-care. Occasional episodes of tearfulness and some passive suicidal ideation. Does not present active SI plans and is able to contract for safety. Today we reviewed her medication history and we will plan to optimize duloxetine and Abilify dose and monitor for side effects. Overall, I spent a total of 40 minutes on this case including meeting with the patient, reviewing the chart, nursing report, multidisciplinary team meeting, orders, and documentation. (1) Depression with suicidal ideation: (2) MDD (major depressive disorder), recurrent episode, severe: Plan 09/26/2024: Increase Abilify to 5 mg at bedtime Increase duloxetine to 60 mg daily. 09/25/2024: Continue medications and treatment plan 09/24/2024: Discontinue magnesium citrate at night. 09/23/2024: -Increase Duloxetine to 40mg QAM 09/22/2024: -Start Abilify 2.5mg daily -Start Propranolol 10mg TID -Start Mg Citrate 148ml HS -Start Ativan 0.5mg QD PRN for anxiety 09/21/2024: -Start Ambien 5mg HS -Increase duloxetine to 30mg daily tomorrow -Discontinue clonidine given limited benefit 09/20/2024: -Discontinue modafinil -Reduce duloxetine to 20mg daily starting tomorrow -Start clonidine 0.1mg HS 09/19/2024: -Increase modafinil to 200mg daily -Continue mirtazapine and duloxetine 09/18/2024: -Monitor I&O -Increase mirtazapine to 30mg HS -Start duloxetine 30mg daily tomorrow am 09/17/2024: The patient was admitted to the [facility] (locked inpatient mental health unit) on q15 min checks (behavioral with suicide precautions) for safety. The patient will participate in group, recreational, and milieu therapies and will be offered additional individual and family sessions as clinically appropriate. -Start mirtazapine 15mg HS and additional 15mg HS prn for insomnia -Start modafinil 100mg daily Inventory Assets Strengths: supportive relationships, willing to get treatment Needs: safety and stabilization, medication adjustment, additional coping skills, increased outpatient services Suicide Risk Level Suicide Risk Level: High-Moderate (q15 min suicide checks) (severe depression with hx of past serious suicide attempt, ongoing SI but increasing behavioral activation, feels safe in the hospital) Risk Factors Assessment Male: No : No Do You Have Access To A Gun?: No Health Problems: Yes Mental Health Diagnoses: Yes Substance Use Disorders: No Previous Attempt: Yes Family History of Suicide: No Previous Psychiatric Hospitalization: Yes Hopelessness: Yes Protective Factors Assessment Employed: No Stable Relationships: Yes Good Rapport with Provider: Yes Interval History Identifying Information BRADLEY ARELLANO is a 44-year-old woman who currently lives in [place] with shared custody of her daughter, has a history of major depressive disorder recurrent with treatment resistance requiring ECT and ketamine in the past, and was admitted on 09/16/24 16:07 on a 201 voluntary commitment for worsening depression, SI, poor self care. Chief Complaint Hopelessness Review of Systems Sleep Information Total Hours of Sleep: 7.25 Meal Information Percent Meal Consumed - Breakfast: 75 Percent Meal Consumed - Lunch: 100 Percent Meal Consumed - Dinner: 70 Nutrition Comment: fluids provided. meal dated, labeled and refrigerated Subjective Subjective Patient was seen & assessed and interval progress reviewed with treatment team nursing and social work Visited by case maker overnight. Slept 7.25 hours. On interview she reports sleeping well with no disturbances. Does not feel rested. Reports having less SI thoughts however recurs in the evening prior to going to sleep. Feels more optimistic about the future. Denies active SI plans. Denies any GI discomfort and has been tolerating Abilify well. We review her medications from the past. Physical Exam Mental Examination Appearance: Disheveled Eye Contact: Maintains Eye Contact Motor Behavior: Unremarkable Speech: Soft Mood: Sad Affect: Calm, Constricted and Nervous Thought Process: Intact Thought Content: Slowed Thinking Hallucinations: None Insight: Fair Judgement: Fair Vital Signs (Past 24 Hours) Last Vital Signs Temp 36.9 C 09/26/24 06:39 Pulse 80 09/26/24 06:40 Resp 16 09/26/24 06:39 BP 124/82 09/26/24 06:40 Pulse Ox 95 09/24/24 20:08 O2 Del Method Room Air 09/24/24 20:08 Results & Data ([facility]) Current Inpatient Medications Current Inpatient Medications: Current Inpatient Medications Acetaminophen (Acetaminophen 325 Mg Tab) 650 mg PO Q4H PRN PRN Reason: Headache or Minor Fever Stop: 10/16/24 16:25 Al Hydrox/Mg Hydrox/Simethicone (Aluminum/Magnesium Susp 30 Ml Udc) 30 ml PO Q4H PRN PRN Reason: GI Upset Stop: 10/16/24 16:25 Aripiprazole (Aripiprazole 5 Mg Tab) 5 mg PO HS ARTHUR Stop: 10/26/24 21:59 Bismuth Subsalicylate (Bismuth Subsalicylate 262 Mg Chew) 2 tab PO Q30M PRN PRN Reason: Loose Stool/Diarrhea Stop: 10/16/24 16:25 Duloxetine HCl (Duloxetine Hcl 60 Mg Cap) 60 mg PO QAM ARTHUR Stop: 10/27/24 08:59 Ergocalciferol (Ergocalciferol 1250 Mcg (50,000 Units) Cap) 1,250 mcg PO WeSa@0900 ARTHUR Stop: 10/19/24 08:59 Last Admin: 09/26/24 09:02 Dose: 1,250 mcg Gabapentin (Gabapentin 300 Mg Cap) 300 mg PO BID ARTHUR Stop: 10/17/24 20:59 Last Admin: 09/26/24 09:02 Dose: 300 mg Hydroxyzine HCl (Hydroxyzine Hcl 25 Mg Tab) 50 mg PO HSZ PRN PRN Reason: Insomnia Stop: 10/16/24 16:25 Last Admin: 09/20/24 20:58 Dose: 50 mg Hydroxyzine HCl (Hydroxyzine Hcl 25 Mg Tab) 25 mg PO Q4H PRN PRN Reason: Anxiety Stop: 10/16/24 16:25 Last Admin: 09/20/24 08:44 Dose: 25 mg Lorazepam (Lorazepam 0.5 Mg Tab) 0.5 mg PO DAILY PRN PRN Reason: Anxiety Stop: 10/22/24 11:36 Last Admin: 09/24/24 21:16 Dose: 0.5 mg Magnesium Hydroxide (Magnesium Hydroxide Susp 30 Ml Udc) 30 ml PO DAILY PRN PRN Reason: Constipation Stop: 10/16/24 16:25 Meloxicam (Meloxicam 7.5 Mg Tab) 15 mg PO DAILY ARTHUR Stop: 10/18/24 08:59 Last Admin: 09/26/24 09:02 Dose: 15 mg Mirtazapine (Mirtazapine Tab 15 Mg Tab) 30 mg PO HS ARTHUR Stop: 10/18/24 21:59 Last Admin: 09/25/24 21:33 Dose: 30 mg Propranolol HCl (Propranolol Hcl 10 Mg Tab) 10 mg PO TID ARTHUR Stop: 10/22/24 11:29 Last Admin: 09/26/24 09:02 Dose: 10 mg Sodium Chloride (Sodium Chloride 0.65% Na Soln 45 Ml ([place])) 1 - 2 sprays NA PRN PRN PRN Reason: Nasal Dryness/Congestion Stop: 10/16/24 16:25 Sulfasalazine (Sulfasalazine 500 Mg Tablet) 1,000 mg PO TID ARTHUR Stop: 10/17/24 13:59 Last Admin: 09/26/24 09:03 Dose: 1,000 mg Zolpidem Tartrate (Zolpidem Tartrate 5 Mg Tab) 5 mg PO HS [facility] Stop: 10/21/24 21:59 Last Admin: 09/25/24 21:35 Dose: 5 mg Mental Health & Subst Abuse Tx Psychiatrist Name of Psychiatrist: [facility]-Dr. Tsang Psychiatrist's Date Of Appointment With Psychiatric Provider: 10/10/2024 Time of Appointment with Psychiatrist: 2:15pm Psychiatric Appointment Comment: Appt from 09/27 was rescheduled. This will be a one hour appt Therapist Name of Therapist: [facility] Date of Therapist Appointment: 10/02/2024 Time of Therapist Appointment: 3:00pm Therapy Appointment Comment: Appt from 09/25 was rescheduled. Greenhouse Staff Name of Greenhouse Staff: [facility]-MILADY Barbosa Date of Appointment with Greenhouse Staff: 10/02/24 Time of Appointment with Greenhouse Staff: 11AM Case Management Appointment Comment: He will meet you at your home Post Discharge Appointments Primary Care Physician Name Of Family Doctor/PCP: [facility]-Dr. Machuca Primary Care Date of Future Appointment with PCP: 10/30/2024 Time of Appointment with PCP: 8AM Provider Appointment Comment: New patient appt Other #1: Name of Aftercare Appointment: [facility] Greenhouse Staff-Елена Phone Number of Aftercare Appointment: Aftercare Appointment Comment: CM through insurance will follow up with you after DC #2: Name of Aftercare Appointment: [facility] Phone Number of Aftercare Appointment: [phone] Contact Information Discharge Discharge Address: [address] [place] [address], [place] [address]
[2024-09-26] MEDS: ARIPiprazole 5 MG TAB PO SCH (20:44)
[2024-09-27] MEDS: DULoxetine HCL 60 MG CAP PO SCH (09:32)
--- NOTE | 2024-09-27 10:56 | Psychiatric Progress Note ---
Date of Service September 27, 2024 Impression / Recommendations Impression BRADLEY ARELLANO is a 44-year-old woman who currently lives in [place] with shared custody of her daughter, has a history of major depressive disorder recurrent with treatment resistance requiring ECT and ketamine in the past, and was admitted on 09/16/24 16:07 on a 201 voluntary commitment for worsening depression, SI, poor self care. Diagnostically consistent with major depressive disorder, recurrent episode, severe with inability to meet her self-care needs including poor sleep and poor po intake consistent with significantly elevated ketones on UA. A: Patient continues to present a low mood with hopelessness however has maintained good sleep, appetite, stable behaviors. She denies acute suicidal ideation and is future oriented. Established a plan to engage in transcranial magnetic stimulation for depression and completing intake forms. Tolerating the increased dose of Abilify and duloxetine with no GI symptoms or breakthrough anxiety. Overall, I spent a total of 35 minutes on this case including meeting with the patient, reviewing the chart, nursing report, multidisciplinary team meeting, orders, and documentation. (1) Depression with suicidal ideation: (2) MDD (major depressive disorder), recurrent episode, severe: Plan 09/27/2024: Continue medications and treatment plan 09/26/2024: Increase Abilify to 5 mg at bedtime Increase duloxetine to 60 mg daily. 09/25/2024: Continue medications and treatment plan 09/24/2024: Discontinue magnesium citrate at night. 09/23/2024: -Increase Duloxetine to 40mg QAM 09/22/2024: -Start Abilify 2.5mg daily -Start Propranolol 10mg TID -Start Mg Citrate 148ml HS -Start Ativan 0.5mg QD PRN for anxiety 09/21/2024: -Start Ambien 5mg HS -Increase duloxetine to 30mg daily tomorrow -Discontinue clonidine given limited benefit 09/20/2024: -Discontinue modafinil -Reduce duloxetine to 20mg daily starting tomorrow -Start clonidine 0.1mg HS 09/19/2024: -Increase modafinil to 200mg daily -Continue mirtazapine and duloxetine 09/18/2024: -Monitor I&O -Increase mirtazapine to 30mg HS -Start duloxetine 30mg daily tomorrow am 09/17/2024: The patient was admitted to the [facility] ([facility] inpatient mental health unit) on q15 min checks (behavioral with suicide precautions) for safety. The patient will participate in group, recreational, and milieu therapies and will be offere d additional individual and family sessions as clinically appropriate. -Start mirtazapine 15mg HS and additional 15mg HS prn for insomnia -Start modafinil 100mg daily Inventory Assets Strengths: supportive relationships, willing to get treatment Needs: safety and stabilization, medication adjustment, additional coping skills, increased outpatient services Suicide Risk Level Suicide Risk Level: High-Moderate (q15 min suicide checks) (severe depression with hx of past serious suicide attempt, ongoing SI but increasing behavioral activation, feels safe in the hospital) Risk Factors Assessment Male: No : No Do You Have Access To A Gun?: No Health Problems: Yes Mental Health Diagnoses: Yes Substance Use Disorders: No Previous Attempt: Yes Family History of Suicide: No Previous Psychiatric Hospitalization: Yes Hopelessness: Yes Protective Factors Assessment Employed: No Stable Relationships: Yes Good Rapport with Provider: Yes Interval History Identifying Information BRADLEY ARELLANO is a 44-year-old woman who currently lives in [place] with shared custody of her daughter, has a history of major depressive disorder recurrent with treatment resistance requiring ECT and ketamine in the past, and was admitted on 09/16/24 16:07 on a 201 voluntary commitment for worsening depression, SI, poor self care. Chief Complaint Depression Review of Systems Sleep Information Total Hours of Sleep: 9.5 Meal Information Percent Meal Consumed - Breakfast: 75 Percent Meal Consumed - Lunch: 100 Percent Meal Consumed - Dinner: 0 Nutrition Comment: fluids provided. meal dated, labeled and refrigerated Subjective Subjective Patient was seen & assessed and interval progress reviewed with treatment team nursing and social work Patient slept early and skipped dinner. Slept 9.5 hours. On interview she reports sleeping well with no awakenings. Denies having GI side effects and is tolerating the increased dose of Abilify and duloxetine. Denies any increase in anxiety. Complains of low mood. Reports feeling like not living. Denies active suicidal ideation or plans. She is future oriented to take care of administrative work like emails and to spend time with friends. She reports a future schedule were multiple friends will come visit her. Physical Exam Mental Examination Appearance: Disheveled Eye Contact: Maintains Eye Contact Motor Behavior: Unremarkable Speech: Soft Mood: Sad Affect: Calm, Constricted and Nervous Thought Process: Intact Thought Content: Slowed Thinking Hallucinations: None Insight: Fair Judgement: Fair Vital Signs (Past 24 Hours) Last Vital Signs Temp 36.8 C 09/27/24 06:43 Pulse 72 09/27/24 06:44 Resp 16 09/27/24 06:43 BP 132/85 09/27/24 06:44 Pulse Ox 95 09/24/24 20:08 O2 Del Method Room Air 09/24/24 20:08 Results & Data ([facility]) Current Inpatient Medications Current Inpatient Medications: Current Inpatient Medications Acetaminophen (Acetaminophen 325 Mg Tab) 650 mg PO Q4H PRN PRN Reason: Headache or Minor Fever Stop: 10/16/24 16:25 Al Hydrox/Mg Hydrox/Simethicone (Aluminum/Magnesium Susp 30 Ml Udc) 30 ml PO Q4H PRN PRN Reason: GI Upset Stop: 10/16/24 16:25 Aripiprazole (Aripiprazole 5 Mg Tab) 5 mg PO HS ARTHUR Stop: 10/26/24 21:59 Last Admin: 09/26/24 20:44 Dose: 5 mg Bismuth Subsalicylate (Bismuth Subsalicylate 262 Mg Chew) 2 tab PO Q30M PRN PRN Reason: Loose Stool/Diarrhea Stop: 10/16/24 16:25 Duloxetine HCl (Duloxetine Hcl 60 Mg Cap) 60 mg PO QAM ARTHUR Stop: 10/27/24 08:59 Last Admin: 09/27/24 09:32 Dose: 60 mg Ergocalciferol (Ergocalciferol 1250 Mcg (50,000 Units) Cap) 1,250 mcg PO WeSa@0900 [facility] Stop: 10/19/24 08:59 Last Admin: 09/26/24 09:02 Dose: 1,250 mcg Gabapentin (Gabapentin 300 Mg Cap) 300 mg PO BID ARTHUR Stop: 10/17/24 20:59 Last Admin: 09/27/24 09:32 Dose: 300 mg Hydroxyzine HCl (Hydroxyzine Hcl 25 Mg Tab) 50 mg PO HSZ PRN PRN Reason: Insomnia Stop: 10/16/24 16:25 Last Admin: 09/20/24 20:58 Dose: 50 mg Hydroxyzine HCl (Hydroxyzine Hcl 25 Mg Tab) 25 mg PO Q4H PRN PRN Reason: Anxiety Stop: 10/16/24 16:25 Last Admin: 09/20/24 08:44 Dose: 25 mg Lorazepam (Lorazepam 0.5 Mg Tab) 0.5 mg PO DAILY PRN PRN Reason: Anxiety Stop: 10/22/24 11:36 Last Admin: 09/24/24 21:16 Dose: 0.5 mg Magnesium Hydroxide (Magnesium Hydroxide Susp 30 Ml Udc) 30 ml PO DAILY PRN PRN Reason: Constipation Stop: 10/16/24 16:25 Meloxicam (Meloxicam 7.5 Mg Tab) 15 mg PO DAILY ARTHUR Stop: 10/18/24 08:59 Last Admin: 09/27/24 09:32 Dose: 15 mg Mirtazapine (Mirtazapine Tab 15 Mg Tab) 30 mg PO HS ARTHUR Stop: 10/18/24 21:59 Last Admin: 09/26/24 20:44 Dose: 30 mg Propranolol HCl (Propranolol Hcl 10 Mg Tab) 10 mg PO TID ARTHUR Stop: 10/22/24 11:29 Last Admin: 09/27/24 09:33 Dose: 10 mg Sodium Chloride (Sodium Chloride 0.65% Na Soln 45 Ml ([place])) 1 - 2 sprays NA PRN PRN PRN Reason: Nasal Dryness/Congestion Stop: 10/16/24 16:25 Sulfasalazine (Sulfasalazine 500 Mg Tablet) 1,000 mg PO TID ARTHUR Stop: 10/17/24 13:59 Last Admin: 09/27/24 09:33 Dose: 1,000 mg Zolpidem Tartrate (Zolpidem Tartrate 5 Mg Tab) 5 mg PO HS ARTHUR Stop: 10/21/24 21:59 Last Admin: 09/26/24 20:45 Dose: 5 mg Mental Health & Subst Abuse Tx Psychiatrist Name of Psychiatrist: [facility] Psych Edu[facility]-Dr. Tsang Psychiatrist's Date Of Appointment With Psychiatric Provider: 10/10/2024 Time of Appointment with Psychiatrist: 2:15pm Psychiatric Appointment Comment: Appt from 09/27 was rescheduled. This will be a one hour appt Therapist Name of Therapist: [facility] Therapist's Date of Therapist Appointment: 10/02/2024 Time of Therapist Appointment: 3:00pm Therapy Appointment Comment: Appt from 09/25 was rescheduled. Field Operations Coordinator Name of Field Operations Coordinator: [facility]MILADY Barbosa Date of Appointment with Field Operations Coordinator: 10/02/24 Time of Appointment with Field Operations Coordinator: 11AM Case Management Appointment Comment: He will meet you at your home Post Discharge Appointments Primary Care Physician Name Of Family Doctor/PCP: [facility]-Dr. Machuca Primary Care Date of Future Appointment with PCP: 10/30/2024 Time of Appointment with PCP: 8AM Provider Appointment Comment: New patient appt Other #1: Name of Aftercare Appointment: [facility] Field Operations Coordinator-Елена Phone Number of Aftercare Appointment: Aftercare Appointment Comment: CM through insurance will follow up with you after DC #2: Name of Aftercare Appointment: [facility] Therapy Phone Number of Aftercare Appointment: [phone] Contact Information Discharge Discharge Address: [address] [place] [address], [place] [address]
--- NOTE | 2024-09-28 10:24 | Discharge Summary ---
Date of Service September 28, 2024 History of Present Illness Alfredito presents for increased depressive symptoms over the last 3.5 weeks. She was hospitalized for about a month last year with discharge in October 2023 on nortriptyline but ultimately had to taper off this due to side effects including balance issues. Since about November 2023 she has been off all psychiatric medications with stable mood until 3.5 weeks ago. 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 She reports depressive symptoms of severe low energy to the point that she quintin dly gets out of bed, hasn't been showering, hardly eating, not sleeping despite spending most of the day in bed, low motivation, anhedonia, hopelessness, helplessness, and passive SI of wishing she could be . She denies any symptoms of anxiety "not really". She has not been taking any psychiatric medications except for 5-6 tabs over the last 3.5 weeks of an old script of Seroquel 25mg HS with some benefit for sleep. Psychiatric ROS notable for denial of history or current symptoms of hermilo nor psychosis nor OCD nor eating disorder. Physical Exam Mental Examination Appearance: Disheveled Eye Contact: Maintains Eye Contact Motor Behavior: Unremarkable Speech: Soft Mood: Sad Affect: Calm, Constricted and Nervous Thought Process: Intact Thought Content: Slowed Thinking Hallucinations: None Insight: Fair Judgement: Fair Vital Signs (Past 24 Hours) Last Vital Signs Temp 36.9 C 09/28/24 06:00 Pulse 73 09/28/24 06:00 Resp 12 09/28/24 06:00 BP 132/86 09/28/24 06:48 Pulse Ox 95 09/24/24 20:08 O2 Del Method Room Air 09/24/24 20:08 Psychiatric Data See daily stay summary. In short, safety was maintained and the patient was cooperative with care. Medication changes included [] and they tolerated this well. A family session was [held] and safety plan was completed prior to discharge. Day of Discharge Assessment Today the patient voices readiness for discharge. They note improvement in mood and deny thoughts to harm self or others. Thoughts remain organized and they are improved from admission. There is no evidence of psychosis. They agree to take mediations as prescribed and keep follow-up appointments. They are stable for discharge to outpatient level of care. Advance Directives Advance Directives Information Provided: Yes Advance Directives: No Mental Health Advance Directive: No Advance Directives on File: No Living Will: No Power of Computer Meteorologist: No Advance Directives Reason:: Declines as Mental Health Visit. Risk Factors Assessment Male: No : No Do You Have Access To A Gun?: No Health Problems: Yes Mental Health Diagnoses: Yes Substance Use Disorders: No Previous Attempt: Yes Family History of Suicide: No Previous Psychiatric Hospitalization: Yes Hopelessness: Yes Protective Factors Assessment Employed: No Stable Relationships: Yes Good Rapport with Provider: Yes Discharge Data Lab Results 09/16/24 09/16/24 09/16/24 12:25 12:30 16:50 WBC 7.60 RBC 3.94 L Hgb 12.8 Hct 37.7 MCV 95.7 MCH 32.5 MCHC 34.0 RDW Std Deviation 44.9 RDW Coeff of Bill 12.6 Plt Count 355 MPV 9.7 Immature Gran % (Auto) 0.4 Neut % (Auto) 65.4 Lymph % (Auto) 25.0 Mobile % (Auto) 8.8 Eos % (Auto) 0.0 Baso % (Auto) 0.4 Neut # (Auto) 4.97 Lymph # (Auto) 1.90 Mobile # (Auto) 0.67 H Eos # (Auto) 0.00 Baso # (Auto) 0.03 Immature Gran # (Auto) 0.03 Sodium 136 Potassium 3.6 Chloride 103 Carbon Dioxide 24 Anion Gap 9 BUN 17 Creatinine 0.68 Est Cr Clr Drug Dosing 102.6 eGFR 108.71 BUN/Creatinine Ratio 25.0 H Glucose 93 Calcium 9.3 Total Bilirubin 1.0 AST 11 L ALT 6 L Alkaline Phosphatase 32 L Total Protein 7.6 Albumin 4.7 Globulin 2.9 Albumin/Globulin Ratio 1.6 TSH 0.789 HCG, Qual Negative Urine Color Dark Yellow Dark Yellow Urine Appearance Turbid A Cloudy A Urine pH 5.0 6.0 Ur Specific [place] 1.029 1.033 H Urine Protein Trace H Trace H Urine Glucose (UA) Negative Negative Urine Ketones 3+ H 3+ H Urine Blood Trace H Negative Urine Nitrite Negative Positive A Urine Bilirubin 1+ H 1+ H Urine Urobilinogen Negative Positive H Ur Leukocyte Esterase 2+ H 1+ H Urine WBC (Auto) 21-50 H 0-5 Urine RBC (Auto) 11-20 H 11-20 H U Hyaline Cast (Auto) 0-2 0-2 U Epithel Cells (Auto) >20 H 6-10 H Urine Bacteria (Auto) 4+ H 1+ H Urine Mucus Present A Present A Salicylates < 3.0 L Urine Opiates Screen Neg Cancelled Ur Methadone, Qual Neg Cancelled Fentanyl Comments SEE NOTE Drug Monitor Fentanyl DNR Fentanyl Confirmation NEGATIVE Drug Monitor Norfentanyl DNR Urine Fentanyl Screen Pos H Cancelled Ur Norfentanyl Confirm NEGATIVE Acetaminophen 8 L Urine Barbiturates Neg Cancelled Ur Phencyclidine (PCP) Neg Cancelled U Amphetamin/Meth Scrn Neg Cancelled MDMA (Ecstasy) Screen Neg Cancelled U Benzodiazepines Scrn Neg Cancelled U Cocaine Confirm GC/MS NEGATIVE Ur Cocaine Metabolite Pos H Cancelled U Marijuana (THC) Screen Neg Cancelled Drug Screen Comment SEE NOTE Ethyl Alcohol mg/dL < 10.0 Toxicology Comment SEE NOTE Drug Monitor Historic Res DNR SARS-CoV-2, RNA, NAAT NEGATIVE 09/18/24 07:55 WBC RBC Hgb Hct MCV MCH MCHC RDW Std Deviation RDW Coeff of Bill Plt Count MPV Immature Gran % (Auto) Neut % (Auto) Lymph % (Auto) Mobile % (Auto) Eos % (Auto) Baso % (Auto) Neut # (Auto) Lymph # (Auto) Mobile # (Auto) Eos # (Auto) Baso # (Auto) Immature Gran # (Auto) Sodium Potassium Chloride Carbon Dioxide Anion Gap BUN Creatinine Est Cr Clr Drug Dosing eGFR BUN/Creatinine Ratio Glucose Calcium Total Bilirubin AST ALT Alkaline Phosphatase Total Protein Albumin Globulin Albumin/Globulin Ratio TSH HCG, Qual Urine Color Urine Appearance Urine pH Ur Specific [place] Urine Protein Urine Glucose (UA) Urine Ketones Urine Blood Urine Nitrite Urine Bilirubin Urine Urobilinogen Ur Leukocyte Esterase Urine WBC (Auto) Urine RBC (Auto) U Hyaline Cast (Auto) U Epithel Cells (Auto) Urine Bacteria (Auto) Urine Mucus Salicylates Urine Opiates Screen Neg Ur Methadone, Qual Neg Fentanyl Comments Drug Monitor Fentanyl Fentanyl Confirmation Drug Monitor Norfentanyl Urine Fentanyl Screen Neg Ur Norfentanyl Confirm Acetaminophen Urine Barbiturates Neg Ur Phencyclidine (PCP) Neg U Amphetamin/Meth Scrn Neg MDMA (Ecstasy) Screen Neg U Benzodiazepines Scrn Neg U Cocaine Confirm GC/MS Ur Cocaine Metabolite Neg U Marijuana (THC) Screen Neg Drug Screen Comment Ethyl Alcohol mg/dL Toxicology Comment Drug Monitor Historic Res SARS-CoV-2, RNA, NAAT Hospital Course (1) MDD (major depressive disorder), recurrent episode, severe: Plan 09/27/2024: Continue medications and treatment plan 09/26/2024: Increase Abilify to 5 mg at bedtime Increase duloxetine to 60 mg daily. 09/25/2024: Continue medications and treatment plan 09/24/2024: Discontinue magnesium citrate at night. 09/23/2024: -Increase Duloxetine to 40mg QAM 09/22/2024: -Start Abilify 2.5mg daily -Start Propranolol 10mg TID -Start Mg Citrate 148ml HS -Start Ativan 0.5mg QD PRN for anxiety 09/21/2024: -Start Ambien 5mg HS -Increase duloxetine to 30mg daily tomorrow -Discontinue clonidine given limited benefit 09/20/2024: -Discontinue modafinil -Reduce duloxetine to 20mg daily starting tomorrow -Start clonidine 0.1mg HS 09/19/2024: -Increase modafinil to 200mg daily -Continue mirtazapine and duloxetine 09/18/2024: -Monitor I&O -Increase mirtazapine to 30mg HS -Start duloxetine 30mg daily tomorrow am 09/17/2024: The patient was admitted to the [facility] ([facility] mental health unit) on q15 min checks (behavioral with suicide precautions) for safety. The patient will participate in group, recreational, and milieu therapies and will be offered additional individual and family sessions as clinically appropriate. -Start mirtazapine 15mg HS and additional 15mg HS prn for insomnia -Start modafinil 100mg daily Mental Health & Subst Abuse Tx Psychiatrist Name of Psychiatrist: [facility] Psych Clinic-Dr. Tsang Psychiatrist's Date Of Appointment With Psychiatric Provider: 10/10/2024 Time of Appointment with Psychiatrist: 2:15pm Psychiatric Appointment Comment: Appt from 09/27 was rescheduled. This will be a one hour appt Therapist Name of Therapist: [facility] Date of Therapist Appointment: 10/02/2024 Time of Therapist Appointment: 3:00pm Therapy Appointment Comment: Appt from 09/25 was rescheduled. Biologist Name of Biologist: [facility]MILADY Barbosa Date of Appointment with Biologist: 10/02/24 Time of Appointment with Biologist: 11AM Case Management Appointment Comment: He will meet you at your home Post Discharge Appointments Primary Care Physician Name Of Family Doctor/PCP: [facility]-Dr. Machuca Primary Care Date of Future Appointment with PCP: 10/30/2024 Time of Appointment with PCP: 8AM Provider Appointment Comment: New patient appt Other #1: Name of Aftercare Appointment: [facility] Biologist-Елена Phone Number of Aftercare Appointment: Aftercare Appointment Comment: CM through insurance will follow up with you after DC #2: Name of Aftercare Appointment: [facility] Phone Number of Aftercare Appointment: [phone] Contact Information Discharge Discharge Address: [address] [place] [address] Discharge Plan Discharge Items Patient Disposition: Home - Self-Care Reason For Visit: MDD Discharge Diagnosis: MDD (major depressive disorder), recurrent episode, severe: Condition on Discharge: Fair Activity: Resume your previous activity Non-emergency contact: Primary Care Provider, Psychiatrist and Therapist Call non-emergency contact if: you have any medication questions and your symptoms worsen Follow-up/Referrals: PCP,NO [Primary Care Provider] - Diet: Regular Addtl Attending Provider Instructions: MEDICATIONS: Continue Duloxetine 60mg daily Continue Propranolol 10mg three times daily for physical symptoms of anxiety Continue Mirtazapine 30mg at bedtime Continue Abilify 5mg at bedtime Continue Zolpidem 5mg at bedtime (discuss stopping with your psychiatrist after depression resolves) Take Magnesium Glycinate at bedtime Take Lorazepam 0.5mg NEEDED for anxiety/insomnia PSYCHOTHERAPY: With therapist: engage in cognitive behavioral and trauma therapy OTHER: Establish new insurance follow up specialist through case management Consider meal prepping and house keeping services to provide extra support Start Transcranial Magnetic Stimulation with [facility] Pending Studies at Discharge: No Stand-Alone Forms: Netzoptiker, Smoking Cessation Medications and DC Order Prescriptions: New propranolol 10 mg Tablet 10 mg PO TID Qty: 90 0RF lorazepam 0.5 mg Tablet 0.5 mg PO DAILY PRN (Reason: anxiety/insomnia) Qty: 15 0RF zolpidem 5 mg Tablet 5 mg PO HS Qty: 30 0RF aripiprazole [Abilify] 5 mg Tablet 5 mg PO HS Qty: 30 0RF duloxetine 60 mg Capsule,Delayed Release(Dr/Ec) 60 mg PO QAM Qty: 30 0RF mirtazapine 30 mg tablet 30 mg PO HS Qty: 30 0RF Continued meloxicam 15 mg tablet 15 mg PO DAILY ergocalciferol (vitamin D2) [Vitamin D2] 1,250 mcg (50,000 unit) capsule 1,250 mcg PO 2XWK gabapentin [Neurontin] 300 mg capsule 300 mg PO BID sulfasalazine [Azulfidine] 500 mg tablet 1 g PO TID Rx Instructions: give with food (meal/snack) Discharge Orders: Discharge Order (Routine); Ordered 09/28/24 Ordered By: Dwight Jennings Admission Data Admit Date/Time: 09/16/24 16:07 Attending Provider: Dwight Jennings Admit Provider: Yudith Box Primary Care Provider: PCP,NO Coding Diagnoses MDD (major depressive disorder), recurrent episode, severe F33.2
--- NOTE | 2024-09-28 11:22 | Psychiatric Progress Note ---
Date of Service September 28, 2024 Impression / Recommendations Impression BRADLEY ARELLANO is a 44-year-old woman who currently lives in [place] with shared custody of her daughter, has a history of major depressive disorder recurrent with treatment resistance requiring ECT and ketamine in the past, and was admitted on 09/16/24 16:07 on a 201 voluntary commitment for worsening depression, SI, poor self care. Diagnostically consistent with major depressive disorder, recurrent episode, severe with inability to meet her self-care needs including poor sleep and poor po intake consistent with significantly elevated ketones on UA. A: Patient presents in an anxious and tearful state this morning and is unable to contract for safety at home with an increase in suicidal ideation. Discharge cancelled today. Encouraged to utilize anxiety prns as needed and provided emotional support. Pending date for Tuesday and after care services setup for Tuesday of next week. Overall, I spent a total of 40 minutes on this case including meeting with the patient, reviewing the chart, nursing report, multidisciplinary team meeting, orders, and documentation. (1) MDD (major depressive disorder), recurrent episode, severe: Plan 09/28/2024: Discharge cancelled today, will reassess appropriate day over weekend Continue medications and treatment plan 09/27/2024: Continue medications and treatment plan 09/26/2024: Increase Abilify to 5 mg at bedtime Increase duloxetine to 60 mg daily. 09/25/2024: Continue medications and treatment plan 09/24/2024: Discontinue magnesium citrate at night. 09/23/2024: -Increase Duloxetine to 40mg QAM 09/22/2024: -Start Abilify 2.5mg daily -Start Propranolol 10mg TID -Start Mg Citrate 148ml HS -Start Ativan 0.5mg QD PRN for anxiety 09/21/2024: -Start Ambien 5mg HS -Increase duloxetine to 30mg daily tomorrow -Discontinue clonidine given limited benefit 09/20/2024: -Discontinue modafinil -Reduce duloxetine to 20mg daily starting tomorrow -Start clonidine 0.1mg HS 09/19/2024: -Increase modafinil to 200mg daily -Continue mirtazapine and duloxetine 09/18/2024: -Monitor I&O -Increase mirtazapine to 30mg HS -Start duloxetine 30mg daily tomorrow am 09/17/2024: The patient was admitted to the [facility] ([facility] inpatient mental health unit) on q15 min checks (behavioral with suicide precautions) for safety. The patient will participate in group, recreational, and milieu therapies and will be offered additional individual and family sessions as clinically appropriate. -Start mirtazapine 15mg HS and additional 15mg HS prn for insomnia -Start modafinil 100mg daily Inventory Assets Strengths: supportive relationships, willing to get treatment Needs: safety and stabilization, medication adjustment, additional coping skills, increased outpatient services Suicide Risk Level Suicide Risk Level: High-Moderate (q15 min suicide checks) (severe depression with hx of past serious suicide attempt, ongoing SI but increasing behavioral activation, feels safe in the hospital) Risk Factors Assessment Male: No : No Do You Have Access To A Gun?: No Health Problems: Yes Mental Health Diagnoses: Yes Substance Use Disorders: No Previous Attempt: Yes Family History of Suicide: No Previous Psychiatric Hospitalization: Yes Hopelessness: Yes Protective Factors Assessment Employed: No Stable Relationships: Yes Good Rapport with Provider: Yes Interval History Identifying Information BRADLEY ARELLANO is a 44-year-old woman who currently lives in [place] with shared custody of her daughter, has a history of major depressive disorder recurrent with treatment resistance requiring ECT and ketamine in the past, and was admitted on 09/16/24 16:07 on a 201 voluntary commitment for worsening depression, SI, poor self care. Chief Complaint "Suicidal" Review of Systems Sleep Information Total Hours of Sleep: 6.75 Meal Information Percent Meal Consumed - Breakfast: 50 Percent Meal Consumed - Lunch: 50 Percent Meal Consumed - Dinner: 80 Nutrition Comment: fluids provided. meal dated, labeled and refrigerated Subjective Subjective Patient was seen & assessed and interval progress reviewed with treatment team nursing and social work Overnight pt went to bed early and isolated. This AM requesting anxiety PRN. Reports partial relief with Lorazepam PRN. Tearful on interview and reports not feeling safe to return home today. C/o increasingly suicidal thoughts and does not want daughter to see her in this condition. Her friend is supposed to pick her up and feels she will disappoint her since she wants to stay. Reassured. Physical Exam Mental Examination Appearance: Disheveled Eye Contact: Maintains Eye Contact Motor Behavior: Unremarkable Speech: Soft Mood: Sad Affect: Sad (Tearful) and Withdrawn Thought Process: Intact Thought Content: Slowed Thinking Hallucinations: None Insight: Fair Judgement: Fair Vital Signs (Past 24 Hours) Last Vital Signs Temp 36.9 C 09/28/24 06:00 Pulse 73 09/28/24 06:00 Resp 12 09/28/24 06:00 BP 132/86 09/28/24 06:48 Pulse Ox 95 09/24/24 20:08 O2 Del Method Room Air 09/24/24 20:08 Results & Data ([facility]) Current Inpatient Medications Current Inpatient Medications: Current Inpatient Medications Acetaminophen (Acetaminophen 325 Mg Tab) 650 mg PO Q4H PRN PRN Reason: Headache or Minor Fever Stop: 10/16/24 16:25 Al Hydrox/Mg Hydrox/Simethicone (Aluminum/Magnesium Susp 30 Ml Udc) 30 ml PO Q4H PRN PRN Reason: GI Upset Stop: 10/16/24 16:25 Aripiprazole (Aripiprazole 5 Mg Tab) 5 mg PO HS ARTHUR Stop: 10/26/24 21:59 Last Admin: 09/27/24 21:23 Dose: 5 mg Bismuth Subsalicylate (Bismuth Subsalicylate 262 Mg Chew) 2 tab PO Q30M PRN PRN Reason: Loose Stool/Diarrhea Stop: 10/16/24 16:25 Duloxetine HCl (Duloxetine Hcl 60 Mg Cap) 60 mg PO QAM [facility] Stop: 10/27/24 08:59 Last Admin: 09/28/24 08:27 Dose: 60 mg Ergocalciferol (Ergocalciferol 1250 Mcg (50,000 Units) Cap) 1,250 mcg PO WeSa@0900 [facility] Stop: 10/19/24 08:59 Last Admin: 09/26/24 09:02 Dose: 1,250 mcg Gabapentin (Gabapentin 300 Mg Cap) 300 mg PO BID [facility] Stop: 10/17/24 20:59 Last Admin: 09/28/24 08:27 Dose: 300 mg Hydroxyzine HCl (Hydroxyzine Hcl 25 Mg Tab) 50 mg PO HSZ PRN PRN Reason: Insomnia Stop: 10/16/24 16:25 Last Admin: 09/20/24 20:58 Dose: 50 mg Hydroxyzine HCl (Hydroxyzine Hcl 25 Mg Tab) 25 mg PO Q4H PRN PRN Reason: Anxiety Stop: 10/16/24 16:25 Last Admin: 09/20/24 08:44 Dose: 25 mg Lorazepam (Lorazepam 0.5 Mg Tab) 0.5 mg PO DAILY PRN PRN Reason: Anxiety Stop: 10/22/24 11:36 Last Admin: 09/28/24 08:26 Dose: 0.5 mg Magnesium Hydroxide (Magnesium Hydroxide Susp 30 Ml Udc) 30 ml PO DAILY PRN PRN Reason: Constipation Stop: 10/16/24 16:25 Meloxicam (Meloxicam 7.5 Mg Tab) 15 mg PO DAILY ARTHUR Stop: 10/18/24 08:59 Last Admin: 09/28/24 08:27 Dose: 15 mg Mirtazapine (Mirtazapine Tab 15 Mg Tab) 30 mg PO HS ARTHUR Stop: 10/18/24 21:59 Last Admin: 09/27/24 21:23 Dose: 30 mg Propranolol HCl (Propranolol Hcl 10 Mg Tab) 10 mg PO TID ARTHUR Stop: 10/22/24 11:29 Last Admin: 09/28/24 08:28 Dose: 10 mg Sodium Chloride (Sodium Chloride 0.65% Na Soln 45 Ml ([place])) 1 - 2 sprays NA PRN PRN PRN Reason: Nasal Dryness/Congestion Stop: 10/16/24 16:25 Sulfasalazine (Sulfasalazine 500 Mg Tablet) 1,000 mg PO TID ARTHUR Stop: 10/17/24 13:59 Last Admin: 09/28/24 08:28 Dose: 1,000 mg Zolpidem Tartrate (Zolpidem Tartrate 5 Mg Tab) 5 mg PO HS ARTHUR Stop: 10/21/24 21:59 Last Admin: 09/27/24 21:24 Dose: 5 mg Mental Health & Subst Abuse Tx Psychiatrist Name of Psychiatrist: [facility] Psych Clinic-Dr. Tsang Psychiatrist's Date Of Appointment With Psychiatric Provider: 10/10/2024 Time of Appointment with Psychiatrist: 2:15pm Psychiatric Appointment Comment: Appt from 09/27 was rescheduled. This will be a one hour appt Therapist Name of Therapist: [facility] Date of Therapist Appointment: 10/02/2024 Time of Therapist Appointment: 3:00pm Therapy Appointment Comment: Appt from 09/25 was rescheduled. Tattoo Artist Name of Tattoo Artist: [facility] Yury Barbosa Date of Appointment with Tattoo Artist: 10/02/24 Time of Appointment with Tattoo Artist: 11AM Case Management Appointment Comment: He will meet you at your home Post Discharge Appointments Primary Care Physician Name Of Family Doctor/PCP: [facility]-Dr. Machuca Primary Care Date of Future Appointment with PCP: 10/30/2024 Time of Appointment with PCP: 8AM Provider Appointment Comment: New patient appt Other #1: Name of Aftercare Appointment: [facility] Tattoo Artist-Елена Phone Number of Aftercare Appointment: Aftercare Appointment Comment: CM through insurance will follow up with you after DC #2: Name of Aftercare Appointment: [facility] Phone Number of Aftercare Appointment: [phone] Contact Information Discharge Discharge Address: [address] [place] [address], [place] [address]
--- NOTE | 2024-09-29 10:00 | Psychiatric Progress Note ---
Date of Service September 29, 2024 Impression / Recommendations Impression BRADLEY ARELLANO is a 44-year-old woman who currently lives in [place] with shared custody of her daughter, has a history of major depressive disorder recurrent with treatment resistance requiring ECT and ketamine in the past, and was admitted on 09/16/24 16:07 on a 201 voluntary commitment for worsening depression, SI, poor self care. Diagnostically consistent with major depressive disorder, recurrent episode, severe with inability to meet her self-care needs including poor sleep and poor po intake consistent with significantly elevated ketones on UA. A: Ongoing depression with low energy but eating more consistently, drinking more, reading, and sleeping well. Still having some SI but this is lessening and no plan nor intent. Overall, I spent a total of 40 minutes on this case including meeting with the patient, reviewing the chart, nursing report, multidisciplinary team meeting, orders, and documentation. (1) MDD (major depressive disorder), recurrent episode, severe: Plan 09/29/2024: Continue current medications and tx plan 09/28/2024: Discharge cancelled today, will reassess appropriate day over weekend Continue medications and treatment plan 09/27/2024: Continue medications and treatment plan 09/26/2024: Increase Abilify to 5 mg at bedtime Increase duloxetine to 60 mg daily. 09/25/2024: Continue medications and treatment plan 09/24/2024: Discontinue magnesium citrate at night. 09/23/2024: -Increase Duloxetine to 40mg QAM 09/22/2024: -Start Abilify 2.5mg daily -Start Propranolol 10mg TID -Start Mg Citrate 148ml HS -Start Ativan 0.5mg QD PRN for anxiety 09/21/2024: -Start Ambien 5mg HS -Increase duloxetine to 30mg daily tomorrow -Discontinue clonidine given limited benefit 09/20/2024: -Discontinue modafinil -Reduce duloxetine to 20mg daily starting tomorrow -Start clonidine 0.1mg HS 09/19/2024: -Increase modafinil to 200mg daily -Continue mirtazapine and duloxetine 09/18/2024: -Monitor I&O -Increase mirtazapine to 30mg HS -Start duloxetine 30mg daily tomorrow am 09/17/2024: The patient was admitted to the [facility] ([facility]) on q15 min checks (behavioral with suicide precautions) for safety. The patient will participate in group, recreational, and milieu therapies and will be offered additional individual and family sessions as clinically appropriate. -Start mirtazapine 15mg HS and additional 15mg HS prn for insomnia -Start modafinil 100mg daily Inventory Assets Strengths: supportive relationships, willing to get treatment Needs: safety and stabilization, medication adjustment, additional coping skills, increased outpatient services Suicide Risk Level Suicide Risk Level: Moderate (q15 min suicide checks) (severe depression with hx of past serious suicide attempt, ongoing SI but lessening, increasing behavioral activation, feels safe in the hospital, feels able to ask for support) Risk Factors Assessment Male: No : No Do You Have Access To A Gun?: No Health Problems: Yes Mental Health Diagnoses: Yes Substance Use Disorders: No Previous Attempt: Yes Family History of Suicide: No Previous Psychiatric Hospitalization: Yes Hopelessness: Yes Protective Factors Assessment Employed: No Stable Relationships: Yes Good Rapport with Provider: Yes Interval History Identifying Information BRADLEY ARELLANO is a 44-year-old woman who currently lives in [place] with shared custody of her daughter, has a history of major depressive disorder recurrent with treatment resistance requiring ECT and ketamine in the past, and was admitted on 09/16/24 16:07 on a 201 voluntary commitment for worsening depression, SI, poor self care. Chief Complaint "I'm ok". Review of Systems Sleep Information Total Hours of Sleep: 8.75 Meal Information Percent Meal Consumed - Breakfast: 50 Percent Meal Consumed - Lunch: 0 Percent Meal Consumed - Dinner: 70 Nutrition Comment: Subjective Subjective Patient was seen & assessed and interval progress reviewed with nursing. Still isolative, rated her mood "sad" and 3/10. End of the evening she did read in the dayroom. Got prn ativan and Vistaril. Menses started and having cramps associated with this. Ongoing depression but some lessening of SI. Anxiety is manageable. Still with low energy but trying to read and somewhat able to concentrate on this. More future focused, hopeful she can return home soon. Physical Exam Psychiatric Orientation: alert and oriented x 3 Apperance: appropriately dressed and + disheveled Eye Contact: good eye contact Motor Behavior: steady gait and station and no abnormal motor movements Speech: normal rate/rhythm/volume of speech (soft) Affect: + constricted affect Mood: + depressed mood; no anxious mood Thought Process: goal directed thought process Thought Content: reality based without delusions Suicidal Thoughts: denies suicidal plan and denies suicidal intent; + reports suicidal thoughts ("still there but lessening") Homicidal Thoughts: denies homicidal thoughts Hallucinations: no auditory hallucinations and no visual hallucinations Cognition: recent memory grossly intact, remote memory grossly intact, attention grossly intact and language grossly intact Estimated Intelligence: consistent with education level Insight: + fair insight Judgment: + fair judgement Vital Signs (Past 24 Hours) Last Vital Signs Temp 36.6 C 09/29/24 06:00 Pulse 69 09/29/24 06:38 Resp 16 09/29/24 06:00 BP 130/55 L 09/29/24 06:38 Pulse Ox 94 09/29/24 06:00 O2 Del Method Room Air 09/29/24 06:00 Results & Data ([facility]) Current Inpatient Medications Current Inpatient Medications: Current Inpatient Medications Acetaminophen (Acetaminophen 325 Mg Tab) 650 mg PO Q4H PRN PRN Reason: Headache or Minor Fever Stop: 10/16/24 16:25 Al Hydrox/Mg Hydrox/Simethicone (Aluminum/Magnesium Susp 30 Ml Udc) 30 ml PO Q4H PRN PRN Reason: GI Upset Stop: 10/16/24 16:25 Aripiprazole (Aripiprazole 5 Mg Tab) 5 mg PO HS ARTHUR Stop: 10/26/24 21:59 Last Admin: 09/28/24 21:11 Dose: 5 mg Bismuth Subsalicylate (Bismuth Subsalicylate 262 Mg Chew) 2 tab PO Q30M PRN PRN Reason: Loose Stool/Diarrhea Stop: 10/16/24 16:25 Duloxetine HCl (Duloxetine Hcl 60 Mg Cap) 60 mg PO QAM ARTHUR Stop: 10/27/24 08:59 Last Admin: 09/29/24 09:07 Dose: 60 mg Ergocalciferol (Ergocalciferol 1250 Mcg (50,000 Units) Cap) 1,250 mcg PO WeSa@0900 ARTHUR Stop: 10/19/24 08:59 Last Admin: 09/29/24 09:07 Dose: 1,250 mcg Gabapentin (Gabapentin 300 Mg Cap) 300 mg PO BID ARTHUR Stop: 10/17/24 20:59 Last Admin: 09/29/24 09:07 Dose: 300 mg Hydroxyzine HCl (Hydroxyzine Hcl 25 Mg Tab) 50 mg PO HSZ PRN PRN Reason: Insomnia Stop: 10/16/24 16:25 Last Admin: 09/20/24 20:58 Dose: 50 mg Hydroxyzine HCl (Hydroxyzine Hcl 25 Mg Tab) 25 mg PO Q4H PRN PRN Reason: Anxiety Stop: 10/16/24 16:25 Last Admin: 09/20/24 08:44 Dose: 25 mg Lorazepam (Lorazepam 0.5 Mg Tab) 0.5 mg PO DAILY PRN PRN Reason: Anxiety Stop: 10/22/24 11:36 Last Admin: 09/28/24 21:13 Dose: 0.5 mg Magnesium Hydroxide (Magnesium Hydroxide Susp 30 Ml Udc) 30 ml PO DAILY PRN PRN Reason: Constipation Stop: 10/16/24 16:25 Meloxicam (Meloxicam 7.5 Mg Tab) 15 mg PO DAILY ARTHUR Stop: 10/18/24 08:59 Last Admin: 09/29/24 09:07 Dose: 15 mg Mirtazapine (Mirtazapine Tab 15 Mg Tab) 30 mg PO HS ARTHUR Stop: 10/18/24 21:59 Last Admin: 09/28/24 21:11 Dose: 30 mg Propranolol HCl (Propranolol Hcl 10 Mg Tab) 10 mg PO TID ARTHUR Stop: 10/22/24 11:29 Last Admin: 09/29/24 09:07 Dose: 10 mg Sodium Chloride (Sodium Chloride 0.65% Na Soln 45 Ml ([place])) 1 - 2 sprays NA PRN PRN PRN Reason: Nasal Dryness/Congestion Stop: 10/16/24 16:25 Sulfasalazine (Sulfasalazine 500 Mg Tablet) 1,000 mg PO TID ARTHUR Stop: 10/17/24 13:59 Last Admin: 09/29/24 09:07 Dose: 1,000 mg Zolpidem Tartrate (Zolpidem Tartrate 5 Mg Tab) 5 mg PO HS ARTHUR Stop: 10/21/24 21:59 Last Admin: 09/28/24 21:12 Dose: 5 mg Mental Health & Subst Abuse Tx Psychiatrist Name of Psychiatrist: [facility] Psych Clinic-Dr. Tsang Psychiatrist's Date Of Appointment With Psychiatric Provider: 10/10/2024 Time of Appointment with Psychiatrist: 2:15pm Psychiatric Appointment Comment: Appt from 09/27 was rescheduled. This will be a one hour appt Therapist Name of Therapist: [facility] Therapist's Date of Therapist Appointment: 10/02/2024 Time of Therapist Appointment: 3:00pm Therapy Appointment Comment: Appt from 09/25 was rescheduled. Frame Tender Name of Frame Tender: [facility]MILADY Barbosa Date of Appointment with Frame Tender: 10/02/24 Time of Appointment with Frame Tender: 11AM Case Management Appointment Comment: He will meet you at your home Post Discharge Appointments Primary Care Physician Name Of Family Doctor/PCP: [facility]-Dr. Machuca Primary Care Date of Future Appointment with PCP: 10/30/2024 Time of Appointment with PCP: 8AM Provider Appointment Comment: New patient appt Contact Information Discharge Discharge Address: [address] [place] [address], [place] [address]
--- NOTE | 2024-09-30 09:34 | Psychiatric Progress Note ---
Date of Service September 30, 2024 Impression / Recommendations Impression BRADLEY ARELLANO is a 44-year-old woman who currently lives in [place] with shared custody of her daughter, has a history of major depressive disorder recurrent with treatment resistance requiring ECT and ketamine in the past, and was admitted on 09/16/24 16:07 on a 201 voluntary commitment for worsening depression, SI, poor self care. Diagnostically consistent with major depressive disorder, recurrent episode, severe with inability to meet her self-care needs including poor sleep and poor po intake consistent with significantly elevated ketones on UA. A: Continues to have depression with low energy but consistently eating, sleeping well and feels able to attend to her self-care needs and manage her ADLs independently. She is eager to return home and very future-oriented about plan for discharge tomorrow. Feels safe. Ongoing discussion about warning signs for suicidal thoughts and what to do if this were to occur which she engages in discussion about and feels able to monitor this and reach out for help or increased support if needed. Overall, I spent a total of 35 minutes on this case including meeting with the patient, reviewing the chart, nursing report, multidisciplinary team meeting, orders, and documentation. (1) MDD (major depressive disorder), recurrent episode, severe: Plan 09/30/2024: Continue current medications and tx plan 09/29/2024: Continue current medications and tx plan 09/28/2024: Discharge cancelled today, will reassess appropriate day over weekend Continue medications and treatment plan 09/27/2024: Continue medications and treatment plan 09/26/2024: Increase Abilify to 5 mg at bedtime Increase duloxetine to 60 mg daily. 09/25/2024: Continue medications and treatment plan 09/24/2024: Discontinue magnesium citrate at night. 09/23/2024: -Increase Duloxetine to 40mg QAM 09/22/2024: -Start Abilify 2.5mg daily -Start Propranolol 10mg TID -Start Mg Citrate 148ml HS -Start Ativan 0.5mg QD PRN for anxiety 09/21/2024: -Start Ambien 5mg HS -Increase duloxetine to 30mg daily tomorrow -Discontinue clonidine given limited benefit 09/20/2024: -Discontinue modafinil -Reduce duloxetine to 20mg daily starting tomorrow -Start clonidine 0.1mg HS 09/19/2024: -Increase modafinil to 200mg daily -Continue mirtazapine and duloxetine 09/18/2024: -Monitor I&O -Increase mirtazapine to 30mg HS -Start duloxetine 30mg daily tomorrow am 09/17/2024: The patient was admitted to the [facility] ([facility] mental health unit) on q15 min checks (behavioral with suicide precautions) for safety. The patient will participate in group, recreational, and milieu therapies and will be offered additional individual and family sessions as clinically appropriate. -Start mirtazapine 15mg HS and additional 15mg HS prn for insomnia -Start modafinil 100mg daily Inventory Assets Strengths: supportive relationships, willing to get treatment Needs: safety and stabilization, medication adjustment, additional coping skills, increased outpatient services Suicide Risk Level Suicide Risk Level: Low (q15 min observation checks) (depression improving, denies SI, feels safe in the hospital and feels she will be safe at home, feels able to ask for support) Risk Factors Assessment Male: No : No Do You Have Access To A Gun?: No Health Problems: Yes Mental Health Diagnoses: Yes Substance Use Disorders: No Previous Attempt: Yes Family History of Suicide: No Previous Psychiatric Hospitalization: Yes Hopelessness: Yes Protective Factors Assessment Employed: No Stable Relationships: Yes Good Rapport with Provider: Yes Interval History Identifying Information BRADLEY ARELLANO is a 44-year-old woman who currently lives in [place] with shared custody of her daughter, has a history of major depressive disorder recurrent with treatment resistance requiring ECT and ketamine in the past, and was admitted on 09/16/24 16:07 on a 201 voluntary commitment for worsening depression, SI, poor self care. Chief Complaint "I'm ok, I'm excited for tomorrow". Review of Systems Sleep Information Total Hours of Sleep: 8.5 Meal Information Percent Meal Consumed - Breakfast: 60 Percent Meal Consumed - Lunch: 50 Percent Meal Consumed - Dinner: 50 Subjective Subjective Patient was seen & assessed and interval progress reviewed with nursing. No evening groups yesterday but did have a good visit with her friend with brightening affect after that. Continues to read, spends time in bed. Today reports her mood is "ok". Sleeping well and eating consistently. Still feels tired and with low energy but states she is trying to spend as much time as possible out of bed. Declined option to shower, prefers to wait until she's home. She's "excited to see Ana tomorrow" and remains eager for discharge. Reviewed safety concerns given periods of SI. She denies any SI today, still at times has passive SI but she feels safe and emphasizes she would absolutely return to the hospital if she developed suicidal thoughts with plan or intent or felt unable to remain safe. Denies any medication side effects. Denies any other questions nor concerns nor other symptoms or issues she feels we should be treating or addressing. She is hopeful that TMS in addition to duloxetine will continue to help reduce her depression symptoms. Physical Exam Psychiatric Orientation: alert and oriented x 3 Apperance: appropriately dressed and appropriately groomed Eye Contact: good eye contact Motor Behavior: steady gait and station and no abnormal motor movements Speech: normal rate/rhythm/volume of speech Affect: + constricted affect Mood: + depressed mood; no anxious mood Thought Process: goal directed thought process Thought Content: reality based without delusions Suicidal Thoughts: denies suicidal thoughts, denies suicidal plan and denies suicidal intent Homicidal Thoughts: denies homicidal thoughts Hallucinations: no auditory hallucinations and no visual hallucinations Cognition: recent memory grossly intact, remote memory grossly intact, attention grossly intact and language grossly intact Estimated Intelligence: consistent with education level Insight: + fair insight Judgment: + fair judgement Vital Signs (Past 24 Hours) Last Vital Signs Temp 36.6 C 09/30/24 06:00 Pulse 76 09/30/24 06:00 Resp 16 09/30/24 06:00 BP 129/88 09/30/24 06:47 Pulse Ox 94 09/30/24 06:00 O2 Del Method Room Air 09/30/24 06:00 Results & Data ([facility]) Current Inpatient Medications Current Inpatient Medications: Current Inpatient Medications Acetaminophen (Acetaminophen 325 Mg Tab) 650 mg PO Q4H PRN PRN Reason: Headache or Minor Fever Stop: 10/16/24 16:25 Al Hydrox/Mg Hydrox/Simethicone (Aluminum/Magnesium Susp 30 Ml Udc) 30 ml PO Q4H PRN PRN Reason: GI Upset Stop: 10/16/24 16:25 Aripiprazole (Aripiprazole 5 Mg Tab) 5 mg PO HS ARTHUR Stop: 10/26/24 21:59 Last Admin: 09/29/24 21:18 Dose: 5 mg Bismuth Subsalicylate (Bismuth Subsalicylate 262 Mg Chew) 2 tab PO Q30M PRN PRN Reason: Loose Stool/Diarrhea Stop: 10/16/24 16:25 Duloxetine HCl (Duloxetine Hcl 60 Mg Cap) 60 mg PO QAM ARTHUR Stop: 10/27/24 08:59 Last Admin: 09/30/24 09:13 Dose: 60 mg Ergocalciferol (Ergocalciferol 1250 Mcg (50,000 Units) Cap) 1,250 mcg PO WeSa@0900 [facility] Stop: 10/19/24 08:59 Last Admin: 09/29/24 09:07 Dose: 1,250 mcg Gabapentin (Gabapentin 300 Mg Cap) 300 mg PO BID [facility] Stop: 10/17/24 20:59 Last Admin: 09/30/24 09:13 Dose: 300 mg Hydroxyzine HCl (Hydroxyzine Hcl 25 Mg Tab) 50 mg PO HSZ PRN PRN Reason: Insomnia Stop: 10/16/24 16:25 Last Admin: 09/20/24 20:58 Dose: 50 mg Hydroxyzine HCl (Hydroxyzine Hcl 25 Mg Tab) 25 mg PO Q4H PRN PRN Reason: Anxiety Stop: 10/16/24 16:25 Last Admin: 09/20/24 08:44 Dose: 25 mg Lorazepam (Lorazepam 0.5 Mg Tab) 0.5 mg PO DAILY PRN PRN Reason: Anxiety Stop: 10/22/24 11:36 Last Admin: 09/28/24 21:13 Dose: 0.5 mg Magnesium Hydroxide (Magnesium Hydroxide Susp 30 Ml Udc) 30 ml PO DAILY PRN PRN Reason: Constipation Stop: 10/16/24 16:25 Meloxicam (Meloxicam 7.5 Mg Tab) 15 mg PO DAILY ARTHUR Stop: 10/18/24 08:59 Last Admin: 09/30/24 09:13 Dose: 15 mg Mirtazapine (Mirtazapine Tab 15 Mg Tab) 30 mg PO HS ARTHUR Stop: 10/18/24 21:59 Last Admin: 09/29/24 21:19 Dose: 30 mg Propranolol HCl (Propranolol Hcl 10 Mg Tab) 10 mg PO TID ARTHUR Stop: 10/22/24 11:29 Last Admin: 09/30/24 09:14 Dose: 10 mg Sodium Chloride (Sodium Chloride 0.65% Na Soln 45 Ml ([place])) 1 - 2 sprays NA PRN PRN PRN Reason: Nasal Dryness/Congestion Stop: 10/16/24 16:25 Sulfasalazine (Sulfasalazine 500 Mg Tablet) 1,000 mg PO TID ARTHUR Stop: 10/17/24 13:59 Last Admin: 09/30/24 09:14 Dose: 1,000 mg Zolpidem Tartrate (Zolpidem Tartrate 5 Mg Tab) 5 mg PO HS ARTHUR Stop: 10/21/24 21:59 Last Admin: 09/29/24 21:19 Dose: 5 mg Mental Health & Subst Abuse Tx Psychiatrist Name of Psychiatrist: [facility] Psych Clinic-Dr. Tsang Psychiatrist's Date Of Appointment With Psychiatric Provider: 10/10/2024 Time of Appointment with Psychiatrist: 2:15pm Psychiatric Appointment Comment: Appt from 09/27 was rescheduled. This will be a one hour appt Therapist Name of Therapist: [facility] Therapist's Date of Therapist Appointment: 10/02/2024 Time of Therapist Appointment: 3:00pm Therapy Appointment Comment: Appt from 09/25 was rescheduled. Regional Dedicated Truck Driver Name of Regional Dedicated Truck Driver: [facility]-MILADY Barbosa Date of Appointment with Regional Dedicated Truck Driver: 10/02/24 Time of Appointment with Regional Dedicated Truck Driver: 11AM Case Management Appointment Comment: He will meet you at your home Post Discharge Appointments Primary Care Physician Name Of Family Doctor/PCP: [facility]-Dr. Machuca Primary Care Date of Future Appointment with PCP: 10/30/2024 Time of Appointment with PCP: 8AM Provider Appointment Comment: New patient appt Contact Information Discharge Discharge Address: [address] [place] [address]
--- NOTE | 2024-10-01 09:05 | Discharge Summary ---
Date of Service October 01, 2024 Physical Exam Vital Signs (Past 24 Hours) Last Vital Signs Temp 36.6 C 10/01/24 06:00 Pulse 72 10/01/24 06:00 Resp 16 10/01/24 06:00 BP 124/88 10/01/24 06:29 Pulse Ox 96 10/01/24 06:00 O2 Del Method Room Air 10/01/24 06:00 Psychiatric Data See daily stay summary. In short, safety was maintained and the patient was cooperative with care. Medication changes included [] and they tolerated this well. A family session was [held] and safety plan was completed prior to discharge. Day of Discharge Assessment Today the patient voices readiness for discharge. They note improvement in mood and deny thoughts to harm self or others. Thoughts remain organized and they are improved from admission. There is no evidence of psychosis. They agree to take mediations as prescribed and keep follow-up appointments. They are stable for discharge to outpatient level of care. Advance Directives Advance Directives Information Provided: Yes Advance Directives: No Mental Health Advance Directive: No Advance Directives on File: No Living Will: No Power of Surveillance Sensor Operator: No Advance Directives Reason:: Declines as Mental Health Visit. Risk Factors Assessment Male: No : No Do You Have Access To A Gun?: No Health Problems: Yes Mental Health Diagnoses: Yes Substance Use Disorders: No Previous Attempt: Yes Family History of Suicide: No Previous Psychiatric Hospitalization: Yes Hopelessness: Yes Protective Factors Assessment Employed: No Stable Relationships: Yes Good Rapport with Provider: Yes Discharge Data Lab Results 09/16/24 09/16/24 09/16/24 12:25 12:30 16:50 WBC 7.60 RBC 3.94 L Hgb 12.8 Hct 37.7 MCV 95.7 MCH 32.5 MCHC 34.0 RDW Std Deviation 44.9 RDW Coeff of Bill 12.6 Plt Count 355 MPV 9.7 Immature Gran % (Auto) 0.4 Neut % (Auto) 65.4 Lymph % (Auto) 25.0 Grainger % (Auto) 8.8 Eos % (Auto) 0.0 Baso % (Auto) 0.4 Neut # (Auto) 4.97 Lymph # (Auto) 1.90 Grainger # (Auto) 0.67 H Eos # (Auto) 0.00 Baso # (Auto) 0.03 Immature Gran # (Auto) 0.03 Sodium 136 Potassium 3.6 Chloride 103 Carbon Dioxide 24 Anion Gap 9 BUN 17 Creatinine 0.68 Est Cr Clr Drug Dosing 102.6 eGFR 108.71 BUN/Creatinine Ratio 25.0 H Glucose 93 Calcium 9.3 Total Bilirubin 1.0 AST 11 L ALT 6 L Alkaline Phosphatase 32 L Total Protein 7.6 Albumin 4.7 Globulin 2.9 Albumin/Globulin Ratio 1.6 TSH 0.789 HCG, Qual Negative Urine Color Dark Yellow Dark Yellow Urine Appearance Turbid A Cloudy A Urine pH 5.0 6.0 Ur Specific [place] 1.029 1.033 H Urine Protein Trace H Trace H Urine Glucose (UA) Negative Negative Urine Ketones 3+ H 3+ H Urine Blood Trace H Negative Urine Nitrite Negative Positive A Urine Bilirubin 1+ H 1+ H Urine Urobilinogen Negative Positive H Ur Leukocyte Esterase 2+ H 1+ H Urine WBC (Auto) 21-50 H 0-5 Urine RBC (Auto) 11-20 H 11-20 H U Hyaline Cast (Auto) 0-2 0-2 U Epithel Cells (Auto) >20 H 6-10 H Urine Bacteria (Auto) 4+ H 1+ H Urine Mucus Present A Present A Salicylates < 3.0 L Urine Opiates Screen Neg Cancelled Ur Methadone, Qual Neg Cancelled Fentanyl Comments SEE NOTE Drug Monitor Fentanyl DNR Fentanyl Confirmation NEGATIVE Drug Monitor Norfentanyl DNR Urine Fentanyl Screen Pos H Cancelled Ur Norfentanyl Confirm NEGATIVE Acetaminophen 8 L Urine Barbiturates Neg Cancelled Ur Phencyclidine (PCP) Neg Cancelled U Amphetamin/Meth Scrn Neg Cancelled MDMA (Ecstasy) Screen Neg Cancelled U Benzodiazepines Scrn Neg Cancelled U Cocaine Confirm GC/MS NEGATIVE Ur Cocaine Metabolite Pos H Cancelled U Marijuana (THC) Screen Neg Cancelled Drug Screen Comment SEE NOTE Ethyl Alcohol mg/dL < 10.0 Toxicology Comment SEE NOTE Drug Monitor Historic Res DNR SARS-CoV-2, RNA, NAAT NEGATIVE 09/18/24 07:55 WBC RBC Hgb Hct MCV MCH MCHC RDW Std Deviation RDW Coeff of Bill Plt Count MPV Immature Gran % (Auto) Neut % (Auto) Lymph % (Auto) Grainger % (Auto) Eos % (Auto) Baso % (Auto) Neut # (Auto) Lymph # (Auto) Grainger # (Auto) Eos # (Auto) Baso # (Auto) Immature Gran # (Auto) Sodium Potassium Chloride Carbon Dioxide Anion Gap BUN Creatinine Est Cr Clr Drug Dosing eGFR BUN/Creatinine Ratio Glucose Calcium Total Bilirubin AST ALT Alkaline Phosphatase Total Protein Albumin Globulin Albumin/Globulin Ratio TSH HCG, Qual Urine Color Urine Appearance Urine pH Ur Specific [place] Urine Protein Urine Glucose (UA) Urine Ketones Urine Blood Urine Nitrite Urine Bilirubin Urine Urobilinogen Ur Leukocyte Esterase Urine WBC (Auto) Urine RBC (Auto) U Hyaline Cast (Auto) U Epithel Cells (Auto) Urine Bacteria (Auto) Urine Mucus Salicylates Urine Opiates Screen Neg Ur Methadone, Qual Neg Fentanyl Comments Drug Monitor Fentanyl Fentanyl Confirmation Drug Monitor Norfentanyl Urine Fentanyl Screen Neg Ur Norfentanyl Confirm Acetaminophen Urine Barbiturates Neg Ur Phencyclidine (PCP) Neg U Amphetamin/Meth Scrn Neg MDMA (Ecstasy) Screen Neg U Benzodiazepines Scrn Neg U Cocaine Confirm GC/MS Ur Cocaine Metabolite Neg U Marijuana (THC) Screen Neg Drug Screen Comment Ethyl Alcohol mg/dL Toxicology Comment Drug Monitor Historic Res SARS-CoV-2, RNA, NAAT Hospital Course (1) MDD (major depressive disorder), recurrent episode, severe: Plan 09/30/2024: Continue current medications and tx plan 09/29/2024: Continue current medications and tx plan 09/28/2024: Discharge cancelled today, will reassess appropriate day over weekend Continue medications and treatment plan 09/27/2024: Continue medications and treatment plan 09/26/2024: Increase Abilify to 5 mg at bedtime Increase duloxetine to 60 mg daily. 09/25/2024: Continue medications and treatment plan 09/24/2024: Discontinue magnesium citrate at night. 09/23/2024: -Increase Duloxetine to 40mg QAM 09/22/2024: -Start Abilify 2.5mg daily -Start Propranolol 10mg TID -Start Mg Citrate 148ml HS -Start Ativan 0.5mg QD PRN for anxiety 09/21/2024: -Start Ambien 5mg HS -Increase duloxetine to 30mg daily tomorrow -Discontinue clonidine given limited benefit 09/20/2024: -Discontinue modafinil -Reduce duloxetine to 20mg daily starting tomorrow -Start clonidine 0.1mg HS 09/19/2024: -Increase modafinil to 200mg daily -Continue mirtazapine and duloxetine 09/18/2024: -Monitor I&O -Increase mirtazapine to 30mg HS -Start duloxetine 30mg daily tomorrow am 09/17/2024: The patient was admitted to the [facility] ([facility] mental health unit) on q15 min checks (behavioral with suicide precautions) for safety. The patient will participate in group, recreational, and milieu therapies and will be offered additional individual and family sessions as clinically appropriate. -Start mirtazapine 15mg HS and additional 15mg HS prn for insomnia -Start modafinil 100mg daily Mental Health & Subst Abuse Tx Psychiatrist Name of Psychiatrist: [facility] Psych Clinic-Dr. Tsang Psychiatrist's Date Of Appointment With Psychiatric Provider: 10/10/2024 Time of Appointment with Psychiatrist: 2:15pm Psychiatric Appointment Comment: Appt from 09/27 was rescheduled. This will be a one hour appt Therapist Name of Therapist: [facility] Therapist's Date of Therapist Appointment: 10/02/2024 Time of Therapist Appointment: 3:00pm Therapy Appointment Comment: Appt from 09/25 was rescheduled. Industrial Robotics Mechanic Name of Industrial Robotics Mechanic: [facility] Barbosa Date of Appointment with Industrial Robotics Mechanic: 10/02/24 Time of Appointment with Industrial Robotics Mechanic: 11AM Case Management Appointment Comment: He will meet you at your home Post Discharge Appointments Primary Care Physician Name Of Family Doctor/PCP: [facility]-Dr. Machuca Primary Care Date of Future Appointment with PCP: 10/30/2024 Time of Appointment with PCP: 8AM Provider Appointment Comment: New patient appt Other #1: Name of Aftercare Appointment: [facility] Industrial Robotics Mechanic-Елена Phone Number of Aftercare Appointment: Aftercare Appointment Comment: CM through insurance will follow up with you after DC #2: Name of Aftercare Appointment: [facility] Therapy Phone Number of Aftercare Appointment: [phone] Contact Information Discharge Discharge Address: [address] [place] [address] Discharge Plan Discharge Items Patient Disposition: Home - Self-Care Reason For Visit: MDD Discharge Diagnosis: MDD (major depressive disorder), recurrent episode, severe: Condition on Discharge: Fair Activity: Resume your previous activity Non-emergency contact: Primary Care Provider, Psychiatrist and Therapist Call non-emergency contact if: you have any medication questions and your symptoms worsen Follow-up/Referrals: PCP,NO [Primary Care Provider] - Diet: Regular Addtl Attending Provider Instructions: MEDICATIONS: Continue Duloxetine 60mg daily Continue Propranolol 10mg three times daily for physical symptoms of anxiety Continue Mirtazapine 30mg at bedtime Continue Abilify 5mg at bedtime Continue Zolpidem 5mg at bedtime (discuss stopping with your psychiatrist after depression resolves) Take Magnesium Glycinate 100mg at bedtime ([employer] link for 10$ bottle - https ://Topadmit/d/aJDdTs9 ) Take Lorazepam 0.5mg NEEDED for anxiety/insomnia PSYCHOTHERAPY: With therapist: engage in cognitive behavioral and trauma therapy OTHER: Establish new legal specialist through case management Consider meal prepping and house keeping services to provide extra support Start Transcranial Magnetic Stimulation with [employer] Pending Studies at Discharge: No Stand-Alone Forms: My [employer], Smoking Cessation Medications and DC Order Prescriptions: New propranolol 10 mg Tablet 10 mg PO TID Qty: 90 0RF lorazepam 0.5 mg Tablet 0.5 mg PO DAILY PRN (Reason: anxiety/insomnia) Qty: 15 0RF zolpidem 5 mg Tablet 5 mg PO HS Qty: 30 0RF aripiprazole [Abilify] 5 mg Tablet 5 mg PO HS Qty: 30 0RF duloxetine 60 mg Capsule,Delayed Release(Dr/Ec) 60 mg PO QAM Qty: 30 0RF mirtazapine 30 mg tablet 30 mg PO HS Qty: 30 0RF Mag Glycinate 100 mg tablet 100 mg PO HS Qty: 30 0RF Continued meloxicam 15 mg tablet 15 mg PO DAILY ergocalciferol (vitamin D2) [Vitamin D2] 1,250 mcg (50,000 unit) capsule 1,250 mcg PO 2XWK gabapentin [Neurontin] 300 mg capsule 300 mg PO BID sulfasalazine [Azulfidine] 500 mg tablet 1 g PO TID Rx Instructions: give with food (meal/snack) Admission Data Admit Date/Time: 09/16/24 16:07 Attending Provider: Yudith Box Admit Provider: Yudith Box Primary Care Provider: PCP,NO Coding Diagnoses MDD (major depressive disorder), recurrent episode, severe F33.2
--- NOTE | 2024-10-01 10:35 | Psychiatric Progress Note ---
Date of Service October 01, 2024 Impression / Recommendations Impression BRADLEY ARELLANO is a 44-year-old woman who currently lives in [place] with shared custody of her daughter, has a history of major depressive disorder recurrent with treatment resistance requiring ECT and ketamine in the past, and was admitted on 09/16/24 16:07 on a 201 voluntary commitment for worsening depression, SI, poor self care. Diagnostically consistent with major depressive disorder, recurrent episode, severe with inability to meet her self-care needs including poor sleep and poor po intake consistent with significantly elevated ketones on UA. A:Worsening depression and intensified SI today. Initial plan had been for discharge but she continues to struggle with a desire to leave the hospital while also knowing she is unlikely to be able to maintain safety. Unclear if anxiety is contributing to increased SI in the context of fears of loneliness/social isolation but given her ongoing low energy, poor attention to ADLs and now increased SI agree with ongoing need for inpatient hospitalization for safety and stabilization. Tolerating medications, awaiting benefits from duloxetine. Sleep issues have responded well to Ambien. Overall, I spent a total of 40 minutes on this case including meeting with the patient, reviewing the chart, nursing report, multidisciplinary team meeting, orders, and documentation. (1) MDD (major depressive disorder), recurrent episode, severe: Inventory Assets Strengths: supportive relationships, willing to get treatment Needs: safety and stabilization, medication adjustment, additional coping skills, increased outpatient services Suicide Risk Level Suicide Risk Level: Moderate (q15 min suicide checks) (increased SI, feels safe in the hospital and feels able to ask for support if needed ) Risk Factors Assessment Male: No : No Do You Have Access To A Gun?: No Health Problems: Yes Mental Health Diagnoses: Yes Substance Use Disorders: No Previous Attempt: Yes Family History of Suicide: No Previous Psychiatric Hospitalization: Yes Hopelessness: Yes Protective Factors Assessment Employed: No Stable Relationships: Yes Good Rapport with Provider: Yes Interval History Identifying Information BRADLEY ARELLANO is a 44-year-old woman who currently lives in [place] with shared custody of her daughter, has a history of major depressive disorder recurrent with treatment resistance requiring ECT and ketamine in the past, and was admitted on 09/16/24 16:07 on a 201 voluntary commitment for worsening depression, SI, poor self care. Chief Complaint "I'm scared". Review of Systems Sleep Information Total Hours of Sleep: 8.5 Meal Information Percent Meal Consumed - Breakfast: 80 Percent Meal Consumed - Lunch: 50 Percent Meal Consumed - Dinner: 50 Subjective Subjective Patient was seen & assessed and interval progress reviewed with treatment team. Isolative to her room for most of the day, did have a good visit with a friend. Today tearful and reported feeling "scared" about plan for discharge due to increased SI and feeling unable to remain safe at home. Discussed that she felt her daughter would be fine without her alive. She was able to challenge this distortion when discussed but having a lot more hopelessness that she won't ever get better. Voiced feeling like a burden to friends as they are caring for her d og and embarrassed that she had a support meeting scheduled for today with initial plan for discharge. Discussed slowing down discharge timeline which she is in support of. Praised courage in being forthcoming about intensity of her SI and feeling unable to remain safe. Will continue to focus on behavioral activation as she continues to spend much of the day in bed and struggles to attend to personal care ADLs. Sleeping well and finding Ambien very beneficial. Physical Exam Psychiatric Orientation: alert and oriented x 3 Apperance: appropriately dressed and appropriately groomed Eye Contact: good eye contact Motor Behavior: steady gait and station and no abnormal motor movements Speech: normal rate/rhythm/volume of speech Affect: + tearful affect and + constricted affect Mood: + depressed mood and + anxious mood Thought Process: goal directed thought process Thought Content: reality based without delusions, + hopelessness, + worthlessness and + guilt Suicidal Thoughts: denies suicidal intent; + reports suicidal thoughts and + reports suicidal plan (none for hospital but worries she would act on thoughts at home) Homicidal Thoughts: denies homicidal thoughts Hallucinations: no auditory hallucinations and no visual hallucinations Cognition: recent memory grossly intact, remote memory grossly intact, attention grossly intact and language grossly intact Estimated Intelligence: consistent with education level Insight: + fair insight Judgment: + limited judgement Vital Signs (Past 24 Hours) Last Vital Signs Temp 36.6 C 10/01/24 06:00 Pulse 72 10/01/24 06:00 Resp 16 10/01/24 06:00 BP 124/88 10/01/24 06:29 Pulse Ox 96 10/01/24 06:00 O2 Del Method Room Air 10/01/24 06:00 Results & Data ([facility]) Current Inpatient Medications Current Inpatient Medications: Current Inpatient Medications Acetaminophen (Acetaminophen 325 Mg Tab) 650 mg PO Q4H PRN PRN Reason: Headache or Minor Fever Stop: 10/16/24 16:25 Al Hydrox/Mg Hydrox/Simethicone (Aluminum/Magnesium Susp 30 Ml Udc) 30 ml PO Q4H PRN PRN Reason: GI Upset Stop: 10/16/24 16:25 Aripiprazole (Aripiprazole 5 Mg Tab) 5 mg PO HS ARTHUR Stop: 10/26/24 21:59 Last Admin: 09/30/24 20:59 Dose: 5 mg Bismuth Subsalicylate (Bismuth Subsalicylate 262 Mg Chew) 2 tab PO Q30M PRN PRN Reason: Loose Stool/Diarrhea Stop: 10/16/24 16:25 Duloxetine HCl (Duloxetine Hcl 60 Mg Cap) 60 mg PO QAM ARTHUR Stop: 10/27/24 08:59 Last Admin: 10/01/24 08:47 Dose: 60 mg Ergocalciferol (Ergocalciferol 1250 Mcg (50,000 Units) Cap) 1,250 mcg PO WeSa@0900 ARTHUR Stop: 10/19/24 08:59 Last Admin: 09/29/24 09:07 Dose: 1,250 mcg Gabapentin (Gabapentin 300 Mg Cap) 300 mg PO BID ARTHUR Stop: 10/17/24 20:59 Last Admin: 10/01/24 08:47 Dose: 300 mg Hydroxyzine HCl (Hydroxyzine Hcl 25 Mg Tab) 50 mg PO HSZ PRN PRN Reason: Insomnia Stop: 10/16/24 16:25 Last Admin: 09/20/24 20:58 Dose: 50 mg Hydroxyzine HCl (Hydroxyzine Hcl 25 Mg Tab) 25 mg PO Q4H PRN PRN Reason: Anxiety Stop: 10/16/24 16:25 Last Admin: 09/20/24 08:44 Dose: 25 mg Lorazepam (Lorazepam 0.5 Mg Tab) 0.5 mg PO DAILY PRN PRN Reason: Anxiety Stop: 10/22/24 11:36 Last Admin: 09/28/24 21:13 Dose: 0.5 mg Magnesium Hydroxide (Magnesium Hydroxide Susp 30 Ml Udc) 30 ml PO DAILY PRN PRN Reason: Constipation Stop: 10/16/24 16:25 Meloxicam (Meloxicam 7.5 Mg Tab) 15 mg PO DAILY ARTHUR Stop: 10/18/24 08:59 Last Admin: 10/01/24 08:47 Dose: 15 mg Mirtazapine (Mirtazapine Tab 15 Mg Tab) 30 mg PO HS ARTHUR Stop: 10/18/24 21:59 Last Admin: 09/30/24 21:00 Dose: 30 mg Propranolol HCl (Propranolol Hcl 10 Mg Tab) 10 mg PO TID ARTHUR Stop: 10/22/24 11:29 Last Admin: 10/01/24 08:47 Dose: 10 mg Sodium Chloride (Sodium Chloride 0.65% Na Soln 45 Ml ([place])) 1 - 2 sprays NA PRN PRN PRN Reason: Nasal Dryness/Congestion Stop: 10/16/24 16:25 Sulfasalazine (Sulfasalazine 500 Mg Tablet) 1,000 mg PO TID ARTHUR Stop: 10/17/24 13:59 Last Admin: 10/01/24 08:48 Dose: 1,000 mg Zolpidem Tartrate (Zolpidem Tartrate 5 Mg Tab) 5 mg PO HS ARTHUR Stop: 10/21/24 21:59 Last Admin: 09/30/24 21:01 Dose: 5 mg Mental Health & Subst Abuse Tx Psychiatrist Name of Psychiatrist: [facility] Psych Clinic-Dr. Tsang Psychiatrist's Date Of Appointment With Psychiatric Provider: 10/10/2024 Time of Appointment with Psychiatrist: 2:15pm Psychiatric Appointment Comment: Appt from 09/27 was rescheduled. This will be a one hour appt Therapist Name of Therapist: [facility] Date of Therapist Appointment: 10/02/2024 Time of Therapist Appointment: 3:00pm Therapy Appointment Comment: Appt from 09/25 was rescheduled. Fisheries Officer Name of Fisheries Officer: [facility] Barbosa Date of Appointment with Fisheries Officer: 10/02/24 Time of Appointment with Fisheries Officer: 11AM Case Management Appointment Comment: He will meet you at your home Post Discharge Appointments Primary Care Physician Name Of Family Doctor/PCP: [facility]-Dr. Machuca Primary Care Date of Future Appointment with PCP: 10/30/2024 Time of Appointment with PCP: 8AM Provider Appointment Comment: New patient appt Contact Information Discharge Discharge Address: [address] [place] [address], [facility]
--- NOTE | 2024-10-02 08:57 | Psychiatric Progress Note ---
Date of Service October 02, 2024 Impression / Recommendations Impression BRADLEY ARELLANO is a 44-year-old woman who currently lives in [place] with shared custody of her daughter, has a history of major depressive disorder recurrent with treatment resistance requiring ECT and ketamine in the past, and was admitted on 09/16/24 16:07 on a 201 voluntary commitment for worsening depression, SI, poor self care. Diagnostically consistent with major depressive disorder, recurrent episode, severe with inability to meet her self-care needs including poor sleep and poor po intake consistent with significantly elevated ketones on UA. A:Mood slightly improved today, engaging more in groups and discussed ways to increase behavioral activation. She's thinking about ways to reduce anxiety about discharge as she is hopeful to return home in the coming days, discussed goal of potentially Tuesday if ongoing improvements in mood, attention to ADLs, and behavioral activation. Overall, I spent a total of 35 minutes on this case including meeting with the patient, reviewing the chart, nursing report, multidisciplinary team meeting, orders, and documentation. (1) MDD (major depressive disorder), recurrent episode, severe: Plan 10/02/2024: Continue current medications and tx plan. Ongoing focus on behavioral activation. -Fasting lipid panel and HBA1c tomorrow due to use of Abilify 10/01/2024: Continue current medications and tx plan 09/30/2024: Continue current medications and tx plan 09/29/2024: Continue current medications and tx plan 09/28/2024: Discharge cancelled today, will reassess appropriate day over weekend Continue medications and treatment plan 09/27/2024: Continue medications and treatment plan 09/26/2024: Increase Abilify to 5 mg at bedtime Increase duloxetine to 60 mg daily. 09/25/2024: Continue medications and treatment plan 09/24/2024: Discontinue magnesium citrate at night. 09/23/2024: -Increase Duloxetine to 40mg QAM 09/22/2024: -Start Abilify 2.5mg daily -Start Propranolol 10mg TID -Start Mg Citrate 148ml HS -Start Ativan 0.5mg QD PRN for anxiety 09/21/2024: -Start Ambien 5mg HS -Increase duloxetine to 30mg daily tomorrow -Discontinue clonidine given limited benefit 09/20/2024: -Discontinue modafinil -Reduce duloxetine to 20mg daily starting tomorrow -Start clonidine 0.1mg HS 09/19/2024: -Increase modafinil to 200mg daily -Continue mirtazapine and duloxetine 09/18/2024: -Monitor I&O -Increase mirtazapine to 30mg HS -Start duloxetine 30mg daily tomorrow am 09/17/2024: The patient was admitted to the [facility] ([facility]) on q15 min checks (behavioral with suicide precautions) for safety. The patient will participate in group, recreational, and milieu therapies and will be offered additional individual and family sessions as clinically appropriate. -Start mirtazapine 15mg HS and additional 15mg HS prn for insomnia -Start modafinil 100mg daily Inventory Assets Strengths: supportive relationships, willing to get treatment Needs: safety and stabilization, medication adjustment, additional coping skills, increased outpatient services Suicide Risk Level Suicide Risk Level: Moderate (q15 min suicide checks) (intermittent SI, feels safe in the hospital and feels able to ask for support if needed ) Risk Factors Assessment Male: No : No Do You Have Access To A Gun?: No Health Problems: Yes Mental Health Diagnoses: Yes Substance Use Disorders: No Previous Attempt: Yes Family History of Suicide: No Previous Psychiatric Hospitalization: Yes Hopelessness: Yes Protective Factors Assessment Employed: No Stable Relationships: Yes Good Rapport with Provider: Yes Interval History Identifying Information BRADLEY ARELLANO is a 44-year-old woman who currently lives in [place] with shared custody of her daughter, has a history of major depressive disorder recurrent with treatment resistance requiring ECT and ketamine in the past, and was admitted on 09/16/24 16:07 on a 201 voluntary commitment for worsening depr ession, SI, poor self care. Chief Complaint "Doing good". Review of Systems Sleep Information Total Hours of Sleep: 7.25 Meal Information Percent Meal Consumed - Breakfast: 80 Percent Meal Consumed - Lunch: 100 Percent Meal Consumed - Dinner: 30 Subjective Subjective Patient was seen & assessed and interval progress reviewed with nursing and social work. Only attending some groups. Requires a lot of encouragement to attend groups. Still spending a lot of time in bed. Had support meeting yesterday. Today has been out of bed and attending groups. Reading in common area around peers. She reports her mood is "doing good" today. She attributes this and her lessening of SI to being "passive" to talking with her daughter twice yesterday and realizing that her daughter "still needs me". She has thought about how to make discharge successful and would like to try for an afternoon discharge and potential utilize prn ativan as she thinks this will help her feel better prepared for discharge and less likely to be overwhelmed. Discussed timing and goal of ongoing behavioral activation and goal of taking a shower today or tomorrow. Physical Exam Psychiatric Orientation: alert and oriented x 3 Apperance: appropriately dressed and appropriately groomed Eye Contact: good eye contact Motor Behavior: steady gait and station and no abnormal motor movements Speech: normal rate/rhythm/volume of speech Affect: + tearful affect Mood: + depressed mood Thought Process: goal directed thought process Thought Content: reality based without delusions, + worthlessness and + guilt Suicidal Thoughts: denies suicidal plan and denies suicidal intent; + reports suicidal thoughts Homicidal Thoughts: denies homicidal thoughts Hallucinations: no auditory hallucinations and no visual hallucinations Cognition: recent memory grossly intact, remote memory grossly intact, attention grossly intact and language grossly intact Estimated Intelligence: consistent with education level Insight: + fair insight Judgment: + fair judgement Vital Signs (Past 24 Hours) Last Vital Signs Temp 36.6 C 10/02/24 06:00 Pulse 65 10/02/24 06:27 Resp 18 10/02/24 06:00 BP 147/95 H 10/02/24 06:27 Pulse Ox 94 10/02/24 06:00 O2 Del Method Room Air 10/02/24 06:00 Results & Data ([facility]) Current Inpatient Medications Current Inpatient Medications: Current Inpatient Medications Acetaminophen (Acetaminophen 325 Mg Tab) 650 mg PO Q4H PRN PRN Reason: Headache or Minor Fever Stop: 10/16/24 16:25 Al Hydrox/Mg Hydrox/Simethicone (Aluminum/Magnesium Susp 30 Ml Udc) 30 ml PO Q4H PRN PRN Reason: GI Upset Stop: 10/16/24 16:25 Aripiprazole (Aripiprazole 5 Mg Tab) 5 mg PO HS ARTHUR Stop: 10/26/24 21:59 Last Admin: 10/01/24 20:50 Dose: 5 mg Bismuth Subsalicylate (Bismuth Subsalicylate 262 Mg Chew) 2 tab PO Q30M PRN PRN Reason: Loose Stool/Diarrhea Stop: 10/16/24 16:25 Duloxetine HCl (Duloxetine Hcl 60 Mg Cap) 60 mg PO QAM ARTHUR Stop: 10/27/24 08:59 Last Admin: 10/01/24 08:47 Dose: 60 mg Ergocalciferol (Ergocalciferol 1250 Mcg (50,000 Units) Cap) 1,250 mcg PO WeSa@0900 ARTHUR Stop: 10/19/24 08:59 Last Admin: 09/29/24 09:07 Dose: 1,250 mcg Gabapentin (Gabapentin 300 Mg Cap) 300 mg PO BID ARTHUR Stop: 10/17/24 20:59 Last Admin: 10/01/24 20:50 Dose: 300 mg Hydroxyzine HCl (Hydroxyzine Hcl 25 Mg Tab) 50 mg PO HSZ PRN PRN Reason: Insomnia Stop: 10/16/24 16:25 Last Admin: 09/20/24 20:58 Dose: 50 mg Hydroxyzine HCl (Hydroxyzine Hcl 25 Mg Tab) 25 mg PO Q4H PRN PRN Reason: Anxiety Stop: 10/16/24 16:25 Last Admin: 09/20/24 08:44 Dose: 25 mg Lorazepam (Lorazepam 0.5 Mg Tab) 0.5 mg PO DAILY PRN PRN Reason: Anxiety Stop: 10/22/24 11:36 Last Admin: 09/28/24 21:13 Dose: 0.5 mg Magnesium Hydroxide (Magnesium Hydroxide Susp 30 Ml Udc) 30 ml PO DAILY PRN PRN Reason: Constipation Stop: 10/16/24 16:25 Meloxicam (Meloxicam 7.5 Mg Tab) 15 mg PO DAILY ARTHUR Stop: 10/18/24 08:59 Last Admin: 10/01/24 08:47 Dose: 15 mg Mirtazapine (Mirtazapine Tab 15 Mg Tab) 30 mg PO HS ARTHUR Stop: 10/18/24 21:59 Last Admin: 10/01/24 20:50 Dose: 30 mg Propranolol HCl (Propranolol Hcl 10 Mg Tab) 10 mg PO TID ARTHUR Stop: 10/22/24 11:29 Last Admin: 10/01/24 20:50 Dose: 10 mg Sodium Chloride (Sodium Chloride 0.65% Na Soln 45 Ml (Kidron)) 1 - 2 sprays NA PRN PRN PRN Reason: Nasal Dryness/Congestion Stop: 10/16/24 16:25 Sulfasalazine (Sulfasalazine 500 Mg Tablet) 1,000 mg PO TID ARTHUR Stop: 10/17/24 13:59 Last Admin: 10/01/24 20:50 Dose: 1,000 mg Zolpidem Tartrate (Zolpidem Tartrate 5 Mg Tab) 5 mg PO HS ARTHUR Stop: 10/21/24 21:59 Last Admin: 10/01/24 20:50 Dose: 5 mg Mental Health & Subst Abuse Tx Psychiatrist Name of Psychiatrist: [facility]-Dr. Tsang Psychiatrist's Date Of Appointment With Psychiatric Provider: 10/10/2024 Time of Appointment with Psychiatrist: 2:00pm Psychiatric Appointment Comment: Appt from 09/27 was rescheduled. This will be a one hour appt Therapist Name of Therapist: [facility] Date of Therapist Appointment: 10/02/2024 Time of Therapist Appointment: 3:00pm Therapy Appointment Comment: Awaiting call back from Mitch to reschedule Fender Finisher Name of Fender Finisher: [facility]-MILADY Barbosa Date of Appointment with Fender Finisher: 10/04/24 Time of Appointment with Fender Finisher: 4:00 PM Case Management Appointment Comment: He will meet you at your home Post Discharge Appointments Primary Care Physician Name Of Family Doctor/PCP: [facility]-Dr. Machuca Primary Care Date of Future Appointment with PCP: 10/30/2024 Time of Appointment with PCP: 8AM Provider Appointment Comment: New patient appt Contact Information Discharge Discharge Address: [address] [place] [address], [place] [address]
[2024-10-03 07:38] LABS: Chol HDL Ratio 4.4 (0-5)
--- NOTE | 2024-10-03 09:01 | Psychiatric Progress Note ---
Date of Service October 03, 2024 Impression / Recommendations Impression BRADLEY ARELLANO is a 44-year-old woman who currently lives in [place] with shared custody of her daughter, has a history of major depressive disorder recurrent with treatment resistance requiring ECT and ketamine in the past, and was admitted on 09/16/24 16:07 on a 201 voluntary commitment for worsening depression, SI, poor self care. Diagnostically consistent with major depressive disorder, recurrent episode, severe with inability to meet her self-care needs including poor sleep and poor po intake consistent with significantly elevated ketones on UA. A:Mood slightly worse today but engaging in more groups and ADLs overall, showered today. Tolerating medications, reviewed fasting lipid panel notable for elevated total cholesterol and LDL. She prefers to recheck after some time on Abilify and then if remains high consideration to stop Abilify given past bad reaction to statin use. HbA1c still pending. Overall, I spent a total of 30 minutes on this case including meeting with the patient, reviewing the chart, nursing report, multidisciplinary team meeting, orders, and documentation. (1) MDD (major depressive disorder), recurrent episode, severe: Plan 10/03/2024: -Ongoing behavioral activation 10/02/2024: Continue current medications and tx plan. Ongoing focus on behavioral activation. -Fasting lipid panel and HBA1c tomorrow due to use of Abilify 10/01/2024: Continue current medications and tx plan 09/30/2024: Continue current medications and tx plan 09/29/2024: Continue current medications and tx plan 09/28/2024: Discharge cancelled today, will reassess appropriate day over weekend Continue medications and treatment plan 09/27/2024: Continue medications and treatment plan 09/26/2024: Increase Abilify to 5 mg at bedtime Increase duloxetine to 60 mg daily. 09/25/2024: Continue medications and treatment plan 09/24/2024: Discontinue magnesium citrate at night. 09/23/2024: -Increase Duloxetine to 40mg QAM 09/22/2024: -Start Abilify 2.5mg daily -Start Propranolol 10mg TID -Start Mg Citrate 148ml HS -Start Ativan 0.5mg QD PRN for anxiety 09/21/2024: -Start Ambien 5mg HS -Increase duloxetine to 30mg daily tomorrow -Discontinue clonidine given limited benefit 09/20/2024: -Discontinue modafinil -Reduce duloxetine to 20mg daily starting tomorrow -Start clonidine 0.1mg HS 09/19/2024: -Increase modafinil to 200mg daily -Continue mirtazapine and duloxetine 09/18/2024: -Monitor I&O -Increase mirtazapine to 30mg HS -Start duloxetine 30mg daily tomorrow am 09/17/2024: The patient was admitted to the [facility] ([facility] mental health unit) on q15 min checks (behavioral with suicide precautions) for safety. The patient will participate in group, recreational, and milieu therapies and will be offer ed additional individual and family sessions as clinically appropriate. -Start mirtazapine 15mg HS and additional 15mg HS prn for insomnia -Start modafinil 100mg daily Inventory Assets Strengths: supportive relationships, willing to get treatment Needs: safety and stabilization, medication adjustment, additional coping skills, increased outpatient services Suicide Risk Level Suicide Risk Level: Moderate (q15 min suicide checks) (intermittent SI, feels safe in the hospital and feels able to ask for support if needed ) Risk Factors Assessment Male: No : No Do You Have Access To A Gun?: No Health Problems: Yes Mental Health Diagnoses: Yes Substance Use Disorders: No Previous Attempt: Yes Family History of Suicide: No Previous Psychiatric Hospitalization: Yes Hopelessness: Yes Protective Factors Assessment Employed: No Stable Relationships: Yes Good Rapport with Provider: Yes Interval History Identifying Information BRADLEY ARELLANO is a 44-year-old woman who currently lives in [place] with shared custody of her daughter, has a history of major depressive disorder recurrent with treatment resistance requiring ECT and ketamine in the past, and was admitted on 09/16/24 16:07 on a 201 voluntary commitment for worsening depression, SI, poor self care. Chief Complaint "Really tired after lunch". Review of Systems Sleep Information Total Hours of Sleep: 8.5 Meal Information Percent Meal Consumed - Breakfast: 100 Percent Meal Consumed - Lunch: 100 Percent Meal Consumed - Dinner: 100 Subjective Subjective Patient was seen & assessed and interval progress reviewed with treatment team. Attended all groups. Out of her room yesterday. Today lying in bed after lunch, reports increased fatigue. Feels more down today, she's not sure why. Slept well last night. Reports previous bad reaction to statin use but feels her fasting lipid panel is lower than it's been in the past, still awaiting HbA1c result. Passive SI today. Was able to shower this morning. Physical Exam Psychiatric Orientation: alert and oriented x 3 Apperance: appropriately dressed and appropriately groomed Eye Contact: good eye contact Motor Behavior: steady gait and station and no abnormal motor movements Speech: normal rate/rhythm/volume of speech Affect: + depressed affect and + constricted affect Mood: + depressed mood Thought Process: goal directed thought process Thought Content: reality based without delusions Suicidal Thoughts: denies suicidal plan and denies suicidal intent; + reports suicidal thoughts (passive) Homicidal Thoughts: denies homicidal thoughts Hallucinations: no auditory hallucinations and no visual hallucinations Cognition: recent memory grossly intact, remote memory grossly intact, attention grossly intact and language grossly intact Estimated Intelligence: consistent with education level Insight: + fair insight Judgment: + fair judgement Vital Signs (Past 24 Hours) Last Vital Signs Temp 36.6 C 10/03/24 06:00 Pulse 86 10/03/24 06:00 Resp 16 10/03/24 06:00 BP 132/83 10/03/24 06:32 Pulse Ox 96 10/03/24 06:00 O2 Del Method Room Air 10/03/24 06:00 Results & Data ([facility]) Laboratory Results Laboratory Results - last 24 hr 10/03/24 07:01 Estimat Average Glucose Pending Hemoglobin A1c Pending Triglycerides 89 Cholesterol 220 H LDL Cholesterol, Calc 152 VLDL Cholesterol, Calc 18 HDL Cholesterol 50 Cholesterol/HDL Ratio 4.4 Current Inpatient Medications Current Inpatient Medications: Current Inpatient Medications Acetaminophen (Acetaminophen 325 Mg Tab) 650 mg PO Q4H PRN PRN Reason: Headache or Minor Fever Stop: 10/16/24 16:25 Al Hydrox/Mg Hydrox/Simethicone (Aluminum/Magnesium Susp 30 Ml Udc) 30 ml PO Q4H PRN PRN Reason: GI Upset Stop: 10/16/24 16:25 Aripiprazole (Aripiprazole 5 Mg Tab) 5 mg PO HS ARTHUR Stop: 10/26/24 21:59 Last Admin: 10/02/24 21:24 Dose: 5 mg Bismuth Subsalicylate (Bismuth Subsalicylate 262 Mg Chew) 2 tab PO Q30M PRN PRN Reason: Loose Stool/Diarrhea Stop: 10/16/24 16:25 Duloxetine HCl (Duloxetine Hcl 60 Mg Cap) 60 mg PO QAM [facility] Stop: 10/27/24 08:59 Last Admin: 10/02/24 09:11 Dose: 60 mg Ergocalciferol (Ergocalciferol 1250 Mcg (50,000 Units) Cap) 1,250 mcg PO WeSa@0900 ARTHUR Stop: 10/19/24 08:59 Last Admin: 09/29/24 09:07 Dose: 1,250 mcg Gabapentin (Gabapentin 300 Mg Cap) 300 mg PO BID ARTHUR Stop: 10/17/24 20:59 Last Admin: 10/02/24 21:24 Dose: 300 mg Hydroxyzine HCl (Hydroxyzine Hcl 25 Mg Tab) 50 mg PO HSZ PRN PRN Reason: Insomnia Stop: 10/16/24 16:25 Last Admin: 09/20/24 20:58 Dose: 50 mg Hydroxyzine HCl (Hydroxyzine Hcl 25 Mg Tab) 25 mg PO Q4H PRN PRN Reason: Anxiety Stop: 10/16/24 16:25 Last Admin: 09/20/24 08:44 Dose: 25 mg Lorazepam (Lorazepam 0.5 Mg Tab) 0.5 mg PO DAILY PRN PRN Reason: Anxiety Stop: 10/22/24 11:36 Last Admin: 10/02/24 09:18 Dose: 0.5 mg Magnesium Hydroxide (Magnesium Hydroxide Susp 30 Ml Udc) 30 ml PO DAILY PRN PRN Reason: Constipation Stop: 10/16/24 16:25 Meloxicam (Meloxicam 7.5 Mg Tab) 15 mg PO DAILY ARTHUR Stop: 10/18/24 08:59 Last Admin: 10/02/24 09:12 Dose: 15 mg Mirtazapine (Mirtazapine Tab 15 Mg Tab) 30 mg PO HS ARTHUR Stop: 10/18/24 21:59 Last Admin: 10/02/24 21:23 Dose: 30 mg Propranolol HCl (Propranolol Hcl 10 Mg Tab) 10 mg PO TID ARTHUR Stop: 10/22/24 11:29 Last Admin: 10/02/24 21:23 Dose: 10 mg Sodium Chloride (Sodium Chloride 0.65% Na Soln 45 Ml ([place]man)) 1 - 2 sprays NA PRN PRN PRN Reason: Nasal Dryness/Congestion Stop: 10/16/24 16:25 Sulfasalazine (Sulfasalazine 500 Mg Tablet) 1,000 mg PO TID ARTHUR Stop: 10/17/24 13:59 Last Admin: 10/02/24 21:23 Dose: 1,000 mg Zolpidem Tartrate (Zolpidem Tartrate 5 Mg Tab) 5 mg PO HS ARTHUR Stop: 10/21/24 21:59 Last Admin: 10/02/24 21:24 Dose: 5 mg Mental Health & Subst Abuse Tx Psychiatrist Name of Psychiatrist: [facility] Psych Clinic-Dr. Tsang Psychiatrist's Date Of Appointment With Psychiatric Provider: 10/10/2024 Time of Appointment with Psychiatrist: 2:00pm Psychiatric Appointment Comment: Appt from 09/27 was rescheduled. This will be a one hour appt Therapist Name of Therapist: [facility] Date of Therapist Appointment: 10/02/2024 Time of Therapist Appointment: 3:00pm Therapy Appointment Comment: Awaiting call back from Mitch to reschedule Tea Bag Packer Name of Tea Bag Packer: [facility]MILADY Barbosa Date of Appointment with Tea Bag Packer: 10/04/24 Time of Appointment with Tea Bag Packer: 4:00 PM Case Management Appointment Comment: He will meet you at your home Post Discharge Appointments Primary Care Physician Name Of Family Doctor/PCP: [facility]-Dr. Machuca Primary Care Date of Future Appointment with PCP: 10/30/2024 Time of Appointment with PCP: 8AM Provider Appointment Comment: New patient appt Contact Information Discharge Discharge Address: [address] [place] [address], [place] [address]
--- NOTE | 2024-10-04 08:51 | Psychiatric Progress Note ---
Date of Service October 04, 2024 Impression / Recommendations Impression BRADLEY ARELLANO is a 44-year-old woman who currently lives in [place] with shared custody of her daughter, has a history of major depressive disorder recurrent with treatment resistance requiring ECT and ketamine in the past, and was admitted on 09/16/24 16:07 on a 201 voluntary commitment for worsening depression, SI, poor self care. Diagnostically consistent with major depressive disorder, recurrent episode, severe with inability to meet her self-care needs including poor sleep and poor po intake consistent with significantly elevated ketones on UA. A:Gradual improvement in mood today, tolerating medications, continues to sleep well. HbA1c still pending. Feeling safe and looking forward to starting TMS in the outpatient setting. Overall, I spent a total of 35 minutes on this case including meeting with the patient, reviewing the chart, nursing report, multidisciplinary team meeting, orders, and documentation. (1) MDD (major depressive disorder), recurrent episode, severe: Plan 10/04/2024: -Continue current medications and tx plan -Discussed TMS 10/03/2024: -Ongoing behavioral activation 10/02/2024: Continue current medications and tx plan. Ongoing focus on behavioral activation. -Fasting lipid panel and HBA1c tomorrow due to use of Abilify 10/01/2024: Continue current medications and tx plan 09/30/2024: Continue current medications and tx plan 09/29/2024: Continue current medications and tx plan 09/28/2024: Discharge cancelled today, will reassess appropriate day over weekend Continue medications and treatment plan 09/27/2024: Continue medications and treatment plan 09/26/2024: Increase Abilify to 5 mg at bedtime Increase duloxetine to 60 mg daily. 09/25/2024: Continue medications and treatment plan 09/24/2024: Discontinue magnesium citrate at night. 09/23/2024: -Increase Duloxetine to 40mg QAM 09/22/2024: -Start Abilify 2.5mg daily -Start Propranolol 10mg TID -Start Mg Citrate 148ml HS -Start Ativan 0.5mg QD PRN for anxiety 09/21/2024: -Start Ambien 5mg HS -Increase duloxetine to 30mg daily tomorrow -Discontinue clonidine given limited benefit 09/20/2024: -Discontinue modafinil -Reduce duloxetine to 20mg daily starting tomorrow -Start clonidine 0.1mg HS 09/19/2024: -Increase modafinil to 200mg daily -Continue mirtazapine and duloxetine 09/18/2024: -Monitor I&O -Increase mirtazapine to 30mg HS -Start duloxetine 30mg daily tomorrow am 09/17/2024: The patient was admitted to the [facility] ([facility] mental health unit) on q15 min checks (behavioral with suicide precautions) for safety. The patient will participate in group, recreational, and milieu therapies and will be offered additional individual and family sessions as clinically appropriate. -Start mirtazapine 15mg HS and additional 15mg HS prn for insomnia -Start modafinil 100mg daily Inventory Assets Strengths: supportive relationships, willing to get treatment Needs: safety and stabilization, medication adjustment, additional coping skills, increased outpatient services Suicide Risk Level Suicide Risk Level: Moderate (q15 min suicide checks) (intermittent SI, feels safe in the hospital and feels able to ask for support if needed ) Risk Factors Assessment Male: No : No Do You Have Access To A Gun?: No Health Problems: Yes Mental Health Diagnoses: Yes Substance Use Disorders: No Previous Attempt: Yes Family History of Suicide: No Previous Psychiatric Hospitalization: Yes Hopelessness: Yes Protective Factors Assessment Employed: No Stable Relationships: Yes Good Rapport with Provider: Yes Interval History Identifying Information BRADLEY ARELLANO is a 44-year-old woman who currently lives in [place] with shared custody of her daughter, has a history of major depressive disorder recurrent with treatment resistance requiring ECT and ketamine in the past, and was admitted on 09/16/24 16:07 on a 201 voluntary commitment for worsening depression, SI, poor self care. Chief Complaint "I'm ok". Review of Systems Sleep Information Total Hours of Sleep: 8.25 Meal Information Percent Meal Consumed - Breakfast: 100 Percent Meal Consumed - Lunch: 50 Percent Meal Consumed - Dinner: 80 Subjective Subjective Patient was seen & assessed and interval progress reviewed with nursing and soc ial work. Ate dinner then read and went to bed. Did not attend evening groups. Attending groups today, spending time in milieu reading. Smiling more. Feels ready for discharge tomorrow, her friend will be picking her up. Discussed that TMS intake date has been scheduled. Physical Exam Psychiatric Orientation: alert and oriented x 3 Apperance: appropriately dressed and appropriately groomed Eye Contact: good eye contact Motor Behavior: steady gait and station and no abnormal motor movements Speech: normal rate/rhythm/volume of speech Affect: + constricted affect (but with more smiles) Mood: + depressed mood Thought Process: goal directed thought process Thought Content: reality based without delusions Suicidal Thoughts: denies suicidal thoughts, denies suicidal plan and denies suicidal intent Homicidal Thoughts: denies homicidal thoughts Hallucinations: no auditory hallucinations and no visual hallucinations Cognition: recent memory grossly intact, remote memory grossly intact, attention grossly intact and language grossly intact Estimated Intelligence: consistent with education level Insight: + fair insight Judgment: + fair judgement Vital Signs (Past 24 Hours) Last Vital Signs Temp 36.8 C 10/04/24 06:29 Pulse 76 10/04/24 06:29 Resp 16 10/04/24 06:29 BP 121/82 10/04/24 06:30 Pulse Ox 94 10/04/24 06:29 O2 Del Method Room Air 10/04/24 06:29 Results & Data ([facility]) Laboratory Results Laboratory Results - last 24 hr 10/03/24 10/03/24 07:01 07:01 Estimat Average Glucose Cancelled Estimated Ave Glu mmol/L Pending Estimated Ave Glu mg/dL Pending Hemoglobin A1c Cancelled Pending Current Inpatient Medications Current Inpatient Medications: Current Inpatient Medications Acetaminophen (Acetaminophen 325 Mg Tab) 650 mg PO Q4H PRN PRN Reason: Headache or Minor Fever Stop: 10/16/24 16:25 Al Hydrox/Mg Hydrox/Simethicone (Aluminum/Magnesium Susp 30 Ml Udc) 30 ml PO Q4H PRN PRN Reason: GI Upset Stop: 10/16/24 16:25 Aripiprazole (Aripiprazole 5 Mg Tab) 5 mg PO HS ARTHUR Stop: 10/26/24 21:59 Last Admin: 10/03/24 20:33 Dose: 5 mg Bismuth Subsalicylate (Bismuth Subsalicylate 262 Mg Chew) 2 tab PO Q30M PRN PRN Reason: Loose Stool/Diarrhea Stop: 10/16/24 16:25 Duloxetine HCl (Duloxetine Hcl 60 Mg Cap) 60 mg PO QAM ARTHUR Stop: 10/27/24 08:59 Last Admin: 10/04/24 08:33 Dose: 60 mg Ergocalciferol (Ergocalciferol 1250 Mcg (50,000 Units) Cap) 1,250 mcg PO WeSa@0900 ARTHUR Stop: 10/19/24 08:59 Last Admin: 10/03/24 08:59 Dose: 1,250 mcg Gabapentin (Gabapentin 300 Mg Cap) 300 mg PO BID ARTHUR Stop: 10/17/24 20:59 Last Admin: 10/04/24 08:33 Dose: 300 mg Hydroxyzine HCl (Hydroxyzine Hcl 25 Mg Tab) 50 mg PO HSZ PRN PRN Reason: Insomnia Stop: 10/16/24 16:25 Last Admin: 09/20/24 20:58 Dose: 50 mg Hydroxyzine HCl (Hydroxyzine Hcl 25 Mg Tab) 25 mg PO Q4H PRN PRN Reason: Anxiety Stop: 10/16/24 16:25 Last Admin: 09/20/24 08:44 Dose: 25 mg Lorazepam (Lorazepam 0.5 Mg Tab) 0.5 mg PO DAILY PRN PRN Reason: Anxiety Stop: 10/22/24 11:36 Last Admin: 10/02/24 09:18 Dose: 0.5 mg Magnesium Hydroxide (Magnesium Hydroxide Susp 30 Ml Udc) 30 ml PO DAILY PRN PRN Reason: Constipation Stop: 10/16/24 16:25 Meloxicam (Meloxicam 7.5 Mg Tab) 15 mg PO DAILY ARTHUR Stop: 10/18/24 08:59 Last Admin: 10/04/24 08:33 Dose: 15 mg Mirtazapine (Mirtazapine Tab 15 Mg Tab) 30 mg PO HS ARTHUR Stop: 10/18/24 21:59 Last Admin: 10/03/24 20:35 Dose: 30 mg Propranolol HCl (Propranolol Hcl 10 Mg Tab) 10 mg PO TID ARTHUR Stop: 10/22/24 11:29 Last Admin: 10/04/24 08:34 Dose: 10 mg Sodium Chloride (Sodium Chloride 0.65% Na Soln 45 Ml (Cole)) 1 - 2 sprays NA PRN PRN PRN Reason: Nasal Dryness/Congestion Stop: 10/16/24 16:25 Sulfasalazine (Sulfasalazine 500 Mg Tablet) 1,000 mg PO TID ARTHUR Stop: 10/17/24 13:59 Last Admin: 10/04/24 08:34 Dose: 1,000 mg Zolpidem Tartrate (Zolpidem Tartrate 5 Mg Tab) 5 mg PO HS ARTHUR Stop: 10/21/24 21:59 Last Admin: 10/03/24 20:34 Dose: 5 mg Mental Health & Subst Abuse Tx Psychiatrist Name of Psychiatrist: [facility]-Dr. Tsang Psychiatrist's Date Of Appointment With Psychiatric Provider: 10/10/2024 Time of Appointment with Psychiatrist: 2:00pm Psychiatric Appointment Comment: Appt from 09/27 was rescheduled. This will be a one hour appt Therapist Name of Therapist: [facility]Mitch Therapist's Date of Therapist Appointment: 10/09/2024 Time of Therapist Appointment: 3:00pm Therapy Appointment Comment: Awaiting call back from Mitch to reschedule Numerical Control Tool Programmer Name of Numerical Control Tool Programmer: [facility]MILADY Barbosa Date of Appointment with Numerical Control Tool Programmer: 10/04/24 Time of Appointment with Numerical Control Tool Programmer: 4:00 PM Case Management Appointment Comment: He will meet you at your home Post Discharge Appointments Primary Care Physician Name Of Family Doctor/PCP: [facility]-Dr. Machuca Primary Care Date of Future Appointment with PCP: 10/30/2024 Time of Appointment with PCP: 8AM Provider Appointment Comment: New patient appt Contact Information Discharge Discharge Address: [address] [place] [address]
[2024-10-05 06:54] VITALS: TEMP 97.6; O2SAT 97
--- NOTE | 2024-10-05 10:35 | Discharge Summary ---
Date of Service October 05, 2024 History of Present Illness Alfredito presents for increased depressive symptoms over the last 3.5 weeks. She was hospitalized for about a month last year with discharge in October 2023 on nortriptyline but ultimately had to taper off this due to side effects including balance issues. Since about November 2023 she has been off all psychiatric medications with stable mood until 3.5 weeks ago. 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 She reports depressive symptoms of severe low energy to the point that she hardly gets out of bed, hasn't been showering, hardly eating, not sleeping despite spending most of the day in bed, low motivation, anhedonia, hopelessness, helplessness, and passive SI of wishing she could be . She denies any symptoms of anxiety "not really". She has not been taking any psychiatric medications except for 5-6 tabs over the last 3.5 weeks of an old script of Seroquel 25mg HS with some benefit for sleep. Psychiatric ROS notable for denial of history or current symptoms of hermilo nor psychosis nor OCD nor eating disorder. Physical Exam Vital Signs (Past 24 Hours) Last Vital Signs Temp 36.4 C 10/05/24 06:00 Pulse 65 10/05/24 06:00 Resp 14 10/05/24 06:00 BP 111/78 10/05/24 06:00 Pulse Ox 97 10/05/24 06:00 O2 Del Method Room Air 10/05/24 06:00 Principal Diagnosis Major Depressive Disorder, recurrent, severe Psychiatric Data See daily stay summary. In short, patient was engaged with the social/therapeutic milieu of the unit, safety was maintained and the patient was cooperative with care. Medication changes included initiation of Abilify for depression augmentation, Ambien for insomnia, mirtazapine for depression, Cymbalta for depression, propranolol as off label use for anxiety and Ativan as needed for panic attacks (ideal use only 1-2 times per month) and they tolerated this well. Baseline labs of fasting glucose, fasting lipid profile, and weight were preformed (see labwork results below, HbA1c level still pending). Recommend repeat weight in one month. Recommend repeat fasting glucose, HbA1c and fasting lipid profile every 12 weeks and then annually. If symptoms arise recommend checking BP, EKG, prolactin level as clinically indicated or relevant. A support session was held and safety plan was completed prior to discharge. They participated in safety planning and in discussions about ways to seek support and recognizing warning signs and utilizing coping skills. Reviewed ways to have their safety plan and contacts easily available should thoughts of SI re-emerge in the future. Reviewed importance of seeking emergency care should SI intensify, worsen or should they feel unsafe in the future which they agree to do. On the day of discharge they stated their mood was "good" and remained future-oriented including spending time with her daughter and dog , relaxing and engaging in aftercare appointments for psychiatry, therapy and case management and TMS intake. Day of Discharge Assessment Today the patient voices readiness for discharge. They note improvement in mood and anxiety. They deny thoughts of harm to self or others. Thoughts remain organized and they are clinically improved from admission. There is no evidence of psychosis. They improved in the hospital with support and medication adjustments. They agree to take medications as prescribed and keep follow-up appointments. At the time of the discharge they are deemed to be stable and appropriate for outpatient level of care. They are not deemed to be at imminent risk of harm to self or others. They are aware of emergency and crisis services. Knows to call 911 or go to nearest emergency care center if in a crisis which cannot be handled as an outpatient. Suicide risk assessment: Acute risk is low given improvement in mood and denial of SI, lack of access to lethal means, improvement in sleep, hopefulness. Chronic risk is moderate to high given some non-modifiable risk factors: psychiatric co-morbid diagnoses, prior attempt, prior psychiatric hospitalizations, but also with protective factors including good social support, sense of responsibility to family and social supports, outpatient care in place, positive coping skills, positive problem solving and willingness to engage with treatment self-observation. Counseled on ways to reduce acute and chronic risk including engaging with outpatient providers, using safety plan if needed, utilizing supports, taking medication, and using coping skills. Modifiable risk factors of SI and depression were addressed during hospitalization through development of new coping skills, support meeting, safety planning, referral for outpatient TMS and medication adjustments. Discharge physical exam: See admission H&P, MSE per above and day of discharge summary. Overall, I spent a total of 35 minutes on this case including meeting with the patient, reviewing the chart, nursing report, multidisciplinary team meeting, discharge orders, anticipatory planning, safety planning, risk assessment and documentation. Transition of Care Transition Of Care Record: was reviewed with the patient Advance Directives Advance Directives Information Provided: Yes Advance Directives: No Mental Health Advance Directive: No Advance Directives on File: No Living Will: No Power of Telemarketing Manager: No Advance Directives Reason:: Declines as Mental Health Visit. Suicide Risk Level Suicide Risk Level Comments: acute risk is low given denial of SI, future oriented see further assessment above. Risk Factors Assessment Male: No : No Do You Have Access To A Gun?: No Health Problems: Yes Mental Health Diagnoses: Yes Substance Use Disorders: No Previous Attempt: Yes Family History of Suicide: No Previous Psychiatric Hospitalization: Yes Hopelessness: No Protective Factors Assessment Employed: No Stable Relationships: Yes Supportive Family: Yes (daughter) Good Rapport with Provider: Yes Discharge Data Lab Results 09/16/24 09/16/24 09/16/24 12:25 12:30 16:50 WBC 7.60 RBC 3.94 L Hgb 12.8 Hct 37.7 MCV 95.7 MCH 32.5 MCHC 34.0 RDW Std Deviation 44.9 RDW Coeff of Bill 12.6 Plt Count 355 MPV 9.7 Immature Gran % (Auto) 0.4 Neut % (Auto) 65.4 Lymph % (Auto) 25.0 Bennett % (Auto) 8.8 Eos % (Auto) 0.0 Baso % (Auto) 0.4 Neut # (Auto) 4.97 Lymph # (Auto) 1.90 Bennett # (Auto) 0.67 H Eos # (Auto) 0.00 Baso # (Auto) 0.03 Immature Gran # (Auto) 0.03 Sodium 136 Potassium 3.6 Chloride 103 Carbon Dioxide 24 Anion Gap 9 BUN 17 Creatinine 0.68 Est Cr Clr Drug Dosing 102.6 eGFR 108.71 BUN/Creatinine Ratio 25.0 H Glucose 93 Estimat Average Glucose Hemoglobin A1c Calcium 9.3 Total Bilirubin 1.0 AST 11 L ALT 6 L Alkaline Phosphatase 32 L Total Protein 7.6 Albumin 4.7 Globulin 2.9 Albumin/Globulin Ratio 1.6 Triglycerides Cholesterol LDL Cholesterol, Calc VLDL Cholesterol, Calc HDL Cholesterol Cholesterol/HDL Ratio TSH 0.789 HCG, Qual Negative Urine Color Dark Yellow Dark Yellow Urine Appearance Turbid A Cloudy A Urine pH 5.0 6.0 Ur Specific Wilberforce 1.029 1.033 H Urine Protein Trace H Trace H Urine Glucose (UA) Negative Negative Urine Ketones 3+ H 3+ H Urine Blood Trace H Negative Urine Nitrite Negative Positive A Urine Bilirubin 1+ H 1+ H Urine Urobilinogen Negative Positive H Ur Leukocyte Esterase 2+ H 1+ H Urine WBC (Auto) 21-50 H 0-5 Urine RBC (Auto) 11-20 H 11-20 H U Hyaline Cast (Auto) 0-2 0-2 U Epithel Cells (Auto) >20 H 6-10 H Urine Bacteria (Auto) 4+ H 1+ H Urine Mucus Present A Present A Salicylates < 3.0 L Urine Opiates Screen Neg Cancelled Ur Methadone, Qual Neg Cancelled Fentanyl Comments SEE NOTE Drug Monitor Fentanyl DNR Fentanyl Confirmation NEGATIVE Drug Monitor Norfentanyl DNR Urine Fentanyl Screen Pos H Cancelled Ur Norfentanyl Confirm NEGATIVE Acetaminophen 8 L Urine Barbiturates Neg Cancelled Ur Phencyclidine (PCP) Neg Cancelled U Amphetamin/Meth Scrn Neg Cancelled MDMA (Ecstasy) Screen Neg Cancelled U Benzodiazepines Scrn Neg Cancelled U Cocaine Confirm GC/MS NEGATIVE Ur Cocaine Metabolite Pos H Cancelled U Marijuana (THC) Screen Neg Cancelled Drug Screen Comment SEE NOTE Ethyl Alcohol mg/dL < 10.0 Toxicology Comment SEE NOTE Drug Monitor Historic Res DNR SARS-CoV-2, RNA, NAAT NEGATIVE 09/18/24 10/03/24 07:55 07:01 WBC RBC Hgb Hct MCV MCH MCHC RDW Std Deviation RDW Coeff of Bill Plt Count MPV Immature Gran % (Auto) Neut % (Auto) Lymph % (Auto) Bennett % (Auto) Eos % (Auto) Baso % (Auto) Neut # (Auto) Lymph # (Auto) Bennett # (Auto) Eos # (Auto) Baso # (Auto) Immature Gran # (Auto) Sodium Potassium Chloride Carbon Dioxide Anion Gap BUN Creatinine Est Cr Clr Drug Dosing eGFR BUN/Creatinine Ratio Glucose Estimat Average Glucose Cancelled Hemoglobin A1c Cancelled Calcium Total Bilirubin AST ALT Alkaline Phosphatase Total Protein Albumin Globulin Albumin/Globulin Ratio Triglycerides 89 Cholesterol 220 H LDL Cholesterol, Calc 152 VLDL Cholesterol, Calc 18 HDL Cholesterol 50 Cholesterol/HDL Ratio 4.4 TSH HCG, Qual Urine Color Urine Appearance Urine pH Ur Specific Wilberforce Urine Protein Urine Glucose (UA) Urine Ketones Urine Blood Urine Nitrite Urine Bilirubin Urine Urobilinogen Ur Leukocyte Esterase Urine WBC (Auto) Urine RBC (Auto) U Hyaline Cast (Auto) U Epithel Cells (Auto) Urine Bacteria (Auto) Urine Mucus Salicylates Urine Opiates Screen Neg Ur Methadone, Qual Neg Fentanyl Comments Drug Monitor Fentanyl Fentanyl Confirmation Drug Monitor Norfentanyl Urine Fentanyl Screen Neg Ur Norfentanyl Confirm Acetaminophen Urine Barbiturates Neg Ur Phencyclidine (PCP) Neg U Amphetamin/Meth Scrn Neg MDMA (Ecstasy) Screen Neg U Benzodiazepines Scrn Neg U Cocaine Confirm GC/MS Ur Cocaine Metabolite Neg U Marijuana (THC) Screen Neg Drug Screen Comment Ethyl Alcohol mg/dL Toxicology Comment Drug Monitor Historic Res SARS-CoV-2, RNA, NAAT Hospital Course (1) MDD (major depressive disorder), recurrent episode, severe: Plan 10/05/2024: -Feels safe and ready for discharge 10/04/2024: -Continue current medications and tx plan -Discussed TMS 10/03/2024: -Ongoing behavioral activation 10/02/2024: Continue current medications and tx plan. Ongoing focus on behavioral activation. -Fasting lipid panel and HBA1c tomorrow due to use of Abilify 10/01/2024: Continue current medications and tx plan 09/30/2024: Continue current medications and tx plan 09/29/2024: Continue current medications and tx plan 09/28/2024: Discharge cancelled today, will reassess appropriate day over weekend Continue medications and treatment plan 09/27/2024: Continue medications and treatment plan 09/26/2024: Increase Abilify to 5 mg at bedtime Increase duloxetine to 60 mg daily. 09/25/2024: Continue medications and treatment plan 09/24/2024: Discontinue magnesium citrate at night. 09/23/2024: -Increase Duloxetine to 40mg QAM 09/22/2024: -Start Abilify 2.5mg daily -Start Propranolol 10mg TID -Start Mg Citrate 148ml HS -Start Ativan 0.5mg QD PRN for anxiety 09/21/2024: -Start Ambien 5mg HS -Increase duloxetine to 30mg daily tomorrow -Discontinue clonidine given limited benefit 09/20/2024: -Discontinue modafinil -Reduce duloxetine to 20mg daily starting tomorrow -Start clonidine 0.1mg HS 09/19/2024: -Increase modafinil to 200mg daily -Continue mirtazapine and duloxetine 09/18/2024: -Monitor I&O -Increase mirtazapine to 30mg HS -Start duloxetine 30mg daily tomorrow am 09/17/2024: The patient was admitted to the [facility] ([facility] mental health unit) on q15 min checks (behavioral with suicide precautions) for safety. The patient will participate in group, recreational, and milieu therapies and will be o ffered additional individual and family sessions as clinically appropriate. -Start mirtazapine 15mg HS and additional 15mg HS prn for insomnia -Start modafinil 100mg daily Mental Health & Subst Abuse Tx Psychiatrist Name of Psychiatrist: [facility]-Dr. Tsang Psychiatrist's Date Of Appointment With Psychiatric Provider: 10/10/2024 Time of Appointment with Psychiatrist: 2:00pm Psychiatric Appointment Comment: Appt from 09/27 was rescheduled. This will be a one hour appt Therapist Name of Therapist: [facility]-Mitch Therapist's Date of Therapist Appointment: 10/09/2024 Time of Therapist Appointment: 3:00pm Therapy Appointment Comment: Awaiting call back from Mitch to reschedule Sys Dir Name of Sys Dir: [facility]-MILADY Barbosa Date of Appointment with Sys Dir: 10/04/24 Time of Appointment with Sys Dir: 4:00 PM Case Management Appointment Comment: He will contact you to set up appt Post Discharge Appointments Primary Care Physician Name Of Family Doctor/PCP: [facility]-Dr. Machuca Primary Care Date of Future Appointment with PCP: 10/30/2024 Time of Appointment with PCP: 8AM Provider Appointment Comment: New patient appt Other #1: Name of Aftercare Appointment: [facility] Sys Dir-Елена Phone Number of Aftercare Appointment: Aftercare Appointment Comment: CM through insurance will follow up with you after DC #2: Name of Aftercare Appointment: [facility] Therapy Phone Number of Aftercare Appointment: [phone] Date of Aftercare Appointment: 10/31/24 Time of Aftercare Appointment: 10:40am Aftercare Appointment Comment: $35 copay per visit. They will email you forms Contact Information Discharge Discharge [address] [address] [place], [place] [address] [place] [address] Discharge Plan Discharge Items Patient Disposition: Home - Self-Care Reason For Visit: MDD Discharge Diagnosis: MDD (major depressive disorder), recurrent episode, severe Activity: Resume your previous activity Non-emergency contact: Primary Care Provider, Psychiatrist, Therapist and Sales Closer Call non-emergency contact if: you have any medication questions and your symptoms worsen Follow-up/Referrals: PCP,NO [Primary Care Provider] - Diet: Regular Addtl Attending Provider Instructions: Optional mobile apps we discussed: -Suicide safety plan -[employer] SPECIAL CARE INSTRUCTIONS: 1. Follow through with your scheduled aftercare appointments. If unable to keep an appointment, please call to reschedule. 2. Take your medication only as prescribed. Medication should not be changed or stopped without the approval of your doctor. In the event of worsening symptoms or concerns about side effects, contact your doctor immediately. 3. Utilize new healthy coping skills, anger management skills, and stress management skills learned during your hospitalization. Journal feelings and process them with a support person. Identify stressors or situations that may result in relapse, deterioration or inappropriate behaviors and develop a plan to deal with those issues. 4. If your coping skills are ineffective and you are in crisis, contact your outpatient providers for direction. If unable to reach your providers, please call the [facility] CRISIS LINE AT , go to the [facility] walk-in center at [address], [address], [place], or go to the closest Emergency Room. 5. Avoid alcohol and un-prescribed drugs. 6. You have been provided with the Mental Health Advance Directives Pamphlet for your review. 7. Your condition is stable for discharge to outpatient level of care, but recovery is an ongoing process. Ifthoughts to harm yourself or others return, follow the safety plan developed during your stay. Planning for a safe return home includes securing weapons. Our treatment team recommends weaponsbe removed from the home until your outpatient provider reassesses your progress. In rare cases where the items themselvescannot be removed, guns and ammunitionshould be secured separatelyand keys stored by a reliable personoutside of the home. If you were admitted on an involuntary commitment, the police or other legal authorities may be involved in this process. AFTERCARE APPOINTMENTS: * Please call your insurance company prior to your scheduled appointment to confirm your aftercare providers are covered. Take your insurance information to your appointments. WHO TO CALL AND WHEN: Medical Emergencies: For questions or emergencies related to your hospital stay, please contact the Inpatient Behavioral Health Unit at [phone]. A vp customer development is on-call 21/02 for the Behavioral Health Unit for emergencies At any time you feel your situation is an emergency, you may also call 911 immediately. National Crisis Line: 218 PSYCHOTHERAPY: With therapist: engage in cognitive behavioral and trauma therapy OTHER: Establish new order fulfillment specialist through case management Consider meal prepping and house keeping services to provide extra support Start Transcranial Magnetic Stimulation with [employer] Pending Studies at Discharge: Yes ([id number] can check via patient portal, and results to be sent in 1 wk) Stand-Alone Forms: My [facility] [employer], Smoking Cessation Medications and DC Order Prescriptions: New propranolol 10 mg Tablet 10 mg PO TID Qty: 90 0RF lorazepam 0.5 mg Tablet 0.5 mg PO DAILY PRN (Reason: anxiety/insomnia) Qty: 15 0RF zolpidem 5 mg Tablet 5 mg PO HS Qty: 30 0RF aripiprazole [Abilify] 5 mg Tablet 5 mg PO HS Qty: 30 0RF duloxetine 60 mg Capsule,Delayed Release(Dr/Ec) 60 mg PO QAM Qty: 30 0RF mirtazapine 30 mg tablet 30 mg PO HS Qty: 30 0RF Mag Glycinate 100 mg tablet 100 mg PO HS Qty: 30 0RF Continued gabapentin [Neurontin] 300 mg capsule 300 mg PO BID sulfasalazine [Azulfidine] 500 mg tablet 1 g PO TID 30 Days Qty: 180 0RF Rx Instructions: give with food (meal/snack) meloxicam 15 mg tablet 15 mg PO DAILY 30 Days Qty: 30 0RF ergocalciferol (vitamin D2) [Vitamin D2] 1,250 mcg (50,000 unit) capsule 1,250 mcg PO 2XWK 30 Days Qty: 8 0RF Discharge Orders: Discharge Order (Routine); Ordered 10/05/24 Ordered By: Yudith Box Admission Data Admit Date/Time: 09/16/24 16:07 Attending Provider: Yudith Box Admit Provider: Yudith Box Primary Care Provider: PCP,NO Other Interventions: Discharge Summary Assessment (RN) Last Done: 10/05/24 11:09 PSY Interdisciplinary Discharge Planning Last Done: 10/05/24 11:06 Coding Level of Care Code 71596 D/C day mgmt > 30 min Diagnoses MDD (major depressive disorder), recurrent episode, severe F33.2
[2024-10-05] MEDS: LORazepam 0.5 MG TAB PO ONE (10:48)
[2024-10-05 13:20] VITALS: BP 124/85; PULSE 91; RESP 16
[2024-10-06 02:57] LABS: EAG mg/dl 74 mg/dL; EAG mmol/L 4.1 mmol/L; HA1C 4.2 (<5.7)
== END 2024-10-05 14:00 | disposition home or self-care (01) | DRG 885 ==
LOC: ED 11:59 → 3S 16:05 → SUATTDRO 16:07 → 3S 16:07
DX: N39.0 Urinary tract infection, site not specified; R45.851 Suicidal ideations; F33.2 Major depressive disorder, recurrent severe without psychotic features